=== PATIENT | female | born 1960 | race Caucasian/White ===

== ENCOUNTER 2016-11-16 05:33 | Outpatient (CLI) | payer OTHER ==
[~2016-11-16] VITALS: Ht 170.2 cm; Wt 120.2 kg
[~2016-11-16 05:33] MED LIST: ACET500C11 PO; ALPR1TAB7 PO; CLOB15CR3 TP; DICY20TA33 PO; FLUO20CA25 PO; LORA10TA76 PO; MELA1TAB11 PO; PROP20TA5 PO; TRAM50TA2 PO
[2016-11-16] MEDS ORDERED: ALPR1TAB7 PO ×2 (15:10)
[2016-11-16] MEDS ORDERED: ACET-93 PO (15:10)
[2016-11-16] MEDS ORDERED: FLUO20TA28 PO (15:10)
[2016-11-16] MEDS ORDERED: TRAM50TA2 PO (15:10)
[2016-11-16] MEDS ORDERED: LACT1CAP74 PO (15:10)
[2016-11-16] MEDS ORDERED: CIPR-225 PO (15:10)
[2016-11-16] MEDS ORDERED: DICY20TA10 PO (15:10)
== END 2016-11-16 15:11 ==
LOC: PREOP 05:33
PROVIDERS: ATTEND Surgery
DX: Z01.818 Encounter for other preprocedural examination; Z86.010 Personal history of colon polyps

== ENCOUNTER 2016-11-21 08:45 | Day surgery (SDC) | payer OTHER ==
[~2016-11-21] VITALS: Ht 170.2 cm; Wt 120.2 kg
[~2016-11-21 08:45] MED LIST changes: +ACET-93 PO; +CIPR-225 PO; +DICY20TA10 PO; +FLUO20TA28 PO; +LACT1CAP74 PO
--- OUTSIDE RECORDS SUMMARY | 2016-11-21 08:49 | XMS REPORT ---
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 Problem Esophageal reflux 530.81 Active Problem Personal history of tobacco use, presenting hazards to health V15.82 Active Problem Anxiety state, unspecified 300.00 Active Problem Other seborrheic keratosis 702.19 Active Problem Plantar fascial fibromatosis 728.71 Active Problem Cellulitis and abscess of unspecified site 682.9 Active Problem Pain in soft tissues of limb 729.5 Active Problem Overweight 278.02 Active Problem Tension headache 307.81 Active Problem Chest pain, unspecified 786.50 Active Problem Abdominal pain, right lower quadrant 789.03 Active Problem Symptomatic menopausal or female climacteric states 627.2 Active Problem Palpitations 785.1 Active Problem Other dyspnea and respiratory abnormalities 786.09 Active Problem Family history of diabetes mellitus V18.0 Active Problem Unspecified otalgia 388.70 Active Problem Unspecified alopecia 704.00 Active Problem Other psoriasis 696.1 Active Medications Medication Code System Code Instructions Start Date End Date Status Dosage Alprazolam [facility] [address]-80 1 MG April 28, 2014 0.5 Tablet by Oral route 2 times per day 1/2 tab daily prn and 1mg at bedtime for sleep every nite Results No Known Results Summary Purpose eClinicalWorks Submission
--- OUTSIDE RECORDS SUMMARY | 2016-11-21 08:49 | XMS REPORT ---
Author Author JEZ TOMLINSON Organization [employer] Address Unknown Phone Unavailable Care Team Providers Care Franchise Business Consultant Name Role Phone JEZ TOMLINSON CP Unavailable [...] Instructions Start Date End Date Status Dosage Fluoxetine HCl [facility]NOTE 2] [address]-47 20 MG TAKE 3 CAPSULES BY MOUTH DAILY Results No Known Results Summary Purpose eClinicalWorks Submission
--- OUTSIDE RECORDS SUMMARY | 2016-11-21 08:49 | XMS REPORT ---
Author Author JEZ TOMLINSON Organization [employer] Address Unknown Phone Unavailable Care Team Providers Care Linux Consultant Name Role Phone JEZ TOMLINSON CP Unavailable Allergies No Known Allergies Problems Problem Type Condition Code Onset Dates Condition Status Assessment Anxiety disorder, unspecified F41.9 Active Problem Anxiety state, unspecified 300.00 Active Problem Esophageal reflux 530.81 Active Problem Cellulitis and abscess of unspecified site 682.9 Active Problem Abdominal pain, right lower quadrant 789.03 Active Problem Plantar fascial fibromatosis 728.71 Active Problem Symptomatic menopausal or female climacteric states 627.2 Active Problem Overweight 278.02 Active Problem Personal history of tobacco use, presenting hazards to health V15.82 Active Problem Pain in soft tissues of limb 729.5 Active Problem Hypertension I10 Active Problem Dysthymia F34.1 Active Problem Family history of diabetes mellitus V18.0 Active Problem Chest pain, unspecified 786.50 Active Problem Anxiety disorder, unspecified F41.9 Active Problem Tension headache 307.81 Active Problem Other seborrheic keratosis 702.19 Active Problem 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 Problem Knee pain M25.569 Active Problem Eustachian tube dysfunction H69.80 Active Problem Other dyspnea and respiratory abnormalities 786.09 Active Problem Unspecified otalgia 388.70 Active Problem Unspecified alopecia 704.00 Active Problem Palpitations 785.1 Active Problem Special screening examination, human papillomavirus [HPV] V73.81 Active Problem Screening for malignant neoplasm of the cervix V76.2 Active Problem Other psoriasis 696.1 Active Problem Unspecified breast screening V76.10 Active Medications Medication Code System Code Instructions Start Date End Date Status Dosage Alprazolam [facility] [address]-21 1 MG Orally Twice a day, and 1 tablet at bedtime April 28, 2014 0.5 Tablet as needed Results No Known Results Summary Purpose eClinicalWorks Submission
--- OUTSIDE RECORDS SUMMARY | 2016-11-21 08:49 | XMS REPORT ---
Author Author JEZ TOMLINSON Organization [employer] Address Unknown Phone Unavailable Care Team Providers Care Bus Washer Name Role Phone JEZ TOMLINSON CP Unavailable [...] Start Date End Date Status Dosage Alprazolam [facility] [address]-35 1 MG Orally Twice a day, and 1 tablet at bedtime April 28, 2014 0.5 Tablet as needed Results No Known Results Summary Purpose eClinicalWorks Submission
--- OUTSIDE RECORDS SUMMARY | 2016-11-21 08:49 | XMS REPORT ---
Author Author JEZ TOMLINSON Organization [employer] Address Unknown Phone Unavailable Care Team Providers Care Director Of [employer] Name Role Phone JEZ TOMLINSON CP Unavailable [...] Active Problem Other psoriasis 696.1 Active Medications No Known Medications Results No Known Results Summary Purpose eClinicalWorks Submission
--- OUTSIDE RECORDS SUMMARY | 2016-11-21 08:49 | XMS REPORT ---
Author Author JEZ TOMLINSON Organization e[employer]Works Address Unknown Phone Unavailable Care Team Providers Care Forestry Professor Name Role Phone JEZ TOMLINSON CP Unavailable Allergies No Known Allergies Problems Problem Type Condition ICD-9 Code Onset Dates Condition Status Problem Unspecified [...] Start Date End Date Status Dosage Alprazolam [facility] [address]-15 1 MG April 28, 2014 0.5 Tablet by Oral route 2 times per day 1/2 tab daily prn and 1mg at bedtime for sleep every nite Results No Known Results Summary Purpose eClinicalWorks Submission
--- OUTSIDE RECORDS SUMMARY | 2016-11-21 08:49 | XMS REPORT ---
Author Author TOÑA MARINA Organization [facility] Address [address] [place] [address] Care Team Providers Care Integration Consultant Name Role Phone CATHY DINGE Unavailable PROBLEMS Type Condition ICD9-CM Code [id number] Code Onset Dates Condition Status SNOMED Code Problem Pharyngitis, unspecified etiology J02.9 Active 416178618 Problem Anxiety disorder, unspecified F41.9 Active 520141201 Problem Eustachian tube dysfunction H69.80 Active 82816306 Problem Knee pain M25.569 Active 57499511 Problem Hypertension I10 Active 05424329 Problem Dysthymia F34.1 Active 27443235 ALLERGIES Substance Reaction Event Type Date Status N.K.D.A. Unknown Non Drug Allergy Mar, Unknown SOCIAL HISTORY No smoking Hx information available PLAN OF CARE Activity Details Follow Up 2 - 3 Days, prn Reason: VITAL SIGNS Height 67 in 2016-03-30 Weight 263.8 lbs 2016-03-30 Temperature 98.2 degrees Fahrenheit 2016-03-30 Heart Rate 84 bpm 2016-03-30 Respiratory Rate 20 2016-03-30 BMI 41.31 kg/m2 2016-03-30 Blood pressure systolic 125 mmHg 2016-03-30 Blood pressure diastolic 81 mmHg 2016-03-30 MEDICATIONS Medication Instructions Dosage Frequency Start Date End Date Duration Status Probiotic Active tramadol 50 mg by oral route 3 times a day 1 tablet as needed 8h May, 28 days Active ProAir HFA 108 (90 Base) MCG/ACT Inhalation every 4 hrs 2 puffs as needed 4h Sep, Active Fiber Active Azithromycin 250 MG Orally Once a day 2 tablets on the first day, then 1 tablet daily for 4 days 24h Mar, Mar, 5 day(s) Active Alprazolam 1 MG Orally Twice a day, and 1 tablet at bedtime 0.5 Tablet as needed Apr, 28 days Active Fluoxetine HCl 20 MG TAKE 3 CAPSULES BY MOUTH ONCE DAILY 30 Active Flonase Allergy Relief 50 MCG/ACT Nasally 2 times a day 1 spray in each nostril 12h 25 Mar, 2015 Active Propranolol HCl 20 MG 1 tablet Twice a day Orally 90 Active Bentyl 20 mg Orally 4 times a day before meals and bedtime 1 tablet Sep, Active RESULTS No Results PROCEDURES Procedure Date Ordered Related Diagnosis Body Site Office Visit, Est Pt., Level 3 Mar 30, 2016 IMMUNIZATIONS No Known Immunizations
--- OUTSIDE RECORDS SUMMARY | 2016-11-21 08:50 | XMS REPORT ---
Author Author JEZ TOMLINSON [facility] Address [address] [place] [address] Care Team Providers Care Track Subway Repair Supervisor Name Role Phone JEZ TOMLINSON Unavailable PROBLEMS Type Condition ICD9-CM Code OKZ74-PH Code Onset Dates Condition Status SNOMED Code Problem Pharyngitis, unspecified etiology J02.9 Active 089706915 Problem Anxiety disorder, unspecified F41.9 Active 518211272 Problem Eustachian tube dysfunction H69.80 Active 33436550 Problem Knee pain M25.569 Active 85040133 Problem Hypertension I10 Active 30286495 Problem Dysthymia F34.1 Active 34849521 ALLERGIES No Information SOCIAL HISTORY Never Assessed PLAN OF CARE VITAL SIGNS MEDICATIONS Medication Instructions Dosage Frequency Start Date End Date Duration Status Alprazolam 1 MG Orally Twice a day, and 1 tablet at bedtime 0.5 Tablet as needed Apr, 28 days Active RESULTS No Results PROCEDURES No Known procedures IMMUNIZATIONS No Known Immunizations MEDICAL (GENERAL) HISTORY Type Description Date Medical History depression Medical History hx of anxiety Medical History mitral valve prolapse Surgical History tonsillectomy and adenoidectomy Surgical History partial hysterectomy Surgical History jaw surgery 1974 Surgical History colonoscopy 10/26/15 Hospitalization History for surgery
--- OUTSIDE RECORDS SUMMARY | 2016-11-21 08:50 | XMS REPORT ---
Author Author JEZ TOMLINSON Organization eClinicalWorks Address Unknown Phone Unavailable Care Team Providers Care Import Customs Clearing Agent Name Role Phone JEZ TOMLINSON CP Unavailable Allergies No Known Allergies Problems Problem Type Condition Code Onset Dates Condition Status Problem Anxiety state, unspecified 300.00 Active Problem Screening for malignant neoplasm of the cervix V76.2 Active Problem Esophageal reflux 530.81 Active Problem Cellulitis and abscess of unspecified site 682.9 Active Problem Abdominal pain, right lower quadrant 789.03 Active Problem Plantar fascial fibromatosis 728.71 Active Problem Pain in soft tissues of limb 729.5 Active Problem Overweight 278.02 Active Problem Dysthymia F34.1 Active Problem Knee pain M25.569 Active Problem Chest pain, unspecified 786.50 Active Problem Tension headache 307.81 Active Problem Hypertension I10 Active Problem Symptomatic menopausal or female climacteric states 627.2 Active Problem 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 Problem Personal history of tobacco use, presenting hazards to health V15.82 Active Problem Eustachian tube dysfunction H69.80 Active Problem Other seborrheic keratosis 702.19 Active Problem Palpitations 785.1 Active Problem Other dyspnea and respiratory abnormalities 786.09 Active Problem Family history of diabetes mellitus V18.0 Active Problem Unspecified alopecia 704.00 Active Problem Unspecified breast screening V76.10 Active Problem Special screening examination, human papillomavirus [HPV] V73.81 Active Problem Unspecified otalgia 388.70 Active Problem Other psoriasis 696.1 Active Medications No Known Medications Results No Known Results Summary Purpose eClinicalWorks Submission
--- OUTSIDE RECORDS SUMMARY | 2016-11-21 08:50 | XMS REPORT ---
Author Author JEZ TOMLINSON Organization e[employer] Address Unknown Phone Unavailable Care Team Providers Care Reproductive Healthcare Assistant Name Role Phone JEZ TOMLINSON CP Unavailable [...] Problem Unspecified breast screening V76.10 Active Medications No Known Medications Results No Known Results Summary Purpose eClinicalWorks Submission
--- OUTSIDE RECORDS SUMMARY | 2016-11-21 08:50 | XMS REPORT ---
Author Author JEZ TOLMINSON Organization e[employer]Works Address Unknown Phone Unavailable Care Team Providers Care County Treasurer Name Role Phone JEZ TOMLINSON CP Unavailable [...] Date End Date Status Dosage Fluoxetine HCl [facility] [address]-03 20 MG TAKE 3 CAPSULES BY MOUTH DAILY Results No Known Results Summary Purpose eClinicalWorks Submission
--- OUTSIDE RECORDS SUMMARY | 2016-11-21 08:50 | XMS REPORT ---
Author Author JEZ TOMLINSON [facility] eClinicalWorks Address Unknown Phone Unavailable Care Team Providers Care Packing Line Worker Name Role Phone JEZ TOMLINSON CP Unavailable Allergies, Adverse Reactions, Alerts Substance Reaction Event Type N.K.D.A. Info Not Available Non Drug Allergy Problems Problem Type Condition Code Onset Dates Condition Status Assessment Visual changes H53.9 Active Assessment Family history of diabetes mellitus Z83.3 Active Assessment Hypertension I10 Active Assessment Irritable bowel syndrome with diarrhea K58.0 Active Problem Anxiety state, unspecified 300.00 Active [...] Instructions Start Date End Date Status Dosage Bentyl [facility] [address]-07 20 mg Orally 4 times a day before meals and bedtime Sep 30, 2015 1 tablet Fluoxetine HCl [facility] 60051253263 20 MG TAKE 3 CAPSULES BY MOUTH DAILY Fiber NDC 0 not defined ProAir HFA [facility] [address]-70 108 (90 Base) MCG/ACT Inhalation every 4 hrs Oct 03, 2014 2 puffs as needed Flonase Allergy Relief [facility] [address]-41 50 MCG/ACT Nasally 2 times a day Apr 22, 2015 1 spray in each nostril tramadol [facility] 0 50 mg by oral route 3 times a day June 18, 2013 1 tablet as needed Alprazolam [facility] [address]-94 1 MG Orally Twice a day, and 1 tablet at bedtime April 28, 2014 0.5 Tablet as needed Probiotic [facility] [address] not defined Propranolol HCl [facility] [address]-81 20 MG Orally Twice a day Apr 22, 2015 1 tablet Procedures Procedure Coding System Code Date Office Visit, Est Pt., Level 3 CPT-4 50758 Nov 16, 2015 LIPID PANEL CPT-4 57054 Nov 16, 2015 GLYCATED HEMOGLOBIN TEST CPT-4 60287 Nov 16, 2015 VENIPUNCT, ROUTINE* CPT-4 40162 Nov 16, 2015 COMPREHEN METABOLIC PANEL CPT-4 10584 Nov 16, 2015 Vital Signs Date/Time: Nov 16, 2015 Cardiac Monitoring Heart Rate 72 bpm Weight 260.2 lbs Height 67 in BMI 40.75 Index Blood Pressure Diastolic 86 mmHg Blood Pressure Systolic 122 mmHg Results Name Result Date Reference Range Unit Abnormality Flag CMP ----Calcium, Serum 9.1 20151116 8.7-10.2 mg/dL ----Carbon Dioxide, Total 25 20151116 18-29 mmol/L ----ALT (SGPT) 17 20151116 0-32 IU/L ----Creatinine, Serum 0.61 20151116 0.57-1.00 mg/dL ----AST (SGOT) 15 20151116 0-40 IU/L ----eGFR If NonAfricn Am 102 [id number] >59 mL/min/1.73 ----Alkaline Phosphatase, S 83 [id number] 39-117 IU/L ----eGFR If Africn Am 118 [id number] >59 mL/min/1.73 ----Bilirubin, Total 0.9 [id number] 0.0-1.2 mg/dL ----BUN/Creatinine Ratio 15 20151116 9-23 ----A/G Ratio 1.7 20151116 1.1-2.5 ----Sodium, Serum 140 20151116 134-144 mmol/L ----Globulin, Total 2.6 20151116 1.5-4.5 g/dL ----Potassium, Serum 4.2 20151116 3.5-5.2 mmol/L ----Glucose, Serum 91 20151116 65-99 mg/dL ----Chloride, Serum 98 20151116 97-108 mmol/L ----Albumin, Serum 4.4 20151116 3.5-5.5 g/dL ----BUN 9 20151116 6-24 mg/dL ----Protein, Total, Serum 7.0 20151116 6.0-8.5 g/dL No Test Indicated A1C (IN HOUSE) ----A1C IN HOUSE 4.9 20151116 4.3 - 5.6 % ----Previous A1c N/A 20151116 ----Lot [id number] ----Exp date 09/25/201720151116 ROUTINE VENIPUNCTURE LIPID PANEL ----LDL Cholesterol Calc 101 20151116 0-99 mg/dL H ----VLDL Cholesterol Denis 19 20151116 5-40 mg/dL ----HDL Cholesterol 63 20151116 >39 mg/dL ----Triglycerides 94 20151116 0-149 mg/dL ----Cholesterol, Total 183 [id number] 100-199 mg/dL Summary Purpose eClinicalWorks Submission
--- OUTSIDE RECORDS SUMMARY | 2016-11-21 08:50 | XMS REPORT ---
Author Author JEZ TOMLINSON Organization [employer]Works Address Unknown Phone Unavailable Care Team Providers Care Apartment Rental Agent Name Role Phone JEZ TOMLINSON CP [...]
--- OUTSIDE RECORDS SUMMARY | 2016-11-21 08:50 | XMS REPORT ---
Author Author JEZ TOMLINSON Organization e[employer]Works Address Unknown Phone Unavailable Care Team Providers Care Dry Mop Maker Name Role Phone JEZ TOMLINSON CP Unavailable [...]
--- OUTSIDE RECORDS SUMMARY | 2016-11-21 08:50 | XMS REPORT ---
Author Author JEZ TOMLINSON [facility] Address [address] [place] [address] Care Team Providers Care Wash And Greaser Name Role Phone JEZ TOMLINSON Unavailable PROBLEMS Type Condition ICD9-CM Code [id number] Code Onset Dates Condition Status SNOMED Code Problem Anxiety state, unspecified 300.00 Active 276213808 Problem Esophageal reflux 530.81 Active 181671948 Problem Abdominal pain, right lower quadrant 789.03 Active 944940800 Problem Plantar fascial fibromatosis 728.71 Active 71084093 Problem Symptomatic menopausal or female climacteric states 627.2 Active 81715828 Problem Overweight 278.02 Active 280582010 Problem Tension headache 307.81 Active 162953197 Problem Pain in soft tissues of limb 729.5 Active 52313849 Problem 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 15905842 Problem Personal history of tobacco use, presenting hazards to health V15.82 Active 6107752098769 Problem Anxiety disorder, unspecified F41.9 Active 494700597 Problem Hypertension I10 Active 92159412 Problem Unspecified alopecia 704.00 Active 83018724 Problem Family history of diabetes mellitus V18.0 Active 259582469 Problem Chest pain, unspecified 786.50 Active 31179499 Problem Eustachian tube dysfunction H69.80 Active 10178559 Problem Other seborrheic keratosis 702.19 Active 247003520 Problem Dysthymia F34.1 Active 12118751 Problem Knee pain M25.569 Active 54541052 Problem Unspecified otalgia 388.70 Active 70265087 Problem Other psoriasis 696.1 Active 8516890 Problem Palpitations 785.1 Active 78506403 Problem Other dyspnea and respiratory abnormalities 786.09 Active 746395839 Problem Screening for malignant neoplasm of the cervix V76.2 Active 884686774 Problem Cellulitis and abscess of unspecified site 682.9 Active 531617427 Problem Unspecified breast screening V76.10 Active 164550256 Problem Special screening examination, human papillomavirus [HPV] V73.81 Active 192733723 ALLERGIES Unknown Allergies SOCIAL HISTORY No smoking Hx information available PLAN OF CARE VITAL SIGNS MEDICATIONS Medication Instructions Dosage Frequency Start Date End Date Duration Status Alprazolam 1 MG Orally Twice a day, and 1 tablet at bedtime 0.5 Tablet as needed Apr, Active RESULTS No Results PROCEDURES No Known procedures IMMUNIZATIONS No Known Immunizations
--- OUTSIDE RECORDS SUMMARY | 2016-11-21 08:50 | XMS REPORT ---
Author Author JEZ TOMLINSON Organization eClinicalWorks Address Unknown Phone Unavailable Care Team Providers Care Roadway Designer Name Role Phone JEZ TOMLINSON CP Unavailable [...] Start Date End Date Status Dosage Alprazolam [facility] [address]-20 1 MG Orally Twice a day, and 1 tablet at bedtime April 28, 2014 0.5 Tablet as needed Results No Known Results Summary Purpose eClinicalWorks Submission
--- OUTSIDE RECORDS SUMMARY | 2016-11-21 08:51 | XMS REPORT ---
Author Author JULIO HARRY [facility] eClinicalWorks Address Unknown Phone Unavailable Care Team Providers Care Palliative Senior Np Name Role Phone JULIO HARRY CP Unavailable Allergies, Adverse Reactions, Alerts Substance [...] Active Problem Anxiety state, unspecified 300.00 Active Assessment Allergic rhinitis 477.9 Active Problem Other seborrheic keratosis 702.19 Active [...] V18.0 Active Problem Unspecified otalgia 388.70 Active Assessment Chronic serous otitis media of both ears 381.10 Active Problem Unspecified alopecia 704.00 Active Problem Other psoriasis 696.1 Active Medications Medication Code System Code Instructions Start Date End Date Status Dosage ProAir HFA [facility] [address]-95 108 (90 Base) MCG/ACT Inhalation every 4 hrs Oct 03, 2014 2 puffs as needed Prozac [facility] 92146851084 20 MG 3 capsule by Oral route 1 time per day propranolol NDC 0 20 mg Dec 18, 2013 1 tablet by Oral route 2 times per day tramadol NDC 0 50 mg June 18, 2013 take 1 tablet by Oral route every 8 hours as needed PRN pain Alprazolam [facility] [address]-10 1 MG April 28, 2014 0.5 Tablet by Oral route 2 times per day 1/2 tab daily prn and 1mg at bedtime for sleep every nite Procedures Procedure Coding System Code Date Office Visit, Est Pt., Level 3 CPT-4 80408 Nov 10, 2014 Vital Signs Date/Time: Nov 10, 2014 Temperature 98.4 F Weight 258 lbs Height 67 in BMI 40.40 Index Blood Pressure Diastolic 82 mmHg Blood Pressure Systolic 120 mmHg Cardiac Monitoring Heart Rate 86 bpm Results No Known Results Summary Purpose eClinicalWorks Submission
--- OUTSIDE RECORDS SUMMARY | 2016-11-21 08:51 | XMS REPORT ---
Author Author JEZ TOMLINSON Organization eClinicalWorks Address Unknown Phone Unavailable Care Team Providers Care Poultryman Name Role Phone JEZ TOMLINSON CP Unavailable [...] Date End Date Status Dosage Alprazolam [facility] [address]-11 1 MG April 28, 2014 0.5 Tablet by Oral route 2 times per day 1/2 tab daily prn and 1mg at bedtime for sleep every nite Results No Known Results Summary Purpose eClinicalWorks Submission
--- OUTSIDE RECORDS SUMMARY | 2016-11-21 08:51 | XMS REPORT ---
Author Author JEZ TOMLINSON Organization [employer] Address Unknown Phone Unavailable Care Team Providers Care Rattle Leak And Squeak Repairer Name Role Phone JEZ TOMLINSON CP Unavailable [...] Start Date End Date Status Dosage Alprazolam [facility] [address]-37 1 MG April 28, 2014 0.5 Tablet by Oral route 2 times per day 1/2 tab daily prn and 1mg at bedtime for sleep every nite Results No Known Results Summary Purpose eClinicalWorks Submission
--- OUTSIDE RECORDS SUMMARY | 2016-11-21 08:51 | XMS REPORT ---
Author Author JEZ TOMLINSON [facility] eClinicalWorks Address Unknown Phone Unavailable Care Team Providers Care High School Mathematics Teacher Name Role Phone JEZ TOMLINSON CP Unavailable Allergies No Known Allergies Problems Problem Type Condition Code Onset Dates Condition Status Assessment Knee pain M25.569 Active Problem Anxiety state, unspecified 300.00 Active [...] Date End Date Status Dosage Alprazolam [facility] [address]-58 1 MG Orally Twice a day, and 1 tablet at bedtime April 28, 2014 0.5 Tablet as needed Fluoxetine HCl [facility] 17725313241 20 MG TAKE 3 CAPSULES BY MOUTH DAILY ProAir HFA [facility] [address]-02 108 (90 Base) MCG/ACT Inhalation every 4 hrs Oct 03, 2014 2 puffs as needed tramadol [place] 0 50 mg by oral route 3 times a day June 18, 2013 1 tablet as needed Flonase Allergy Relief [facility] [address]-21 50 MCG/ACT Nasally 2 times a day Apr 22, 2015 1 spray in each nostril Propranolol HCl [facility] [address]-02 20 MG Orally Twice a day Apr 22, 2015 1 tablet Results No Known Results Summary Purpose eClinicalWorks Submission
--- OUTSIDE RECORDS SUMMARY | 2016-11-21 08:51 | XMS REPORT ---
Author Author JEZ TOMLINSON [facility] Address [address] [place] [address] Care Team Providers Care Cloth Opener Hand Name Role Phone JEZ TOMLINSON Unavailable PROBLEMS Type Condition ICD9-CM Code CPS16-RX Code Onset Dates Condition Status SNOMED Code Problem Pharyngitis, unspecified etiology J02.9 Active 656642084 Problem Anxiety disorder, unspecified F41.9 Active 075555570 Problem Eustachian tube dysfunction H69.80 Active 49726166 Problem Knee pain M25.569 Active 61198196 Problem Hypertension I10 Active 51582723 Problem Dysthymia F34.1 Active 16533798 ALLERGIES Unknown Allergies SOCIAL HISTORY No smoking [...]
--- OUTSIDE RECORDS SUMMARY | 2016-11-21 08:52 | XMS REPORT | Continuity of Care Document ---
Author Author [facility] Organization [facility] Address Unknown Phone Unavailable Allergies Active Description Code Type Severity Reaction Onset Reported/Identified Relationship to Patient Clinical Status Yes No Known Drug Allergies [id number] Drug Allergy Unknown N/ A 12/25/2013 Medications Problems Date Dx Coded Attending Type Code Diagnosis Diagnosed By 11/22/2007 JEZ TOMLINSON APRN 401.1 HYPERTENSION, BENIGN ESSENTIAL 11/22/2007 JEZ TOMLINSON APRN S V58.69 MEDICATION HIGH RISK 11/22/2007 401.1 HYPERTENSION, BENIGN ESSENTIAL 11/22/2007 V58.69 MEDICATION HIGH RISK 11/22/2007 UMER TOMLINSON APRNA S 401.1 HYPERTENSION, BENIGN ESSENTIAL 11/22/2007 UMER TOMLINSON APRNA S V58.69 MEDICATION HIGH RISK 11/22/2007 401.1 HYPERTENSION, BENIGN ESSENTIAL 11/22/2007 V58.69 MEDICATION HIGH RISK 11/22/2007 401.1 HYPERTENSION, BENIGN ESSENTIAL 11/22/2007 V58.69 MEDICATION HIGH RISK 11/22/2007 MONTALVO DO LEIGH ANN K 401.1 HYPERTENSION, BENIGN ESSENTIAL 11/22/2007 MONTALVO DO LEIGH ANN K V58.69 MEDICATION HIGH RISK 11/22/2007 MONTALVO DO LEIGH ANN K 401.1 HYPERTENSION, BENIGN ESSENTIAL 11/22/2007 MONTALVO DO LEIGH ANN K V58.69 MEDICATION HIGH RISK 11/22/2007 UMER TOMLINSON APRNA S 401.1 HYPERTENSION, BENIGN ESSENTIAL 11/22/2007 UMER TOMLINSON APRNA S V58.69 MEDICATION HIGH RISK 11/22/2007 YANNA GALLARDO MD 401.1 HYPERTENSION, BENIGN ESSENTIAL 11/22/2007 YANNA GALLARDO MD V58.69 MEDICATION HIGH RISK 11/22/2007 MONTALVO DO LEIGH ANN K 401.1 HYPERTENSION, BENIGN ESSENTIAL 11/22/2007 MONTALVO DO LEIGH ANN K V58.69 MEDICATION HIGH RISK 11/22/2007 UMER TOMLINSON APRNA S 401.1 HYPERTENSION, BENIGN ESSENTIAL 11/22/2007 BUSHRASOMMER DIAZLiz JEZ S V58.69 MEDICATION HIGH RISK 05/20/2008 BUSHRASOMMER DIAZCASI HillNDA S 528.9 DISEASES OF THE ORAL SOFT TISSUES ( EXCEPT GINGIVA, TONGUE) 05/20/2008 BUSHRA CASI ORTIZNDA S 625.6 FEMALE STRESS INCONTINENCE 05/20/2008 BUSHRA CASI ORTIZNDA S 787.91 diarrhea 05/20/2008 BUSHRASOMMER DIAZLiz JEZ S V72.3 GYNECOLOGICAL EXAMINATION 05/20/2008 528.9 DISEASES OF THE ORAL SOFT TISSUES (EXCEPT GINGIVA, TONGUE) 05/20/2008 625.6 FEMALE STRESS INCONTINENCE 05/20/2008 787.91 diarrhea 05/20/2008 V72.3 GYNECOLOGICAL EXAMINATION 05/20/2008 BUSHRA CASI ORTIZNDA S 528.9 DISEASES OF THE ORAL SOFT TISSUES ( EXCEPT GINGIVA, TONGUE) 05/20/2008 UMER TOMLINSON APRNA S 625.6 FEMALE STRESS INCONTINENCE 05/20/2008 BUSHRA INTERNAL RECRUITERCASI HillNDA S 787.91 diarrhea 05/20/2008 BUSHRASOMMER DIAZLiz JEZ S V72.3 GYNECOLOGICAL EXAMINATION 05/20/2008 528.9 DISEASES OF THE ORAL SOFT TISSUES (EXCEPT GINGIVA, TONGUE) 05/20/2008 625.6 FEMALE STRESS INCONTINENCE 05/20/2008 787.91 diarrhea 05/20/2008 V72.3 GYNECOLOGICAL EXAMINATION 05/20/2008 528.9 DISEASES OF THE ORAL SOFT TISSUES (EXCEPT GINGIVA, TONGUE) 05/20/2008 625.6 FEMALE STRESS INCONTINENCE 05/20/2008 787.91 DIARRHEA 05/20/2008 V72.3 GYNECOLOGICAL EXAMINATION 05/20/2008 MONTALVO DO, LEIGH ANN K 528.9 DISEASES OF THE ORAL SOFT TISSUES (EXCEPT GINGIVA, TONGUE) 05/20/2008 MONTALVO DO, LEIGH ANN K 625.6 FEMALE STRESS INCONTINENCE 05/20/2008 MONTALVO DO, LEIGH ANN K 787.91 DIARRHEA 05/20/2008 MONTALVO DO, LEIGH ANN K V72.3 GYNECOLOGICAL EXAMINATION 05/20/2008 MONTALVO DO, LEIGH ANN K 528.9 DISEASES OF THE ORAL SOFT TISSUES (EXCEPT GINGIVA, TONGUE) 05/20/2008 MONTALVO DO, LEIGH ANN K 625.6 FEMALE STRESS INCONTINENCE 05/20/2008 MONTALVO DO, LEIGH ANN K 787.91 DIARRHEA 05/20/2008 MONTALVO DO, LEIGH ANN K V72.3 GYNECOLOGICAL EXAMINATION 05/20/2008 CASI TOMLINSON APRNNDA S 528.9 DISEASES OF THE ORAL SOFT TISSUES ( EXCEPT GINGIVA, TONGUE) 05/20/2008 BUSHRA ORTIZ JEZ S 625.6 FEMALE STRESS INCONTINENCE 05/20/2008 BUSHRA ORTIZ JEZ S 787.91 DIARRHEA 05/20/2008 BUSHRA ORTIZ JEZ S V72.3 GYNECOLOGICAL EXAMINATION 05/20/2008 SAMI WOLFE, ALI 528.9 DISEASES OF THE ORAL SOFT TISSUES (EXCEPT GINGIVA, TONGUE) 05/20/2008 YANNA GALLARDO MD 625.6 FEMALE STRESS INCONTINENCE 05/20/2008 SAMI WOLFE ALI 787.91 DIARRHEA 05/20/2008 SAMI WOLFE ALI V72.3 GYNECOLOGICAL EXAMINATION 05/20/2008 MONTALVO DO, LEIGH ANN K 528.9 DISEASES OF THE ORAL SOFT TISSUES (EXCEPT GINGIVA, TONGUE) 05/20/2008 MONTALVO DO LEIGH ANN K 625.6 FEMALE STRESS INCONTINENCE 05/20/2008 MONTALVO DO, LEIGH ANN K 787.91 DIARRHEA 05/20/2008 MONTALVO DO, LEIGH ANN K V72.3 GYNECOLOGICAL EXAMINATION 05/20/2008 CASI TOMLINSON APRNNDA S 528.9 DISEASES OF THE ORAL SOFT TISSUES ( EXCEPT GINGIVA, TONGUE) 05/20/2008 CASI TOMLINSON APRNNDA S 625.6 FEMALE STRESS INCONTINENCE 05/20/2008 CASI TOMLINSON APRNNDA S 787.91 DIARRHEA 05/20/2008 BUSHRA ORTIZ JEZ S V72.3 GYNECOLOGICAL EXAMINATION 06/10/2008 CASI TOMLINSON APRNNDA S 388.30 TINNITUS UNSPECIFIED 06/10/2008 388.30 TINNITUS UNSPECIFIED 06/10/2008 BUSHRA ORTIZ JEZ S 388.30 TINNITUS UNSPECIFIED 06/10/2008 388.30 TINNITUS UNSPECIFIED 06/10/2008 388.30 TINNITUS UNSPECIFIED 06/10/2008 MONTALVO DO LEIGH ANN K 388.30 TINNITUS UNSPECIFIED 06/10/2008 MONTALVO DO LEIGH ANN K 388.30 TINNITUS UNSPECIFIED 06/10/2008 CASI TOMLINSON APRNNDA S 388.30 TINNITUS UNSPECIFIED 06/10/2008 SAMI WOLFE, YANNA 388.30 TINNITUS UNSPECIFIED 06/10/2008 MONTALVO DO, LEIGH ANN K 388.30 TINNITUS UNSPECIFIED 06/10/2008 CASI TOMLINSON APRNNDA S 388.30 TINNITUS UNSPECIFIED 02/08/2009 CASI TOMLINSON APRNNDA S 706.2 SEBACEOUS CYST 02/08/2009 CASI TOMLNISON APRNNDA S 729.5 PAIN IN LIMB 02/08/2009 706.2 SEBACEOUS CYST 02/08/2009 729.5 PAIN IN LIMB 02/08/2009 CASI TOMLINSON APRNNDA S 706.2 SEBACEOUS CYST 02/08/2009 CASI TOMLINSON APRNNDA S 729.5 PAIN IN LIMB 02/08/2009 706.2 SEBACEOUS CYST 02/08/2009 729.5 PAIN IN LIMB 02/08/2009 706.2 SEBACEOUS CYST 02/08/2009 729.5 PAIN IN LIMB 02/08/2009 MONTALVO DO, LEIGH ANN K 706.2 SEBACEOUS CYST 02/08/2009 MONTALVO DO, LEIGH ANN K 729.5 PAIN IN LIMB 02/08/2009 MONTALVO DO, LEIGH ANN K 706.2 SEBACEOUS CYST 02/08/2009 MONTALVO DO, LEIGH ANN K 729.5 PAIN IN LIMB 02/08/2009 CASI TOMLINSON APRNNDA S 706.2 SEBACEOUS CYST 02/08/2009 CASI TOMLINSON APRNNDA S 729.5 PAIN IN LIMB 02/08/2009 YANNA GALLARDO MD 706.2 SEBACEOUS CYST 02/08/2009 YANNA GALLARDO MD 729.5 PAIN IN LIMB 02/08/2009 MONTALVO DO, LEIGH ANN K 706.2 SEBACEOUS CYST 02/08/2009 MONTALVO DO, LEIGH ANN K 729.5 PAIN IN LIMB 02/08/2009 CASI TOMLINSON APRNNDA S 706.2 SEBACEOUS CYST 02/08/2009 CASI TOMLINSON APRNNDA S 729.5 PAIN IN LIMB 09/08/2009 CASI TOMLINSON APRNNDA S 333.94 RESTLESS LEGS SYNDROME (RLS) 09/08/2009 333.94 RESTLESS LEGS SYNDROME (RLS) 09/08/2009 JEZ TOMLINSON APRN S 333.94 RESTLESS LEGS SYNDROME (RLS) 09/08/2009 333.94 RESTLESS LEGS SYNDROME (RLS) 09/08/2009 333.94 RESTLESS LEGS SYNDROME (RLS) 09/08/2009 LEIGH ANN MONTALVO DO K 333.94 RESTLESS LEGS SYNDROME (RLS) 09/08/2009 LEIGH ANN MONTALVO DO K 333.94 RESTLESS LEGS SYNDROME (RLS) 09/08/2009 JEZ TOMLINSON APRN S 333.94 RESTLESS LEGS SYNDROME (RLS) 09/08/2009 YANNA GALLARDO MD 333.94 RESTLESS LEGS SYNDROME (RLS) 09/08/2009 LEIGH ANN MONTALVO DO K 333.94 RESTLESS LEGS SYNDROME (RLS) 09/08/2009 JEZ TOMLINSON APRN S 333.94 RESTLESS LEGS SYNDROME (RLS) 10/30/2009 JEZ TOMLINSON APRN S 681.10 CELLULITIS AND ABSCESS OF TOE, UNSPECIFIED 10/30/2009 681.10 CELLULITIS AND ABSCESS OF TOE, UNSPECIFIED 10/30/2009 JEZ TOMLINSON APRN S 681.10 CELLULITIS AND ABSCESS OF TOE, UNSPECIFIED 10/30/2009 681.10 CELLULITIS AND ABSCESS OF TOE, UNSPECIFIED 10/30/2009 681.10 CELLULITIS AND ABSCESS OF TOE, UNSPECIFIED 10/30/2009 LEIGH ANN MONTALVO DO 681.10 CELLULITIS AND ABSCESS OF TOE, UNSPECIFIED 10/30/2009 LEIGH ANN MONTALVO DO K 681.10 CELLULITIS AND ABSCESS OF TOE, UNSPECIFIED 10/30/2009 JEZ TOMLINSON APRN S 681.10 CELLULITIS AND ABSCESS OF TOE, UNSPECIFIED 10/30/2009 YANNA GALLARDO MD 681.10 CELLULITIS AND ABSCESS OF TOE, UNSPECIFIED 10/30/2009 LEIGH ANN MONTALVO DO K 681.10 CELLULITIS AND ABSCESS OF TOE, UNSPECIFIED 10/30/2009 JEZ TOMLINSON APRN S 681.10 CELLULITIS AND ABSCESS OF TOE, UNSPECIFIED 07/05/2010 JEZ TOMLINSON APRN 461.9 SINUSITIS ACUTE 07/05/2010 JEZ TOMLINSON APRN 525.9 UNSPECIFIED DISORDER OF THE TEETH AND SUPPORTING STRUCTURES 07/05/2010 JEZ TOMLINSON APRN 787.02 NAUSEA ALONE 07/05/2010 461.9 SINUSITIS ACUTE 07/05/2010 525.9 UNSPECIFIED DISORDER OF THE TEETH AND SUPPORTING STRUCTURES 07/05/2010 787.02 NAUSEA ALONE 07/05/2010 JEZ TOMLINSON APRN S 461.9 SINUSITIS ACUTE 07/05/2010 JEZ TOMLINSON APRN S 525.9 UNSPECIFIED DISORDER OF THE TEETH AND SUPPORTING STRUCTURES 07/05/2010 JEZ TOMLINSON APRN S 787.02 NAUSEA ALONE 07/05/2010 461.9 SINUSITIS ACUTE 07/05/2010 525.9 UNSPECIFIED DISORDER OF THE TEETH AND SUPPORTING STRUCTURES 07/05/2010 787.02 NAUSEA ALONE 07/05/2010 461.9 SINUSITIS ACUTE 07/05/2010 525.9 UNSPECIFIED DISORDER OF THE TEETH AND SUPPORTING STRUCTURES 07/05/2010 787.02 NAUSEA ALONE 07/05/2010 FLORECITA MONTALVO DOA K 461.9 SINUSITIS ACUTE 07/05/2010 LEIGH ANN MONTALVO DO K 525.9 UNSPECIFIED DISORDER OF THE TEETH AND SUPPORTING STRUCTURES 07/05/2010 FLORECITA MONTALVO DOA K 787.02 NAUSEA ALONE 07/05/2010 FLORECITA MONTALVO DOA K 461.9 SINUSITIS ACUTE 07/05/2010 FLORECITA MONTALVO DOA K 525.9 UNSPECIFIED DISORDER OF THE TEETH AND SUPPORTING STRUCTURES 07/05/2010 FLORECITA MONTALVO DOA K 787.02 NAUSEA ALONE 07/05/2010 JEZ TOMLINSON APRN S 461.9 SINUSITIS ACUTE 07/05/2010 JEZ TOMLINSON APRN S 525.9 UNSPECIFIED DISORDER OF THE TEETH AND SUPPORTING STRUCTURES 07/05/2010 JEZ TOMLINSON APRN S 787.02 NAUSEA ALONE 07/05/2010 YANNA GALLARDO MD 461.9 SINUSITIS ACUTE 07/05/2010 YANNA GALLARDO MD 525.9 UNSPECIFIED DISORDER OF THE TEETH AND SUPPORTING STRUCTURES 07/05/2010 YANNA GALLARDO MD 787.02 NAUSEA ALONE 07/05/2010 KATIA JIMÉNEZ LEIGH ANN K 461.9 SINUSITIS ACUTE 07/05/2010 KATIA JIMÉNEZ LEIGH ANN K 525.9 UNSPECIFIED DISORDER OF THE TEETH AND SUPPORTING STRUCTURES 07/05/2010 FLORECITA MONTALVO DOA K 787.02 NAUSEA ALONE 07/05/2010 JEZ TOMLINSON APRN S 461.9 SINUSITIS ACUTE 07/05/2010 JEZ TOMLINSON APRN S 525.9 UNSPECIFIED DISORDER OF THE TEETH AND SUPPORTING STRUCTURES 07/05/2010 UMER TOMLINSON APRNA S 787.02 NAUSEA ALONE 08/09/2010 UMER TOMLINSON APRNA S 305.1 current smoker 08/09/2010 JEZ TOMLINSON APRN S 382.00 OTITIS MEDIA ACUTE SUPPURATIVE RIGHT EAR 08/09/2010 305.1 current smoker 08/09/2010 382.00 OTITIS MEDIA ACUTE SUPPURATIVE RIGHT EAR 08/09/2010 UMER TOMLINSON APRNA S 305.1 current smoker 08/09/2010 UMER TOMLINSON APRNA S 382.00 OTITIS MEDIA ACUTE SUPPURATIVE RIGHT EAR 08/09/2010 305.1 current smoker 08/09/2010 382.00 OTITIS MEDIA ACUTE SUPPURATIVE RIGHT EAR 08/09/2010 305.1 current smoker 08/09/2010 382.00 OTITIS MEDIA ACUTE SUPPURATIVE RIGHT EAR 08/09/2010 KATIA JIMÉNEZ LEIGH ANN K 305.1 current smoker 08/09/2010 MONTALVO DO, LEIGH ANN K 382.00 OTITIS MEDIA ACUTE SUPPURATIVE RIGHT EAR 08/09/2010 KATIA JIMÉNEZ LEIGH ANN K 305.1 current smoker 08/09/2010 KATIA JIMÉNEZ LEIGH ANN K 382.00 OTITIS MEDIA ACUTE SUPPURATIVE RIGHT EAR 08/09/2010 UMER TOMLINSON APRNA S 305.1 current smoker 08/09/2010 JEZ TOMLINSON APRN S 382.00 OTITIS MEDIA ACUTE SUPPURATIVE RIGHT EAR 08/09/2010 YANNA GALLARDO MD 305.1 current smoker 08/09/2010 YANNA GALLARDO MD 382.00 OTITIS MEDIA ACUTE SUPPURATIVE RIGHT EAR 08/09/2010 MONTALVO DO LEIGH ANN K 305.1 current smoker 08/09/2010 KATIA JIMÉNEZ LEIGH ANN K 382.00 OTITIS MEDIA ACUTE SUPPURATIVE RIGHT EAR 08/09/2010 UMER TOMLINSON APRNA S 305.1 current smoker 08/09/2010 UMER TOMLINSON APRNA S 382.00 OTITIS MEDIA ACUTE SUPPURATIVE RIGHT EAR 03/28/2011 JEZ TOMLINSON APRN S 300.00 anxiety 03/28/2011 UMER TOMLINSON APRNA S 530.81 ESOPHAGEAL REFLUX 03/28/2011 300.00 anxiety 03/28/2011 530.81 ESOPHAGEAL REFLUX 03/28/2011 CASI TOMLINSON APRNNDA S 300.00 anxiety 03/28/2011 CASI TOMLINSON APRNNDA S 530.81 ESOPHAGEAL REFLUX 03/28/2011 300.00 anxiety 03/28/2011 530.81 ESOPHAGEAL REFLUX 03/28/2011 300.00 anxiety 03/28/2011 530.81 ESOPHAGEAL REFLUX 03/28/2011 MONTALVO DO, LEIGH ANN K 300.00 anxiety 03/28/2011 MONTALVO DO, LEIGH ANN K 530.81 ESOPHAGEAL REFLUX 03/28/2011 MONTALVO DO, LEIGH ANN K 300.00 anxiety 03/28/2011 MONTALVO DO, LEIGH ANN K 530.81 ESOPHAGEAL REFLUX 03/28/2011 CASI TOMLINSON APRNNDA S 300.00 anxiety 03/28/2011 CASI TOMLINSON APRNNDA S 530.81 ESOPHAGEAL REFLUX 03/28/2011 YANNA GALLARDO MD 300.00 anxiety 03/28/2011 YANNA GALLARDO MD 530.81 ESOPHAGEAL REFLUX 03/28/2011 MONTALVO DO, LEIGH ANN K 300.00 anxiety 03/28/2011 MONTALVO DO, LEIGH ANN K 530.81 ESOPHAGEAL REFLUX 03/28/2011 CASI TOMLINSON APRNNDA S 300.00 anxiety 03/28/2011 UMER TOMLINSON APRNA S 530.81 ESOPHAGEAL REFLUX 11/02/2011 UMER TOMLINSON APRNA S 702.19 OTHER SEBORRHEIC KERATOSIS 11/02/2011 702.19 OTHER SEBORRHEIC KERATOSIS 11/02/2011 JEZ TOMLINSON APRN S 702.19 OTHER SEBORRHEIC KERATOSIS 11/02/2011 702.19 OTHER SEBORRHEIC KERATOSIS 11/02/2011 702.19 OTHER SEBORRHEIC KERATOSIS 11/02/2011 MONTALVO DO, LEIGH ANN K 702.19 OTHER SEBORRHEIC KERATOSIS 11/02/2011 MONTALVO DO, LEIGH ANN K 702.19 OTHER SEBORRHEIC KERATOSIS 11/02/2011 UMER TOMLINSON APRNA S 702.19 OTHER SEBORRHEIC KERATOSIS 11/02/2011 YANNA GALLARDO MD 702.19 OTHER SEBORRHEIC KERATOSIS 11/02/2011 KATIA JIMÉNEZ LEIGH ANN K 702.19 OTHER SEBORRHEIC KERATOSIS 11/02/2011 BUSHRA INTERNAL RECRUITER, JEZ S 702.19 OTHER SEBORRHEIC KERATOSIS 04/09/2012 BUSHRA INTERNAL RECRUITER, JEZ S 682.9 CELLULITIS AND ABSCESS OF UNSPECIFIED SITES 04/09/2012 BUSHRA INTERNAL RECRUITER, JEZ S 728.71 PLANTAR FASCIAL FIBROMATOSIS 04/09/2012 682.9 CELLULITIS AND ABSCESS OF UNSPECIFIED SITES 04/09/2012 728.71 PLANTAR FASCIAL FIBROMATOSIS 04/09/2012 682.9 CELLULITIS AND ABSCESS OF UNSPECIFIED SITES 04/09/2012 728.71 PLANTAR FASCIAL FIBROMATOSIS 04/09/2012 KATIA JIMÉNEZ LEIGH ANN K 682.9 CELLULITIS AND ABSCESS OF UNSPECIFIED SITES 04/09/2012 KATIA JIMÉNEZ LEIGH ANN K 728.71 PLANTAR FASCIAL FIBROMATOSIS 04/09/2012 FLORECITA MONTALVO DOA K 682.9 CELLULITIS AND ABSCESS OF UNSPECIFIED SITES 04/09/2012 FLORECITA MONTALVO DOA K 728.71 PLANTAR FASCIAL FIBROMATOSIS 04/09/2012 BUSHRA INTERNAL RECRUITER, JEZ S 682.9 CELLULITIS AND ABSCESS OF UNSPECIFIED SITES 04/09/2012 BUSHRA INTERNAL RECRUITER, JEZ S 728.71 PLANTAR FASCIAL FIBROMATOSIS 04/09/2012 YANNA GALLARDO MD 682.9 CELLULITIS AND ABSCESS OF UNSPECIFIED SITES 04/09/2012 YANNA GALLARDO MD 728.71 PLANTAR FASCIAL FIBROMATOSIS 04/09/2012 FLORECITA MONTALVO DOA K 682.9 CELLULITIS AND ABSCESS OF UNSPECIFIED SITES 04/09/2012 KATIA JIMÉNEZ LEIGH ANN K 728.71 PLANTAR FASCIAL FIBROMATOSIS 04/09/2012 BUSHRA INTERNAL RECRUITER, JEZ S 682.9 CELLULITIS AND ABSCESS OF UNSPECIFIED SITES 04/09/2012 BUSHRA INTERNAL RECRUITER, JEZ S 728.71 PLANTAR FASCIAL FIBROMATOSIS 04/10/2013 LEIGH ANN MONTALVO DO K 388.70 OTALGIA 04/10/2013 FLORECITA MONTALVO DOA K 696.1 PSORIASIS 04/10/2013 LEIGH ANN MONTALVO DO K V73.81 HPV SCREENING 04/10/2013 MONTALVO DO, LEIGH ANN K V76.10 BREAST CANCER SCREENING 04/10/2013 MONTALVO DO, LEIGH ANN K V76.2 CERVICAL CANCER SCREENING (PAP SMEAR) 04/10/2013 MONTALVO DO, LEIGH ANN K 388.70 OTALGIA 04/10/2013 MONTALVO DO, LEIGH ANN K 696.1 PSORIASIS 04/10/2013 MONTALVO DO, LEIGH ANN K V73.81 HPV SCREENING 04/10/2013 MONTALVO DO, LEIGH ANN K V76.10 BREAST CANCER SCREENING 04/10/2013 MONTALVO DO, LEIGH ANN K V76.2 CERVICAL CANCER SCREENING (PAP SMEAR) 04/10/2013 BUSHRA INTERNAL RECRUITER, JEZ S 388.70 OTALGIA 04/10/2013 BUSHRA INTERNAL RECRUITER, JEZ S 696.1 PSORIASIS 04/10/2013 BUSHRA INTERNAL RECRUITER, JEZ S V73.81 HPV SCREENING 04/10/2013 BUSHRA INTERNAL RECRUITER, JEZ S V76.10 BREAST CANCER SCREENING 04/10/2013 BUSHRA ORTIZ JEZ S V76.2 CERVICAL CANCER SCREENING (PAP SMEAR) 04/10/2013 SAMI WOLFE, ALI 388.70 OTALGIA 04/10/2013 SAMI WOLFE, YANNA 696.1 PSORIASIS 04/10/2013 SAMI WOLFE, YANNA V73.81 HPV SCREENING 04/10/2013 SAMI WOLFE, YANNA V76.10 BREAST CANCER SCREENING 04/10/2013 SAMI WOLFE, ALI V76.2 CERVICAL CANCER SCREENING (PAP SMEAR) 04/10/2013 MONTALVO DO, LEIGH ANN K 388.70 OTALGIA 04/10/2013 MONTALVO DO, LEIGH ANN K 696.1 PSORIASIS 04/10/2013 MONTALVO DO, LEIGH ANN K V73.81 HPV SCREENING 04/10/2013 MONTALVO DO, LEIGH ANN K V76.10 BREAST CANCER SCREENING 04/10/2013 MONTALVO DO, LEIGH ANN K V76.2 CERVICAL CANCER SCREENING (PAP SMEAR) 04/10/2013 BUSHRA INTERNAL RECRUITER, JEZ S 388.70 OTALGIA 04/10/2013 BUSHRA INTERNAL RECRUITER, JEZ S 696.1 PSORIASIS 04/10/2013 BUSHRA INTERNAL RECRUITER, JEZ S V73.81 HPV SCREENING 04/10/2013 BUSHRA INTERNAL RECRUITER, JEZ S V76.10 BREAST CANCER SCREENING 04/10/2013 BUSHRACASI NOVOA APRNNDA S V76.2 CERVICAL CANCER SCREENING (PAP SMEAR) 10/22/2013 KATIA JIMÉNEZ LEIGH ANN K 307.81 TENSION HEADACHE 10/22/2013 KATIA JIMÉNEZ LEIGH ANN K 704.00 ALOPECIA UNSPECIFIED 10/22/2013 KATIA JIMÉNEZ LEIGH ANN K 786.50 CHEST PAIN 10/22/2013 KATIA JIMÉNEZ LEIGH ANN K V18.0 FAMILY HISTORY OF DIABETES MELLITUS 10/22/2013 CASI TOMLINSON APRNNDA S 307.81 TENSION HEADACHE 10/22/2013 CASI TOMLINSON APRNNDA S 704.00 ALOPECIA UNSPECIFIED 10/22/2013 CASI TOMLINSON APRNNDA S 786.50 CHEST PAIN 10/22/2013 CASI TOMLINSON APRNNDA S V18.0 FAMILY HISTORY OF DIABETES MELLITUS 10/22/2013 YANNA GALLARDO MD 307.81 TENSION HEADACHE 10/22/2013 SAMI WOLFE, YANNA 704.00 ALOPECIA UNSPECIFIED 10/22/2013 SAMI WOLFE, YANNA 786.50 CHEST PAIN 10/22/2013 SAMI WOLFE, ALI V18.0 FAMILY HISTORY OF DIABETES MELLITUS 10/22/2013 KATIA FLORECITA JIMÉNEZA K 307.81 TENSION HEADACHE 10/22/2013 KATIA JIMÉNEZ LEIGH ANN K 704.00 ALOPECIA UNSPECIFIED 10/22/2013 KATIA JIMÉNEZ LEIGH ANN K 786.50 CHEST PAIN 10/22/2013 KATIA JIMÉNEZ LEIGH ANN K V18.0 FAMILY HISTORY OF DIABETES MELLITUS 10/22/2013 CASI TOMLINSON APRNNDA S 307.81 TENSION HEADACHE 10/22/2013 CASI TOMLINSON APRNNDA S 704.00 ALOPECIA UNSPECIFIED 10/22/2013 CASI TOMLINSON APRNNDA S 786.50 CHEST PAIN 10/22/2013 CASI TOMLINSON APRNNDA S V18.0 FAMILY HISTORY OF DIABETES MELLITUS 11/05/2013 CASI TOMLINSON APRNNDA S 278.02 OVERWEIGHT 11/05/2013 CASI TOMLINSON APRNNDA S 307.42 INSOMNIA, PSYCHOPHYSIOLOGICAL 11/05/2013 CASI TOMLINSON APRNNDA S 729.5 PAIN- LEG 11/05/2013 CASI TOMLINSON APRNNDA S V15.82 NICOTINE ABUSE 11/05/2013 SAMI WOLFE, ALI 278.02 OVERWEIGHT 11/05/2013 YANNA GALLARDO MD 307.42 INSOMNIA, PSYCHOPHYSIOLOGICAL 11/05/2013 YANNA GALLARDO MD 729.5 PAIN- LEG 11/05/2013 YANNA GALLARDO MD V15.82 NICOTINE ABUSE 11/05/2013 KATIA JIMÉNEZ LEIGH ANN K 278.02 OVERWEIGHT 11/05/2013 KATIA JIMÉNEZ LEIGH ANN K 307.42 INSOMNIA, PSYCHOPHYSIOLOGICAL 11/05/2013 KATIA JIMÉNEZ LEIGH ANN K 729.5 PAIN- LEG 11/05/2013 MONTALVO LEIGH ANN K V15.82 NICOTINE ABUSE 11/05/2013 BUSHRA ORTIZ JEZ S 278.02 OVERWEIGHT 11/05/2013 CASI TOMLINSON APRNNDA S 307.42 INSOMNIA, PSYCHOPHYSIOLOGICAL 11/05/2013 CASI TOMLINSON APRNNDA S 729.5 PAIN- LEG 11/05/2013 BUSHRA ORTIZ JEZ S V15.82 NICOTINE ABUSE 12/10/2013 YANNA GALLARDO MD 785.1 PALPITATIONS 12/10/2013 YANNA GALLARDO MD 786.09 DYSPNEA 12/10/2013 KATIA JIMÉNEZFLORECITAA K 785.1 PALPITATIONS 12/10/2013 KATIA JIMÉNEZ LEIGH ANN K 786.09 DYSPNEA 12/10/2013 BUSHRA INTERNAL RECRUITER, JEZ S 785.1 PALPITATIONS 12/10/2013 CASI TOMLINSON APRNNDA S 786.09 DYSPNEA 01/13/2014 SAMI WOLFE FACC, YANNA FACP CCDS Ot 278.00 OBESITY, NOS 01/13/2014 SAMI WOLFE FACC, YANNA FACP CCDS Ot 305.1 TOBACCO USE DISORDER 01/13/2014 SAMI WOLFE FACC, YANNA FACP CCDS Ot 785.1 PALPITATIONS 01/13/2014 SAMI WOLFE FACC, YANNA FACP CCDS Ot 786.09 RESPIRATORY ABNORM NEC 01/13/2014 SAMI WOLFE FACC, YANNA FACP CCDS Ot 786.59 CHEST PAIN NEC 01/13/2014 SAMI WOLFE FACC, ALI FACP CCDS Ot 794.30 ABN CARDIOVASC STUDY NOS 01/13/2014 SAMI WOLFE FACC, YANNA FACP CCDS Ot V17.3 FAM HX-ISCHEM HEART DIS 01/13/2014 SAMI WOLFE FACC, YANNA FACP CCDS Ot V58.69 OT MED,LT,CURRENT USE 01/13/2014 SAMI WOLFE FACC, ALI FACP CCDS Ot V85.41 BODY MASS INDEX 40.0-44.9, ADULT 02/23/2014 JEZ TOMLINSON APRN S 627.2 HOT FLASHES 02/23/2014 JEZ TOMLINSON APRN S 789.03 ABDOMINAL PAIN RIGHT LOWER QUADRANT 03/10/2014 JEZ TOMLINSON CERTIFIED FLIGHT INSTRUCTOR Ot 789.03 03/10/2014 JEZ TOMLINSON CERTIFIED FLIGHT INSTRUCTOR Ot 789.03 10/20/2015 GERMAINE MOTA Ot V76.12 OTH SCREEN MAMMO-MALIGN NEOPLASM OF KRISTIN 10/20/2015 SAMI ORTIZC, ALI FACP CCDS Ot 785.1 PALPITATIONS 10/20/2015 SAMI ORTIZC, ALI FACP CCDS Ot 786.09 RESPIRATORY ABNORM NEC 10/20/2015 SAMI WOLFE FACC, ALI FACP CCDS Ot 785.1 PALPITATIONS 10/20/2015 SAMI WOLFE FACC, ALI FACP CCDS Ot 786.09 RESPIRATORY ABNORM NEC 10/20/2015 JEZ TOMLINSON CERTIFIED FLIGHT INSTRUCTOR Ot 789.03 ABDOMINAL PAIN, RIGHT LOWER QUADRANT 10/20/2015 JEZ TOMLINSON CERTIFIED FLIGHT INSTRUCTOR Ot 789.03 ABDOMINAL PAIN, RIGHT LOWER QUADRANT 10/20/2015 JEZ TOMLINSON CERTIFIED FLIGHT INSTRUCTOR Ot R10.31 RIGHT LOWER QUADRANT PAIN 10/22/2015 ALMEIDAYENNY GRISSOM DO D Ot R19.7 DIARRHEA, UNSPECIFIED 10/22/2015 ALMEIDA DOCASITT D Ot Z01.818 ENCOUNTER FOR OTHER PREPROCEDURAL EXAMIN 10/25/2015 ALMEIDA CASI JIMÉNEZTT D Ot R19.7 DIARRHEA, UNSPECIFIED 10/25/2015 ALMEIDA ACSI JIMÉNEZTT D Ot Z01.818 ENCOUNTER FOR OTHER PREPROCEDURAL EXAMIN 10/26/2015 GERMAINE MOTA Ot V76.12 OTH SCREEN MAMMO-MALIGN NEOPLASM OF KRISTIN 10/26/2015 SAMI WOLFE FACC, ALI FACP CCDS Ot 785.1 PALPITATIONS 10/26/2015 SAMI WOLFE FACC, ALI FACP CCDS Ot 786.09 RESPIRATORY ABNORM NEC 10/26/2015 SAMI WOLFE FACC, ALI FACP CCDS Ot 785.1 PALPITATIONS 10/26/2015 [facility] CCDS Ot 786.09 RESPIRATORY ABNORM NEC 10/26/2015 JEZ TOMLINSON CERTIFIED FLIGHT INSTRUCTOR Ot 789.03 ABDOMINAL PAIN, RIGHT LOWER QUADRANT 10/26/2015 JEZ TOMLINSON CERTIFIED FLIGHT INSTRUCTOR Ot 789.03 ABDOMINAL PAIN, RIGHT LOWER QUADRANT 10/26/2015 JEZ TOMLINSON CERTIFIED FLIGHT INSTRUCTOR Ot R10.31 RIGHT LOWER QUADRANT PAIN 10/26/2015 GERMAINE MOTA Ot V76.12 OT SCREEN MAMMO-MALIGN NEOPLASM OF KRISTIN 10/26/2015 SAMI WOLFE [facility] CCDS Ot 785.1 PALPITATIONS 10/26/2015 SAMI WOLFE [facility], ALI FACP CCDS Ot 786.09 RESPIRATORY ABNORM NEC 10/26/2015 SAMI WOLFE [facility], ALI FACP CCDS Ot 785.1 PALPITATIONS 10/26/2015 SAMI WOLFE [facility], ALI FACP CCDS Ot 786.09 RESPIRATORY ABNORM NEC 10/26/2015 JEZ TOMLINSON CERTIFIED FLIGHT INSTRUCTOR Ot 789.03 ABDOMINAL PAIN, RIGHT LOWER QUADRANT 10/26/2015 JEZ TOMLINSON CERTIFIED FLIGHT INSTRUCTOR Ot 789.03 ABDOMINAL PAIN, RIGHT LOWER QUADRANT 10/26/2015 JEZ TOMLINSON CERTIFIED FLIGHT INSTRUCTOR Ot R10.31 RIGHT LOWER QUADRANT PAIN 10/26/2015 JEZ TOMLINSON CERTIFIED FLIGHT INSTRUCTOR Ot 789.03 ABDOMINAL PAIN, RIGHT LOWER QUADRANT 10/26/2015 YENNY ALMEIDA DO Ot D12.5 BENIGN NEOPLASM OF SIGMOID COLON 10/26/2015 YENNY ALMEIDA DO Ot K52.9 NONINFECTIVE GASTROENTERITIS AND COLITIS 10/26/2015 YENNY ALMEIDA DO Ot K62.1 RECTAL POLYP 10/26/2015 YENNY ALMEIDA DO Ot K63.5 POLYP OF COLON 10/27/2015 JEZ TOMLINSON Ot 789.03 ABDOMINAL PAIN, RIGHT LOWER QUADRANT 10/28/2015 YENNY ALMEIDA DO Ot R19.7 DIARRHEA, UNSPECIFIED 10/28/2015 YENNY ALMEIDA DO Ot Z01.818 ENCOUNTER FOR OTHER PREPROCEDURAL EXAMIN 10/29/2015 YENNY ALMEIDA DO Ot R19.7 DIARRHEA, UNSPECIFIED 10/29/2015 YENNY ALMEIDA DO Ot Z01.818 ENCOUNTER FOR OTHER PREPROCEDURAL EXAMIN 11/08/2015 ELLE JIMÉNEZYENNY Ot D12.5 BENIGN NEOPLASM OF SIGMOID COLON 11/08/2015 ALMEIDA YENNY Ot K52.9 NONINFECTIVE GASTROENTERITIS AND COLITIS 11/08/2015 ALMEIDA YENNY D Ot K62.1 RECTAL POLYP 11/08/2015 BEAVERTON YENNY Ot K63.5 POLYP OF COLON 02/25/2016 GERMAINE MOTA Ot V76.12 OTH SCREEN MAMMO-MALIGN NEOPLASM OF KRISTIN 02/25/2016 SAMI WOLFE FACC, YANNA FACP CCDS Ot 785.1 PALPITATIONS 02/25/2016 SAMI WOLFE FACC, ALI FACP CCDS Ot 786.09 RESPIRATORY ABNORM NEC 02/25/2016 SAMI WOLFE FACC, ALI FACP CCDS Ot 785.1 PALPITATIONS 02/25/2016 SAMI WOLFE FACC, ALI FACP CCDS Ot 786.09 RESPIRATORY ABNORM NEC 02/25/2016 JEZ TOMLINSON CERTIFIED FLIGHT INSTRUCTOR Ot 789.03 ABDOMINAL PAIN, RIGHT LOWER QUADRANT 02/25/2016 JEZ TOMLINSON CERTIFIED FLIGHT INSTRUCTOR Ot 789.03 ABDOMINAL PAIN, RIGHT LOWER QUADRANT 02/25/2016 JEZ TOMLINSON CERTIFIED FLIGHT INSTRUCTOR Ot R10.31 RIGHT LOWER QUADRANT PAIN 02/25/2016 BUSHRAUMER NOVOAA CERTIFIED FLIGHT INSTRUCTOR Ot R10.31 RIGHT LOWER QUADRANT PAIN 02/25/2016 BUSHRAUMER NOVOAA CERTIFIED FLIGHT INSTRUCTOR Ot 789.03 ABDOMINAL PAIN, RIGHT LOWER QUADRANT 11/02/2016 GERMAINE MOTA Ot V76.12 OTH SCREEN MAMMO-MALIGN NEOPLASM OF KRISTIN 11/02/2016 SAMI WOLFE FACC, YANNA FACP CCDS Ot 785.1 PALPITATIONS 11/02/2016 SAMI WOLFE FACC, ALI FACP CCDS Ot 786.09 RESPIRATORY ABNORM NEC 11/02/2016 SAMI WOLFE FACC, ALI FACP CCDS Ot 785.1 PALPITATIONS 11/02/2016 SAMI WOLFE FACC, ALI FACP CCDS Ot 786.09 RESPIRATORY ABNORM NEC 11/02/2016 UMER TOMLINSONA CERTIFIED FLIGHT INSTRUCTOR Ot 789.03 ABDOMINAL PAIN, RIGHT LOWER QUADRANT 11/02/2016 JEZ TOMLINSON CERTIFIED FLIGHT INSTRUCTOR Ot 789.03 ABDOMINAL PAIN, RIGHT LOWER QUADRANT 11/02/2016 JEZ TOMLINSON Ot R10.31 RIGHT LOWER QUADRANT PAIN Procedures Code Description Performed By [place]formed On Q0091 PAP SMEAR OBTAIN SMEAR 04/10/2013 63997 NUCLEAR STRESS TESTING 04/10/2013 57239 ECHO 2D 2013 51196 HEMOCCULT 2013 45400 PAP SMEAR 2013 73359 MAMMOGRAM, SCREENING 04/25/2013 16992 EKG, TRACING (IN-HOUSE) 10/22/2013 70330 UA LONG DIP 10/22 94661 A1C (IN-HOUSE) 91428 ROUTINE VENIPUNCTURE 10/24/2013 95424 CBC 10/24/2013 8096765 GFR CALC (RESULT ONLY) 10/24/2013 24864 CMP 10/24/2013 20501 LIPID PANEL 10/24 37755 MAGNESIUM 2013 31792 TSH 10/24/2013 31381 INSULIN LEVEL CARDIOLOG YANNA GALLARDO 11/05/2013 23891 ROUTINE VENIPUNCTURE 02/23/[address] ABDOMEN AND PELVIS W/CONTRAST 02/24/2014 84937 FSH 02/24/2014 10260 US PELVIC COMPL (REFLEX CPT- 60948) 03/02/2014 Results Encounters ACCT No. Visit Date/Time Discharge Status Pt. Type Provider Facility Loc./Unit Complaint [id number] 11/16/2016 08:30:00 2016 23:59:59 CLS Preadmit YENNY ALMEIDA DO [facility] PREOP COLONOSCOPY [id number] 10/26/2015 09:46:00 2015 15:00:00 DIS Outpatient YENNY ALMEIDA DO [facility] SDC SCREENING [id number] 10/22/2015 05:39:00 2015 10:46:00 DIS Outpatient YENNY ALMEIDA DO [facility] PREOP SCREENING [id number] 10/11/2015 08:34:00 2015 23:59:59 CLS Outpatient JEZ TOMLINSON [facility] RAD RLQ ABD PAIN [id number] 03/09/2014 13:21:00 01/12/ 2015 23:59:59 CLS Outpatient JEZ TOMLINSON [facility] RAD ABD PAIN, RLQ [id number] 03/02/2014 11:11:00 2014 23:59:59 CLS Outpatient JEZ TOMLINSON [facility] RAD RLQ PAIN [id number] 01/13/2014 08:16:00 2013 17:11:00 DIS Outpatient YANNA GALLARDO MD, FACC, FACP CCDS [facility] CATH ABN STRESS TEST [id number] 12/25/2013 07:42:00 2013 23:59:59 CLS Outpatient YANNA GALLARDO MD, FACC, FACP CCDS [facility] CARD ANGINA,SOB,FATIGUE [id number] 12/18/2013 10:44:00 2013 23:59:59 CLS Outpatient YANNA GALLARDO MD, FACC, FACP CCDS [facility] CARD ANGINA,SOB,FATIGUE [id number] 04/21/2013 10:08:00 2013 23:59:59 CLS Outpatient GERMAINE MOTA [facility] RAD SCREENING [id number] 11/21/2016 11:00:00 PEN Preadmit YENNY ALMIEDA DO [facility] ENDO HISTORY POLYPS [id number] 02/23/2014 16:18:00 02/23/2014 23: 59:59 CLS Outpatient JEZ TOMLINSON APRN [id number] 12/10/2013 08:55:00 12/10/2013 23: 59:59 CLS Outpatient YANNA GALLARDO MD [id number] 11/05/2013 10:15:00 11/05/2013 23: 59:59 CLS Outpatient JEZ TOMLINSON APRN [id number] 10/24/2013 08:54:00 10/24/2013 23: 59:59 CLS Outpatient LEIGH ANN MONTALVO DO [id number] 04/10/2013 13:00:00 04/10/2013 23: 59:59 CLS Outpatient LEIGH ANN MONTALVO DO [id number] 04/10/2013 13:00:00 04/10/2013 23: 59:59 CLS Outpatient LEIGH ANN MONTALVO DO [id number] 05/22/2012 12:48:00 05/22/2012 23: 59:59 CLS Outpatient [id number] 04/09/2012 10:09:00 04/09/2012 23: 59:59 CLS Outpatient JEZ TOMLINSON APRN [id number] 11/02/2011 13:33:00 11/02/2011 23: 59:59 CLS Outpatient [id number] 11/02/2011 13:33:00 11/02/2011 23: 59:59 CLS Outpatient JEZ TOMLINSON APRN [id number] 09/24/2012 15:19:00 Document Registration
[2016-11-21] MEDS ORDERED: LACTATED RINGERS 1,000 ML IV STA (09:05)
[2016-11-21 09:17] VITALS: BP 122/77
--- NOTE | 2016-11-21 10:30 | Progress Note-Pre Operative ---
Pre-Operative Progress Note H&P Reviewed The H&P was reviewed, patient examined and no changes noted. Date Seen by Provider: Nov 21, 2016 Time Seen by Provider: 10: Date H&P Reviewed: Nov 21, 2016 Time H&P Reviewed: : Pre-Operative Diagnosis: tubular adenoma history polyps YENNY ALMEIDA DO Nov 21, 2016 10:30 am
[2016-11-21] MEDS ORDERED: PROPOFOL INJECTION 50 ML IV ONE (11:02)
[2016-11-21] MEDS ORDERED: MIDAZOLAM 2 MG/2 ML (VERSED) VIAL ONE (11:02)
--- NOTE | 2016-11-21 11:56 | Discharge Inst-Simple/Standard ---
Discharge Inst-Standard Patient Instructions/Follow Up Plan of Care/Instructions/FU: 2 weeks edmond Activity as Tolerated: Yes Discharge Diet: Regular Diet YENNY ALMEIDA DO Nov 21, 2016 11:56 am
[2016-11-21 12:00] VITALS: BP 124/76
--- NOTE | 2016-11-21 12:00 | Progress Note-Post Operative ---
Post-Operative Progess Note Surgeon (s)/Director Of Enterprise Strategy (s) Surgeon YENNY ALMEIDA DO Director Of Enterprise Strategy: na Pre-Operative Diagnosis tubular adenoma history polyps Post-Operative Diagnosis rectal polyp x 2 Procedure & Operative Findings Date of Procedure 11/21/16 Procedure Performed/Findings colonoscopy c hot bx polypectomy x 2 Anesthesia Type per legal executive assistant Estimated Blood Loss Estimated blood loss (mL): none Specimens/Packing Specimens Removed rectal polyps YENNY ALMEIDA DO Nov 21, 2016 12:00 pm
[2016-11-21 12:30] VITALS: BP 133/84
[2016-11-21 12:32] VITALS: BP 133/84
--- NOTE | 2016-11-22 05:17 | OPERATIVE REPORT ---
DATE OF SERVICE: 11/21/2016 PREOPERATIVE DIAGNOSIS: Tubular adenoma polyps, history of polyps. POSTOPERATIVE DIAGNOSIS: Rectal polyps times two. PROCEDURE: Colonoscopy with hot biopsy polypectomy times two. SURGEON: Yenny Grossman DO ANESTHESIA: Per TEXTILE TECHNOLOGIST. ESTIMATED BLOOD LOSS: None. COMPLICATIONS: None. INDICATIONS: The patient is a 56-year-old female with history of polyps. She understands the risks and benefits of procedure and wished to proceed with procedure. Consent was signed and on the chart. DESCRIPTION OF PROCEDURE: The patient was taken to the endoscopy suite, placed in left lateral recumbent position. Timeout was performed. Digital rectal exam was performed. There were no palpable polyps, masses or ulcerations. Scope was inserted in the rectum and advanced all the way to the cecum with minimal difficulty. Prep was adequate with irrigation and suction. The scope was then slowly retracted back. There were no polyps, masses or ulcerations visualized within the cecum, ascending, transverse, descending colon and sigmoid colon. Once in the rectum, there were two small polyps for which hot biopsy polypectomy was performed. Scope was also retroflexed within the rectum, noting no other pathology. Scope was returned to its normal position, slowly withdrawn until completely removed. The patient tolerated procedure well without any complications. She was taken to the recovery room in stable condition. RECOMMENDATIONS: The patient will follow up in my office in approximately two to three weeks. She would be recommended to repeat colonoscopy in 5 years unless she has any changes prior to that and should be reevaluated at that time. Job ID: [id number] DocumentID: [id number] Dictated Date: 11/21/2016 13:43:54 Mixed Signal Design Engineer Date: 11/22/2016 05:17:26 Dictated By: YENNY GROSSMAN DO
== END 2016-11-21 12:33 | disposition home or self-care (01) ==
LOC: ENDO 08:45
PROVIDERS: ATTEND Surgery
DX: Z09 Encounter for follow-up examination after completed treatment for conditions other than malignant neoplasm (principal); K62.1 Rectal polyp; Z86.010 Personal history of colon polyps; I10 Essential (primary) hypertension; F17.210 Nicotine dependence, cigarettes, uncomplicated; E66.01 Morbid (severe) obesity due to excess calories; Z68.41 Body mass index [BMI] 40.0-44.9, adult; Z79.899 Other long term (current) drug therapy
CPT/HCPCS: 88305

== ENCOUNTER → 2017-02-06 | Outpatient (CLI) | payer SELFPAY ==
--- NOTE | 2017-02-07 10:23 | Diagnostic Imaging Report ---
EXAMINATION: Bilateral screening mammogram 2D views with tomosynthesis. The current study was also evaluated with a Computer Aided Detection (CAD) system. INDICATION: Screening. PERSONAL HISTORY: No current complaints stated on the questionnaire. COMPARISON: 04/21/2013. FINDINGS: The breasts are composed of scattered fibroglandular densities. Occasional benign-appearing calcifications are noted. Allowing for technique and positional differences, no suspicious change is seen. IMPRESSION: No significant change. ACR BI-RADS Category 2: Benign findings. Result letter will be mailed to the patient. Note: At least 10% of breast cancer is not imaged by mammography. Dictated by: Dictated on workstation # [id number]
== END ==
LOC: RAD 12:54
PROVIDERS: ATTEND Nurse Practitioner Community Health
DX: Z12.31 Encounter for screening mammogram for malignant neoplasm of breast (principal)
CPT/HCPCS: 77067

== ENCOUNTER → 2017-11-20 | Outpatient (CLI) | payer OTHER ==
[~2017-11-20] VITALS: Ht 170.2 cm; Wt 124.7 kg
[~2017-11-20] MED LIST changes: +CATHETER FLUSH 10 ML SYR IV PRN; +REGADENOSON 0.4 MG/5 ML SYR (LEXISCAN) IV ONE
[2017-11-20 13:17] VITALS: BP 146/75
--- NOTE | 2017-11-21 09:24 | STRESS TEST ---
DATE OF SERVICE: 11/20/2017 RESTING AND POST REGADENOSON TECHNETIUM-99M TETROFOSMIN SPECT CT IMAGING ORDERING PHYSICIAN: Shreya Elizondo APRN. PRIMARY PHYSICIAN: Dr. Morgan. OTHER PHYSICIAN: Felecia Russell APRN. CLINICAL DIAGNOSIS: Shortness of breath. Baseline images were carried out after injection of 10.53 mCi of technetium-99m Tetrofosmin. This was followed by 0.4 mg of Regadenoson and 29.6 mCi of technetium-99m Tetrofosmin for stress imaging. The electrocardiogram showed sinus rhythm with sinus arrhythmia at baseline. The electrocardiogram did not change significantly with the Regadenoson infusion. Review of images at rest and following her stress does not indicate any distinct perfusion defect consistent with significant myocardial ischemia or infarction. Some degree of breast attenuation is seen in image acquisition both at rest and following Regadenoson infusion. Gated images show normal global left ventricular systolic function and normal regional wall motion. Left ventricular ejection fraction is calculated to be 82%. Left ventricular end diastolic volume is 51 mL. TID is absent (1.1). CONCLUSIONS: 1. No evidence of any significant myocardial ischemia or infarction on this study. 2. Normal regional wall motion. 3. Normal global left ventricular systolic function with a calculated ejection fraction of 82%. Job ID: [id number] DocumentID: [id number] Dictated Date: 11/21/2017 08:55:26 Psychology Department Chair Date: 11/21/2017 09:23:44 Dictated By: YANNA AGLLARDO MD, MA, FACP, FACC,
== END ==
LOC: CARD 10:49
PROVIDERS: ATTEND Nurse Practitioner Family
DX: I10 Essential (primary) hypertension (principal); R06.09 Other forms of dyspnea; I73.9 Peripheral vascular disease, unspecified; I34.0 Nonrheumatic mitral (valve) insufficiency; R29.818 Other symptoms and signs involving the nervous system; I25.119 Atherosclerotic heart disease of native coronary artery with unspecified angina pectoris; Z72.0 Tobacco use
CPT/HCPCS: 78452; 93017

== ENCOUNTER → 2017-12-04 | Outpatient (CLI) | payer OTHER ==
[~2017-12-04] MED LIST changes: -CATHETER FLUSH 10 ML SYR IV PRN; -REGADENOSON 0.4 MG/5 ML SYR (LEXISCAN) IV ONE
== END ==
LOC: CARD 13:27
PROVIDERS: ATTEND Nurse Practitioner Family
DX: R06.09 Other forms of dyspnea (principal); I10 Essential (primary) hypertension; I34.0 Nonrheumatic mitral (valve) insufficiency; Z72.0 Tobacco use; I25.119 Atherosclerotic heart disease of native coronary artery with unspecified angina pectoris
CPT/HCPCS: 93306; 93922

== ENCOUNTER → 2017-12-12 | Outpatient (CLI) | payer OTHER ==
[~2017-12-12] MED LIST changes: +RT-ALBUTEROL SULF 2.5 MG/3 ML PRE-MIX VIAL INH ONE
--- NOTE | 2017-12-12 12:49 | Diagnostic Imaging Report ---
PROCEDURE: CT chest without contrast. TECHNIQUE: Multiple contiguous axial images were obtained through the chest without the use of intravenous contrast. INDICATION: Shortness of breath. There are no prior studies available for comparison. FINDINGS: The heart size is within normal limits. There are no coronary artery calcifications identified. The aorta is not abnormally dilated. There is no obvious mediastinal or hilar adenopathy. There is a 0.8 cm calcified nodule in the left lobe of the thyroid. This is most likely a benign process but ultrasound would be recommended to better characterize this density. The lungs are generally clear. There is no evidence for failure, pneumonia or for pleural effusion. The sections through the upper abdomen show that the spleen is mildly enlarged. The spleen is not visualized in its entirety but measures approximately 11.3 x 8.7 x 15.6 cm in maximum longitudinal transverse and AP dimensions. The liver is also prominent. The bone windows show no sign of a fracture or of a destructive lesion. There is no obvious breast mass. IMPRESSION: 1. There is no evidence for an acute cardiopulmonary abnormality. There is no parenchymal lung mass identified either. 2. Ultrasound would be recommended for further evaluation of the calcified nodule in the left lobe of the thyroid. 3. There is mild splenomegaly. This is of uncertain etiology. Dictated by: Dictated on workstation # [id number]
== END ==
LOC: RAD 11:47
PROVIDERS: ATTEND Nurse Practitioner Family
DX: R06.02 Shortness of breath (principal); R16.1 Splenomegaly, not elsewhere classified; Z72.0 Tobacco use
CPT/HCPCS: 71250; 94060; 94640; 94726; 94729

== ENCOUNTER 2017-12-26 13:44 | Outpatient (CLI) | payer OTHER ==
[~2017-12-26 13:44] MED LIST changes: -RT-ALBUTEROL SULF 2.5 MG/3 ML PRE-MIX VIAL INH ONE
== END 2017-12-26 13:52 | disposition home or self-care (01) ==
LOC: SLEEP 13:44
PROVIDERS: ATTEND Nurse Practitioner Family
DX: G47.33 Obstructive sleep apnea (adult) (pediatric) (principal); G47.50 Parasomnia, unspecified; G47.00 Insomnia, unspecified; G47.10 Hypersomnia, unspecified

== ENCOUNTER → 2018-02-07 | Outpatient (CLI) | payer OTHER ==
--- NOTE | 2018-02-07 16:18 | Diagnostic Imaging Report ---
INDICATION: Thyroid nodule. TECHNIQUE: Thyroid sonography was performed in the routine fashion. COMPARISON: There is no prior ultrasound for comparison. Correlation is made to a chest CT of 12/12/2017. FINDINGS: The right thyroid lobe measures 4.5 x 1.5 x 1.6 cm. The right thyroid lobe contains a small hypoechoic nodule measuring 4 x 6 x 3 mm. The thyroid isthmus measures 5 mm. The thyroid isthmus shows a small nodule measuring 4 mm. The left thyroid lobe measures 5.1 x 1.9 x 2.3 cm. The left thyroid lobe shows multiple nodules. There is a nodule in the inferior portion of the left thyroid lobe measuring 1.9 x 1.5 x 1.0 cm. There is a nodule posteriorly measuring about 8 x 5 x 8 mm. There is a partially calcified nodule in the left thyroid lobe in the midportion of the gland measuring 1.2 x 1.2 x 1.0 cm. IMPRESSION: Multiple left-sided thyroid nodules as described above. The dominant nodule could be biopsied under ultrasound guidance as clinically warranted. There are minimal nodules in the right thyroid lobe and thyroid isthmus. Dictated by: Dictated on workstation # [id number]
== END ==
LOC: RAD 13:06
PROVIDERS: ATTEND Nurse Practitioner Community Health
DX: E04.2 Nontoxic multinodular goiter (principal)
CPT/HCPCS: 76536

== ENCOUNTER → 2018-04-25 | Outpatient (CLI) | payer OTHER ==
[~2018-04-25] MED LIST changes: +GABA-490 PO; +OXYB5TAB9 PO
[2018-04-25 13:48] LABS: FREE T4 (FREE THYROXINE) 1.04 NG/DL (0.70-1.48)
== END ==
LOC: LAB 12:59
PROVIDERS: ATTEND Surgery
DX: E04.1 Nontoxic single thyroid nodule (principal)
CPT/HCPCS: 36415; 84439; 84443

== ENCOUNTER 2018-04-30 10:15 | Outpatient (CLI) | payer OTHER ==
[~2018-04-30] VITALS: Ht 170.2 cm; Wt 124.7 kg
[~2018-04-30 10:15] MED LIST changes: -GABA-490 PO; -OXYB5TAB9 PO
[2018-04-30] MEDS ORDERED: OXYB5TAB9 PO (10:34)
[2018-04-30] MEDS ORDERED: GABA-490 PO (10:34)
[2018-05-01] MEDS ORDERED: MELA10TA2 PO (11:43)
[2018-05-01] MEDS ORDERED: ACHD5005 PO (14:53)
[2018-05-01] MEDS ORDERED: LEVO112T55 PO (14:54)
== END 2018-04-30 10:48 | disposition home or self-care (01) ==
LOC: PREOP 10:15
PROVIDERS: ATTEND Surgery
DX: Z01.818 Encounter for other preprocedural examination (principal)

== ENCOUNTER 2018-05-01 10:40 | Inpatient (IN) | payer OTHER ==
[~2018-05-01] VITALS: Ht 170.2 cm; Wt 123.6 kg
[~2018-05-01 10:40] MED LIST changes: +GABA-490 PO; +OXYB5TAB9 PO
--- OUTSIDE RECORDS SUMMARY | 2018-05-01 10:58 | XMS REPORT ---
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 Active 8518380106818 Problem Mitral valve insufficiency, unspecified etiology I34.0 Active 82404460 Problem Thyroid nodule E04.1 Active 770299133 Problem Violation of controlled substance agreement Z91.14 Aug, Active 824558056 Problem Overactive bladder N32.81 Active 002759042 Problem Obstructive sleep apnea G47.33 Active 15602382 Problem Essential hypertension I10 Active 14912259 Problem Primary insomnia F51.01 Active 5708731 Problem Sleep apnea in adult G47.30 Active 98080583 Problem Hypertension I10 Active 83821510 Problem Knee pain M25.569 Active 30783777 Problem Eustachian tube dysfunction H69.80 Active 43429560 Problem Dysthymia F34.1 Active 50519125 Problem Dysuria R30.0 Active 74845181 Problem Psoriasis L40.9 Active 5374730 Problem Anxiety disorder, unspecified F41.9 Active 743600183 Problem Acute right-sided low back pain with right-sided sciatica M54.41 Active 393918444 Problem Pharyngitis, unspecified etiology J02.9 Active 578716075 Problem Other chronic pain G89.29 Active 20481668 ALLERGIES No Known Allergies ENCOUNTERS Encounter Location Date Diagnosis [facility] [address] [facility] [id number], [place] [address] Feb, [facility] [address] [facility] [id number], [place] [address] Jan, Primary insomnia F51.01 ; Sleep apnea in adult G47.30 ; Thyroid nodule E04.1 ; Dysfunction of right eustachian tube H69.81 ; Overactive bladder N32.81 and BMI 40.0-44.9, adult Z68.41 [place] [address] [place] [address] 56259- 8236 Jan, Shortness of breath R06.02 ; Hypertension I10 ; Other hyperlipidemia E78.49 ; Obstructive sleep apnea G47.33 and BMI 40.0-44.9, adult Z68.41 [place] [id number] [place] [address] 73795- 4883 Jan, Thyroid nodule E04.1 [place] [address] [place] [id number] [place] [address] 23364- 7688 Jan, [place] [id number] [place] [address] 92253- 2302 Jan, [place] [id number] [place] [address] 30334- 4509 14 Dec, 2017 Left hip pain M25.552 ; Left lower quadrant pain R10.32 ; Psoriasis L40.9 ; Encounter for screening mammogram for breast cancer Z12.31 and BMI 40.0-44.9, adult Z68.41 [place] [id number] [place] [address] 29396- 9299 12 Oct, 2017 Dyspnea on exertion R06.09 ; Essential hypertension I10 ; Bilateral claudication of lower limb I73.9 ; Mitral valve insufficiency, unspecified etiology I34.0 ; Suspected sleep apnea R29.818 ; Tobacco use Z72.0 and Coronary artery disease involving levelock coronary artery of levelock heart with angina pectoris I25.[address] [place] [address] [id number] [id number] Aug, Shortness of breath R06.02 and Anxiety disorder, unspecified F41.9 [place] [id number] [place] [address] 09576- 6095 Aug, Anxiety disorder, unspecified F41.9 [place] [id number] [place] [id number] [place] [address] 29416- 4453 Jul, Anxiety disorder, unspecified F41.9 ; Shortness of breath R06.02 ; Therapeutic drug monitoring Z51.81 ; Family history of diabetes mellitus Z83.3 ; BMI 40.0-44.9, adult Z68.41 and Tobacco abuse Z72.0 [place] [address] [place] [id number] [place] [address] 60363- 3065 June, Anxiety disorder, unspecified F41.9 and Pain in right knee M25.561 [place] [address] [place] [id number] [place] [address] 80722- 7743 June, Pain in right knee M25.561 ; Pain in left knee M25.562 ; Other chronic pain G89.29 ; Anxiety disorder, unspecified F41.9 ; Acute right- sided low back pain with right-sided sciatica M54.41 and BMI 40.0-44.9, adult Z68.41 [place] [address] [place] [id number] [place] [address] 15387- 5268 May, Anxiety disorder, unspecified F41.9 [place] [address] [place] [id number] [place] [address] 16629- 9539 Apr, Anxiety disorder, unspecified F41.9 [place] [address] [place] [id number] [place] [address] 85186- 0008 Apr, Anxiety disorder, unspecified F41.9 [place] [address] [place] [id number] [place] [address] 29007- 2624 Mar, Anxiety disorder, unspecified F41.9 [place] [address] [place] [id number] [place] [address] 72231- 4852 Mar, [place] [address] [place] [id number] [place] [address] 89199- 0761 Feb, Anxiety disorder, unspecified F41.9 [place] [address], [place] [address] 5782 Jan, Anxiety disorder, unspecified F41.9 [place] [address] [place] [id number] [place] [address] 58207- 4953 Dec, Anxiety disorder, unspecified F41.9 ; Hypertension I10 ; Encounter for screening mammogram for breast cancer Z12.31 ; Psoriasis L40.9 and BMI 40.0-44.9, adult Z68.41 [place] [address] [place] [address] 05455- 1173 Dec, Anxiety disorder, unspecified F41.9 [place] [address] [place] [id number] [place] [address] 57469- 1700 Nov, [place] [address] [place] [id number] [place] [address] 59842- 5840 Nov, Anxiety disorder, unspecified F41.9 [place] [address] [place] [id number] [place] [address] 95985- 1139 Nov, [address] [id number] [id number] Oct, Dysuria R30.0 [place] [address], [place] [address]- 9786 Oct, Anxiety disorder, unspecified F41.9 [place] [address] [place] [address] 57885- 9720 Sep, Anxiety disorder, unspecified F41.9 [place] [address] [place] [address] 36104- 5843 Aug, Anxiety disorder, unspecified F41.9 [place] [address] [place] [address] 34815- 7204 Aug, [place] [address] [place] [address] 64826- 4932 Jul, Anxiety disorder, unspecified F41.9 [place] [address], [place] [address]- 0119 June, Anxiety disorder, unspecified F41.9 [facility] [address] [place] [id number] [place] [address] 62034- 3725 June, Anxiety disorder, unspecified F41.9 [facility] [address] [address]802 May, Anxiety disorder, unspecified F41.9 [facility] [address] [place] [id number] [place] [address] 70919- 5539 Apr, [place] [address] [place] [id number] [place] [address] 716368- 3092 Apr, Anxiety disorder, unspecified F41.9 [place] [address] [place] [id number] [place] [address] 73392- 8074 Mar, Well woman exam Z01.419 ; Cervical cancer screening Z12.4 and Breast cancer screening Z12.39 [place] [address] [place] [address] 01331- 7631 Mar, Anxiety disorder, unspecified F41.9 [place] [address] [place] [id number] [place] [address] 95285- 2111 Mar, Eustachian tube dysfunction H69.80 and Pharyngitis, unspecified etiology J02.9 [place] [address] [place] [address] 82166- 4733 Feb, Anxiety disorder, unspecified F41.9 [place] [address], [place] [address]- 9968 Jan, Anxiety disorder, unspecified F41.9 [place] [address] [place] [address] 586526- 1872 Dec, Anxiety disorder, unspecified F41.9 [place] [address], [place] [address]- 5212 Oct, Anxiety disorder, unspecified F41.9 [facility] [address] [place] [id number] [place] [address] 43507- 9071 Oct, Irritable bowel syndrome with diarrhea K58.0 ; Hypertension I10 ; Family history of diabetes mellitus Z83.3 and Visual changes H53.9 [facility] [address] [place] [id number] [place] [address] 67221- 7065 Sep, Anxiety disorder, unspecified F41.9 [facility] [address] [place] [id number] [place] [address] 30087- 2781 Sep, RLQ abdominal pain R10.31 [facility] [address] 78651- 3653 Sep, RLQ abdominal pain R10.31 and 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 [facility] [address] [place] [id number] [place] [address] 36166- 5503 Aug, Anxiety disorder, unspecified F41.9 [facility] [address] [place] [id number] [place] [address] 68839- 4010 Aug, [facility] [address] [place] [id number] [place] [address] 06378- 0279 Aug, [facility] [address] [place] [id number] [place] [address] 09038- 2634 Aug, Knee pain M25.569 [facility] [address] [place] [id number] [place] [address] 96435- 5610 Jul, [facility] [address] [place] [id number] [place] [address] 21695- 2523 June, Anxiety disorder, unspecified F41.9 [facility] [address] [place] [id number] [place] [address] 33617- 8207 May, [facility] [address] [place] [id number] [place] [address] 89284- 5328 May, [facility] [address] [place] [id number] [place] [address] 38657- 6798 Apr, [facility] [address] [place] [id number] [place] [address] 80072- 7183 Apr, [facility] [address] [place] [id number] [place] [address] 43184- 4765 Mar, Hypertension I10 ; Dysthymia F34.1 ; Knee pain M25.569 and Eustachian tube dysfunction H69.80 [facility] [address] [place] [id number] [place] [address] 27898- 1022 Mar, [facility] [address] [place] [id number] [place] [address] 06828- 6420 Feb, [facility] [address] [place] [id number] [place] [address] 85877- 6399 Jan, [facility] [address] [place] [id number] [place] [address] 39518- 1221 Jan, [facility] [address] [place] [id number] [place] [address] 64062- 1302 Dec, [facility] [address] [place] [id number] [place] [address] 22946- 5383 Dec, [facility] [address] [place] [id number] [place] [address] 20882- 1635 Nov, [facility] [address] [facility] [id number] [id number] Oct, Dental examination V72.2 [facility] [address] [id number] [id number] Oct, Allergic rhinitis 477.9 and Chronic serous otitis media of both ears 381.10 [facility] [address] [place] [id number] [place] [address] 58492- 5026 Sep, [facility] [address] [id number][place] [id number] Sep, Sinusitis 473.9 and Bronchitis 490 [facility] [address] [place] [id number] [place] [address]- 2286 Aug, [facility] [address] [id number] [place] [address]- 5679 Jul, [facility] [place] [facility] [address] [id number] [place] [address]- 2546 Jul, [facility] [place] [facility] [address] [id number] [place] [address]- 4266 May, [facility] [place] [facility] [address] [id number] [place] [address]- 2303 May, [facility] [place] [facility] [address] [id number] [place] [address]- 6732 Apr, [facility] [place] [facility] [address] [id number] [place] [address]- 5016 Apr, [facility] [place] [facility] [address] [id number] [place] [address]- 6086 Feb, [facility] [address] [id number] [place] [address]- 6372 Feb, [facility] [place] [facility] [address] [id number] [place] [address]- 3823 Feb, [facility] [address] [id number] [place] [address]- 4148 Feb, [facility] [place] [facility] [address] [id number] [place] [address]- 4075 Feb, [facility] [place] [facility] [address] [id number] [place] [address]- 5284 Feb, [facility] [place] [facility] [address] [id number] [place] [address]- 9996 Feb, [facility] [place] [facility] [address] [id number] [place] [address]- 2546 Feb, [facility] [place] [facility] [address] [id number] [place] [address]- 7012 Feb, [facility] [place] [facility] [address] [id number] [place] 5327 Feb, [facility] [place] [facility] [address] [id number] [place] [address]- 5970 Jan, [facility] [place] [facility] [address] [id number] [place] 5850 Jan, [facility] [place] [facility] [address] [id number] [place] [address]- 5764 Jan, [facility] [place] [facility] [address] [id number] [place] 6236 Jan, [facility] [place] [facility] [address] [id number] [place] [address]- 3004 Jan, [facility] [place] [facility] [address] [id number] [place] [address]- 5861 Dec, [facility] [place] [facility] [address] [id number] [place] [address]- 9797 Dec, [facility] [place] [facility] [address] [id number] [place] [address]- 1081 Nov, [facility] [place] [facility] [address] [id number] [place] [address]- 6718 Nov, [facility] [place] [facility] [address] [id number] [place] [address]- 7283 Nov, [facility] [place] [facility] [address] [id number] [place] [address]- 8282 Nov, [facility] [place] [facility] [address] [id number] [place] [address]- 2675 Oct, [facility] [place] [facility] [address] [id number] [place] [address]- 4195 Oct, [facility] [place] [facility] [address] [id number] [place] 6384 Oct, [facility] [place] [facility] [address] [id number] [place] [address]- 4856 Oct, [facility] [place] [facility] [address] [id number] [place] [address]- 1177 Oct, [facility] [place] [facility] [address] [id number] [place] [address]- 2944 Oct, [facility] [place] [facility] [address] [id number] [place] [address]- 4254 Sep, [facility] [place] [facility] [address] [id number] [place] [address]- 9027 Sep, [facility] [place] [facility] [address] [id number] [place] [address]- 7529 Sep, [facility] [place] [facility] [address] [id number] [place] [address]- 7007 Sep, [facility] [place] [facility] [address] [id number] [place] [address]- 1613 Sep, [facility] [place] [facility] [address] [id number] [place] [address]- 9824 Sep, [facility] [place] [facility] [address] [id number] [place] [address]- 5226 Aug, [facility] [place] [facility] [address] [id number] [place] [address]- 1634 Aug, [facility] [place] [facility] [address] [id number] [place] [address]- 6803 June, [facility] [place] [facility] [address] [id number] [place] [address]- 6582 June, [facility] [place] [facility] [address] [id number] [place] [address]- 8533 May, [facility] [place] [facility] [address] [id number] [place] [address]- 0330 May, [facility] [place] [facility] [address] [id number] [place] [address]- 8604 Apr, [facility] [place] [facility] [address] [id number] [place] [address]- 0795 Apr, [facility] [place] [facility] [address] [id number] [place] [address]- 3022 Mar, [facility] [place] [facility] [address] [id number] [place] [address]- 7786 Mar, [facility] [place] [facility] [address] [id number] [place] [address]- 3786 Mar, [facility] [place] [facility] [address] [id number] [place] [address]- 5537 Mar, [facility] [place] [facility] [address] [id number] [place] [address]- 1983 Mar, [facility] [place] [facility] [address] [facility] [id number] [place] [address]- 0542 Mar, [facility] [place] [facility] [address] [id number] [place] [address]- 9125 Mar, [facility] [place] [facility] [address] [id number] [place] [address]- 3303 Mar, [facility] [place] [facility] [address] [facility] [id number] [place] [address]- 1138 Nov, [facility] [place] [facility] [address] [id number] [place] [address]- 8088 Nov, [facility] [place] [facility] [address] [id number], [place] [address]- 9681 Sep, [facility] [place] [facility] [address] [id number] [place] [address]- 2540 Aug, [facility] [place] [facility] [address] [id number] [place] [address]- 2543 Apr, [facility] [place] [facility] [address] [id number] [place] [address]- 8869 Mar, [facility] [place] [facility] [address] [id number] [place] [address]- 1304 Mar, [facility] [address] [id number] [place] [address]- 9831 Feb, [facility] [place] [facility] [address] [id number] [place] [address]- 8286 Jan, [facility] [place] [facility] [address] [id number] [place] [address]- 5816 Jan, [facility] [place] [facility] [address] [id number] [place] [address]- 3579 Dec, [facility] [place] [facility] [address] [id number] [place] [address]- 5825 Dec, [facility] [place] [facility] [address] [id number] [place] [address]- 1546 Nov, [facility] [place] [facility] [address] [id number] [place] [address]- 1066 Oct, [facility] [place] [facility] [address] [id number] [place] [address]- 4136 Oct, [facility] [place] [facility] [address] [id number] [place] [address]- 1933 Sep, [facility] [place] [facility] [address] [facility] [id number] [place] [address]- 3264 Aug, [facility] [place] [facility] [address] [id number] [place] [address]- 5251 Jul, [facility] [place] [facility] [address] [id number] [place] [address]- 2546 May, [facility] [place] [facility] [address] [id number] [place] [address]- 6236 Mar, [facility] [place] [facility] [address] [id number] [place] [address]- 6156 Mar, [facility] [place] [facility] [address] [id number] [place] [address]- 7896 Mar, [facility] [place] [facility] [address] [id number] [place] [address]- 3195 Mar, [facility] [place] [facility] [address] [id number] [place] [address]- 7404 Feb, [facility] [place] [facility] [address] [id number] [place] [address]- 6000 Feb, [facility] [place] [facility] [address] [id number] [place] [address]- 6555 Feb, [facility] [place] [facility] [address] [id number] [place] [address]- 7281 06 Jan, 2011 [facility] [place] [facility] [address] [id number] [place] [address]- 1000 10 Dec, 2010 [facility] [place] [facility] [address] [id number] [place] [address]- 8895 14 Jul, 2010 [facility] [place] [facility] [address] [id number] [place] [address]- 2719 10 Jun, 2010 [facility] [place] [facility] [address] [id number] [place] [address]- 8705 29 Jan, 2010 [facility] [place] [facility] [address] [id number], [place] [address]- 5292 16 Dec, 2009 [facility] [place] [facility] [address] [id number] [place] [address]- 1766 18 Nov, 2009 [facility] [place] [facility] [address] [id number], [place] [address]- 0678 14 Aug, 2009 [facility] [place] [facility] [address] [id number] [place] [address]- 3978 14 Jan, 2009 [facility] [place] [facility] [address] [id number] [place] [address]- 0189 14 Jan, 2009 [facility] [place] [facility] [address] [id number], [place] [address] 10 Jan, 2009 [facility] [place] [facility] [address] [id number], [place] [address] 07 Jan, 2009 [facility] [address] [facility] [id number], [place] [address] Dec, [facility] [address] [facility] [id number], [place] [address] 10 Dec, 2008 [facility] [address] [facility] [id number], [place] [address] May, IMMUNIZATIONS No Known Immunizations SOCIAL HISTORY Never Assessed REASON FOR VISIT shortness of breath f/u, Pt also c/o cough, sore throat, runny nose. Pt states she would also like something for overactive bladder MARIA DE JESUS Alva PLAN OF CARE Activity Details Follow Up 4 Weeks Reason:insomnia VITAL SIGNS Height 67 in 2018-02-06 Weight 269.5 lbs 2018-02-06 Temperature 98.8 degrees Fahrenheit 2018-02-06 Heart Rate 74 bpm 2018-02-06 Respiratory Rate 18 2018-02-06 Oximetry on room air:97 % 2018-02-06 BMI 42.21 kg/m2 2018-02-06 Blood pressure systolic 134 mmHg 2018-02-06 Blood pressure diastolic 82 mmHg 2018-02-06 MEDICATIONS Medication Instructions Dosage Frequency Start Date End Date Duration Status Propranolol HCl 20 MG 1 tablet Twice a day Orally 90 Active Ambien 5 MG Orally Once a day 1 tablet at bedtime 24h Jan, 28 days Active Betamethasone Dipropionate 0.05 % Externally twice weekly 1 application to affected area Dec, Active Fluoxetine HCl 20 MG TAKE 3 CAPSULES BY MOUTH ONCE DAILY 30 Active Oxybutynin Chloride 5 MG Orally Once a day at hs 1 tablet Jan, 30 day(s) Active PredniSONE 20 MG Orally Once a day 1 tablet 24h Jan, 5 days Active RESULTS No Results PROCEDURES No Known procedures INSTRUCTIONS MEDICATIONS ADMINISTERED No Known Medications MEDICAL (GENERAL) HISTORY Type Description Date Medical History depression Medical History hx of anxiety Medical History mitral valve prolapse Surgical History tonsillectomy and adenoidectomy Surgical History partial hysterectomy Surgical History jaw surgery 1974 Surgical History colonoscopy 10/26/15 Surgical History colonoscopy 11/2016 Hospitalization History for surgery
--- OUTSIDE RECORDS SUMMARY | 2018-05-01 10:59 | XMS REPORT ---
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 Active 9469209594129 Problem Essential hypertension I10 Active 48772284 Problem Other chronic pain G89.29 Active 75755287 Problem Mitral valve insufficiency, unspecified etiology I34.0 Active 72197488 Problem Bilateral claudication of lower limb I73.9 Active 14755480 Problem Violation of controlled substance agreement Z91.14 Aug, Active 369061453 Problem Dysthymia F34.1 Active 10746225 Problem Hypertension I10 Active 37244516 Problem Knee pain M25.569 Active 56451214 Problem Anxiety disorder, unspecified F41.9 Active 844883980 Problem Eustachian tube dysfunction H69.80 Active 70176689 Problem Pharyngitis, unspecified etiology J02.9 Active 846108397 ALLERGIES No Information ENCOUNTERS Encounter Location Date Diagnosis [facility] [address] [address] Jan, [facility] [id number] [place] [address] 49583- 1101 Jan, [facility] [address] [address] 3[address] Jan, Thyroid nodule E04.1 [facility] [id number] [address] 04 Jan, 2018 [place] [id number] [place] [address] 90994- 7900 Jan, [place] [id number] [place] [address] 63285- 9740 14 Dec, 2017 Left hip pain M25.552 ; Left lower quadrant pain R10.32 ; Psoriasis L40.9 ; Encounter for screening mammogram for breast cancer Z12.31 and BMI 40.0-44.9, adult Z68.41 [place] [id number] [place] [address] 00426- 5432 12 Oct, 2017 Dyspnea on exertion R06.09 ; Essential hypertension I10 ; Bilateral claudication of lower limb I73.9 ; Mitral valve insufficiency, unspecified etiology I34.0 ; Suspected sleep apnea R29.818 ; Tobacco use Z72.0 and Coronary artery disease involving grayling coronary artery of grayling heart with angina pectoris I25.[address] [id number] [id number] Aug, Shortness of breath R06.02 and Anxiety disorder, unspecified F41.9 [id number] [place] [address] 00227- 3578 Aug, Anxiety disorder, unspecified F41.9 [place] [id number] [place] [address] 69660- 7651 Jul, Anxiety disorder, unspecified F41.9 ; Shortness of breath R06.02 ; Therapeutic drug monitoring Z51.81 ; Family history of diabetes mellitus Z83.3 ; BMI 40.0-44.9, adult Z68.41 and Tobacco abuse Z72.0 [address] [place] [address] 79803- 9697 June, Anxiety disorder, unspecified F41.9 and Pain in right knee M25.561 [place] [id number] [place] [address] 76667- 8107 June, Pain in right knee M25.561 ; Pain in left knee M25.562 ; Other chronic pain G89.29 ; Anxiety disorder, unspecified F41.9 ; Acute right- sided low back pain with right-sided sciatica M54.41 and BMI 40.0-44.9, adult Z68.41 [place] [address] 28087- 1699 May, Anxiety disorder, unspecified F41.9 [place] [address] 48505- 7057 Apr, Anxiety disorder, unspecified F41.9 [place] [address] 52483- 5980 Apr, Anxiety disorder, unspecified F41.9 [place] [address] 47172- 3473 Mar, Anxiety disorder, unspecified F41.9 [place] [address] 29610- 3502 Mar, [place] [address] 33613- 2324 Feb, Anxiety disorder, unspecified F41.9 [place] [id number] [place] [address] 45298- 8333 Jan, Anxiety disorder, unspecified F41.9 [place] [address] [id number] [place] [address] 84282- 6564 Dec, Anxiety disorder, unspecified F41.9 ; Hypertension I10 ; Encounter for screening mammogram for breast cancer Z12.31 ; Psoriasis L40.9 and BMI 40.0-44.9, adult Z68.41 [place] [address] 30967- 9972 14 Dec, 2016 Anxiety disorder, unspecified F41.9 [place] [address] 85845- 9170 Nov, [facility] [address], [place] [address] 7056 Nov, Anxiety disorder, unspecified F41.9 [facility] [address], [place] [address] 0167 Nov, [place] [address] [facility] [id number] [id number] Oct, Dysuria R30.0 [facility] [address], [place] [address] 4132 Oct, Anxiety disorder, unspecified F41.9 [facility] [address] [place] [address] 41029- 8870 Sep, Anxiety disorder, unspecified F41.9 [facility] [id number] [place] [address] 29895- 0276 Aug, Anxiety disorder, unspecified F41.9 [facility] [address], [place] [address] 2110 Aug, [facility] [id number] [place] [address] 06770- 5241 Jul, Anxiety disorder, unspecified F41.9 [facility] [address] [place] [address] 36520- 2496 June, Anxiety disorder, unspecified F41.9 [facility] [id number] [place] [address] 09664- 0787 June, Anxiety disorder, unspecified F41.9 [facility] [address] [address] 6795 May, Anxiety disorder, unspecified F41.9 [facility] [address] 4551 Apr, [facility] [address], [place] [address]- 3747 Apr, Anxiety disorder, unspecified F41.9 [place] [id number] [place] [address] 53586- 1364 Mar, 2017 Well woman exam Z01.419 ; Cervical cancer screening Z12.4 and Breast cancer screening Z12.39 [place] [id number] [place] [address] 82075- 3393 Mar, Anxiety disorder, unspecified F41.9 [place] [address] [id number] [place] [address] 50300- 1133 Mar, Eustachian tube dysfunction H69.80 and Pharyngitis, unspecified etiology J02.9 [place] [id number] [place] [address] 31073- 8276 Feb, Anxiety disorder, unspecified F41.9 [place] [address] [id number] [place] [address] 50008- 0386 Jan, Anxiety disorder, unspecified F41.9 [place] [id number] [place] [address] 81162- 9568 Dec, Anxiety disorder, unspecified F41.9 [place] [address] [id number] [place] [address] 83997- 8187 Oct, Anxiety disorder, unspecified F41.9 [place] [address] [id number] [place] [address] 18538- 0984 Oct, Irritable bowel syndrome with diarrhea K58.0 ; Hypertension I10 ; Family history of diabetes mellitus Z83.3 and Visual changes H53.9 [place] [address] [id number] [place] [address] 39331- 5677 Sep, Anxiety disorder, unspecified F41.9 [place] [address] [id number] [place] [address] 56566- 5124 Sep, RLQ abdominal pain R10.31 [place] [address] [address] [id number] [place] [address] 45470- 2793 Sep, RLQ abdominal pain R10.31 and 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 [facility] [id number] [place] [address] 53704- 4060 Aug, Anxiety disorder, unspecified F41.9 [facility] [id number] [place] [address] 16174- 9166 Aug, [facility] [id number] [place] [address] 41512- 3076 Aug, [facility] [id number] [place] [address] 99544- 2332 Aug, Knee pain M25.569 [facility] [id number] [place] [address] 38456- 8252 Jul, [facility] [id number] [place] [address] 67624- 1018 June, Anxiety disorder, unspecified F41.9 [facility] [id number] [place] [address] 53363- 6306 May, [facility] [id number] [place] [address] 49163- 7942 May, [facility] [id number] [place] [address] 92033- 8818 Apr, [facility] [id number] [place] [address] 15627- 1015 Apr, [facility] [id number] [place] [address] 65446- 1269 Mar, Hypertension I10 ; Dysthymia F34.1 ; Knee pain M25.569 and Eustachian tube dysfunction H69.80 [facility] [id number] [place] [address] 49235- 0684 Mar, [facility] [id number] [place] [address] 07776- 8915 Feb, [facility] [address] [address]- 1349 Jan, [facility] [id number] [place] [address] 54783- 9022 Jan, [facility] [address], [place] [address]- 2962 Dec, [facility] [id number] [place] [address] 54638- 0421 Dec, [facility] [address], [place] [address]- 0060 Nov, [facility] [id number] [place] [id number] Oct, Dental examination V72.2 [facility] [address] [id number] [id number] Oct, Allergic rhinitis 477.9 and Chronic serous otitis media of both ears 381.10 [facility] [address], [place] [address]- 6074 Sep, [facility] [address] [id number] [id number] Sep, Sinusitis 473.9 and Bronchitis 490 [facility] [address], [place] [address]- 5883 Aug, [facility] [address], [place] [address]- 5034 Jul, [facility] [address], [place] [address]- 6080 Jul, [facility] [id number] [place] [address] 14904- 1167 May, [facility] [address] 9166 May, [facility] [address] [address]- 3670 Apr, [facility] [place] [facility] [address] [id number] [place] [address]- 8839 Apr, [facility] [place] [facility] [address] [id number] [place] [address]- 6926 Feb, [facility] [place] [facility] [address] [id number] [place] [address]- 9926 Feb, [facility] [place] [facility] [address] [id number] [place] [address]- 2572 Feb, [facility] [place] [facility] [address] [id number] [place] [address]- 9106 Feb, [facility] [place] [facility] [address] [id number] [place] [address]- 8986 Feb, [facility] [place] [facility] [address] [id number] [place] [address]- 3284 Feb, [facility] [place] [facility] [address] [id number] [place] [address]- 6895 Feb, [facility] [place] [facility] [address] [id number] [place] [address]- 5676 Feb, [facility] [place] [facility] [address] [id number] [place] [address]- 2805 Feb, [facility] [place] [facility] [address] [id number] [place] [address]- 6516 Feb, [facility] [place] [facility] [address] [id number] [place] [address]- 3793 Jan, [facility] [place] [facility] [address] [id number] [place] [address]- 5938 Jan, [facility] [place] [facility] [address] [id number] [place] [address]- 5986 Jan, [facility] [place] [facility] [address] [id number] [place] [address]- 2546 Jan, [facility] [place] [facility] [address] [id number] [place] [address]- 3122 Jan, [facility] [place] [facility] [address] [id number] [place] [address]- 4875 Dec, [facility] [place] [facility] [address] [id number] [place] [address]- 4273 Dec, [facility] [place] [facility] [address] [id number] [place] [address]- 9614 Nov, [facility] [place] [facility] [address] [id number] [place] [address]- 6240 Nov, [facility] [place] [facility] [address] [id number] [place] [address]- 3006 Nov, [facility] [place] [facility] [address] [id number] [place] [address]- 1142 Nov, [facility] [place] [facility] [address] [id number] [place] [address]- 4485 Oct, [facility] [place] [facility] [address] [id number] [place] [address]- 1098 Oct, [facility] [place] [facility] [address] [id number] [place] [address]- 7622 Oct, [facility] [place] [facility] [address] [id number] [place] [address]- 8481 Oct, [facility] [place] [facility] [address] [id number] [place] [address]- 8237 Oct, [facility] [place] [facility] [address] [id number] [place] [address]- 4946 Oct, [facility] [place] [facility] [address] [id number] [place] [address]- 6549 Sep, [facility] [place] [facility] [address] [id number] [place] [address]- 8471 Sep, [facility] [place] [facility] [address] [id number] [place] [address]- 1171 Sep, [facility] [place] [facility] [address] [id number] [place] [address]- 9528 Sep, [facility] [place] [facility] [address] [id number] [place] [address]- 9761 Sep, [facility] [place] [facility] [address] [id number] [place] [address]- 4137 Sep, [facility] [place] [facility] [address] [id number] [place] [address]- 3643 Aug, [facility] [place] [facility] [address] [id number] [place] [address]- 1344 Aug, [facility] [place] [facility] [address] [id number] [place] [address]- 3092 June, [facility] [place] [facility] [address] [id number] [place] [address]- 3096 June, [facility] [place] [facility] [address] [id number] [place] [address]- 2590 May, [facility] [place] [facility] [address] [id number] [place] [address]- 7031 May, [facility] [place] [facility] [address] [id number] [place] [address]- 7086 Apr, [facility] [place] [facility] [address] [id number] [place] [address]- 6663 Apr, [facility] [place] [facility] [address] [id number] [place] [address]- 7989 Mar, [facility] [place] [facility] [address] [id number] [place] [address]- 3187 Mar, [facility] [place] [facility] [address] [id number] [place] [address]- 9968 Mar, [facility] [place] [facility] [address] [id number] [place] [address]- 4661 Mar, [facility] [place] [facility] [address] [id number] [place] [address]- 6575 Mar, [facility] [address] [id number] [place] [address]- 2589 Mar, [facility] [place] [facility] [address] [id number] [place] [address]- 7936 Mar, [facility] [place] [facility] [address] [id number] [place] [address]- 0516 Mar, [facility] [place] [facility] [address] [id number] [place] [address]- 9494 Nov, [facility] [place] [facility] [address] [id number] [place] [address]- 0358 Nov, [facility] [place] [facility] [address] [id number] [place] [address]- 8567 Sep, [facility] [place] [facility] [address] [facility] [id number] [place] [address]- 9831 Aug, [facility] [place] [facility] [address] [id number] [place] [address]- 5898 Apr, [facility] [place] [facility] [address] [id number] [place] [address]- 7232 Mar, [facility] [place] [facility] [address] [facility] [id number] [place] [address]- 4256 Mar, [facility] [place] [facility] [address] [facility] [id number] [place] [address]- 6622 Feb, [facility] [place] [facility] [address] [facility] [id number] [place] [address]- 1507 Jan, [facility] [place] [facility] [address] [id number] [place] 0868 Jan, [facility] [place] [facility] [address] [facility] [id number] [place] [address]- 7613 Dec, [facility] [place] [facility] [address] [facility] [id number] [place] [address]- 5067 Dec, [facility] [place] [facility] [address] [id number] [place] [address]- 2684 08 Nov, 2011 [facility] [place] [facility] [address] [id number] [place] [address]- 2542 Oct, [facility] [place] [facility] [address] [id number] [place] [address]- 1066 Oct, [facility] [place] [facility] [address] [id number] [place] [address]- 8918 Sep, [facility] [place] [facility] [address] [id number] [place] [address]- 8573 Aug, [facility] [place] [facility] [address] [id number] [place] [address]- 0514 Jul, [facility] [place] [facility] [address] [id number] [place] [address]- 7153 May, [facility] [place] [facility] [address] [id number] [place] [address]- 0367 Mar, [facility] [place] [facility] [address] [id number] [place] [address]- 7222 Mar, [facility] [place] [facility] [address] [facility] [id number] [place] [address]- 6537 Mar, [facility] [place] [facility] [address] [id number] [place] [address]- 7940 Mar, [facility] [place] [facility] [address] [id number] [place] [address]- 1630 Feb, [facility] [place] [facility] [address] [id number] [place] [address]- 6647 Feb, [facility] [place] [facility] [address] [id number] [place] [address]- 7984 Feb, [facility] [place] [facility] [address] [id number] [place] [address]- 2727 Jan, [facility] [place] [facility] [address] [id number], [place] [address]- 2251 10 Dec, 2010 [facility] [address] [facility] [id number][place] 9278 14 Jul, 2010 [facility] [address] [facility] [id number], [place] [address]- 6761 10 Jun, 2010 [facility] [address] [place] [address]- 4142 29 Jan, 2010 [facility] [address] [facility] [id number], [place] [address]- 7144 16 Dec, 2009 [facility] [address] [facility] [id number], [place] [address]- 2806 18 Nov, 2009 [facility] [address] [address]- 3130 14 Aug, 2009 [facility] [address], [place] [address]- 8200 14 Jan, 2009 [facility] [address] [address]- 2220 14 Jan, 2009 [facility] [address] [place] [address]- 7958 Jan, [facility] [address] [place] [address]- 7964 Jan, [facility] [id number] [address] 25 Dec, 2008 [facility] [id number], [place] [address] 10 Dec, 2008 [facility] [id number] [address] 15 May, 2008 IMMUNIZATIONS No Known Immunizations SOCIAL HISTORY Never Assessed REASON FOR VISIT Lab results PLAN OF CARE VITAL SIGNS MEDICATIONS Unknown Medications RESULTS No Results PROCEDURES No Known procedures [...]
--- OUTSIDE RECORDS SUMMARY | 2018-05-01 10:59 | XMS REPORT ---
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 Active 1296790181038 Problem Essential hypertension I10 Active 42069080 Problem Other chronic pain G89.29 Active 27622664 Problem Mitral valve insufficiency, unspecified etiology I34.0 Active 45904354 Problem Bilateral claudication of lower limb I73.9 Active 23876020 Problem Violation of controlled substance agreement Z91.14 Aug, Active 169711493 Problem Dysthymia F34.1 Active 28787882 Problem Hypertension I10 Active 17256798 Problem Knee pain M25.569 Active 97439388 Problem Anxiety disorder, unspecified F41.9 Active 651809584 Problem Eustachian tube dysfunction H69.80 Active 56801575 Problem Pharyngitis, unspecified etiology J02.9 Active 404113977 ALLERGIES No Information ENCOUNTERS Encounter Location Date Diagnosis [facility] [address], [place] [address] Jan, [facility] [id number] [place] [address] 53892- 1826 Jan, [facility] [address], [place] [address] Jan, Thyroid nodule E04.1 [facility] [id number], [place] [address]596 04 Jan, 2018 [place] [id number] [place] [address] 17760- 2721 Jan, [place] [address] [place] [address] 26788- 6259 14 Dec, 2017 Left hip pain M25.552 ; Left lower quadrant pain R10.32 ; Psoriasis L40.9 ; Encounter for screening mammogram for breast cancer Z12.31 and BMI 40.0-44.9, adult Z68.41 [place] [id number] [place] [address] 51797- 4624 12 Oct, 2017 Dyspnea on exertion R06.09 ; Essential hypertension I10 ; Bilateral claudication of lower limb I73.9 ; Mitral valve insufficiency, unspecified etiology I34.0 ; Suspected sleep apnea R29.818 ; Tobacco use Z72.0 and Coronary artery disease involving [place] coronary artery of [place] heart with angina pectoris I25.[address] [id number] [id number] Aug, Shortness of breath R06.02 and Anxiety disorder, unspecified F41.9 [address] [place] [address] 59219- 3831 Aug, Anxiety disorder, unspecified F41.9 [place] [id number] [place] [address] 72074- 1479 Jul, Anxiety disorder, unspecified F41.9 ; Shortness of breath R06.02 ; Therapeutic drug monitoring Z51.81 ; Family history of diabetes mellitus Z83.3 ; BMI 40.0-44.9, adult Z68.41 and Tobacco abuse Z72.0 [address] [place] [address] 67812- 0009 June, Anxiety disorder, unspecified F41.9 and Pain in right knee M25.561 [place] [id number] [place] [address] 00062- 2612 June, Pain in right knee M25.561 ; Pain in left knee M25.562 ; Other chronic pain G89.29 ; Anxiety disorder, unspecified F41.9 ; Acute right- sided low back pain with right-sided sciatica M54.41 and BMI 40.0-44.9, adult Z68.41 [place] [address] [address]25- 5256 May, Anxiety disorder, unspecified F41.9 [place] [address] 71824- 8149 Apr, Anxiety disorder, unspecified F41.9 [place] [address] 94672- 9912 Apr, Anxiety disorder, unspecified F41.9 [place] [address] 46679- 5661 Mar, Anxiety disorder, unspecified F41.9 [place] [address] 98988- 8947 Mar, [place] [address] 69269- 7635 Feb, Anxiety disorder, unspecified F41.9 [place] [id number] [place] [address] 10094- 6178 Jan, Anxiety disorder, unspecified F41.9 [place] [id number] [place] [address] 25007- 9909 Dec, Anxiety disorder, unspecified F41.9 ; Hypertension I10 ; Encounter for screening mammogram for breast cancer Z12.31 ; Psoriasis L40.9 and BMI 40.0-44.9, adult Z68.41 [place] [address] 94454- 8907 14 Dec, 2016 Anxiety disorder, unspecified F41.9 [place] [address] 11682- 4291 Nov, [facility] [address], [place] [address] 9285 Nov, Anxiety disorder, unspecified F41.9 [facility] [address], [place] [address] 1481 Nov, [place] [address] [facility] [id number] [id number] Oct, Dysuria R30.0 [facility] [address], [place] [address] 3070 Oct, Anxiety disorder, unspecified F41.9 [facility] [id number] [place] [address] 89485- 2551 Sep, Anxiety disorder, unspecified F41.9 [facility] [address] [place] [address] 53261- 3026 Aug, Anxiety disorder, unspecified F41.9 [facility] [address], [place] [address] 4200 Aug, [facility] [address] [place] [address] 37388- 3488 Jul, Anxiety disorder, unspecified F41.9 [facility] [address] [place] [address] 80238- 7825 June, Anxiety disorder, unspecified F41.9 [facility] [address] [place] [address] 76887- 1394 June, Anxiety disorder, unspecified F41.9 [facility] [address], [place] [address] 3254 May, Anxiety disorder, unspecified F41.9 [facility] [address] 2[address] Apr, [facility] [address], [place] [address]- 6688 Apr, Anxiety disorder, unspecified F41.9 [place] [address] [place] [address] 92924- 5788 Mar, 2017 Well woman exam Z01.419 ; Cervical cancer screening Z12.4 and Breast cancer screening Z12.39 [place] [id number] [place] [address] 23228- 4774 Mar, Anxiety disorder, unspecified F41.9 [place] [id number] [place] [address] 50066- 7611 Mar, Eustachian tube dysfunction H69.80 and Pharyngitis, unspecified etiology J02.9 [place] [id number] [place] [address] 52291- 6235 Feb, Anxiety disorder, unspecified F41.9 [place] [id number] [place] [address] 89319- 7978 Jan, Anxiety disorder, unspecified F41.9 [place] [id number] [place] [address] 92418- 6678 Dec, Anxiety disorder, unspecified F41.9 [place] [id number] [place] [address] 56445- 7738 Oct, Anxiety disorder, unspecified F41.9 [place] [id number] [place] [address] 11354- 4437 Oct, Irritable bowel syndrome with diarrhea K58.0 ; Hypertension I10 ; Family history of diabetes mellitus Z83.3 and Visual changes H53.9 [place] [id number] [place] [address] 52112- 3788 Sep, Anxiety disorder, unspecified F41.9 [place] [id number] [place] [address] 70099- 4660 Sep, RLQ abdominal pain R10.31 [place] [id number] [place] [address] 59021- 4801 Sep, RLQ abdominal pain R10.31 and 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 [facility] [id number] [place] [address] 55517- 7150 Aug, Anxiety disorder, unspecified F41.9 [facility] [id number] [place] [address] 20106- 2766 Aug, [facility] [id number] [place] [address] 10361- 3794 Aug, [facility] [id number] [place] [address] 69259- 2042 Aug, Knee pain M25.569 [facility] [id number] [place] [address] 70503- 1986 Jul, [facility] [id number] [place] [address] 72710- 3326 June, Anxiety disorder, unspecified F41.9 [facility] [id number] [place] [address] 74222- 8476 May, [facility] [id number] [place] [address] 12825- 8133 May, [facility] [id number] [place] [address] 92688- 1134 Apr, [facility] [id number] [place] [address] 41415- 5691 Apr, [facility] [id number] [place] [address] 56716- 6928 Mar, Hypertension I10 ; Dysthymia F34.1 ; Knee pain M25.569 and Eustachian tube dysfunction H69.80 [facility] [id number] [place] [address] 52445- 9500 Mar, [facility] [id number] [place] [address] 22452- 2854 Feb, [facility] [address], [place] [address]- 5213 Jan, [facility] [id number] [place] [address] 44340- 0387 Jan, [facility] [address], [place] [address]- 1223 Dec, [facility] [id number] [place] [address] 31255- 7915 Dec, [facility] [address], [place] [address]- 2703 Nov, [facility] [id number] [place] [id number] Oct, Dental examination V72.2 [facility] [address] [id number] [id number] Oct, Allergic rhinitis 477.9 and Chronic serous otitis media of both ears 381.10 [facility] [address], [place] [address]- 4802 Sep, [facility] [address] [id number] [id number] Sep, Sinusitis 473.9 and Bronchitis 490 [facility] [address], [place] [address]- 7477 Aug, [facility] [address], [place] [address]- 9321 Jul, [facility] [address], [place] [address]- 5293 Jul, [facility] [id number] [place] [address] 49605- 5721 May, [facility] [address] 9545 May, [facility] [address], [place] [address]- 3247 Apr, [facility] [place] [facility] [address] [id number] [place] [address]- 1536 Apr, [facility] [place] [facility] [address] [id number] [place] [address]- 7548 Feb, [facility] [place] [facility] [address] [id number] [place] [address]- 6346 Feb, [facility] [place] [facility] [address] [id number] [place] [address]- 8964 Feb, [facility] [place] [facility] [address] [id number] [place] [address]- 3733 Feb, [facility] [place] [facility] [address] [id number] [place] [address]- 7506 Feb, [facility] [place] [facility] [address] [id number] [place] [address]- 0206 Feb, [facility] [place] [facility] [address] [id number] [place] [address]- 6644 Feb, [facility] [place] [facility] [address] [id number] [place] [address]- 0299 Feb, [facility] [place] [facility] [address] [id number] [place] [address]- 8812 Feb, [facility] [place] [facility] [address] [id number] [place] [address]- 0816 Feb, [facility] [place] [facility] [address] [id number] [place] [address]- 0531 Jan, [facility] [place] [facility] [address] [id number] [place] [address]- 1107 Jan, [facility] [place] [facility] [address] [id number] [place] [address]- 4556 Jan, [facility] [place] [facility] [address] [id number] [place] [address]- 2546 Jan, [facility] [place] [facility] [address] [id number] [place] [address]- 2069 Jan, [facility] [place] [facility] [address] [id number] [place] [address]- 2819 Dec, [facility] [place] [facility] [address] [id number] [place] [address]- 0574 Dec, [facility] [place] [facility] [address] [id number] [place] [address]- 8231 Nov, [facility] [place] [facility] [address] [id number] [place] [address]- 6017 Nov, [facility] [place] [facility] [address] [id number] [place] [address]- 4560 Nov, [facility] [place] [facility] [address] [id number] [place] [address]- 1489 Nov, [facility] [place] [facility] [address] [id number] [place] [address]- 4659 Oct, [facility] [place] [facility] [address] [id number] [place] [address]- 5769 Oct, [facility] [place] [facility] [address] [id number] [place] [address]- 2232 Oct, [facility] [place] [facility] [address] [id number] [place] [address]- 0757 Oct, [facility] [place] [facility] [address] [id number] [place] [address]- 1032 Oct, [facility] [place] [facility] [address] [id number] [place] [address]- 7895 Oct, [facility] [place] [facility] [address] [id number] [place] [address]- 6167 Sep, [facility] [place] [facility] [address] [id number] [place] [address]- 5822 Sep, [facility] [place] [facility] [address] [id number] [place] [address]- 5106 Sep, [facility] [place] [facility] [address] [id number] [place] [address]- 3719 Sep, [facility] [place] [facility] [address] [id number] [place] [address]- 5739 Sep, [facility] [place] [facility] [address] [id number] [place] [address]- 0086 Sep, [facility] [place] [facility] [address] [id number] [place] [address]- 8451 Aug, [facility] [place] [facility] [address] [id number] [place] [address]- 0048 Aug, [facility] [place] [facility] [address] [id number] [place] [address]- 6958 June, [facility] [place] [facility] [address] [id number] [place] [address]- 9599 June, [facility] [place] [facility] [address] [id number] [place] [address]- 2703 May, [facility] [place] [facility] [address] [id number] [place] [address]- 8489 May, [facility] [place] [facility] [address] [id number] [place] [address]- 3602 Apr, [facility] [place] [facility] [address] [id number] [place] [address]- 9606 Apr, [facility] [place] [facility] [address] [id number] [place] [address]- 1506 Mar, [facility] [place] [facility] [address] [id number] [place] [address]- 6006 Mar, [facility] [place] [facility] [address] [id number] [place] [address]- 0946 Mar, [facility] [place] [facility] [address] [id number] [place] [address]- 0001 Mar, [facility] [place] [facility] [address] [id number] [place] [address]- 6265 Mar, [facility] [address] [id number] [place] [address]- 4666 Mar, [facility] [place] [facility] [address] [id number] [place] [address]- 7276 Mar, [facility] [place] [facility] [address] [id number] [place] [address]- 8816 Mar, [facility] [place] [facility] [address] [id number] [place] [address]- 3627 Nov, [facility] [place] [facility] [address] [id number] [place] [address]- 5334 Nov, [facility] [place] [facility] [address] [id number] [place] [address]- 3649 Sep, [facility] [place] [facility] [address] [facility] [id number] [place] [address]- 1322 Aug, [facility] [place] [facility] [address] [id number] [place] [address]- 9454 Apr, [facility] [place] [facility] [address] [id number] [place] [address]- 8206 Mar, [facility] [place] [facility] [address] [facility] [id number] [place] [address]- 6322 Mar, [facility] [place] [facility] [address] [facility] [id number] [place] [address]- 1370 Feb, [facility] [place] [facility] [address] [facility] [id number] [place] [address]- 7659 Jan, [facility] [place] [facility] [address] [id number] [place] 7906 Jan, [facility] [place] [facility] [address] [facility] [id number] [place] [address]- 7186 Dec, [facility] [place] [facility] [address] [facility] [id number] [place] [address]- 0324 Dec, [facility] [place] [facility] [address] [id number] [place] [address]- 8788 08 Nov, 2011 [facility] [place] [facility] [address] [id number] [place] [address]- 1005 Oct, [facility] [place] [facility] [address] [id number] [place] [address]- 9046 Oct, [facility] [place] [facility] [address] [id number] [place] [address]- 4024 Sep, [facility] [place] [facility] [address] [id number] [place] [address]- 7659 Aug, [facility] [place] [facility] [address] [id number] [place] [address]- 0665 Jul, [facility] [place] [facility] [address] [id number] [place] [address]- 7274 May, [facility] [place] [facility] [address] [id number] [place] [address]- 0539 Mar, [facility] [place] [facility] [address] [id number] [place] [address]- 1117 Mar, [facility] [place] [facility] [address] [facility] [id number] [place] [address]- 4459 Mar, [facility] [place] [facility] [address] [id number] [place] [address]- 4130 Mar, [facility] [place] [facility] [address] [id number] [place] [address]- 9556 Feb, [facility] [place] [facility] [address] [id number] [place] [address]- 6523 Feb, [facility] [place] [facility] [address] [id number] [place] [address]- 8270 Feb, [facility] [place] [facility] [address] [id number] [place] [address]- 1865 Jan, [facility] [place] [facility] [address] [id number], [place] [address]- 4765 10 Dec, 2010 [facility] [address] [facility] [id number]- 7010 14 Jul, 2010 [facility] [address] [facility] [id number], [place] [address]- 4943 10 Jun, 2010 [facility] [address] 3705 29 Jan, 2010 [facility] [address] [facility] [id number], [place] [address]- 6221 16 Dec, 2009 [facility] [address] [facility] [id number], [place] [address]- 5719 18 Nov, 2009 [facility] [id number] [place] [address] 43664- 6672 14 Aug, 2009 [facility] [address], [place] [address]- 4635 14 Jan, 2009 [facility] [address], [place] [address]- 5663 14 Jan, 2009 [facility] [address], [place] [address]- 1191 Jan, [facility] [address], [place] [address]- 2398 Jan, [facility] [id number], [place] [address]- 5253 25 Dec, 2008 [facility] [address], [place] [address]- 9464 10 Dec, 2008 [facility] [id number], [place] [address]- 5662 15 May, 2008 IMMUNIZATIONS No Known Immunizations SOCIAL HISTORY Never Assessed REASON FOR VISIT CT Chest Results PLAN OF CARE Activity Details Pending Test Ultrasound : Thyroid VITAL SIGNS MEDICATIONS Unknown Medications RESULTS No [...]
--- OUTSIDE RECORDS SUMMARY | 2018-05-01 10:59 | XMS REPORT ---
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 Active [id number] Problem Mitral valve insufficiency, unspecified etiology I34.0 Active 22386390 Problem Thyroid nodule E04.1 Active 172952567 Problem Violation of controlled substance agreement Z91.14 Aug, Active 769237712 Problem Overactive bladder N32.81 Active 597495882 Problem Obstructive sleep apnea G47.33 Active 12539958 Problem Essential hypertension I10 Active 65617445 Problem Primary insomnia F51.01 Active 9838141 Problem Sleep apnea in adult G47.30 Active 21000779 Problem Hypertension I10 Active 40167694 Problem Knee pain M25.569 Active 94289402 Problem Eustachian tube dysfunction H69.80 Active 51558421 Problem Dysthymia F34.1 Active 34956710 Problem Dysuria R30.0 Active 44842914 Problem Psoriasis L40.9 Active 9590764 Problem Anxiety disorder, unspecified F41.9 Active 111244648 Problem Acute right-sided low back pain with right-sided sciatica M54.41 Active 795142293 Problem Pharyngitis, unspecified etiology J02.9 Active 214534785 Problem Other chronic pain G89.29 Active 92004231 ALLERGIES No Known Allergies ENCOUNTERS Encounter Location Date Diagnosis [facility] [address] [facility] [id number] [address] Feb, [facility] [address] [facility] [id number], [place] [address] Jan, Primary insomnia F51.01 ; Sleep apnea in adult G47.30 ; Thyroid nodule E04.1 ; Dysfunction of right eustachian tube H69.81 ; Overactive bladder N32.81 and BMI 40.0-44.9, adult Z68.41 [place] [address] [id number] [place] [address] 24832- 2883 Jan, Shortness of breath R06.02 ; Hypertension I10 ; Other hyperlipidemia E78.49 ; Obstructive sleep apnea G47.33 and BMI 40.0-44.9, adult Z68.41 [place] [address] [address]- [address]309 Jan, Thyroid nodule E04.1 [place] [place] [id number] [place] [address] 56412- 8038 Jan, [address] [address]- 1406 Jan, [address] [address]- 6094 14 Dec, 2017 Left hip pain M25.552 ; Left lower quadrant pain R10.32 ; Psoriasis L40.9 ; Encounter for screening mammogram for breast cancer Z12.31 and BMI 40.0-44.9, adult Z68.41 [place] [id number] [place] [address] 87408- 3358 12 Oct, 2017 Dyspnea on exertion R06.09 ; Essential hypertension I10 ; Bilateral claudication of lower limb I73.9 ; Mitral valve insufficiency, unspecified etiology I34.0 ; Suspected sleep apnea R29.818 ; Tobacco use Z72.0 and Coronary artery disease involving gambell coronary artery of gambell heart with angina pectoris I25.[address] [id number] [id number] Aug, Shortness of breath R06.02 and Anxiety disorder, unspecified F41.9 [place] [id number] [place] [address] 74451- 8462 Aug, Anxiety disorder, unspecified F41.9 [place] [id number] [place] [address] 84751- 7669 Jul, Anxiety disorder, unspecified F41.9 ; Shortness of breath R06.02 ; Therapeutic drug monitoring Z51.81 ; Family history of diabetes mellitus Z83.3 ; BMI 40.0-44.9, adult Z68.41 and Tobacco abuse Z72.0 [place] [id number] [place] [address] 98209- 8175 June, Anxiety disorder, unspecified F41.9 and Pain in right knee M25.561 [place] [id number] [place] [address] 52440- 7254 June, Pain in right knee M25.561 ; Pain in left knee M25.562 ; Other chronic pain G89.29 ; Anxiety disorder, unspecified F41.9 ; Acute right- sided low back pain with right-sided sciatica M54.41 and BMI 40.0-44.9, adult Z68.41 [place] [id number] [place] [address] 74627- 8621 May, Anxiety disorder, unspecified F41.9 [place] [id number] [place] [address] 46882- 5509 Apr, Anxiety disorder, unspecified F41.9 [place] [id number] [place] [address] 17643- 2458 Apr, Anxiety disorder, unspecified F41.9 [place] [id number] [place] [address] 52883- 3337 Mar, Anxiety disorder, unspecified F41.9 [place] [id number] [place] [address] 85631- 8714 Mar, [place] [id number] [place] [address] 26271- 8533 Feb, Anxiety disorder, unspecified F41.9 [place] [id number] [address] 9982 Jan, Anxiety disorder, unspecified F41.9 [place] [id number] [place] [address] 56624- 3143 Dec, Anxiety disorder, unspecified F41.9 ; Hypertension I10 ; Encounter for screening mammogram for breast cancer Z12.31 ; Psoriasis L40.9 and BMI 40.0-44.9, adult Z68.41 [place] [id number] [place] [address] 84472- 5718 14 Dec, 2016 Anxiety disorder, unspecified F41.9 [place] [id number] [place] [address] 81206- 6502 Nov, [place] [id number] [place] [address] 37745- 5632 Nov, Anxiety disorder, unspecified F41.9 [place] [id number] [place] [address] 17166- 1457 Nov, [id number] [id number] Oct, Dysuria R30.0 [place] [id number] [place] [address] 19843- 7570 Oct, Anxiety disorder, unspecified F41.9 [place] [id number] [place] [address] 04686- 6666 Sep, Anxiety disorder, unspecified F41.9 [place] [address] [place] [address] 71412- 9907 Aug, Anxiety disorder, unspecified F41.9 [place] [id number] [place] [address] 14733- 5243 Aug, [facility] [id number] [place] [address] 15414- 8757 Jul, Anxiety disorder, unspecified F41.9 [place] [id number] [address]- 7995 June, Anxiety disorder, unspecified F41.9 [facility] [id number] [place] [address] 825007- 6722 June, Anxiety disorder, unspecified F41.9 [facility] [id number] [place] [address] 277926- 9612 May, Anxiety disorder, unspecified F41.9 [place] [id number] [place] [address] 867071- 3417 Apr, [place] [id number] [place] [address] 185194- 6417 Apr, Anxiety disorder, unspecified F41.9 [place] [address] [place] [address] 89896- 2365 Mar, Well woman exam Z01.419 ; Cervical cancer screening Z12.4 and Breast cancer screening Z12.39 [place] [address] [place] [address] 58353- 3580 Mar, Anxiety disorder, unspecified F41.9 [place] [id number] [place] [address] 71640- 5569 Mar, Eustachian tube dysfunction H69.80 and Pharyngitis, unspecified etiology J02.9 [place] [id number] [place] [address] 98209- 9533 Feb, Anxiety disorder, unspecified F41.9 [place] [id number] [place] [address] 40666- 7724 Jan, Anxiety disorder, unspecified F41.9 [place] [id number] [place] [address] 72936- 6557 Dec, Anxiety disorder, unspecified F41.9 [place] [address] [address] 1527 Oct, Anxiety disorder, unspecified F41.9 [facility] [address] [address] 0910 Oct, Irritable bowel syndrome with diarrhea K58.0 ; Hypertension I10 ; Family history of diabetes mellitus Z83.3 and Visual changes H53.9 [facility] [address] [place] [address] 02337- 6101 Sep, Anxiety disorder, unspecified F41.9 [facility] [id number] [place] [address] 92676- 4471 Sep, RLQ abdominal pain R10.31 [facility] [id number] [place] [address] 04891- 5363 Sep, RLQ abdominal pain R10.31 and 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 [facility] [id number] [place] [address] 37876- 0683 Aug, Anxiety disorder, unspecified F41.9 [facility] [id number] [place] [address] 78926- 3649 Aug, [facility] [id number] [place] [address] 90367- 6358 Aug, [facility] [id number] [place] [address] 61702- 7001 Aug, Knee pain M25.569 [facility] [id number] [place] [address] 29550- 5138 Jul, [facility] [id number] [place] [address] 83741- 9549 June, Anxiety disorder, unspecified F41.9 [facility] [id number] [place] [address] 21678- 4676 May, [facility] [id number] [place] [address] 49152- 5731 May, [facility] [id number] [place] [address] 09424- 6155 Apr, [facility] [address] [address]- 4085 Apr, [facility] [id number] [place] [address] 214684- 1433 Mar, Hypertension I10 ; Dysthymia F34.1 ; Knee pain M25.569 and Eustachian tube dysfunction H69.80 [facility] [id number] [place] [address] 32536- 5813 Mar, [facility] [id number] [place] [address] 150961- 5322 Feb, [facility] [id number] [place] [address] 626222- 7674 Jan, [facility] [id number] [place] [address] 662878- 0714 Jan, [facility] [id number] [place] [address] 99810- 3365 Dec, [facility] [id number] [place] [address] 17323- 7766 Dec, [facility] [address] [address]- 7853 Nov, [facility] [address] [facility] [id number] [id number] Oct, Dental examination V72.2 [facility] [address] [facility] [address] [id number] [id number] Oct, Allergic rhinitis 477.9 and Chronic serous otitis media of both ears 381.10 [facility] [address] [address] 2546 Sep, [facility] [address] [place] [address] AVE [id number] [id number] Sep, Sinusitis 473.9 and Bronchitis 490 [facility] [id number] [place] [address]- 0718 Aug, [facility] [place] [facility] [address] [id number] [place] [address]- 0704 Jul, [facility] [place] [facility] [address] [id number] [place] [address]- 8474 Jul, [facility] [place] [facility] [address] [id number] [place] [address]- 4242 May, [facility] [place] [facility] [address] [id number] [place] [address]- 0684 May, [facility] [place] [facility] [address] [id number] [place] [address]- 1612 Apr, [facility] [place] [facility] [address] [id number] [place] [address]- 1210 Apr, [facility] [place] [facility] [address] [id number] [place] [address]- 7690 Feb, [facility] [place] [facility] [address] [id number] [place] [address]- 2295 Feb, [facility] [place] [facility] [address] [id number] [place] [address]- 9357 Feb, [facility] [place] [facility] [address] [id number] [place] [address]- 7007 Feb, [facility] [place] [facility] [address] [id number] [place] [address]- 6909 Feb, [facility] [place] [facility] [address] [id number] [place] [address]- 4963 Feb, [facility] [place] [facility] [address] [id number] [place] [address]- 3938 Feb, [facility] [place] [facility] [address] [id number] [place] [address]- 8013 Feb, [facility] [place] [facility] [address] [id number] [place] [address]- 5995 Feb, [facility] [place] [facility] [address] [id number] [place] [address]- 6096 Feb, [facility] [place] [facility] [address] [id number] [place] 6553 Jan, [facility] [place] [facility] [address] [id number] [place] 2359 Jan, [facility] [place] [facility] [address] [id number] [place] [address]- 8666 Jan, [facility] [place] [facility] [address] [id number] [place] 0272 Jan, [facility] [place] [facility] [address] [id number] [place] [address]- 0149 Jan, [facility] [place] [facility] [address] [id number] [place] [address]- 7051 Dec, [facility] [place] [facility] [address] [id number] [place] [address]- 4305 Dec, [facility] [place] [facility] [address] [id number] [place] [address]- 0308 Nov, [facility] [place] [facility] [address] [id number] [place] [address]- 4627 Nov, [facility] [place] [facility] [address] [id number] [place] [address]- 4232 Nov, [facility] [place] [facility] [address] [id number] [place] [address]- 5053 Nov, [facility] [place] [facility] [address] [id number] [place] [address]- 2465 Oct, [facility] [place] [facility] [address] [id number] [place] [address]- 2198 22 Oct, 2013 [facility] [place] [facility] [address] [id number] [place] 1458 Oct, [facility] [place] [facility] [address] [id number] [place] [address]- 5292 Oct, [facility] [place] [facility] [address] [id number] [place] [address]- 4012 Oct, [facility] [place] [facility] [address] [id number] [place] [address]- 4382 Oct, [facility] [place] [facility] [address] [id number] [place] [address]- 5588 Sep, [facility] [place] [facility] [address] [id number] [place] [address]- 6466 Sep, [facility] [place] [facility] [address] [id number] [place] [address]- 4337 Sep, [facility] [place] [facility] [address] [id number] [place] [address]- 7039 Sep, [facility] [place] [facility] [address] [id number] [place] [address]- 7695 Sep, [facility] [place] [facility] [address] [id number] [place] [address]- 4677 Sep, [facility] [place] [facility] [address] [id number] [place] [address]- 7726 Aug, [facility] [place] [facility] [address] [id number] [place] [address]- 1500 Aug, [facility] [place] [facility] [address] [id number] [place] [address]- 6860 June, [facility] [place] [facility] [address] [id number] [place] [address]- 2233 June, [facility] [place] [facility] [address] [id number] [place] [address]- 3985 May, [facility] [place] [facility] [address] [id number] [place] [address]- 5212 May, [facility] [place] [facility] [address] [id number] [place] [address]- 6772 Apr, [facility] [place] [facility] [address] [id number] [place] [address]- 5790 Apr, [facility] [place] [facility] [address] [id number] [place] [address]- 6080 Mar, [facility] [place] [facility] [address] [id number] [place] 5836 Mar, [facility] [place] [facility] [address] [id number] [place] [address]- 9753 Mar, [facility] [place] [facility] [address] [id number] [place] [address]- 6833 Mar, [facility] [place] [facility] [address] [id number] [place] [address]- 2225 Mar, [facility] [place] [facility] [address] [facility] [id number] [place] [address]- 5209 Mar, [facility] [place] [facility] [address] [facility] [id number] [place] [address]- 5683 Mar, [facility] [place] [facility] [address] [facility] [id number] [place] [address]- 2934 Mar, [facility] [place] [facility] [address] [facility] [id number] [place] [address]- 4174 Nov, [facility] [place] [facility] [address] [facility] [id number] [place] [address]- 9293 Nov, [facility] [place] [facility] [address] [id number], [place] [address]- 4691 Sep, [facility] [place] [facility] [address] [id number] [place] [address]- 2704 Aug, [facility] [place] [facility] [address] [id number] [place] [address]- 2449 Apr, [facility] [place] [facility] [address] [facility] [id number] [place] 0154 Mar, [facility] [place] [facility] [address] [facility] [id number], [place] [address]- 2976 Mar, [facility] [address] [id number] [place] [address]- 4815 Feb, [facility] [place] [facility] [address] [id number], [place] [address]- 3297 Jan, [facility] [place] [facility] [address] [facility] [id number] [place] [address]- 8056 Jan, [facility] [place] [facility] [address] [id number] [place] [address]- 7068 Dec, [facility] [place] [facility] [address] [id number] [place] [address]- 7093 Dec, [facility] [place] [facility] [address] [facility] [id number] [place] [address]- 4051 Nov, [facility] [address], [place] [address]- 1805 Oct, [facility] [place] [facility] [address] [facility] [id number] [place] [address]- 1314 Oct, [facility] [id number] [address]- 0549 Sep, [facility] [place] [facility] [address] [facility] [id number], [place] [address]- 0042 Aug, [facility] [place] [facility] [address] [facility] [id number], [place] [address]- 5447 Jul, [facility] [place] [facility] [address] [facility] [id number], [place] [address]- 6022 May, [facility] [place] [facility] [address] [facility] [id number], [place] [address]- 3050 Mar, [facility] [place] [facility] [address] [facility] [id number], [place] [address]- 6192 Mar, [facility] [place] [facility] [id number] [address]- 7606 Mar, [facility] [place] [facility] [address] [id number] [place] [address]- 3610 Mar, [facility] [place] [facility] [address] [id number] [place] [address]- 2211 Feb, [facility] [place] [facility] [address] [id number] [place] [address]- 8571 Feb, [facility] [place] [facility] [address] [id number] [place] [address]- 7750 Feb, [facility] [place] [facility] [address] [id number] [place] [address]- 2034 Jan, [facility] [place] [facility] [address] [id number] [place] [address]- 3823 Dec, [facility] [address] [id number] [place] [address]- 0100 14 Jul, 2010 [facility] [place] [facility] [address] [id number] [place] [address]- 9692 June, [facility] [address] [id number] [place] [address]- 6250 29 Jan, 2010 [facility] [place] [facility] [address] [id number] [place] [address] 16 Dec, 2009 [facility] [place] [facility] [address] [id number] [place] [address] 18 Nov, 2009 [facility] [place] [facility] [address] [id number] [place] [address] 14 Aug, 2009 [facility] [place] [facility] [address] [id number] [place] [address] 14 Jan, 2009 [facility] [place] [facility] [address] [id number] [place] [address] 14 Jan, 2009 [facility] [place] [facility] [address] [id number] [place] [address] 10 Jan, 2009 [facility] [place] [facility] [address] [id number] [address] Jan, [facility] [address] [facility] [id number] [place] [address] Dec, [facility] [address] [facility] [id number], [place] [address] Dec, [facility] [address] [facility] [id number] [place] [address] May, IMMUNIZATIONS No Known Immunizations SOCIAL HISTORY Never Assessed REASON FOR VISIT shortness of breath with exertion PLAN OF CARE Activity Details Follow Up 3 Months Reason: VITAL SIGNS Height 67 in 2017-11-07 Weight 276 lbs 2017-11-07 Heart Rate 68 bpm 2017-11-07 Respiratory Rate 20 2017-11-07 Oximetry 98 % 2017-11-07 BMI 43.22 kg/m2 2017-11-07 Blood pressure systolic 122 mmHg 2017-11-07 Blood pressure diastolic 84 mmHg 2017-11-07 MEDICATIONS Medication Instructions Dosage Frequency Start Date End Date Duration Status Propranolol HCl 20 MG 1 tablet Twice a day Orally 90 Active Betamethasone Dipropionate 0.05 % Externally twice weekly 1 application to affected area Dec, Active Fluoxetine HCl 20 MG TAKE 3 CAPSULES BY MOUTH ONCE DAILY 30 Active RESULTS Name Result Date Reference Range Lexiscan Stress Nuclear Test 2017-11-20 Carotid Ultrasound 2017-11-30 Echo 2D 2017-12-04 ARTURO w/ Segmentals 2017-12-04 PROCEDURES No Known procedures INSTRUCTIONS MEDICATIONS ADMINISTERED No Known Medications MEDICAL (GENERAL) HISTORY Type Description Date Medical History depression Medical History hx of anxiety Medical History mitral valve prolapse Surgical History tonsillectomy and adenoidectomy Surgical History partial hysterectomy Surgical History jaw surgery 1974 Surgical History colonoscopy 10/26/15 Surgical History colonoscopy 11/2016 Hospitalization History for surgery
[2018-05-01] MEDS ORDERED: ceFAZolin 2 GM IV Premixed 50 ML IV ONE (11:00)
--- OUTSIDE RECORDS SUMMARY | 2018-05-01 11:00 | XMS REPORT ---
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 Active 2249762937761 Problem Acute right-sided low back pain with right-sided sciatica M54.41 Active 361089310 Problem Other chronic pain G89.29 Active 13245331 Problem Mitral valve insufficiency, unspecified etiology I34.0 Active 62880490 Problem Bilateral claudication of lower limb I73.9 Active 69684553 Problem Eustachian tube dysfunction H69.80 Active 27398147 Problem Dysthymia F34.1 Active 55669075 Problem Violation of controlled substance agreement Z91.14 Aug, Active 202017334 Problem Hypertension I10 Active 67262967 Problem Knee pain M25.569 Active 60646435 Problem Anxiety disorder, unspecified F41.9 Active [id number] ALLERGIES No Information ENCOUNTERS Encounter Location Date Diagnosis [facility] [address] [facility] [id number] [address] Jan, [facility] [id number] [address] Jan, [facility] [id number] [address] Jan, [facility] [id number] [address] Dec, Left hip pain M25.552 ; Left lower quadrant pain R10.32 ; Psoriasis L40.9 ; Encounter for screening mammogram for breast cancer Z12.31 and BMI 40.0-44.9, adult Z68.41 [place] [address] [address] 12 Oct, 2017 Dyspnea on exertion R06.09 ; Essential hypertension I10 ; Bilateral claudication of lower limb I73.9 ; Mitral valve insufficiency, unspecified etiology I34.0 ; Suspected sleep apnea R29.818 ; Tobacco use Z72.0 and Coronary artery disease involving cabazon coronary artery of cabazon heart with angina pectoris I25.[address] [id number] [id number] Aug, Shortness of breath R06.02 and Anxiety disorder, unspecified F41.[address] [place] [address] 17264- 2928 Aug, Anxiety disorder, unspecified F41.9 [address] [place] [address] 21815- 8161 Jul, Anxiety disorder, unspecified F41.9 ; Shortness of breath R06.02 ; Therapeutic drug monitoring Z51.81 ; Family history of diabetes mellitus Z83.3 ; BMI 40.0-44.9, adult Z68.41 and Tobacco abuse Z72.0 [place] [address] [address] June, Anxiety disorder, unspecified F41.9 and Pain in right knee M25.561 [address] [place] [address] 56921- 4904 June, Pain in right knee M25.561 ; Pain in left knee M25.562 ; Other chronic pain G89.29 ; Anxiety disorder, unspecified F41.9 ; Acute right- sided low back pain with right-sided sciatica M54.41 and BMI 40.0-44.9, adult Z68.41 [place] [id number] [address] May, Anxiety disorder, unspecified F41.9 [facility] [id number] [place] [address] 774816- 0976 Apr, Anxiety disorder, unspecified F41.9 [facility] [id number] [place] [address] 54676- 9344 Apr, Anxiety disorder, unspecified F41.9 [facility] [id number] [place] [address] 68405- 3833 Mar, Anxiety disorder, unspecified F41.9 [place] [id number] [place] [address] 10836- 4555 Mar, [place] [id number] [place] [address] 89955- 9224 Feb, Anxiety disorder, unspecified F41.9 [place] [id number] [place] [address] 88171- 2350 Jan, Anxiety disorder, unspecified F41.9 [place] [id number] [place] [address] 33787- 7206 Dec, Anxiety disorder, unspecified F41.9 ; Hypertension I10 ; Encounter for screening mammogram for breast cancer Z12.31 ; Psoriasis L40.9 and BMI 40.0-44.9, adult Z68.41 [place] [address] [place] [address] 88804- 2500 Dec, Anxiety disorder, unspecified F41.9 [place] [address] [place] [address] 29014- 0139 Nov, [place] [id number] [place] [address] 50855- 4544 Nov, Anxiety disorder, unspecified F41.9 [facility] [address] [place] [address] 53957- 7999 Nov, [place] [id number] [id number] Oct, Dysuria R30.0 [facility] [address] [address] 1027 Oct, Anxiety disorder, unspecified F41.9 [facility] [address], [place] [address] 0414 Sep, Anxiety disorder, unspecified F41.9 [facility] [address], [place] [address] 2892 Aug, Anxiety disorder, unspecified F41.9 [facility] [address] [place] [address] 46615- 2491 Aug, [facility] [address] [place] [address] 76997- 7073 Jul, Anxiety disorder, unspecified F41.9 [facility] [address] [place] [address] 23240- 3106 June, Anxiety disorder, unspecified F41.9 [facility] [address] [place] [address] 44224- 3480 June, Anxiety disorder, unspecified F41.9 [facility] [address], [place] [address] 28[address] May, Anxiety disorder, unspecified F41.9 [facility] [address], [place] [address]- 2785 Apr, [facility] [address], [place] [address]- 2805 Apr, Anxiety disorder, unspecified F41.9 [facility] [address] [place] [address] 19301- 6032 Mar, Well woman exam Z01.419 ; Cervical cancer screening Z12.4 and Breast cancer screening Z12.39 [facility] [address] [place] [address] 61602- 5596 Mar, Anxiety disorder, unspecified F41.9 [place] [id number] [place] [address] 15208- 2172 Mar, Eustachian tube dysfunction H69.80 and Pharyngitis, unspecified etiology J02.9 [place] [id number] [place] [address] 20345- 6364 Feb, Anxiety disorder, unspecified F41.9 [place] [id number] [place] [address] 96635- 1564 Jan, Anxiety disorder, unspecified F41.9 [place] [id number] [place] [address] 91860- 1533 Dec, Anxiety disorder, unspecified F41.9 [place] [id number] [place] [address] 99517- 7199 Oct, Anxiety disorder, unspecified F41.9 [place] [id number] [place] [address] 15922- 3692 Oct, Irritable bowel syndrome with diarrhea K58.0 ; Hypertension I10 ; Family history of diabetes mellitus Z83.3 and Visual changes H53.9 [place] [id number] [place] [address] 43496- 0984 Sep, Anxiety disorder, unspecified F41.9 [place] [id number] [place] [address] 42735- 5834 Sep, RLQ abdominal pain R10.31 [place] [id number] [place] [address] 28469- 9129 Sep, RLQ abdominal pain R10.31 and 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 [place] [id number] [place] [address] 61581- 4679 Aug, Anxiety disorder, unspecified F41.9 [place] [id number] [place] [address] 33604- 1306 Aug, [facility] [id number] [place] [address] 53553- 4683 Aug, [facility] [id number] [place] [address] 17761- 6416 Aug, Knee pain M25.569 [facility] [id number] [place] [address] 32165- 8606 Jul, [facility] [id number] [place] [address] 11277- 4345 June, Anxiety disorder, unspecified F41.9 [facility] [id number] [place] [address] 81032- 9169 May, [facility] [id number] [place] [address] 943416- 5636 May, [facility] [id number] [place] [address] 79633- 2645 Apr, [facility] [id number] [place] [address] 729915- 3196 Apr, [facility] [id number] [place] [address] 501197- 9139 Mar, Hypertension I10 ; Dysthymia F34.1 ; Knee pain M25.569 and Eustachian tube dysfunction H69.80 [facility] [id number] [place] [address] 70790- 9366 Mar, [facility] [id number] [place] [address] 87324- 7074 Feb, [facility] [id number] [place] [address] 08768- 5986 Jan, [facility] [id number] [place] [address] 06271- 9146 Jan, [facility] [id number] [place] [address] 40680- 0370 Dec, [facility] [address], [place] [address]- 8106 Dec, [facility] [address], [place] [address]- 5256 Nov, [facility] [address] [id number] [id number] Oct, Dental examination V72.2 [facility] [address] [id number] [id number] 15 Oct, 2014 Allergic rhinitis 477.9 and Chronic serous otitis media of both ears 381.10 [facility] [id number] [place] [address] 78793- 3519 Sep, [facility] [address] [id number] [id number] Sep, Sinusitis 473.9 and Bronchitis 490 [facility] [address] [place] [address] 23789- 1676 Aug, [facility] [address] [place] [address] 10070- 9109 Jul, [facility] [address] [place] [address] [id number]- 6767 Jul, [facility] [address], [place] [address]- 9148 May, [facility] [place] [facility] [address], [place] [address]- 1612 May, [facility] [place] [facility] [address] 4737 Apr, [facility] [id number] [place] [address] 053621- 0643 Apr, [facility] [place] [facility] [address], [place] [address]- 4065 Feb, [facility] [place] [facility] [id number] [place] [address] 19774- 2541 Feb, [facility] [place] [facility] [address] [id number] [place] [address]- 6430 Feb, [facility] [place] [facility] [address] [id number] [place] [address]- 8556 Feb, [facility] [place] [facility] [address] [facility] [id number] [place] [address]- 9835 Feb, [facility] [place] [facility] [address] [id number] [place] [address]- 0550 Feb, [facility] [place] [facility] [address] [id number] [place] [address]- 5236 Feb, [facility] [place] [facility] [address] [id number] [place] [address]- 6765 Feb, [facility] [place] [facility] [address] [facility] [id number] [place] [address]- 1288 Feb, [facility] [place] [facility] [address] [id number] [place] [address]- 7203 Feb, [facility] [place] [facility] [address] [id number] [place] [address]- 6320 Jan, [facility] [place] [facility] [address] [facility] [id number] [place] [address]- 6554 Jan, [facility] [place] [facility] [address] [id number] [place] [address]- 2368 Jan, [facility] [place] [facility] [address] [id number] [place] [address]- 1231 Jan, [facility] [place] [facility] [address] [id number] [place] [address]- 2086 Jan, [facility] [place] [facility] [address] [id number] [place] [address]- 3788 Dec, [facility] [place] [facility] [address] [facility] [id number] [place] [address]- 8975 Dec, [facility] [place] [facility] [address] [id number] [place] [address]- 6520 Nov, [facility] [place] [facility] [address] [id number] [place] [address]- 7774 23 Nov, 2013 [facility] [place] [facility] [address] [id number] [place] [address]- 1056 15 Nov, 2013 [facility] [place] [facility] [address] [id number] [place] [address]- 8306 15 Nov, 2013 [facility] [place] [facility] [address] [id number] [place] [address]- 1853 Oct, [facility] [place] [facility] [address] [id number] [place] [address]- 6114 Oct, [facility] [place] [facility] [address] [id number] [place] [address]- 2713 Oct, [facility] [place] [facility] [address] [id number] [place] [address]- 6101 Oct, [facility] [place] [facility] [address] [id number] [place] [address]- 0718 Oct, [facility] [place] [facility] [address] [id number] [place] [address]- 7209 Oct, [facility] [place] [facility] [address] [id number] [place] [address]- 5881 Sep, [facility] [place] [facility] [address] [id number] [place] [address]- 7288 Sep, [facility] [place] [facility] [address] [id number] [place] [address]- 2548 Sep, [facility] [place] [facility] [address] [id number] [place] [address]- 8024 Sep, [facility] [place] [facility] [address] [id number] [place] [address]- 3723 Sep, [facility] [place] [facility] [address] [id number] [place] [address]- 4432 Sep, [facility] [place] [facility] [address] [id number] [place] [address]- 3513 Aug, [facility] [place] [facility] [address] [id number] [place] [address]- 3343 Aug, [facility] [place] [facility] [address] [id number] [place] [address]- 4066 June, [facility] [place] [facility] [address] [id number] [place] [address]- 5354 June, [facility] [place] [facility] [address] [id number] [place] [address]- 0410 May, [facility] [place] [facility] [address] [id number] [place] [address]- 0814 May, [facility] [place] [facility] [address] [id number] [place] [address]- 5013 Apr, [facility] [place] [facility] [address] [id number] [place] [address]- 2370 Apr, [facility] [place] [facility] [address] [id number] [place] [address]- 9299 Mar, [facility] [place] [facility] [address] [id number] [place] [address]- 6996 Mar, [facility] [place] [facility] [address] [id number] [place] [address]- 1015 Mar, [facility] [place] [facility] [address] [id number] [place] [address]- 7654 Mar, [facility] [place] [facility] [address] [id number] [place] [address]- 7194 Mar, [facility] [place] [facility] [address] [id number] [place] [address]- 2276 Mar, [facility] [place] [facility] [address] [id number] [place] [address]- 8037 Mar, [facility] [place] [facility] [address] [id number] [place] [address]- 3690 13 Mar, 2013 [facility] [place] [facility] [address] [id number] [place] [address]- 8738 Nov, [facility] [place] [facility] [address] [id number] [place] [address]- 9284 Nov, [facility] [place] [facility] [address] [id number] [place] [address]- 1893 Sep, [facility] [place] [facility] [address] [id number] [place] [address]- 4539 Aug, [facility] [place] [facility] [address] [id number] [place] [address]- 4695 Apr, [facility] [place] [facility] [address] [id number] [place] [address]- 8560 Mar, [facility] [place] [facility] [address] [id number] [place] [address]- 2622 Mar, [facility] [place] [facility] [address] [id number] [place] [address]- 8768 Feb, [facility] [place] [facility] [address] [id number] [place] [address]- 2136 Jan, [facility] [place] [facility] [address] [id number] [place] [address]- 9553 Jan, [facility] [place] [facility] [address] [id number] [place] [address]- 5949 Dec, [facility] [place] [facility] [address] [id number] [place] [address]- 3351 Dec, [facility] [place] [facility] [address] [id number] [place] [address]- 9473 Nov, [facility] [place] [facility] [address] [id number] [place] [address]- 9046 Oct, [facility] [place] [facility] [address] [id number] [place] [address]- 7922 Oct, [facility] [address] [id number] [place] [address]- 6346 Sep, [facility] [place] [facility] [address] [id number] [place] [address]- 4926 Aug, [facility] [place] [facility] [address] [id number] [place] [address]- 9505 Jul, [facility] [place] [facility] [address] [id number] [place] [address]- 4366 May, [facility] [place] [facility] [address] [id number] [place] [address]- 6698 Mar, [facility] [place] [facility] [address] [id number] [place] [address]- 8097 Mar, [facility] [place] [facility] [address] [id number] [place] [address]- 9694 Mar, [facility] [place] [facility] [address] [id number] [place] [address]- 0980 Mar, [facility] [place] [facility] [address] [id number] [place] [address]- 1743 Feb, [facility] [place] [facility] [address] [id number] [place] [address]- 7996 Feb, [facility] [place] [facility] [address] [id number], [place] [address]- 7999 Feb, [facility] [place] [facility] [address] [id number], [place] [address]- 4544 Jan, [facility] [place] [facility] [address] [id number] [place] [address]- 5250 Dec, [facility] [place] [facility] [address] [id number] [place] [address]- 6542 Jul, [facility] [place] [facility] [address] [id number] [place] [address]- 5162 June, [facility] [place] [facility] [address], [place] [address]- 1080 29 Jan, 2010 [facility] [address], [place] [address]- 0017 16 Dec, 2009 [facility] [address]- 5458 18 Nov, 2009 [facility] [address], [place] [address]- 0309 14 Aug, 2009 [facility] [address], [place] [address]- 7048 14 Jan, 2009 [facility] [address] 7607 14 Jan, 2009 [facility] [address], [place] [address]- 6834 Jan, [facility] [address], [place] [address]- 7513 Jan, [facility] [address], [place] [address]- 7925 Dec, [facility] [address], [place] [address]- 6931 Dec, [facility] [id number] [address]- 7542 15 May, 2008 IMMUNIZATIONS No Known Immunizations SOCIAL HISTORY Never Assessed REASON FOR VISIT PLAN OF CARE VITAL SIGNS MEDICATIONS Unknown [...]
--- OUTSIDE RECORDS SUMMARY | 2018-05-01 11:00 | XMS REPORT ---
Author Author JEZ TOMLINSON Organization [facility] Address [address] [place] [address] Care Team Providers Care Factory Expert Name Role Phone JEZ TOMLINSON Unavailable PROBLEMS Type Condition ICD9-CM Code NEQ36-QV Code Onset Dates Condition Status SNOMED Code Problem Hypertension I10 Active 02295154 Problem Eustachian tube dysfunction H69.80 Active 98711788 Problem Knee pain M25.569 Active 49199885 Problem Violation of controlled substance agreement Z91.14 Aug, Active 444144722 Problem Dysthymia F34.1 Active 17300743 Problem Other chronic pain G89.29 Active 05701064 Problem Acute right-sided low back pain with right-sided sciatica M54.41 Active 454504127 Problem Pharyngitis, unspecified etiology J02.9 Active 446556017 Problem Anxiety disorder, unspecified F41.9 Active 640145219 Problem Psoriasis L40.9 Active 3813223 Problem Dysuria R30.0 Active 53337242 ALLERGIES No Information ENCOUNTERS Encounter Location Date Diagnosis [place] [address] [facility] [id number] [address] Oct, [facility] [id number] [id number] Aug, Shortness of breath R06.02 and Anxiety disorder, unspecified F41.9 [facility] [address] [facility] [id number] [address] Aug, Anxiety disorder, unspecified F41.9 [place] [address] [facility] [id number] [address] Jul, Anxiety disorder, unspecified F41.9 ; Shortness of breath R06.02 ; Therapeutic drug monitoring Z51.81 ; Family history of diabetes mellitus Z83.3 ; BMI 40.0-44.9, adult Z68.41 and Tobacco abuse Z72.0 [place] [address] [place] [id number] [place] [address] 78863- [address]114 June, Anxiety disorder, unspecified F41.9 and Pain in right knee M25.561 [place] [address] [place] [id number] [place] [address] 30434- 6747 June, Pain in right knee M25.561 ; Pain in left knee M25.562 ; Other chronic pain G89.29 ; Anxiety disorder, unspecified F41.9 ; Acute right- sided low back pain with right-sided sciatica M54.41 and BMI 40.0-44.9, adult Z68.41 [place] [address] [place] [id number] [place] [address] 08584- 6499 May, Anxiety disorder, unspecified F41.9 [place] [address] [place] [id number] [place] [address] 29485- 6173 Apr, Anxiety disorder, unspecified F41.9 [place] [address] [place] [id number] [place] [address] 63047- 0009 Apr, Anxiety disorder, unspecified F41.9 [place] [address] [place] [id number] [place] [address] 17986- 7503 Mar, Anxiety disorder, unspecified F41.9 [place] [address] [place] [id number] [place] [address] 67255- 9094 Mar, [place] [address] [place] [id number] [place] [address] 17337- 3387 Feb, Anxiety disorder, unspecified F41.9 [place] [address] [place] [id number] [place] [address] 56606- 2807 Jan, Anxiety disorder, unspecified F41.9 [place] [address] [place] [id number] [place] [address] 14961- 3126 Dec, Anxiety disorder, unspecified F41.9 ; Hypertension I10 ; Encounter for screening mammogram for breast cancer Z12.31 ; Psoriasis L40.9 and BMI 40.0-44.9, adult Z68.41 [facility] [address] [place] [address] 21843- 0183 Dec, Anxiety disorder, unspecified F41.9 [facility] [address] [id number] [address] Nov, [facility] [address] [place] [id number] [place] [address] 13694- 6613 Nov, Anxiety disorder, unspecified F41.9 [facility] [address] [place] [id number] [place] [address] 64492- 3360 Nov, [id number] [id number] Oct, Dysuria R30.0 [facility] [address] [place] [id number] [place] [address] 20724- 1569 Oct, Anxiety disorder, unspecified F41.9 [facility] [id number] [place] [address] 17370- 4771 Sep, Anxiety disorder, unspecified F41.9 [facility] [address] [place] [address] 73941- 7304 Aug, Anxiety disorder, unspecified F41.9 [facility] [id number] [place] [address] 28512- 6687 Aug, [facility] [id number] [place] [address] 75074- 5025 Jul, Anxiety disorder, unspecified F41.9 [facility] [address] [place] [id number] [place] [address] 72376- 0190 June, Anxiety disorder, unspecified F41.9 [facility] [address] [place] [address] 40072- 7989 June, Anxiety disorder, unspecified F41.9 [place] [address] [address] May, Anxiety disorder, unspecified F41.9 [place] [address] [place] [id number] [place] [address] 48969- 4035 Apr, [place] [address] [place] [id number] [place] [address] 58880- 9257 Apr, Anxiety disorder, unspecified F41.9 [place] [address] [place] [id number] [place] [address] 31855- 4153 Mar, Well woman exam Z01.419 ; Cervical cancer screening Z12.4 and Breast cancer screening Z12.39 [place] [address] [place] [id number] [place] [address] 67493- 4067 Mar, Anxiety disorder, unspecified F41.9 [place] [address] [place] [id number] [place] [address] 52461- 0689 Mar, Eustachian tube dysfunction H69.80 and Pharyngitis, unspecified etiology J02.9 [place] [address] [place] [id number] [place] [address] 61451- 6960 Feb, Anxiety disorder, unspecified F41.9 [place] [address] [place] [id number] [place] [address] 31827- 2916 Jan, Anxiety disorder, unspecified F41.9 [place] [address] [place] [id number] [place] [address] 76839- 3037 Dec, Anxiety disorder, unspecified F41.9 [place] [address] [place] [id number] [place] [address] 09420- 9388 Oct, Anxiety disorder, unspecified F41.9 [place] [address] [place] [id number] [place] [address] 12489- 4602 Oct, Irritable bowel syndrome with diarrhea K58.0 ; Hypertension I10 ; Family history of diabetes mellitus Z83.3 and Visual changes H53.9 [place] [address] [place] [address] Sep, Anxiety disorder, unspecified F41.9 [facility] [address] [place] [id number] [place] [address] 14180- 5856 Sep, RLQ abdominal pain R10.31 [facility] [address] [place] [id number] [place] [address] 54104- 1344 Sep, RLQ abdominal pain R10.31 and 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 [facility] [address] [place] [id number] [place] [address] 78430- 3605 Aug, Anxiety disorder, unspecified F41.9 [facility] [address] [place] [id number] [place] [address] 64109- 0402 Aug, [facility] [address] [place] [id number] [place] [address] 28404- 7417 Aug, [facility] [address] [place] [id number] [place] [address] 33684- 2515 Aug, Knee pain M25.569 [facility] [address] [place] [id number] [place] [address] 26380- 9705 Jul, [facility] [address] [place] [id number] [place] [address] 72537- 6663 June, Anxiety disorder, unspecified F41.9 [facility] [address] [place] [id number] [place] [address] 05488- 7026 May, [facility] [address] [place] [id number] [place] [address] 79755- 2547 May, [facility] [address] [place] [id number] [place] [address] 23195- 2714 Apr, [facility] [address] [place] [id number] [place] [address] 66562- 2546 Apr, [facility] [address] [place] [id number] [place] [address] 80768- 7343 Mar, Hypertension I10 ; Dysthymia F34.1 ; Knee pain M25.569 and Eustachian tube dysfunction H69.80 [facility] [address] [place] [id number] [place] [address] 37101- 6526 Mar, [facility] [address] [place] [id number] [place] [address] 206781- 2353 Feb, [facility] [address] 541770- 0038 Jan, [facility] [address] [place] [id number] [place] [address] 655726- 7009 Jan, [facility] [address] [place] [id number] [place] [address] 55655- 1039 Dec, [facility] [address] [place] [id number] [place] [address] 93942- 5317 Dec, [facility] [address] [place] [id number] [place] [address] 25345- 4783 Nov, [address] [id number] [id number] Oct, Dental examination V72.[address] [id number] [id number] Oct, Allergic rhinitis 477.9 and Chronic serous otitis media of both ears 381.10 [facility] [address] [place] [id number] [place] [address] 23678- 0746 Sep, [id number] [place] [address] [id number] Sep, Sinusitis 473.9 and Bronchitis 490 [facility] [address] [place] [id number] [place] [address] 23388- 4756 Aug, [facility] [address] [place] [id number] [place] [address] 12132- 6506 Jul, [facility] [address] [place] [id number] [place] [address] 91811- 6496 Jul, [facility] [place] [facility] [address] [id number] [place] [address]- 3853 May, [facility] [place] [facility] [address] [id number] [place] [address]- 0652 May, [facility] [place] [facility] [address] [id number] [place] [address]- 1962 Apr, [facility] [place] [facility] [address] [id number] [place] [address]- 4153 Apr, [facility] [place] [facility] [address] [id number] [place] [address]- 4586 Feb, [facility] [place] [facility] [address] [id number] [place] [address]- 3118 Feb, [facility] [place] [facility] [address] [id number] [place] [address]- 2017 Feb, [facility] [place] [facility] [address] [id number] [address]- 0536 Feb, [facility] [place] [facility] [address] [id number] [place] [address]- 3160 Feb, [facility] [place] [facility] [address] [id number] [place] [address]- 0007 Feb, [facility] [place] [facility] [address] [id number], [place] [address]- 4522 Feb, [facility] [place] [facility] [address] [id number], [place] [address]- 2075 Feb, [facility] [place] [facility] [address] [id number], [place] [address]- 9088 Feb, [facility] [place] [facility] [address] [id number], [place] [address]- 1896 Feb, [facility] [place] [facility] [address] [id number] [place] [address]- 7058 Jan, [facility] [place] [facility] [address] [id number] [place] [address]- 4911 Jan, [facility] [place] [facility] [address] [id number] [place] [address]- 5973 Jan, [facility] [place] [facility] [address] [id number] [place] [address]- 5688 Jan, [facility] [place] [facility] [address] [id number] [place] [address]- 9825 Jan, [facility] [place] [facility] [address] [id number] [place] [address]- 7044 Dec, [facility] [place] [facility] [address] [id number] [place] [address]- 7634 Dec, [facility] [place] [facility] [address] [id number] [place] [address]- 5447 Nov, [facility] [place] [facility] [address] [id number] [place] [address]- 0373 Nov, [facility] [place] [facility] [address] [id number] [place] [address]- 0227 Nov, [facility] [place] [facility] [address] [id number] [place] [address]- 7046 Nov, [facility] [place] [facility] [address] [id number] [place] [address]- 1931 Oct, [facility] [place] [facility] [address] [id number] [place] [address]- 4838 22 Oct, 2013 [facility] [place] [facility] [address] [id number] [place] [address]- 2547 10 Oct, 2013 [facility] [place] [facility] [address] [id number] [place] [address] 2543 10 Oct, 2013 [facility] [place] [facility] [address] [id number] [place] [address]- 2546 Oct, [facility] [place] [facility] [address] [id number] [place] [address] 2540 Oct, [facility] [place] [facility] [address] [id number] [place] [address]- 2217 Sep, [facility] [place] [facility] [address] [id number] [place] [address]- 6194 Sep, [facility] [place] [facility] [address] [id number] [place] [address]- 0173 Sep, [facility] [place] [facility] [address] [id number] [place] [address]- 8543 Sep, [facility] [place] [facility] [address] [id number] [place] [address]- 0054 Sep, [facility] [place] [facility] [address] [id number] [place] [address]- 9041 Sep, [facility] [place] [facility] [address] [id number] [place] [address]- 8712 Aug, [facility] [place] [facility] [address] [id number] [place] [address]- 4822 Aug, [facility] [place] [facility] [address] [id number] [place] [address]- 1661 June, [facility] [place] [facility] [address] [id number] [place] [address]- 9669 June, [facility] [place] [facility] [address] [id number] [place] [address]- 8940 May, [facility] [place] [facility] [address] [id number] [place] [address]- 1399 May, [facility] [place] [facility] [address] [id number] [place] [address]- 3303 Apr, [facility] [place] [facility] [address] [id number] [place] [address]- 4752 Apr, [facility] [place] [facility] [address] [id number] [place] [address]- 4263 Mar, [facility] [place] [facility] [address] [id number] [place] [address]- 6520 Mar, [facility] [place] [facility] [address] [id number] [place] [address]- 1006 Mar, [facility] [place] [facility] [address] [id number] [place] [address]- 6816 Mar, [facility] [place] [facility] [address] [id number] [place] [address]- 3746 Mar, [facility] [place] [facility] [address] [id number] [place] [address]- 6830 Mar, [facility] [place] [facility] [address] [id number] [place] [address]- 9034 Mar, [facility] [place] [facility] [address] [id number] [place] [address]- 4155 Mar, [facility] [place] [facility] [address] [facility] [id number] [place] [address]- 1933 Nov, [facility] [place] [facility] [address] [id number] [place] [address]- 0926 Nov, [facility] [place] [facility] [address] [id number] [place] [address]- 4777 Sep, [facility] [place] [facility] [address] [facility] [id number] [place] [address]- 0636 Aug, [facility] [place] [facility] [address] [id number] [place] [address]- 5705 Apr, [facility] [place] [facility] [address] [id number] [place] [address]- 9500 Mar, [facility] [place] [facility] [address] [id number] [place] [address]- 4826 Mar, [facility] [place] [facility] [address] [id number] [place] [address]- 2216 Feb, [facility] [place] [facility] [address] [id number] [place] [address]- 5046 Jan, [facility] [place] [facility] [address] [id number] [place] [address]- 6276 Jan, [facility] [place] [facility] [address] [id number] [place] [address]- 1831 Dec, [facility] [place] [facility] [address] [id number] [place] [address]- 0579 Dec, [facility] [place] [facility] [address] [id number] [place] [address]- 7072 Nov, [facility] [place] [facility] [address] [id number] [place] [address]- 6423 Oct, [facility] [place] [facility] [address] [id number] [place] [address]- 9602 Oct, [facility] [place] [facility] [address] [id number] [place] [address]- 7037 Sep, [facility] [place] [facility] [address] [id number] [place] [address]- 1611 Aug, [facility] [place] [facility] [address] [id number] [place] [address]- 6791 Jul, [facility] [place] [facility] [address] [id number] [place] [address]- 5981 May, [facility] [place] [facility] [address] [id number] [place] [address]- 1816 Mar, [facility] [place] [facility] [address] [id number], [place] [address]- 8568 Mar, [facility] [place] [facility] [address] [id number] [place] [address] 254 Mar, [facility] [place] [facility] [address] [id number], [place] [address]- 5926 Mar, [facility] [place] [facility] [address] [id number] [place] [address]- 0873 Feb, [facility] [place] [facility] [address] [id number] [place] [address]- 8520 31 Feb, 2011 [facility] [address] [id number] [place] [address]- 0933 06 Feb, 2011 [facility] [place] [facility] [address] [id number] [place] [address]- 4859 06 Jan, 2011 [facility] [place] [facility] [address] [id number] [place] [address]- 5854 10 Dec, 2010 [facility] [place] [facility] [address] [id number] [place] [address]- 0563 14 Jul, 2010 [facility] [place] [facility] [address] [id number] [place] [address]- 4975 10 Jun, 2010 [facility] [place] [facility] [address] [id number] [place] [address]- 4640 29 Jan, 2010 [facility] [place] [facility] [address] [id number] [place] [address]- 3364 16 Dec, 2009 [facility] [place] [facility] [address] [id number] [place] [address]- 7918 18 Nov, 2009 [facility] [place] [facility] [address] [id number] [place] [address]- 0536 14 Aug, 2009 [facility] [place] [facility] [address] [facility] [id number] [place] [address]- 3003 14 Jan, 2009 [facility] [place] [facility] [address] [id number] [place] [address]- 9330 14 Jan, 2009 [facility] [place] [facility] [address] [id number] [place] [address]- 1760 10 Jan, 2009 [facility] [place] [facility] [address] [id number] [place] [address]- 2349 07 Jan, 2009 [facility] [place] [facility] [address] [id number] [place] [address]- 7411 25 Dec, 2008 [facility] [place] [facility] [address] [id number] [place] [address]- 6334 10 Dec, 2008 [facility] [place] [facility] [address] [facility] [id number] [place] [address]- 7312 May, IMMUNIZATIONS No Known Immunizations SOCIAL HISTORY Never Assessed REASON FOR VISIT Lab (walk-in) [facility] PLAN OF CARE VITAL SIGNS MEDICATIONS Unknown Medications RESULTS No Results PROCEDURES Procedure Date Ordered Result Body Site ROUTINE VENIPUNCTURE 2017-09-24 N/A EKG, TRACING (IN-HOUSE) 2017-09-24 NSR COMPREHEN METABOLIC PANEL September 24, 2017 LIPID PANEL September 24, 2017 ELECTROCARDIOGRAM, TRACING September 24, 2017 ASSAY THYROID STIM HORMONE September 24, 2017 INSTRUCTIONS MEDICATIONS ADMINISTERED No Known Medications MEDICAL (GENERAL) HISTORY Type Description Date Medical History depression Medical History hx of anxiety Medical History mitral valve prolapse Surgical History tonsillectomy and adenoidectomy Surgical History partial hysterectomy Surgical History jaw surgery 1974 Surgical History colonoscopy 10/26/15 Surgical History colonoscopy 11/2016 Hospitalization History for surgery
--- OUTSIDE RECORDS SUMMARY | 2018-05-01 11:01 | XMS REPORT ---
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 Name Role Phone JEZ TOMLINSON Unavailable PROBLEMS Type Condition ICD9-CM Code XUT74-SM Code Onset Dates Condition Status SNOMED Code Problem Hypertension I10 Active 14548243 Problem Eustachian tube dysfunction H69.80 Active 38242752 Problem Knee pain M25.569 Active 27882332 Problem Violation of controlled substance agreement Z91.14 Aug, Active 197355083 Problem Dysthymia F34.1 Active 58893357 Problem Other chronic pain G89.29 Active 20339742 Problem Acute right-sided low back pain with right-sided sciatica M54.41 Active 897949410 Problem Pharyngitis, unspecified etiology J02.9 Active 544429593 Problem Anxiety disorder, unspecified F41.9 Active 724022132 Problem Psoriasis L40.9 Active 1131402 Problem Dysuria R30.0 Active 31699695 ALLERGIES No Known Allergies ENCOUNTERS Encounter Location Date Diagnosis [place] [address] [facility] [id number], [place] [address] Oct, [facility] [address] [id number] [id number] Aug, Shortness of breath R06.02 and Anxiety disorder, unspecified F41.9 [facility] [address] [facility] [id number], [place] [address] Aug, Anxiety disorder, unspecified F41.9 [place] [address] [facility] [id number], [place] [address] Jul, Anxiety disorder, unspecified F41.9 ; Shortness of breath R06.02 ; Therapeutic drug monitoring Z51.81 ; Family history of diabetes mellitus Z83.3 ; BMI 40.0-44.9, adult Z68.41 and Tobacco abuse Z72.0 [place] [address] [place] [id number] [place] [address] 75602- [address]289 June, Anxiety disorder, unspecified F41.9 and Pain in right knee M25.561 [place] [address] [place] [id number] [place] [address] 31548- 6027 June, Pain in right knee M25.561 ; Pain in left knee M25.562 ; Other chronic pain G89.29 ; Anxiety disorder, unspecified F41.9 ; Acute right- sided low back pain with right-sided sciatica M54.41 and BMI 40.0-44.9, adult Z68.41 [place] [address] [place] [id number] [place] [address] 44397- 5715 May, Anxiety disorder, unspecified F41.9 [place] [address] [place] [id number] [place] [address] 22723- 8864 Apr, Anxiety disorder, unspecified F41.9 [place] [address] [place] [id number] [place] [address] 85508- 0646 Apr, Anxiety disorder, unspecified F41.9 [place] [address] [place] [id number] [place] [address] 52911- 0243 Mar, Anxiety disorder, unspecified F41.9 [place] [address] [place] [id number] [place] [address] 17664- 5838 Mar, [place] [address] [place] [id number] [place] [address] 95493- 4916 Feb, Anxiety disorder, unspecified F41.9 [place] [address] [place] [id number] [place] [address] 39272- 2809 Jan, Anxiety disorder, unspecified F41.9 [place] [address] [place] [id number] [place] [address] 07513- 0907 Dec, Anxiety disorder, unspecified F41.9 ; Hypertension I10 ; Encounter for screening mammogram for breast cancer Z12.31 ; Psoriasis L40.9 and BMI 40.0-44.9, adult Z68.41 [facility] [address] [place] [id number] [place] [address] 44161- 8738 Dec, Anxiety disorder, unspecified F41.9 [facility] [address] [place] [id number] [place] [address] 14792- 9644 Nov, [facility] [address] [place] [id number] [place] [address] 39366- 4219 Nov, Anxiety disorder, unspecified F41.9 [facility] [address] [place] [id number] [place] [address] 53511- 0891 Nov, [id number] [id number] Oct, Dysuria R30.0 [facility] [address] [place] [id number] [place] [address] 56981- 3471 Oct, Anxiety disorder, unspecified F41.9 [facility] [address] [place] [address] 19774- 0540 Sep, Anxiety disorder, unspecified F41.9 [facility] [address] [place] [address] 31760- 7070 Aug, Anxiety disorder, unspecified F41.9 [place] [address] [place] [address] 58138- 1612 Aug, [facility] [address] [place] [id number] [place] [address] 17554- 4242 Jul, Anxiety disorder, unspecified F41.9 [facility] [address] [place] [id number] [place] [address] 75928- 5697 June, Anxiety disorder, unspecified F41.9 [facility] [address] [place] [address] 25462- 6760 June, Anxiety disorder, unspecified F41.9 [place] [address], [place] [address] May, Anxiety disorder, unspecified F41.9 [place] [address] [place] [id number] [place] [address] 21332- 8103 Apr, [place] [address] [place] [id number] [place] [address] 67197- 0625 Apr, Anxiety disorder, unspecified F41.9 [place] [address] [place] [id number] [place] [address] 91735- 8997 Mar, Well woman exam Z01.419 ; Cervical cancer screening Z12.4 and Breast cancer screening Z12.39 [place] [address] [place] [id number] [place] [address] 06611- 9567 Mar, Anxiety disorder, unspecified F41.9 [place] [address] [place] [id number] [place] [address] 44640- 3498 Mar, Eustachian tube dysfunction H69.80 and Pharyngitis, unspecified etiology J02.9 [place] [address] [place] [id number] [place] [address] 85960- 9486 Feb, Anxiety disorder, unspecified F41.9 [place] [address] [place] [address] 72512- 8313 Jan, Anxiety disorder, unspecified F41.9 [place] [address] [place] [id number] [place] [address] 22343- 3047 Dec, Anxiety disorder, unspecified F41.9 [place] [address] [place] [id number] [place] [address] 18539- 7807 Oct, Anxiety disorder, unspecified F41.9 [place] [address] [place] [address] 61930- 3176 Oct, Irritable bowel syndrome with diarrhea K58.0 ; Hypertension I10 ; Family history of diabetes mellitus Z83.3 and Visual changes H53.9 [place] [address] [id number], [place] [address] Sep, Anxiety disorder, unspecified F41.9 [facility] [address] [place] [id number] [place] [address] 94746- 0496 Sep, RLQ abdominal pain R10.31 [facility] [address] [place] [id number] [place] [address] 99390- 1336 Sep, RLQ abdominal pain R10.31 and 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 [facility] [address] [place] [id number] [place] [address] 36329- 5666 Aug, Anxiety disorder, unspecified F41.9 [facility] [address] [place] [id number] [place] [address] 79792- 2316 Aug, [facility] [address] [place] [address] [id number] [place] [address] 23205- 5373 Aug, [facility] [address] [place] [address] [id number] [place] [address] 06870- 6232 Aug, Knee pain M25.569 [facility] [address] [place] [id number] [place] [address] 58578- 5181 Jul, [facility] [address] [place] [id number] [place] [address] 07343- 4779 June, Anxiety disorder, unspecified F41.9 [facility] [address] [place] [id number] [place] [address] 26193- 3726 May, [facility] [address] [id number] [place] [address] 47501- 2540 May, [facility] [address] [place] [id number] [place] [address] 92487- 8166 Apr, [facility] [address] [place] [id number] [place] [address] 13391 2546 Apr, [facility] [address] [id number] [place] [address] 73445- 3822 Mar, Hypertension I10 ; Dysthymia F34.1 ; Knee pain M25.569 and Eustachian tube dysfunction H69.80 [facility] [address] [place] [id number] [place] [address] 74902- 0517 Mar, [facility] [address] [place] [id number] [place] [address] 034385- 6417 Feb, [facility] [address] 262291- 3498 Jan, [facility] [address] [place] [id number] [place] [address] 28250- 5401 Jan, [facility] [address] [place] [id number] [place] [address] 434021- 9478 Dec, [facility] [address] [place] [id number] [place] [address] 40871- 2142 Dec, [facility] [address] [place] [id number] [place] [address] 60301- 0686 Nov, [address] [id number] [id number] Oct, Dental examination V72.[id number] [place] [address] [id number] Oct, Allergic rhinitis 477.9 and Chronic serous otitis media of both ears 381.10 [facility] [address] [place] [id number] [place] [address] 37038- 6206 Sep, [id number] [place] [address] [id number] Sep, Sinusitis 473.9 and Bronchitis 490 [facility] [address] [place] [id number] [place] [address] 30425- 0086 Aug, [facility] [address] [id number] [place] [address] 01112- 2426 Jul, [facility] [address] [place] [id number] [place] [address] 48165- 7035 Jul, [facility] [place] [facility] [address] [id number] [place] [address]- 9330 May, [facility] [place] [facility] [address] [id number] [place] [address]- 9266 May, [facility] [place] [facility] [address] [id number] [place] [address]- 2546 Apr, [facility] [place] [facility] [address] [id number] [place] [address]- 2546 Apr, [facility] [place] [facility] [address] [id number] [place] [address]- 5852 Feb, [facility] [place] [facility] [address] [id number] [place] [address]- 0096 Feb, [facility] [place] [facility] [address] [id number] [place] [address]- 7882 Feb, [facility] [place] [facility] [address] [id number], [place] [address]- 8637 Feb, [facility] [place] [facility] [address] [id number], [place] [address]- 8876 Feb, [facility] [place] [facility] [address] [id number], [place] [address]- 9757 Feb, [facility] [place] [facility] [address] [id number], [place] [address]- 6266 Feb, [facility] [place] [facility] [address] [id number], [place] [address]- 6688 Feb, [facility] [place] [facility] [address] [id number], [place] [address]- 7021 Feb, [facility] [place] [facility] [address] [id number], [place] [address]- 2926 Feb, [facility] [place] [facility] [address] [id number] [place] [address]- 4566 Jan, [facility] [place] [facility] [address] [id number] [place] [address]- 0037 Jan, [facility] [place] [facility] [address] [id number] [place] [address]- 5882 Jan, [facility] [place] [facility] [address] [id number] [place] [address]- 4578 Jan, [facility] [place] [facility] [address] [id number] [place] [address]- 3221 Jan, [facility] [place] [facility] [address] [id number] [place] [address]- 7243 Dec, [facility] [place] [facility] [address] [id number] [place] [address]- 9758 Dec, [facility] [place] [facility] [address] [id number] [place] [address]- 6892 Nov, [facility] [place] [facility] [address] [id number] [place] [address]- 4024 Nov, [facility] [place] [facility] [address] [id number] [place] [address]- 8031 Nov, [facility] [place] [facility] [address] [id number] [place] [address]- 1944 Nov, [facility] [place] [facility] [address] [id number] [place] [address]- 3102 Oct, [facility] [place] [facility] [address] [id number] [place] [address]- 2542 22 Oct, 2013 [facility] [place] [facility] [address] [id number] [place] [address]- 2547 10 Oct, 2013 [facility] [place] [facility] [address] [id number] [place] [address] 2549 10 Oct, 2013 [facility] [place] [facility] [address] [id number] [place] [address]- 2547 Oct, [facility] [place] [facility] [address] [id number] [place] [address] 2540 Oct, [facility] [place] [facility] [address] [id number] [place] [address]- 9761 Sep, [facility] [place] [facility] [address] [id number] [place] [address]- 8569 Sep, [facility] [place] [facility] [address] [id number] [place] [address]- 6779 Sep, [facility] [place] [facility] [address] [id number] [place] [address]- 2227 Sep, [facility] [place] [facility] [address] [id number] [place] [address]- 5745 Sep, [facility] [place] [facility] [address] [id number] [place] [address]- 0090 Sep, [facility] [place] [facility] [address] [id number] [place] [address]- 9905 Aug, [facility] [place] [facility] [address] [id number] [place] [address]- 0406 Aug, [facility] [place] [facility] [address] [id number] [place] [address]- 5845 June, [facility] [place] [facility] [address] [id number] [place] [address]- 3540 June, [facility] [place] [facility] [address] [id number] [place] [address]- 0489 May, [facility] [place] [facility] [address] [id number] [place] [address]- 7673 May, [facility] [place] [facility] [address] [id number] [place] [address]- 9350 Apr, [facility] [place] [facility] [address] [id number] [place] [address]- 1977 Apr, [facility] [place] [facility] [address] [id number] [place] 0805 Mar, [facility] [place] [facility] [address] [id number] [place] [address]- 2067 Mar, [facility] [place] [facility] [address] [id number] [place] [address]- 9406 Mar, [facility] [place] [facility] [address] [id number] [place] [address]- 2106 Mar, [facility] [place] [facility] [address] [id number] [place] [address]- 4346 Mar, [facility] [place] [facility] [address] [id number] [place] [address]- 3456 Mar, [facility] [place] [facility] [address] [id number] [place] [address]- 7956 Mar, [facility] [place] [facility] [address] [id number] [place] [address]- 2175 Mar, [facility] [place] [facility] [address] [facility] [id number] [place] [address]- 0224 Nov, [facility] [place] [facility] [address] [id number] [place] [address]- 3821 Nov, [facility] [place] [facility] [address] [id number] [place] [address]- 6476 Sep, [facility] [place] [facility] [address] [facility] [id number] [place] [address]- 3520 Aug, [facility] [place] [facility] [address] [id number] [place] [address] 2546 Apr, [facility] [place] [facility] [address] [id number] [place] [address] 2547 Mar, [facility] [place] [facility] [address] [id number] [place] [address]- 7294 Mar, [facility] [place] [facility] [address] [id number] [place] [address] 2546 Feb, [facility] [place] [facility] [address] [id number] [place] [address]- 8106 Jan, [facility] [place] [facility] [address] [id number] [place] [address]- 1086 Jan, [facility] [place] [facility] [address] [id number] [place] [address]- 3946 Dec, [facility] [place] [facility] [address] [id number] [place] [address]- 7646 Dec, [facility] [place] [facility] [address] [id number] [place] [address]- 7316 Nov, [facility] [place] [facility] [address] [id number] [place] [address]- 4526 Oct, [facility] [place] [facility] [address] [id number] [place] [address]- 3646 Oct, [facility] [place] [facility] [address] [id number] [place] [address]- 3376 Sep, [facility] [place] [facility] [address] [id number], [place] [address]- 7716 Aug, [facility] [place] [facility] [address] [id number] [place] [address]- 5466 Jul, [facility] [place] [facility] [address] [id number], [place] [address]- 7566 May, [facility] [place] [facility] [address] [id number] [place] [address]- 7516 Mar, [facility] [place] [facility] [address] [id number], [place] [address]- 3946 Mar, [facility] [place] [facility] [address] [id number] [place] [address]- 8766 Mar, [facility] [place] [facility] [address] [id number], [place] [address]- 1206 Mar, [facility] [place] [facility] [address] [id number] [place] [address]- 0216 Feb, [facility] [place] [facility] [address] [id number] [place] [address]- 2344 31 Feb, 2011 [facility] [address] [id number] [place] [address]- 3217 06 Feb, 2011 [facility] [place] [facility] [address] [id number] [place] [address]- 8620 06 Jan, 2011 [facility] [place] [facility] [address] [id number] [place] [address]- 5314 10 Dec, 2010 [facility] [place] [facility] [address] [id number] [place] [address]- 1935 14 Jul, 2010 [facility] [place] [facility] [address] [id number] [place] [address]- 6332 10 Jun, 2010 [facility] [place] [facility] [address] [id number] [place] [address]- 9571 29 Jan, 2010 [facility] [place] [facility] [address] [id number] [place] [address]- 1435 16 Dec, 2009 [facility] [place] [facility] [address] [id number] [place] [address]- 9857 18 Nov, 2009 [facility] [place] [facility] [address] [id number] [place] [address]- 0945 14 Aug, 2009 [facility] [place] [facility] [address] [id number] [place] [address]- 6920 14 Jan, 2009 [facility] [place] [facility] [address] [id number] [place] [address]- 1342 14 Jan, 2009 [facility] [place] [facility] [address] [id number] [place] [address]- 0715 10 Jan, 2009 [facility] [place] [facility] [address] [id number] [place] [address]- 8533 07 Jan, 2009 [facility] [place] [facility] [address] [id number] [place] [address]- 9951 25 Dec, 2008 [facility] [place] [facility] [address] [id number] [place] [address]- 0524 10 Dec, 2008 [facility] [place] [facility] [address] [facility] [id number] [place] [address]- 2712 May, IMMUNIZATIONS No Known Immunizations SOCIAL HISTORY Never Assessed REASON FOR VISIT Anxiety WB-MA, Hip pain f/u, PT says she has shortness of breath and chest pain PLAN OF CARE Activity Details Follow Up 3 Months Reason:shortness of breath Future/Pending Procedure EKG, TRACING (IN-HOUSE) VITAL SIGNS Height 67 in 2017-08-20 Weight 276 lbs 2017-08-20 Temperature 97.4 degrees Fahrenheit 2017-08-20 Heart Rate 72 bpm 2017-08-20 Respiratory Rate 20 2017-08-20 Oximetry ambulating w/o oxygen:96 % 2017-08-20 BMI 43.22 kg/m2 2017-08-20 Blood pressure systolic 118 mmHg 2017-08-20 Blood pressure diastolic 78 mmHg 2017-08-20 MEDICATIONS Medication Instructions Dosage Frequency Start Date End Date Duration Status Fluoxetine HCl 20 MG TAKE 3 CAPSULES BY MOUTH ONCE DAILY 30 Active Alprazolam 1 MG Orally Twice a day, and 1 tablet at bedtime 0.5 Tablet as needed Apr, 28 days Active Propranolol HCl 20 MG 1 tablet Twice a day Orally 90 Active Betamethasone Dipropionate 0.05 % Externally twice weekly 1 application to affected area Dec, Active RESULTS No Results PROCEDURES Procedure Date Ordered Result Body Site 09 PANEL (PROFILE 1) August 20, 2017 GLYCATED HEMOGLOBIN TEST August 20, 2017 ELECTROCARDIOGRAM, TRACING August 20, 2017 X-RAY EXAM CHEST 2 VIEWS August 20, 2017 INSTRUCTIONS MEDICATIONS ADMINISTERED No Known Medications MEDICAL (GENERAL) HISTORY Type Description Date Medical History depression Medical History hx of anxiety Medical History mitral valve prolapse Surgical History tonsillectomy and adenoidectomy Surgical History partial hysterectomy Surgical History jaw surgery 1974 Surgical History colonoscopy 10/26/15 Surgical History colonoscopy 11/2016 Hospitalization History for surgery
--- OUTSIDE RECORDS SUMMARY | 2018-05-01 11:01 | XMS REPORT ---
Author Author JEZ TOMLINSON Organization [facility] Address [address] [place] [address] Care Team Providers Care Critical Care Nurse Specialist Name Role Phone JEZ TOMLINSON Unavailable PROBLEMS Type Condition ICD9-CM Code NVL99-DE Code Onset Dates Condition Status SNOMED Code Problem Hypertension I10 Active 69572342 Problem Eustachian tube dysfunction H69.80 Active 35119700 Problem Knee pain M25.569 Active 28987929 Problem Violation of controlled substance agreement Z91.14 Aug, Active 243421612 Problem Dysthymia F34.1 Active 55448430 Problem Other chronic pain G89.29 Active 64566864 Problem Acute right-sided low back pain with right-sided sciatica M54.41 Active 014162385 Problem Pharyngitis, unspecified etiology J02.9 Active 415842951 Problem Anxiety disorder, unspecified F41.9 Active 370452804 Problem Psoriasis L40.9 Active 5779071 Problem Dysuria R30.0 Active 14797047 ALLERGIES No Information ENCOUNTERS Encounter Location Date Diagnosis [place] [address] [facility] [id number], [place] [address] Oct, [facility] [id number] [id number] [id number] Aug, Shortness of breath R06.02 and Anxiety disorder, unspecified F41.9 [facility] [address] [facility] [place] [id number], [place] [address] Aug, Anxiety disorder, unspecified F41.9 [place] [address] [facility] [place] [id number], [place] [address] Jul, Anxiety disorder, unspecified F41.9 ; Shortness of breath R06.02 ; Therapeutic drug monitoring Z51.81 ; Family history of diabetes mellitus Z83.3 ; BMI 40.0-44.9, adult Z68.41 and Tobacco abuse Z72.0 [place] [address] [place] [id number] [place] [address] 60878- [address]38 June, Anxiety disorder, unspecified F41.9 and Pain in right knee M25.561 [place] [address] [place] [id number] [place] [address] 08443- 5180 June, Pain in right knee M25.561 ; Pain in left knee M25.562 ; Other chronic pain G89.29 ; Anxiety disorder, unspecified F41.9 ; Acute right- sided low back pain with right-sided sciatica M54.41 and BMI 40.0-44.9, adult Z68.41 [place] [address] [place] [id number] [place] [address] 19932- 1733 May, Anxiety disorder, unspecified F41.9 [place] [address] [place] [id number] [place] [address] 99146- 6650 Apr, Anxiety disorder, unspecified F41.9 [place] [address] [place] [id number] [place] [address] 47591- 7793 Apr, Anxiety disorder, unspecified F41.9 [place] [address] [place] [id number] [place] [address] 59466- 1832 Mar, Anxiety disorder, unspecified F41.9 [place] [address] [place] [id number] [place] [address] 02290- 5030 Mar, [place] [address] [place] [id number] [place] [address] 88312- 8789 Feb, Anxiety disorder, unspecified F41.9 [place] [address] [place] [address] [id number] [place] [address] 54205- 9686 Jan, Anxiety disorder, unspecified F41.9 [place] [address] [place] [id number] [place] [address] 21369- 5866 Dec, Anxiety disorder, unspecified F41.9 ; Hypertension I10 ; Encounter for screening mammogram for breast cancer Z12.31 ; Psoriasis L40.9 and BMI 40.0-44.9, adult Z68.41 [facility] [address] [place] [address] 68455- 8296 Dec, Anxiety disorder, unspecified F41.9 [facility] [address] [id number] [address] Nov, [facility] [address] [place] [id number] [place] [address] 61968- 9801 Nov, Anxiety disorder, unspecified F41.9 [facility] [address] [place] [id number] [place] [address] 92057- 0553 Nov, [place] [id number] [id number] Oct, Dysuria R30.0 [facility] [address] [place] [id number] [place] [address] 61826- 4997 Oct, Anxiety disorder, unspecified F41.9 [facility] [address] [place] [address] 05818- 3338 Sep, Anxiety disorder, unspecified F41.9 [facility] [address] [place] [address] 32747- 9706 Aug, Anxiety disorder, unspecified F41.9 [facility] [address] [place] [address] 30359- 7783 Aug, [facility] [address] [place] [address] 25401- 4048 Jul, Anxiety disorder, unspecified F41.9 [facility] [address] [place] [id number] [place] [address] 51309- 2621 June, Anxiety disorder, unspecified F41.9 [facility] [address] [place] [address] 56009- 4846 June, Anxiety disorder, unspecified F41.9 [place] [address] [address] May, Anxiety disorder, unspecified F41.9 [place] [address] [place] [id number] [place] [address] 55578- 1009 Apr, [place] [address] [place] [id number] [place] [address] 06535- 9437 Apr, Anxiety disorder, unspecified F41.9 [place] [address] [place] [id number] [place] [address] 87014- 6651 Mar, Well woman exam Z01.419 ; Cervical cancer screening Z12.4 and Breast cancer screening Z12.39 [place] [address] [place] [id number] [place] [address] 57795- 2369 Mar, Anxiety disorder, unspecified F41.9 [place] [address] [place] [id number] [place] [address] 10176- 0310 Mar, Eustachian tube dysfunction H69.80 and Pharyngitis, unspecified etiology J02.9 [place] [address] [place] [id number] [place] [address] 81757- 3761 Feb, Anxiety disorder, unspecified F41.9 [place] [address] [place] [id number] [place] [address] 07888- 0773 Jan, Anxiety disorder, unspecified F41.9 [place] [address] [place] [id number] [place] [address] 28796- 0290 Dec, Anxiety disorder, unspecified F41.9 [place] [address] [place] [id number] [place] [address] 30936- 7981 Oct, Anxiety disorder, unspecified F41.9 [place] [address] [place] [id number] [place] [address] 21658- 2082 Oct, Irritable bowel syndrome with diarrhea K58.0 ; Hypertension I10 ; Family history of diabetes mellitus Z83.3 and Visual changes H53.9 [place] [address] [id number] [address] 9744 Sep, Anxiety disorder, unspecified F41.9 [facility] [address] [place] [id number] [place] [address] 30762- 0527 Sep, RLQ abdominal pain R10.31 [facility] [address] [place] [id number] [place] [address] 26347- 6403 Sep, RLQ abdominal pain R10.31 and 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 [facility] [address] [place] [id number] [place] [address] 88511- 2902 Aug, Anxiety disorder, unspecified F41.9 [facility] [address] [place] [id number] [place] [address] 68950- 7128 Aug, [facility] [address] [place] [id number] [place] [address] 65833- 7566 Aug, [facility] [address] [place] [id number] [place] [address] 48561- 1012 Aug, Knee pain M25.569 [facility] [address] [place] [id number] [place] [address] 01101- 8923 Jul, [facility] [address] [place] [id number] [place] [address] 69241- 7082 June, Anxiety disorder, unspecified F41.9 [facility] [address] [place] [id number] [place] [address] 51276- 0286 May, [facility] [address] [place] [id number] [place] [address] 19207- 2544 May, [facility] [address] [place] [id number] [place] [address] 88189- 0608 Apr, [facility] [address] [place] [id number] [place] [address] 41496- 2546 Apr, [facility] [address] [place] [id number] [place] [address] 48214- 7818 Mar, Hypertension I10 ; Dysthymia F34.1 ; Knee pain M25.569 and Eustachian tube dysfunction H69.80 [facility] [address] [place] [id number] [place] [address] 99436- 9592 Mar, [facility] [address] [place] [id number] [place] [address] 027548- 0944 Feb, [facility] [address] 771176- 5659 Jan, [facility] [address] [place] [id number] [place] [address] 697945- 6839 Jan, [facility] [address] [place] [id number] [place] [address] 98059- 1056 Dec, [facility] [address] [place] [id number] [place] [address] 44946- 6741 Dec, [facility] [address] [place] [id number] [place] [address] 52069- 8419 Nov, [address] [id number] [id number] Oct, Dental examination V72.[address] [id number][place] [id number] Oct, Allergic rhinitis 477.9 and Chronic serous otitis media of both ears 381.10 [facility] [address] [place] [id number] [place] [address] 79311- 7036 Sep, [id number] [place] [address] [id number] Sep, Sinusitis 473.9 and Bronchitis 490 [facility] [address] [place] [id number] [place] [address] 85447- 1576 Aug, [facility] [address] [place] [id number] [place] [address] 08754- 4886 Jul, [facility] [address] [place] [id number] [place] [address] 02311- 8742 Jul, [facility] [place] [facility] [address] [id number] [place] [address]- 2194 May, [facility] [place] [facility] [address] [id number] [place] [address]- 7534 May, [facility] [place] [facility] [address] [id number] [place] [address]- 4225 Apr, [facility] [place] [facility] [address] [id number] [place] [address]- 4000 Apr, [facility] [place] [facility] [address] [id number] [place] [address]- 8796 Feb, [facility] [place] [facility] [address] [id number] [place] [address]- 2171 Feb, [facility] [place] [facility] [address] [id number] [place] [address]- 3479 Feb, [facility] [place] [facility] [address] [id number], [place] [address]- 5924 Feb, [facility] [place] [facility] [address] [id number] [place] [address]- 9107 Feb, [facility] [place] [facility] [address] [id number] [place] [address]- 0017 Feb, [facility] [place] [facility] [address] [id number], [place] [address]- 4477 Feb, [facility] [place] [facility] [address] [id number], [place] [address]- 8988 Feb, [facility] [place] [facility] [address] [id number], [place] [address]- 6755 Feb, [facility] [place] [facility] [address] [id number], [place] [address]- 9531 Feb, [facility] [place] [facility] [address] [id number] [place] [address]- 4784 Jan, [facility] [place] [facility] [address] [id number] [place] [address]- 2870 Jan, [facility] [place] [facility] [address] [id number] [place] [address]- 6730 Jan, [facility] [place] [facility] [address] [id number] [place] [address]- 2072 Jan, [facility] [place] [facility] [address] [id number] [place] [address]- 6220 Jan, [facility] [place] [facility] [address] [id number] [place] [address]- 2398 Dec, [facility] [place] [facility] [address] [id number] [place] [address]- 3980 Dec, [facility] [place] [facility] [address] [id number] [place] [address]- 7516 Nov, [facility] [place] [facility] [address] [id number] [place] [address]- 8248 Nov, [facility] [place] [facility] [address] [id number] [place] [address]- 1911 Nov, [facility] [place] [facility] [address] [id number] [place] [address]- 0342 Nov, [facility] [place] [facility] [address] [id number] [place] [address]- 3128 Oct, [facility] [place] [facility] [address] [id number] [place] [address]- 4057 22 Oct, 2013 [facility] [place] [facility] [address] [id number] [place] [address]- 254 10 Oct, 2013 [facility] [place] [facility] [address] [id number] [place] [address] 2549 10 Oct, 2013 [facility] [place] [facility] [address] [id number] [place] [address]- 2546 Oct, [facility] [place] [facility] [address] [id number] [place] [address] 2548 Oct, [facility] [place] [facility] [address] [id number] [place] [address]- 4711 Sep, [facility] [place] [facility] [address] [id number] [place] [address]- 2666 Sep, [facility] [place] [facility] [address] [id number] [place] [address]- 9016 Sep, [facility] [place] [facility] [address] [id number] [place] [address]- 5291 Sep, [facility] [place] [facility] [address] [id number] [place] [address]- 7881 Sep, [facility] [place] [facility] [address] [id number] [place] [address]- 8264 Sep, [facility] [place] [facility] [address] [id number] [place] [address]- 0720 Aug, [facility] [place] [facility] [address] [id number] [place] [address]- 1435 Aug, [facility] [place] [facility] [address] [id number] [place] [address]- 2364 June, [facility] [place] [facility] [address] [id number] [place] [address]- 9448 June, [facility] [place] [facility] [address] [id number] [place] [address]- 1657 May, [facility] [place] [facility] [address] [id number] [place] [address]- 6768 May, [facility] [place] [facility] [address] [id number] [place] [address]- 9864 Apr, [facility] [place] [facility] [address] [id number] [place] [address]- 1549 Apr, [facility] [place] [facility] [address] [id number] [place] [address]- 1441 Mar, [facility] [place] [facility] [address] [id number] [place] [address]- 1521 Mar, [facility] [place] [facility] [address] [id number] [place] [address]- 4256 Mar, [facility] [place] [facility] [address] [id number] [place] [address]- 4966 Mar, [facility] [place] [facility] [address] [id number] [place] [address]- 3136 Mar, [facility] [place] [facility] [address] [id number] [place] [address]- 6352 Mar, [facility] [place] [facility] [address] [id number] [place] [address]- 0779 Mar, [facility] [place] [facility] [address] [id number] [place] [address]- 5650 Mar, [facility] [place] [facility] [address] [facility] [place] [id number] [place] [address]- 4889 Nov, [facility] [place] [facility] [address] [id number] [place] [address]- 9834 Nov, [facility] [place] [facility] [address] [id number] [place] [address]- 5856 Sep, [facility] [place] [facility] [address] [facility] [place] [id number] [place] [address]- 2991 Aug, [facility] [place] [facility] [address] [id number] [place] [address]- 7456 Apr, [facility] [place] [facility] [address] [id number] [place] [address]- 4955 Mar, [facility] [place] [facility] [address] [id number] [place] [address]- 9657 Mar, [facility] [place] [facility] [address] [id number] [place] [address]- 9786 Feb, [facility] [place] [facility] [address] [id number] [place] [address]- 8648 Jan, [facility] [place] [facility] [address] [id number] [place] [address]- 4803 Jan, [facility] [place] [facility] [address] [id number] [place] [address]- 8829 Dec, [facility] [place] [facility] [address] [id number] [place] [address]- 1926 Dec, [facility] [place] [facility] [address] [id number] [place] [address]- 4571 Nov, [facility] [place] [facility] [address] [id number] [place] [address]- 8730 Oct, [facility] [place] [facility] [address] [id number] [place] [address]- 6426 Oct, [facility] [place] [facility] [address] [id number] [place] [address]- 6487 Sep, [facility] [place] [facility] [address] [id number] [place] [address]- 3136 Aug, [facility] [place] [facility] [address] [id number] [place] [address]- 9553 Jul, [facility] [place] [facility] [address] [id number] [place] [address]- 9907 May, [facility] [place] [facility] [address] [id number] [place] [address]- 1076 Mar, [facility] [place] [facility] [address] [id number], [place] [address]- 4698 Mar, [facility] [place] [facility] [address] [id number] [place] [address] 254 Mar, [facility] [place] [facility] [address] [id number], [place] [address]- 3756 Mar, [facility] [place] [facility] [address] [id number] [place] [address]- 6492 Feb, [facility] [place] [facility] [address] [id number] [place] [address]- 1948 31 Feb, 2011 [facility] [address] [id number] [place] [address]- 8460 06 Feb, 2011 [facility] [place] [facility] [address] [id number] [place] [address]- 5143 06 Jan, 2011 [facility] [place] [facility] [address] [id number] [place] [address]- 0380 10 Dec, 2010 [facility] [place] [facility] [address] [id number] [place] [address]- 0041 14 Jul, 2010 [facility] [place] [facility] [address] [id number] [place] [address]- 2567 10 Jun, 2010 [facility] [place] [facility] [address] [id number] [place] [address]- 9059 29 Jan, 2010 [facility] [place] [facility] [address] [id number] [place] [address]- 8929 16 Dec, 2009 [facility] [place] [facility] [address] [id number] [place] [address]- 3942 18 Nov, 2009 [facility] [place] [facility] [address] [id number] [place] [address]- 2884 14 Aug, 2009 [facility] [place] [facility] [address] [facility] [id number] [place] [address]- 9451 14 Jan, 2009 [facility] [place] [facility] [address] [id number] [place] [address]- 5558 14 Jan, 2009 [facility] [place] [facility] [address] [id number] [place] [address]- 7996 10 Jan, 2009 [facility] [place] [facility] [address] [id number] [place] [address]- 7248 07 Jan, 2009 [facility] [place] [facility] [address] [id number] [place] [address]- 2631 25 Dec, 2008 [facility] [place] [facility] [address] [id number] [place] [address]- 2680 10 Dec, 2008 [facility] [place] [facility] [address] [facility] [id number] [place] [address]- 2459 May, IMMUNIZATIONS No Known Immunizations SOCIAL HISTORY Never Assessed REASON FOR VISIT Controlled refill request PLAN OF CARE VITAL SIGNS MEDICATIONS Unknown [...]
--- OUTSIDE RECORDS SUMMARY | 2018-05-01 11:02 | XMS REPORT ---
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 Name Role Phone JEZ TOMLINSON Unavailable PROBLEMS Type Condition ICD9-CM Code RQN52-HT Code Onset Dates Condition Status SNOMED Code Problem Hypertension I10 Active 95194641 Problem Eustachian tube dysfunction H69.80 Active 69465464 Problem Knee pain M25.569 Active 42376731 Problem Violation of controlled substance agreement Z91.14 Aug, Active 934998400 Problem Dysthymia F34.1 Active 14433773 Problem Other chronic pain G89.29 Active 83530049 Problem Acute right-sided low back pain with right-sided sciatica M54.41 Active 530033817 Problem Pharyngitis, unspecified etiology J02.9 Active 751238787 Problem Anxiety disorder, unspecified F41.9 Active 989188140 Problem Psoriasis L40.9 Active 4270839 Problem Dysuria R30.0 Active 85637553 ALLERGIES No Information ENCOUNTERS Encounter Location Date Diagnosis [place] [address] [facility] [id number], [place] [address] Oct, [facility] [id number] [id number] [id number] Aug, Shortness of breath R06.02 and Anxiety disorder, unspecified F41.9 [facility] [address] [facility] [id number], [place] [address] Aug, Anxiety disorder, unspecified F41.9 [place] [address] [facility] [id number], [place] [address] Jul, Anxiety disorder, unspecified F41.9 ; Shortness of breath R06.02 ; Therapeutic drug monitoring Z51.81 ; Family history of diabetes mellitus Z83.3 ; BMI 40.0-44.9, adult Z68.41 and Tobacco abuse Z72.0 [place] [address] [place] [id number] [place] [address] 59610- 5087 June, Anxiety disorder, unspecified F41.9 and Pain in right knee M25.561 [place] [address] [place] [id number] [place] [address] 23671- 0912 June, Pain in right knee M25.561 ; Pain in left knee M25.562 ; Other chronic pain G89.29 ; Anxiety disorder, unspecified F41.9 ; Acute right- sided low back pain with right-sided sciatica M54.41 and BMI 40.0-44.9, adult Z68.41 [place] [address] [place] [id number] [place] [address] 94689- 9039 May, Anxiety disorder, unspecified F41.9 [place] [address] [place] [id number] [place] [address] 24656- 8437 Apr, Anxiety disorder, unspecified F41.9 [place] [address] [place] [id number] [place] [address] 74386- 1262 Apr, Anxiety disorder, unspecified F41.9 [place] [address] [place] [id number] [place] [address] 91860- 7656 Mar, Anxiety disorder, unspecified F41.9 [place] [address] [place] [id number] [place] [address] 11615- 2651 Mar, [place] [address] [place] [id number] [place] [address] 39756- 5075 Feb, Anxiety disorder, unspecified F41.9 [place] [address] [place] [id number] [place] [address] 39244- 5558 Jan, Anxiety disorder, unspecified F41.9 [place] [address] [place] [id number] [place] [address] 22420- 5829 Dec, Anxiety disorder, unspecified F41.9 ; Hypertension I10 ; Encounter for screening mammogram for breast cancer Z12.31 ; Psoriasis L40.9 and BMI 40.0-44.9, adult Z68.41 [facility] [address] [place] [address] 02412- 4812 Dec, Anxiety disorder, unspecified F41.9 [facility] [address] [id number] [address] Nov, [facility] [address] [place] [id number] [place] [address] 52733- 6595 Nov, Anxiety disorder, unspecified F41.9 [facility] [address] [place] [id number] [place] [address] 90647- 6180 Nov, [id number] [id number] Oct, Dysuria R30.0 [facility] [address] [place] [id number] [place] [address] 28416- 3230 Oct, Anxiety disorder, unspecified F41.9 [facility] [address] [place] [address] 69531- 3470 Sep, Anxiety disorder, unspecified F41.9 [facility] [address] [place] [address] 23505- 9692 Aug, Anxiety disorder, unspecified F41.9 [facility] [address] [place] [address] 39247- 5873 Aug, [facility] [address] [place] [address] 72800- 1715 Jul, Anxiety disorder, unspecified F41.9 [facility] [address] [place] [id number] [place] [address] 03273- 6063 June, Anxiety disorder, unspecified F41.9 [facility] [address] [place] [address] 37355- 1515 June, Anxiety disorder, unspecified F41.9 [place] [address] [address] May, Anxiety disorder, unspecified F41.9 [place] [address] [place] [id number] [place] [address] 67073- 5458 Apr, [place] [address] [place] [id number] [place] [address] 47112- 7667 Apr, Anxiety disorder, unspecified F41.9 [place] [address] [place] [id number] [place] [address] 57688- 9585 Mar, Well woman exam Z01.419 ; Cervical cancer screening Z12.4 and Breast cancer screening Z12.39 [place] [address] [place] [id number] [place] [address] 61888- 0729 Mar, Anxiety disorder, unspecified F41.9 [place] [address] [place] [id number] [place] [address] 12892- 1209 Mar, Eustachian tube dysfunction H69.80 and Pharyngitis, unspecified etiology J02.9 [place] [address] [place] [id number] [place] [address] 04962- 1220 Feb, Anxiety disorder, unspecified F41.9 [place] [address] [place] [id number] [place] [address] 73040- 9683 Jan, Anxiety disorder, unspecified F41.9 [place] [address] [place] [id number] [place] [address] 16407- 2975 Dec, Anxiety disorder, unspecified F41.9 [place] [address] [place] [id number] [place] [address] 09392- 4220 Oct, Anxiety disorder, unspecified F41.9 [place] [address] [place] [id number] [place] [address] 70598- 4755 Oct, Irritable bowel syndrome with diarrhea K58.0 ; Hypertension I10 ; Family history of diabetes mellitus Z83.3 and Visual changes H53.9 [place] [address] [id number] [address]236 Sep, Anxiety disorder, unspecified F41.9 [facility] [address] [place] [id number] [place] [address] 18513- 9549 Sep, RLQ abdominal pain R10.31 [facility] [address] [place] [id number] [place] [address] 94615- 2134 Sep, RLQ abdominal pain R10.31 and 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 [facility] [address] [place] [id number] [place] [address] 17426- 2378 Aug, Anxiety disorder, unspecified F41.9 [facility] [address] [place] [id number] [place] [address] 25573- 7605 Aug, [facility] [address] [place] [id number] [place] [address] 36683- 2459 Aug, [facility] [address] [place] [id number] [place] [address] 35757- 6110 Aug, Knee pain M25.569 [facility] [address] [place] [id number] [place] [address] 67481- 5074 Jul, [facility] [address] [place] [id number] [place] [address] 12606- 9891 June, Anxiety disorder, unspecified F41.9 [facility] [address] [place] [id number] [place] [address] 52461- 1006 May, [facility] [address] [place] [id number] [place] [address] 70120- 2540 May, [facility] [address] [place] [id number] [place] [address] 56309- 3582 Apr, [facility] [address] [place] [id number] [place] [address] 59543- 2546 Apr, [facility] [address] [place] [id number] [place] [address] 86414- 6091 Mar, Hypertension I10 ; Dysthymia F34.1 ; Knee pain M25.569 and Eustachian tube dysfunction H69.80 [facility] [address] [place] [id number] [place] [address] 57473- 5106 Mar, [facility] [address] [place] [id number] [place] [address] 851268- 7013 Feb, [facility] [address] 645379- 7784 Jan, [facility] [address] [place] [id number] [place] [address] 151314- 8896 Jan, [facility] [address] [place] [id number] [place] [address] 94229- 4512 Dec, [facility] [address] [place] [id number] [place] [address] 77038- 7678 Dec, [facility] [address] [place] [id number] [place] [address] 81199- 2471 Nov, [address] [id number] [id number] Oct, Dental examination V72.[address] [id number] [id number] Oct, Allergic rhinitis 477.9 and Chronic serous otitis media of both ears 381.10 [facility] [address] [place] [id number] [place] [address] 35383- 2756 Sep, [id number] [place] [address] [id number] Sep, Sinusitis 473.9 and Bronchitis 490 [facility] [address] [place] [id number] [place] [address] 18641- 7506 Aug, [facility] [address] [place] [id number] [place] [address] 28628- 5306 Jul, [facility] [address] [place] [id number] [place] [address] 42446- 2460 Jul, [facility] [place] [facility] [address] [id number] [place] [address]- 3654 May, [facility] [place] [facility] [address] [id number] [place] [address]- 0316 May, [facility] [place] [facility] [address] [id number] [place] [address]- 7925 Apr, [facility] [place] [facility] [address] [id number] [place] [address]- 7972 Apr, [facility] [place] [facility] [address] [id number] [place] [address]- 1567 Feb, [facility] [place] [facility] [address] [id number] [place] [address]- 9730 Feb, [facility] [place] [facility] [address] [id number] [place] [address]- 2977 Feb, [facility] [place] [facility] [address] [id number], [place] [address]- 4641 Feb, [facility] [place] [facility] [address] [id number] [place] [address]- 1824 Feb, [facility] [place] [facility] [address] [id number] [place] [address]- 7908 Feb, [facility] [place] [facility] [address] [id number], [place] [address]- 4416 Feb, [facility] [place] [facility] [address] [id number], [place] [address]- 6587 Feb, [facility] [place] [facility] [address] [id number], [place] [address]- 2186 Feb, [facility] [place] [facility] [address] [id number], [place] [address]- 2162 Feb, [facility] [place] [facility] [address] [id number] [place] [address]- 4432 Jan, [facility] [place] [facility] [address] [id number] [place] [address]- 2562 Jan, [facility] [place] [facility] [address] [id number] [place] [address]- 7893 Jan, [facility] [place] [facility] [address] [id number] [place] [address]- 9901 Jan, [facility] [place] [facility] [address] [id number] [place] [address]- 2899 Jan, [facility] [place] [facility] [address] [id number] [place] [address]- 7976 Dec, [facility] [place] [facility] [address] [id number] [place] [address]- 3199 Dec, [facility] [place] [facility] [address] [id number] [place] [address]- 1646 Nov, [facility] [place] [facility] [address] [id number] [place] [address]- 8274 Nov, [facility] [place] [facility] [address] [id number] [place] [address]- 8856 Nov, [facility] [place] [facility] [address] [id number] [place] [address]- 0319 Nov, [facility] [place] [facility] [address] [id number] [place] [address]- 9666 Oct, [facility] [place] [facility] [address] [id number] [place] [address]- 7951 22 Oct, 2013 [facility] [place] [facility] [address] [id number] [place] [address]- 2549 10 Oct, 2013 [facility] [place] [facility] [address] [id number] [place] [address] 2544 10 Oct, 2013 [facility] [place] [facility] [address] [id number] [place] [address]- 2546 Oct, [facility] [place] [facility] [address] [id number] [place] [address] 2540 Oct, [facility] [place] [facility] [address] [id number] [place] [address]- 4476 Sep, [facility] [place] [facility] [address] [id number] [place] [address]- 1613 Sep, [facility] [place] [facility] [address] [id number] [place] [address]- 7892 Sep, [facility] [place] [facility] [address] [id number] [place] [address]- 1533 Sep, [facility] [place] [facility] [address] [id number] [place] [address]- 4917 Sep, [facility] [place] [facility] [address] [id number] [place] [address]- 5866 Sep, [facility] [place] [facility] [address] [id number] [place] [address]- 9236 Aug, [facility] [place] [facility] [address] [id number] [place] [address]- 3694 Aug, [facility] [place] [facility] [address] [id number] [place] [address]- 7258 June, [facility] [place] [facility] [address] [id number] [place] [address]- 3855 June, [facility] [place] [facility] [address] [id number] [place] [address]- 0577 May, [facility] [place] [facility] [address] [id number] [place] [address]- 2386 May, [facility] [place] [facility] [address] [id number] [place] [address]- 8385 Apr, [facility] [place] [facility] [address] [id number] [place] [address]- 9461 Apr, [facility] [place] [facility] [address] [id number] [place] [address]- 2007 Mar, [facility] [place] [facility] [address] [id number] [place] [address]- 4374 Mar, [facility] [place] [facility] [address] [id number] [place] [address]- 5906 Mar, [facility] [place] [facility] [address] [id number] [place] [address]- 9586 Mar, [facility] [place] [facility] [address] [id number] [place] [address]- 6936 Mar, [facility] [place] [facility] [address] [id number] [place] [address]- 2871 Mar, [facility] [place] [facility] [address] [id number] [place] [address]- 6912 Mar, [facility] [place] [facility] [address] [id number] [place] [address]- 3362 Mar, [facility] [place] [facility] [address] [facility] [id number] [place] [address]- 2296 Nov, [facility] [place] [facility] [address] [id number] [place] [address]- 6401 Nov, [facility] [place] [facility] [address] [id number] [place] [address]- 5973 Sep, [facility] [place] [facility] [address] [facility] [id number] [place] [address]- 5106 Aug, [facility] [place] [facility] [address] [id number] [place] [address]- 4041 Apr, [facility] [place] [facility] [address] [id number] [place] [address]- 0528 Mar, [facility] [place] [facility] [address] [id number] [place] [address]- 1290 Mar, [facility] [place] [facility] [address] [id number] [place] [address]- 2576 Feb, [facility] [place] [facility] [address] [id number] [place] [address]- 1591 Jan, [facility] [place] [facility] [address] [id number] [place] [address]- 2438 Jan, [facility] [place] [facility] [address] [id number] [place] [address]- 6672 Dec, [facility] [place] [facility] [address] [id number] [place] [address]- 7036 Dec, [facility] [place] [facility] [address] [id number] [place] [address]- 1055 Nov, [facility] [place] [facility] [address] [id number] [place] [address]- 5076 Oct, [facility] [place] [facility] [address] [id number] [place] [address]- 3337 Oct, [facility] [place] [facility] [address] [id number] [place] [address]- 5530 Sep, [facility] [place] [facility] [address] [id number] [place] [address]- 7658 Aug, [facility] [place] [facility] [address] [id number] [place] [address]- 7575 Jul, [facility] [place] [facility] [address] [id number] [place] [address]- 8372 May, [facility] [place] [facility] [address] [id number] [place] [address]- 7346 Mar, [facility] [place] [facility] [address] [id number], [place] [address]- 9266 Mar, [facility] [place] [facility] [address] [id number] [place] [address] 2542 Mar, [facility] [place] [facility] [address] [id number], [place] [address]- 6266 Mar, [facility] [place] [facility] [address] [id number] [place] [address]- 7491 Feb, [facility] [place] [facility] [address] [id number] [place] [address]- 1979 31 Feb, 2011 [facility] [address] [id number] [place] [address]- 5587 06 Feb, 2011 [facility] [place] [facility] [address] [id number] [place] [address]- 8404 06 Jan, 2011 [facility] [place] [facility] [address] [id number] [place] [address]- 5419 10 Dec, 2010 [facility] [place] [facility] [address] [id number] [place] [address]- 6584 14 Jul, 2010 [facility] [place] [facility] [address] [id number] [place] [address]- 3835 10 Jun, 2010 [facility] [place] [facility] [address] [id number] [place] [address]- 2267 29 Jan, 2010 [facility] [place] [facility] [address] [id number] [place] [address]- 5363 16 Dec, 2009 [facility] [place] [facility] [address] [id number] [place] [address]- 5348 18 Nov, 2009 [facility] [place] [facility] [address] [id number] [place] [address]- 1397 14 Aug, 2009 [facility] [place] [facility] [address] [facility] [id number] [place] [address]- 7670 14 Jan, 2009 [facility] [place] [facility] [address] [id number] [place] [address]- 4038 14 Jan, 2009 [facility] [place] [facility] [address] [id number] [place] [address]- 9540 10 Jan, 2009 [facility] [place] [facility] [address] [id number] [place] [address]- 4982 07 Jan, 2009 [facility] [place] [facility] [address] [id number] [place] [address]- 8350 25 Dec, 2008 [facility] [place] [facility] [address] [id number] [place] [address]- 8747 10 Dec, 2008 [facility] [place] [facility] [address] [facility] [id number] [place] [address]- 2486 May, IMMUNIZATIONS No Known Immunizations SOCIAL HISTORY Never Assessed REASON FOR VISIT Controlled Med Refill 07/25/17 PLAN OF CARE VITAL SIGNS MEDICATIONS Medication [...]
--- OUTSIDE RECORDS SUMMARY | 2018-05-01 11:02 | XMS REPORT ---
Author Author JEZ TOMLINSON Organization [facility] Address [address] [place] [address] Care Team Providers Care Supervisor Plastics Name Role Phone JEZ TOMLINSON Unavailable PROBLEMS Type Condition ICD9-CM Code THP32-PF Code Onset Dates Condition Status SNOMED Code Problem Hypertension I10 Active 87497020 Problem Eustachian tube dysfunction H69.80 Active 00466529 Problem Knee pain M25.569 Active 65817656 Problem Violation of controlled substance agreement Z91.14 Aug, Active 393034919 Problem Dysthymia F34.1 Active 28589137 Problem Other chronic pain G89.29 Active 30769118 Problem Acute right-sided low back pain with right-sided sciatica M54.41 Active 761396773 Problem Pharyngitis, unspecified etiology J02.9 Active 717082700 Problem Anxiety disorder, unspecified F41.9 Active 923198616 Problem Psoriasis L40.9 Active 5297630 Problem Dysuria R30.0 Active 83276629 ALLERGIES No Known Allergies ENCOUNTERS Encounter Location Date Diagnosis [place] [address] [facility] [id number], [place] [address] Oct, [facility] [id number] [id number] [id number] Aug, Shortness of breath R06.02 and Anxiety disorder, unspecified F41.9 [facility] [address] [facility] [id number], [place] [address] Aug, Anxiety disorder, unspecified F41.9 [place] [address] [facility] [id number], [place] [address] Jul, Anxiety disorder, unspecified F41.9 ; Shortness of breath R06.02 ; Therapeutic drug monitoring Z51.81 ; Family history of diabetes mellitus Z83.3 ; BMI 40.0-44.9, adult Z68.41 and Tobacco abuse Z72.0 [place] [address] [place] [id number] [place] [address] 57153- 3571 June, Anxiety disorder, unspecified F41.9 and Pain in right knee M25.561 [place] [address] [place] [id number] [place] [address] 96688- 2882 June, Pain in right knee M25.561 ; Pain in left knee M25.562 ; Other chronic pain G89.29 ; Anxiety disorder, unspecified F41.9 ; Acute right- sided low back pain with right-sided sciatica M54.41 and BMI 40.0-44.9, adult Z68.41 [place] [address] [place] [id number] [place] [address] 54904- 2788 May, Anxiety disorder, unspecified F41.9 [place] [address] [place] [id number] [place] [address] 65991- 8532 Apr, Anxiety disorder, unspecified F41.9 [place] [address] [place] [id number] [place] [address] 03873- 9734 Apr, Anxiety disorder, unspecified F41.9 [place] [address] [place] [id number] [place] [address] 29489- 1994 Mar, Anxiety disorder, unspecified F41.9 [place] [address] [place] [id number] [place] [address] 01560- 5212 Mar, [place] [address] [place] [id number] [place] [address] 62939- 4382 Feb, Anxiety disorder, unspecified F41.9 [place] [address] [place] [id number] [place] [address] 37877- 3977 Jan, Anxiety disorder, unspecified F41.9 [place] [address] [place] [id number] [place] [address] 31686- 5465 Dec, Anxiety disorder, unspecified F41.9 ; Hypertension I10 ; Encounter for screening mammogram for breast cancer Z12.31 ; Psoriasis L40.9 and BMI 40.0-44.9, adult Z68.41 [facility] [address] [place] [id number] [place] [address] 37582- 4573 Dec, Anxiety disorder, unspecified F41.9 [facility] [address] [place] [id number] [place] [address] 52926- 8358 Nov, [facility] [address] [place] [id number] [place] [address] 69601- 0175 Nov, Anxiety disorder, unspecified F41.9 [facility] [address] [place] [id number] [place] [address] 33479- 8287 Nov, [id number] [id number] Oct, Dysuria R30.0 [facility] [address] [place] [id number] [place] [address] 42179- 1747 Oct, Anxiety disorder, unspecified F41.9 [facility] [address] [place] [address] 73362- 8002 Sep, Anxiety disorder, unspecified F41.9 [facility] [address] [place] [address] 64526- 0561 Aug, Anxiety disorder, unspecified F41.9 [place] [address] [place] [address] 89494- 8902 Aug, [facility] [address] [place] [id number] [place] [address] 89902- 6717 Jul, Anxiety disorder, unspecified F41.9 [facility] [address] [place] [id number] [place] [address] 32071- 4741 June, Anxiety disorder, unspecified F41.9 [facility] [address] [place] [address] 20237- 9352 June, Anxiety disorder, unspecified F41.9 [place] [address], [place] [address] May, Anxiety disorder, unspecified F41.9 [place] [address] [place] [id number] [place] [address] 13128- 0203 Apr, [place] [address] [place] [id number] [place] [address] 42583- 9159 Apr, Anxiety disorder, unspecified F41.9 [place] [address] [place] [id number] [place] [address] 62644- 6239 Mar, Well woman exam Z01.419 ; Cervical cancer screening Z12.4 and Breast cancer screening Z12.39 [place] [address] [place] [id number] [place] [address] 10605- 7963 Mar, Anxiety disorder, unspecified F41.9 [place] [address] [place] [id number] [place] [address] 65248- 1146 Mar, Eustachian tube dysfunction H69.80 and Pharyngitis, unspecified etiology J02.9 [place] [address] [place] [id number] [place] [address] 14053- 9685 Feb, Anxiety disorder, unspecified F41.9 [place] [address] [place] [address] 35173- 3979 Jan, Anxiety disorder, unspecified F41.9 [place] [address] [place] [id number] [place] [address] 20168- 6945 Dec, Anxiety disorder, unspecified F41.9 [place] [address] [place] [id number] [place] [address] 69411- 7135 Oct, Anxiety disorder, unspecified F41.9 [place] [address] [place] [address] 32545- 1229 Oct, Irritable bowel syndrome with diarrhea K58.0 ; Hypertension I10 ; Family history of diabetes mellitus Z83.3 and Visual changes H53.9 [place] [address] [id number], [place] [address]87 Sep, Anxiety disorder, unspecified F41.9 [facility] [address] [place] [id number] [place] [address] 33874- 3456 Sep, RLQ abdominal pain R10.31 [facility] [address] [place] [id number] [place] [address] 99042- 2206 Sep, RLQ abdominal pain R10.31 and 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 [facility] [address] [place] [id number] [place] [address] 72548- 5010 Aug, Anxiety disorder, unspecified F41.9 [facility] [address] [place] [id number] [place] [address] 92760- 3526 Aug, [facility] [address] [place] [id number] [place] [address] 20335- 1239 Aug, [facility] [address] [place] [id number] [place] [address] 89809- 5009 Aug, Knee pain M25.569 [facility] [address] [place] [id number] [place] [address] 62197- 7909 Jul, [facility] [address] [place] [id number] [place] [address] 89287- 2043 June, Anxiety disorder, unspecified F41.9 [facility] [address] [place] [id number] [place] [address] 87295- 4356 May, [facility] [address] [place] [id number] [place] [address] 52425- 2543 May, [facility] [address] [place] [id number] [place] [address] 73513- 2386 Apr, [facility] [address] [place] [id number] [place] [address] 70439 2546 Apr, [facility] [address] [place] [id number] [place] [address] 37355- 9824 Mar, Hypertension I10 ; Dysthymia F34.1 ; Knee pain M25.569 and Eustachian tube dysfunction H69.80 [facility] [address] [place] [id number] [place] [address] 94161- 5466 Mar, [facility] [address] [place] [id number] [place] [address] 050134- 1898 Feb, [facility] [address] 394609- 6499 Jan, [facility] [address] [place] [id number] [place] [address] 26584- 0956 Jan, [facility] [address] [place] [id number] [place] [address] 756311- 7795 Dec, [facility] [address] [place] [id number] [place] [address] 27639- 5770 Dec, [facility] [address] [place] [id number] [place] [address] 99251- 5725 Nov, [address] [id number] [id number] Oct, Dental examination V72.[id number] [place] [id number] Oct, Allergic rhinitis 477.9 and Chronic serous otitis media of both ears 381.10 [facility] [address] [place] [id number] [place] [address] 91379- 2796 Sep, [id number] [place] [address] [id number] Sep, Sinusitis 473.9 and Bronchitis 490 [facility] [address] [place] [id number] [place] [address] 05696- 2986 Aug, [facility] [address] [place] [id number] [place] [address] 19711- 3116 Jul, [facility] [address] [place] [id number] [place] [address] 18725- 7228 Jul, [facility] [place] [facility] [address] [id number] [place] [address]- 3184 May, [facility] [place] [facility] [address] [id number] [place] [address]- 5966 May, [facility] [place] [facility] [address] [id number] [place] [address]- 2546 Apr, [facility] [place] [facility] [address] [id number] [place] [address]- 2546 Apr, [facility] [place] [facility] [address] [id number] [place] [address]- 6148 Feb, [facility] [place] [facility] [address] [id number] [place] [address]- 6966 Feb, [facility] [place] [facility] [address] [id number] [place] [address]- 8448 Feb, [facility] [place] [facility] [address] [id number], [place] [address]- 1635 Feb, [facility] [place] [facility] [address] [id number], [place] [address]- 1704 Feb, [facility] [place] [facility] [address] [id number], [place] [address]- 7877 Feb, [facility] [place] [facility] [address] [id number], [place] [address]- 6894 Feb, [facility] [place] [facility] [address] [id number], [place] [address]- 7419 Feb, [facility] [place] [facility] [address] [id number], [place] [address]- 2085 Feb, [facility] [place] [facility] [address] [id number], [place] [address]- 0626 Feb, [facility] [place] [facility] [address] [id number] [place] [address]- 7866 Jan, [facility] [place] [facility] [address] [id number] [place] [address]- 8228 Jan, [facility] [place] [facility] [address] [id number] [place] [address]- 2317 Jan, [facility] [place] [facility] [address] [id number] [place] [address]- 4669 Jan, [facility] [place] [facility] [address] [id number] [place] [address]- 8469 Jan, [facility] [place] [facility] [address] [id number] [place] [address]- 0454 Dec, [facility] [place] [facility] [address] [id number] [place] [address]- 1852 Dec, [facility] [place] [facility] [address] [id number] [place] [address]- 2411 Nov, [facility] [place] [facility] [address] [id number] [place] [address]- 8861 Nov, [facility] [place] [facility] [address] [id number] [place] [address]- 7417 Nov, [facility] [place] [facility] [address] [id number] [place] [address]- 9529 Nov, [facility] [place] [facility] [address] [id number] [place] [address]- 2215 Oct, [facility] [place] [facility] [address] [id number] [place] [address]- 254 22 Oct, 2013 [facility] [place] [facility] [address] [id number] [place] [address]- 2541 10 Oct, 2013 [facility] [place] [facility] [address] [id number] [place] [address] 254 10 Oct, 2013 [facility] [place] [facility] [address] [id number] [place] [address]- 2548 Oct, [facility] [place] [facility] [address] [id number] [place] [address] 254 Oct, [facility] [place] [facility] [address] [id number] [place] [address]- 0300 Sep, [facility] [place] [facility] [address] [id number] [place] [address]- 3680 Sep, [facility] [place] [facility] [address] [id number] [place] [address]- 6451 Sep, [facility] [place] [facility] [address] [id number] [place] [address]- 4971 Sep, [facility] [place] [facility] [address] [id number] [place] [address]- 8844 Sep, [facility] [place] [facility] [address] [id number] [place] [address]- 5012 Sep, [facility] [place] [facility] [address] [id number] [place] [address]- 2247 Aug, [facility] [place] [facility] [address] [id number] [place] [address]- 1174 Aug, [facility] [place] [facility] [address] [id number] [place] [address]- 8841 June, [facility] [place] [facility] [address] [id number] [place] [address]- 0476 June, [facility] [place] [facility] [address] [id number] [place] [address]- 9439 May, [facility] [place] [facility] [address] [id number] [place] [address]- 9442 May, [facility] [place] [facility] [address] [id number] [place] [address]- 1584 Apr, [facility] [place] [facility] [address] [id number] [place] [address]- 4303 Apr, [facility] [place] [facility] [address] [id number] [place] 4941 Mar, [facility] [place] [facility] [address] [id number] [place] [address]- 6475 Mar, [facility] [place] [facility] [address] [id number] [place] [address]- 6506 Mar, [facility] [place] [facility] [address] [id number] [place] [address]- 2706 Mar, [facility] [place] [facility] [address] [id number] [place] [address]- 7196 Mar, [facility] [place] [facility] [address] [id number] [place] [address]- 9956 Mar, [facility] [place] [facility] [address] [id number] [place] [address]- 4826 Mar, [facility] [place] [facility] [address] [id number] [place] [address]- 5466 Mar, [facility] [place] [facility] [address] [facility] [id number] [place] [address]- 0892 Nov, [facility] [place] [facility] [address] [id number] [place] [address]- 8645 Nov, [facility] [place] [facility] [address] [id number] [place] [address]- 4763 Sep, [facility] [place] [facility] [address] [facility] [id number] [place] [address]- 5516 Aug, [facility] [place] [facility] [address] [id number] [place] [address] 2546 Apr, [facility] [place] [facility] [address] [id number] [place] [address] 2548 Mar, [facility] [place] [facility] [address] [id number] [place] [address]- 7943 Mar, [facility] [place] [facility] [address] [id number] [place] [address] 2546 Feb, [facility] [place] [facility] [address] [id number] [place] [address]- 1826 Jan, [facility] [place] [facility] [address] [id number] [place] [address]- 1526 Jan, [facility] [place] [facility] [address] [id number] [place] [address]- 0986 Dec, [facility] [place] [facility] [address] [id number] [place] [address]- 9476 Dec, [facility] [place] [facility] [address] [id number] [place] [address]- 7886 Nov, [facility] [place] [facility] [address] [id number] [place] [address]- 3836 Oct, [facility] [place] [facility] [address] [id number] [place] [address]- 9876 Oct, [facility] [place] [facility] [address] [id number] [place] [address]- 6866 Sep, [facility] [place] [facility] [address] [id number], [place] [address]- 6966 Aug, [facility] [place] [facility] [address] [id number] [place] [address]- 5866 Jul, [facility] [place] [facility] [address] [id number], [place] [address]- 2506 May, [facility] [place] [facility] [address] [id number] [place] [address]- 8606 Mar, [facility] [place] [facility] [address] [id number], [place] [address]- 1066 Mar, [facility] [place] [facility] [address] [id number] [place] [address]- 8826 Mar, [facility] [place] [facility] [address] [id number], [place] [address]- 8506 Mar, [facility] [place] [facility] [address] [id number] [place] [address]- 2646 Feb, [facility] [place] [facility] [address] [id number] [place] [address]- 6488 31 Feb, 2011 [facility] [address] [id number] [place] [address]- 0171 06 Feb, 2011 [facility] [place] [facility] [address] [id number] [place] [address]- 7003 06 Jan, 2011 [facility] [place] [facility] [address] [id number] [place] [address]- 5202 10 Dec, 2010 [facility] [place] [facility] [address] [id number] [place] [address]- 0735 14 Jul, 2010 [facility] [place] [facility] [address] [id number] [place] [address]- 6499 10 Jun, 2010 [facility] [place] [facility] [address] [id number] [place] [address]- 6043 29 Jan, 2010 [facility] [place] [facility] [address] [id number] [place] [address]- 6526 16 Dec, 2009 [facility] [place] [facility] [address] [id number] [place] [address]- 3476 18 Nov, 2009 [facility] [place] [facility] [address] [id number] [place] [address]- 7498 14 Aug, 2009 [facility] [place] [facility] [address] [id number] [place] [address]- 8955 14 Jan, 2009 [facility] [place] [facility] [address] [id number] [place] [address]- 1850 14 Jan, 2009 [facility] [place] [facility] [address] [id number] [place] [address]- 5618 10 Jan, 2009 [facility] [place] [facility] [address] [id number] [place] [address]- 8327 07 Jan, 2009 [facility] [place] [facility] [address] [id number] [place] [address]- 4735 25 Dec, 2008 [facility] [place] [facility] [address] [id number] [place] [address]- 5080 10 Dec, 2008 [facility] [place] [facility] [address] [facility] [id number] [place] [address]- 4498 May, IMMUNIZATIONS No Known Immunizations SOCIAL HISTORY Never Assessed REASON FOR VISIT upper back pain along with right hip pain-Yovani PRETTY PLAN OF CARE Activity Details Follow Up 2 Months Reason:back pain VITAL SIGNS Height 67 in 2017-06-27 Weight 272.8 lbs 2017-06-27 Temperature 98.4 degrees Fahrenheit 2017-06-27 Heart Rate 66 bpm 2017-06-27 Respiratory Rate 20 2017-06-27 BMI 42.72 kg/m2 2017-06-27 Blood pressure systolic 130 mmHg 2017-06-27 Blood pressure diastolic 82 mmHg 2017-06-27 MEDICATIONS Medication Instructions Dosage Frequency Start Date End Date Duration Status Tramadol HCl 50 mg Orally 2 times a day 1 tablet as needed 12h June, June, 28 days Active Alprazolam 1 MG Orally Twice a day, and 1 tablet at bedtime 0.5 Tablet as needed Apr, 28 days Active Betamethasone Dipropionate 0.05 % Externally twice weekly 1 application to affected area Dec, Active Propranolol HCl 20 MG 1 tablet Twice a day Orally 90 Active Cyclobenzaprine HCl 10 mg Orally at bed time 1 tablet June, June, 10 days Active Fluoxetine HCl 20 MG TAKE 3 CAPSULES BY MOUTH ONCE DAILY 30 Active RESULTS Name Result Date Reference Range Xray : Spine, Lumbar 2-3 views (IN HOUSE) 2017-06-27 Xray : Knee, Left 3 views (IN HOUSE) 2017-06-27 Xray : Knee, Right 3 views (IN HOUSE) 2017-06-27 PROCEDURES Procedure Date Ordered Result Body Site 09 PANEL (PROFILE 1) June 27, 2017 X-RAY EXAM OF KNEE, 3 June 27, 2017 X-RAY EXAM OF LOWER SPINE June 27, 2017 INSTRUCTIONS MEDICATIONS ADMINISTERED No Known Medications MEDICAL (GENERAL) HISTORY Type Description Date Medical History depression Medical History hx of anxiety Medical History mitral valve prolapse Surgical History tonsillectomy and adenoidectomy Surgical History partial hysterectomy Surgical History jaw surgery 1974 Surgical History colonoscopy 10/26/15 Surgical History colonoscopy 11/2016 Hospitalization History for surgery
--- OUTSIDE RECORDS SUMMARY | 2018-05-01 11:03 | XMS REPORT ---
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 Name Role Phone JEZ TOMLINSON Unavailable PROBLEMS Type Condition ICD9-CM Code [id number] Code Onset Dates Condition Status SNOMED Code Problem Hypertension I10 Active 91002915 Problem Eustachian tube dysfunction H69.80 Active 56418607 Problem Knee pain M25.569 Active 97285142 Problem Violation of controlled substance agreement Z91.14 Aug, Active 554887399 Problem Dysthymia F34.1 Active 77849026 Problem Other chronic pain G89.29 Active 12208854 Problem Acute right-sided low back pain with right-sided sciatica M54.41 Active 579691727 Problem Pharyngitis, unspecified etiology J02.9 Active 805349457 Problem Anxiety disorder, unspecified F41.9 Active 732310431 Problem Psoriasis L40.9 Active 6738700 Problem Dysuria R30.0 Active 14013170 ALLERGIES No Information ENCOUNTERS Encounter Location Date Diagnosis [place] [id number] [place] [address] 45318- 3029 Oct, [place] [address] [place] [id number] [place] [address] 28839- 8047 Aug, Anxiety disorder, unspecified F41.9 [place] [id number] [place] [address] 08711- 6219 Jul, Anxiety disorder, unspecified F41.9 ; Shortness of breath R06.02 ; Therapeutic drug monitoring Z51.81 ; Family history of diabetes mellitus Z83.3 ; BMI 40.0-44.9, adult Z68.41 and Tobacco abuse Z72.0 [place] [address] [place] [id number] [place] [address] 45709- 3272 June, Anxiety disorder, unspecified F41.9 and Pain in right knee M25.561 [place] [address] 46559- 1831 June, Pain in right knee M25.561 ; Pain in left knee M25.562 ; Other chronic pain G89.29 ; Anxiety disorder, unspecified F41.9 ; Acute right- sided low back pain with right-sided sciatica M54.41 and BMI 40.0-44.9, adult Z68.41 [place] [address] [place] [id number] [place] [address] 08591- 2019 May, Anxiety disorder, unspecified F41.9 [place] [address] 05072- 6938 Apr, Anxiety disorder, unspecified F41.9 [place] [address] 99343- 3924 Apr, Anxiety disorder, unspecified F41.9 [place] [address] [place] [id number] [place] [address] 89073- 0577 Mar, Anxiety disorder, unspecified F41.9 [place] [address] [place] [id number] [place] [address] 27463- 6509 Mar, [place] [address] [place] [id number] [place] [address] 97423- 3838 Feb, Anxiety disorder, unspecified F41.9 [place] [address] [place] [id number] [place] [address] 73153- 9896 Jan, Anxiety disorder, unspecified F41.9 [place] [address] 97580- 8635 Dec, Anxiety disorder, unspecified F41.9 ; Hypertension I10 ; Encounter for screening mammogram for breast cancer Z12.31 ; Psoriasis L40.9 and BMI 40.0-44.9, adult Z68.41 [place] [address] [place] [address]- 6388 Dec, Anxiety disorder, unspecified F41.9 [facility] [address] [place] [address] 32895- 8630 Nov, [facility] [address] [place] [id number] [place] [address] 41685- 4929 Nov, Anxiety disorder, unspecified F41.9 [facility] [address] [place] [id number] [place] [address] 84225- 9365 Nov, [facility] [place] [address] [facility] [id number] [id number] Oct, Dysuria R30.0 [facility] [address] [place] [id number] [place] [address] 40703- 3765 Oct, Anxiety disorder, unspecified F41.9 [facility] [address] [place] [id number] [place] [address] 82377- 7624 Sep, Anxiety disorder, unspecified F41.9 [facility] [address] [place] [address] 79926- 3671 Aug, Anxiety disorder, unspecified F41.9 [facility] [address] [place] [address] 13546- 8843 Aug, [facility] [id number] [place] [address] 56960- 1758 Jul, Anxiety disorder, unspecified F41.9 [facility] [address] [place] [id number] [place] [address] 63015- 4990 June, Anxiety disorder, unspecified F41.9 [facility] [address] [place] [id number] [place] [address] 76988- 5247 June, Anxiety disorder, unspecified F41.9 [facility] [id number] [place] [address] 45055- 0976 May, Anxiety disorder, unspecified F41.9 [facility] [address] [place] [id number] [place] [address] 84566- 9598 07 Apr, 2016 [place] [address] [place] [id number] [place] [address] 91576- 6590 Apr, Anxiety disorder, unspecified F41.9 [place] [address] [place] [id number] [place] [address] 12418- 6185 Mar, Well woman exam Z01.419 ; Cervical cancer screening Z12.4 and Breast cancer screening Z12.39 [place] [address] [place] [id number] [place] [address] 77637- 9455 Mar, Anxiety disorder, unspecified F41.9 [place] [address] 12535- 0187 Mar, Eustachian tube dysfunction H69.80 and Pharyngitis, unspecified etiology J02.9 [place] [address] 31570- 7050 Feb, Anxiety disorder, unspecified F41.9 [place] [address] [place] [id number] [place] [address] 45559- 1746 Jan, Anxiety disorder, unspecified F41.9 [place] [address] [place] [id number] [place] [address] 61754- 7685 Dec, Anxiety disorder, unspecified F41.9 [place] [address] [place] [id number] [place] [address] 05160- 4051 Oct, Anxiety disorder, unspecified F41.9 [place] [address] [place] [id number] [place] [address] 03160- 8625 Oct, Irritable bowel syndrome with diarrhea K58.0 ; Hypertension I10 ; Family history of diabetes mellitus Z83.3 and Visual changes H53.9 [place] [address] [place] [id number] [place] [address] 46412- 1789 Sep, Anxiety disorder, unspecified F41.9 [place] [address] [place] [id number] [place] [address] 20500- 5522 Sep, RLQ abdominal pain R10.31 [facility] [address] [place] [id number] [place] [address] 42636- 4749 Sep, RLQ abdominal pain R10.31 and 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 [facility] [address] [place] [id number] [place] [address] 80492- 8922 Aug, Anxiety disorder, unspecified F41.9 [facility] [address] [place] [id number] [place] [address] 01807- 3894 Aug, [facility] [address] [place] [id number] [place] [address] 50132- 7345 Aug, [facility] [address] [place] [id number] [place] [address] 32716- 3898 Aug, Knee pain M25.569 [facility] [address] [place] [id number] [place] [address] 22316- 2337 Jul, [facility] [address] [place] [id number] [place] [address] 87625- 1271 June, Anxiety disorder, unspecified F41.9 [facility] [address] [place] [id number] [place] [address] 89274- 9423 May, [facility] [address] [place] [id number] [place] [address] 49045- 0370 May, [facility] [address] [place] [id number] [place] [address] 63631- 6143 Apr, [facility] [address] [place] [id number] [place] [address] 85392- 2432 Apr, [facility] [address] [place] [id number] [place] [address] 90173- 6002 Mar, Hypertension I10 ; Dysthymia F34.1 ; Knee pain M25.569 and Eustachian tube dysfunction H69.80 [facility] [address] [place] [id number] [place] [address] 43710- 9263 Mar, [facility] [address] [id number] [address]- 5298 Feb, [facility] [address] [address]- 4688 Jan, [facility] [address], [place] [address]- 8274 Jan, [facility] [address] [address]- 7788 Dec, [facility] [address], [place] [address]- 4554 Dec, [facility] [address] [address]- 7395 Nov, [facility] [address] [id number] [id number] Oct, Dental examination V72.2 [facility] [address] [id number] [id number] Oct, Allergic rhinitis 477.9 and Chronic serous otitis media of both ears 381.10 [facility] [address], [place] [address]- 6889 Sep, [facility] [address] [place] [address] AVE [id number] [address] Sep, Sinusitis 473.9 and Bronchitis 490 [facility] [address] [id number] [address]- 3481 Aug, [facility] [address] [id number] 4001 Jul, [facility] [address], [place] [address]- 1868 Jul, [facility] [address] [id number] 2226 May, [facility] [address] [place] [address]- 6586 13 May, 2014 [facility] [address] [id number] [place] [address]- 8756 Apr, [facility] [address] [id number] [place] [address]- 2546 Apr, [facility] [address] [id number] [place] [address]- 2766 Feb, [facility] [address] [id number] [place] [address]- 4335 Feb, [facility] [address] [id number] [place] [address]- 2115 Feb, [facility] [address] [id number] [place] [address]- 3546 Feb, [facility] [address] [id number] [place] [address]- 2528 Feb, [facility] [address] [id number] [place] [address]- 4347 Feb, [facility] [address] [id number] [place] [address]- 5579 Feb, [facility] [address] [id number] [place] [address]- 9107 Feb, [facility] [address] [id number] [place] [address]- 2473 Feb, [facility] [address] [id number] [place] [address]- 2546 Feb, [facility] [place] [facility] [address] [id number] [place] [address]- 8906 Jan, [facility] [place] [facility] [address] [id number] [place] [address]- 2546 Jan, [facility] [place] [facility] [address] [id number] [place] [address]- 6167 Jan, [facility] [place] [facility] [address] [id number] [place] [address]- 8807 Jan, [facility] [place] [facility] [address] [id number] [place] [address]- 3022 Jan, [facility] [place] [facility] [address] [id number] [place] [address]- 6617 Dec, [facility] [place] [facility] [address] [id number] [place] [address]- 2523 Dec, [facility] [place] [facility] [address] [id number] [place] [address]- 7381 Nov, [facility] [place] [facility] [address] [id number] [place] [address]- 5287 Nov, [facility] [place] [facility] [address] [id number] [place] [address]- 0536 Nov, [facility] [place] [facility] [address] [id number] [place] [address]- 7669 Nov, [facility] [place] [facility] [address] [id number] [place] [address]- 8419 Oct, [facility] [place] [facility] [address] [id number] [place] [address]- 9717 Oct, [facility] [place] [facility] [address] [id number] [place] [address]- 3374 Oct, [facility] [place] [facility] [address] [id number], [place] [address]- 9873 Oct, [facility] [place] [facility] [address] [id number] [place] [address]- 0739 Oct, [facility] [place] [facility] [address] [id number] [place] [address]- 4566 Oct, [facility] [place] [facility] [address] [id number], [place] [address]- 7844 Sep, [facility] [place] [facility] [address] [id number], [place] [address]- 9413 Sep, [facility] [place] [facility] [address] [id number] [place] [address]- 6036 Sep, [facility] [place] [facility] [address] [id number] [place] [address]- 8052 Sep, [facility] [place] [facility] [address] [id number] [place] [address]- 4008 Sep, [facility] [place] [facility] [address] [id number] [place] [address]- 7954 Sep, [facility] [place] [facility] [address] [id number] [place] [address]- 8863 Aug, [facility] [place] [facility] [address] [id number] [place] [address]- 5814 Aug, [facility] [place] [facility] [address] [id number] [place] [address]- 2121 June, [facility] [place] [facility] [address] [id number] [place] [address]- 2616 June, [facility] [place] [facility] [address] [id number] [place] [address]- 5884 May, [facility] [place] [facility] [address] [id number] [place] [address]- 9605 May, [facility] [place] [facility] [address] [id number] [place] [address]- 4042 Apr, [facility] [place] [facility] [address] [id number] [place] [address]- 3394 Apr, [facility] [place] [facility] [address] [id number] [place] [address]- 0502 Mar, [facility] [place] [facility] [address] [id number] [place] [address]- 5943 Mar, [facility] [place] [facility] [address] [id number] [place] [address]- 2731 Mar, [facility] [place] [facility] [address] [id number] [place] [address]- 5998 Mar, [facility] [place] [facility] [address] [id number] [place] [address]- 7706 Mar, [facility] [place] [facility] [address] [id number] [place] 0876 Mar, [facility] [place] [facility] [address] [id number] [place] [address]- 1866 Mar, [facility] [place] [facility] [address] [id number] [place] [address]- 4918 Mar, [facility] [place] [facility] [address] [id number] [place] [address]- 1929 Nov, [facility] [place] [facility] [address] [id number] [place] [address]- 1434 Nov, [facility] [place] [facility] [address] [id number] [place] [address]- 6532 Sep, [facility] [place] [facility] [address] [id number] [place] [address]- 0297 Aug, [facility] [place] [facility] [address] [id number] [place] [address]- 5036 Apr, [facility] [place] [facility] [address] [id number] [place] [address]- 1868 Mar, [facility] [place] [facility] [address] [id number] [place] [address]- 5602 Mar, [facility] [place] [facility] [address] [id number] [place] [address]- 6696 Feb, [facility] [place] [facility] [address] [id number] [place] [address] 2546 Jan, [facility] [place] [facility] [address] [id number] [place] [address] 2546 Jan, [facility] [place] [facility] [address] [id number] [place] [address]- 8757 Dec, [facility] [address] [id number] [place] [address]- 2053 Dec, [facility] [place] [facility] [address] [id number] [place] [address]- 4933 Nov, [facility] [place] [facility] [address] [id number] [place] [address] 2546 Oct, [facility] [place] [facility] [address] [id number] [place] [address] 2546 Oct, [facility] [place] [facility] [address] [id number] [place] [address]- 2570 Sep, [facility] [place] [facility] [address] [id number] [place] [address]- 6716 Aug, [facility] [address] [id number] [place] [address]- 5716 Jul, [facility] [place] [facility] [address] [id number], [place] [address]- 8386 May, [facility] [place] [facility] [address] [id number] [place] [address]- 4855 Mar, [facility] [place] [facility] [address] [id number] [place] [address]- 8686 Mar, [facility] [place] [facility] [address] [place] [address] [id number] [place] [address]- 7816 Mar, [facility] [place] [facility] [address] [id number], [place] [address]- 2546 Mar, [facility] [place] [facility] [address] [id number] [place] [address]- 6377 Feb, [facility] [place] [facility] [address] [id number] [place] [address]- 2546 Feb, [facility] [place] [facility] [address] [id number], [place] [address]- 1705 Feb, [facility] [address] [id number], [place] [address]- 9081 06 Jan, 2011 [facility] [address] [facility] [id number] [place] [address]- 6231 10 Dec, 2010 [facility] [address] [facility] [id number] [place] [address]- 8760 14 Jul, 2010 [facility] [address] [facility] [id number] [place] [address]- 7197 June, [facility] [address] [id number] [place] 8184 29 Jan, 2010 [facility] [address] [facility] [id number] [place] [address]- 6013 16 Dec, 2009 [facility] [address] [facility] [id number] [place] [address]- 0650 18 Nov, 2009 [facility] [address] [facility] [id number], [place] [address]- 5467 14 Aug, 2009 [facility] [address] [facility] [id number], [place] [address]- 7043 14 Jan, 2009 [facility] [address] [facility] [id number], [place] [address]- 8967 14 Jan, 2009 [facility] [address] [facility] [id number], [place] [address]- 5921 Jan, [facility] [address] [facility] [id number], [place] [address]- 7062 07 Jan, 2009 [facility] [address] [facility] [id number][place] 5009 Dec, [facility] [address] [facility] [id number], [place] [address]- 5945 10 Dec, 2008 [facility] [address] [facility] [id number][place] 4465 15 May, 2008 IMMUNIZATIONS No Known Immunizations SOCIAL HISTORY Never Assessed REASON FOR VISIT Controlled Med Refill 05/30/17 PLAN OF CARE VITAL SIGNS MEDICATIONS Medication [...]
--- OUTSIDE RECORDS SUMMARY | 2018-05-01 11:03 | XMS REPORT ---
Author Author JEZ TOMLINSON Organization [facility] Address [address] [place] [address] Care Team Providers Care President [employer] Name Role Phone JEZ TOMLINSON Unavailable PROBLEMS Type Condition ICD9-CM Code NOZ85-MF Code Onset Dates Condition Status SNOMED Code Problem Hypertension I10 Active 21946850 Problem Eustachian tube dysfunction H69.80 Active 88521562 Problem Knee pain M25.569 Active 81146710 Problem Dysthymia F34.1 Active 67553963 Problem Other chronic pain G89.29 Active 67864804 Problem Acute right-sided low back pain with right-sided sciatica M54.41 Active 949852375 Problem Pharyngitis, unspecified etiology J02.9 Active 482419348 Problem Anxiety disorder, unspecified F41.9 Active 027849093 Problem Psoriasis L40.9 Active 7356040 Problem Dysuria R30.0 Active 63447736 ALLERGIES No Information ENCOUNTERS Encounter Location Date Diagnosis [place] [id number] [place] [address] 09077- 1841 Jul, [place] [address] [place] [id number] [place] [address] 06223- 6493 June, Pain in right knee M25.561 ; Pain in left knee M25.562 ; Other chronic pain G89.29 ; Anxiety disorder, unspecified F41.9 ; Acute right- sided low back pain with right-sided sciatica M54.41 and BMI 40.0-44.9, adult Z68.41 [place] [address] [id number] [place] [address] 77601- 8934 May, Anxiety disorder, unspecified F41.9 [place] [address] [id number] [place] [address] 17450- 0261 Apr, Anxiety disorder, unspecified F41.9 [facility] [address] [address] 3006 Apr, Anxiety disorder, unspecified F41.9 [facility] [id number] [place] [address] 69708- 6977 Mar, Anxiety disorder, unspecified F41.9 [facility] [id number] [place] [address] 54733- 3359 Mar, [facility] [id number] [place] [address] 74299- 7056 Feb, Anxiety disorder, unspecified F41.9 [place] [id number] [place] [address] 62546- 3456 Jan, Anxiety disorder, unspecified F41.9 [place] [address] [id number] [place] [address] 14843- 6698 Dec, Anxiety disorder, unspecified F41.9 ; Hypertension I10 ; Encounter for screening mammogram for breast cancer Z12.31 ; Psoriasis L40.9 and BMI 40.0-44.9, adult Z68.41 [place] [address] [place] [address] 75762- 0957 Dec, Anxiety disorder, unspecified F41.9 [place] [address] [address]- 3787 Nov, [facility] [id number] [place] [address] 98178- 0082 Nov, Anxiety disorder, unspecified F41.9 [facility] [id number] [place] [address] 74899- 7229 Nov, [address] [id number] [id number] Oct, Dysuria R30.0 [facility] [address] [address]- 2621 Oct, Anxiety disorder, unspecified F41.9 [facility] [address] [address]- 4069 Sep, Anxiety disorder, unspecified F41.9 [facility] [address] [address]- 4866 Aug, Anxiety disorder, unspecified F41.9 [facility] [address] [id number] [place] [address] 667349- 2814 Aug, [facility] [id number] [place] [address] 810676- 0352 Jul, Anxiety disorder, unspecified F41.9 [facility] [id number] [place] [address] 43772- 8946 June, Anxiety disorder, unspecified F41.9 [facility] [id number] [place] [address] 52058- 0621 June, Anxiety disorder, unspecified F41.9 [facility] [address] [address]- 9399 May, Anxiety disorder, unspecified F41.9 [facility] [id number] 1686 Apr, [facility] [address] [address]- 2848 Apr, Anxiety disorder, unspecified F41.9 [facility] [address] 3209 Mar, Well woman exam Z01.419 ; Cervical cancer screening Z12.4 and Breast cancer screening Z12.39 [facility] [address] 1646 Mar, Anxiety disorder, unspecified F41.9 [facility] [address] [address]- 9676 Mar, Eustachian tube dysfunction H69.80 and Pharyngitis, unspecified etiology J02.9 [place] [address] [id number] [place] [address] 25656- 8425 Feb, Anxiety disorder, unspecified F41.9 [place] [address] [id number] [place] [address] 01644- 0185 Jan, Anxiety disorder, unspecified F41.9 [place] [address] 35612- 8017 Dec, Anxiety disorder, unspecified F41.9 [place] [address] [place] [id number] [place] [address] 32071- 7834 Oct, Anxiety disorder, unspecified F41.9 [place] [address] [id number] [place] [address] 99329- 6630 Oct, Irritable bowel syndrome with diarrhea K58.0 ; Hypertension I10 ; Family history of diabetes mellitus Z83.3 and Visual changes H53.9 [place] [address] [id number] [place] [address] 15727- 9195 Sep, Anxiety disorder, unspecified F41.9 [place] [address] [id number] [place] [address] 69150- 7681 Sep, RLQ abdominal pain R10.31 [place] [address] [address] [id number] [place] [address] 89779- 8659 Sep, RLQ abdominal pain R10.31 and 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 [place] [address] [id number] [place] [address] 06168- 4597 Aug, Anxiety disorder, unspecified F41.9 [place] [address] [id number] [place] [address] 06440- 2416 Aug, [place] [address] [place] [id number] [place] [address] 71514- 4912 Aug, [place] [address] [id number] [place] [address] 67271- 3824 Aug, Knee pain M25.569 [facility] [id number] [place] [address] 53635- 2193 Jul, [facility] [id number] [place] [address] 235475- 3133 June, Anxiety disorder, unspecified F41.9 [facility] [id number] [place] [address] 986442- 5187 May, [facility] [id number] [place] [address] 762434- 8363 May, [facility] [id number] [place] [address] 074141- 8476 Apr, [facility] [id number] [place] [address] 26461- 4901 Apr, [facility] [id number] [place] [address] 86304- 1867 Mar, Hypertension I10 ; Dysthymia F34.1 ; Knee pain M25.569 and Eustachian tube dysfunction H69.80 [facility] [address] [place] [place] [id number] [place] [address] 58712- 5745 Mar, [facility] [address] [id number] [place] [address] 81891- 6697 Feb, [facility] [address] [id number] [place] [address] 10482- 5285 Jan, [facility] [id number] [place] [address] 85071- 5290 Jan, [facility] [id number] [place] [address] 54545- 3394 Dec, [facility] [address] [id number] [place] [address] 63156- 4636 Dec, [facility] [address] [id number] [place] [address] 936268- 2360 Nov, [facility] [address] [facility] [address] [id number] [id number] Oct, Dental examination V72.2 [facility] Santos [address] [facility] [id number] [id number] Oct, Allergic rhinitis 477.9 and Chronic serous otitis media of both ears 381.10 [facility] [id number] [place] [address] 52477- 8756 Sep, [facility] [place]ON[place] [id number] [facility] [address] [id number] [id number] Sep, Sinusitis 473.9 and Bronchitis 490 [facility] [id number] [place] [address] 11677- 5532 Aug, [facility] [id number] [place] [address] 95434- 0375 Jul, [facility] [id number] [place] [address] 51724- 9090 Jul, [facility] [id number] [place] [address] 68710- 5084 May, [facility] [id number] [place] [address] 44899- 6070 May, [facility] [address] [address]- 0927 Apr, [facility] [id number] [place] [address] 49615- 6547 Apr, [facility] [id number] [place] [address] 95731- 1047 Feb, [facility] [id number] [place] [address] 94631- 0806 Feb, [facility] [address] [address]- 9416 Feb, [facility] [id number] [place] [address] 56192- 5740 Feb, [facility] [place] [facility] [address] [id number] [place] [address]- 5693 Feb, [facility] [place] [facility] [address] [facility] [id number] [place] [address]- 7350 Feb, [facility] [place] [facility] [address] [facility] [id number] [place] [address]- 7095 Feb, [facility] [place] [facility] [address] [facility] [id number] [place] [address]- 6191 Feb, [facility] [place] [facility] [address] [facility] [id number] [place] [address]- 2251 Feb, [facility] [place] [facility] [address] [facility] [id number] [place] [address]- 9913 Feb, [facility] [place] [facility] [id number] [address]- 3053 Jan, [facility] [place] [facility] [address] [facility] [id number] [place] [address]- 8394 Jan, [facility] [place] [facility] [address] [facility] [id number] [place] [address]- 9974 Jan, [facility] [place] [facility] [address] [facility] [id number] [place] [address]- 1919 Jan, [facility] [place] [facility] [address] [facility] [id number] [place] [address]- 0337 Jan, [facility] [place] [facility] [address] [facility] [id number] [address]- 4780 Dec, [facility] [place] [facility] [address] [id number] [place] [address]- 9632 Dec, [facility] [place] [facility] [address] [facility] [id number] [place] [address]- 6043 Nov, [facility] [place] [facility] [address] [facility] [id number] [place] [address]- 0726 Nov, [facility] [place] [facility] [address] [id number] [place] [address]- 5692 15 Nov, 2013 [facility] [place] [facility] [address] [id number] [place] [address]- 1010 15 Nov, 2013 [facility] [place] [facility] [address] [id number] [place] [address]- 7009 Oct, [facility] [place] [facility] [address] [id number] [place] [address]- 2226 Oct, [facility] [place] [facility] [address] [id number] [place] [address] 2540 Oct, [facility] [place] [facility] [address] [id number] [place] [address]- 3756 Oct, [facility] [place] [facility] [address] [id number] [place] [address]- 4326 Oct, [facility] [place] [facility] [address] [id number] [place] [address]- 5982 Oct, [facility] [place] [facility] [address] [id number] [place] [address]- 3025 Sep, [facility] [place] [facility] [address] [id number] [place] [address]- 5197 Sep, [facility] [place] [facility] [address] [id number] [place] [address]- 0442 Sep, [facility] [place] [facility] [address] [id number] [place] [address]- 1062 Sep, [facility] [place] [facility] [address] [id number] [place] [address]- 0902 Sep, [facility] [place] [facility] [address] [id number] [place] [address]- 6564 Sep, [facility] [place] [facility] [address] [id number] [place] [address]- 7021 Aug, [facility] [place] [facility] [address] [id number] [place] [address]- 0929 Aug, [facility] [place] [facility] [address] [id number] [place] [address]- 5328 June, [facility] [place] [facility] [address] [facility] [id number] [place] [address]- 5781 June, [facility] [place] [facility] [address] [facility] [id number] [place] [address]- 7221 May, [facility] [place] [facility] [address] [facility] [id number] [place] [address]- 2829 May, [facility] [place] [facility] [address] [facility] [id number] [place] [address]- 2853 Apr, [facility] [place] [facility] [address] [facility] [id number] [place] [address]- 5480 Apr, [facility] [place] [facility] [address] [facility] [id number] [place] [address]- 2461 Mar, [facility] [place] [facility] [address] [facility] [id number] [place] [address]- 8866 Mar, [facility] [place] [facility] [address] [facility] [id number] [place] [address]- 6095 Mar, [facility] [place] [facility] [address] [facility] [id number] [place] [address]- 3525 Mar, [facility] [place] [facility] [address] [facility] [id number] [place] [address]- 4112 Mar, [facility] [place] [facility] [address] [facility] [id number] [address]- 0928 Mar, [facility] [place] [facility] [address] [facility] [id number] [place] [address]- 0845 Mar, [facility] [place] [facility] [address] [facility] [id number] [place] [address]- 6316 Mar, [facility] [place] [facility] [id number] [address]- 0185 Nov, [facility] [place] [facility] [address] [id number] [place] [address]- 5177 Nov, [facility] [place] [facility] [address] [id number] [place] [address]- 4338 Sep, [facility] [place] [facility] [address] [id number] [place] [address]- 7499 Aug, [facility] [place] [facility] [address] [id number] [place] [address]- 4427 Apr, [facility] [place] [facility] [address] [id number] [place] [address]- 6891 Mar, [facility] [place] [facility] [address] [id number] [place] [address]- 2118 Mar, [facility] [place] [facility] [address] [id number] [place] [address]- 9237 Feb, [facility] [place] [facility] [address] [id number] [place] [address]- 0249 Jan, [facility] [place] [facility] [address] [id number] [place] [address]- 4144 Jan, [facility] [place] [facility] [address] [id number] [place] [address]- 0225 Dec, [facility] [place] [facility] [address] [id number] [place] [address]- 1985 Dec, [facility] [place] [facility] [address] [id number] [place] [address]- 9533 Nov, [facility] [place] [facility] [address] [id number] [place] 1245 Oct, [facility] [place] [facility] [address] [id number] [place] [address]- 7141 Oct, [facility] [place] [facility] [address] [id number] [place] [address]- 2285 Sep, [facility] [place] [facility] [address] [id number] [place] [address]- 3839 Aug, [facility] [address] [id number] [place] [address]- 8316 Jul, [facility] [place] [facility] [address] [id number] [place] [address]- 1286 May, [facility] [place] [facility] [address] [id number] [place] [address]- 1106 Mar, [facility] [place] [facility] [address] [id number] [place] [address]- 0653 Mar, [facility] [place] [facility] [address] [id number] [place] [address]- 8736 Mar, [facility] [place] [facility] [address] [id number] [place] [address]- 0873 Mar, [facility] [address] [id number] [place] [address]- 4692 Feb, [facility] [place] [facility] [address] [id number] [place] [address]- 3660 Feb, [facility] [address] [id number] [place] [address]- 5069 Feb, [facility] [place] [facility] [address] [facility] [id number] [place] [address]- 2028 Jan, [facility] [place] [facility] [address] [id number] [address]- 9156 Dec, [facility] [place] [facility] [address] [id number] [place] [address]- 9973 14 Jul, 2010 [facility] [place] [facility] [address] [id number] [place] [address]- 1162 June, [facility] [place] [facility] [address] [id number] [place] [address]- 1612 29 Jan, 2010 [facility] [place] [facility] [address] [id number] [place] [address]- 2339 16 Dec, 2009 [facility] [place] [facility] [address] [id number] [address]- 6386 18 Nov, 2009 [facility] [address] [address]- 6485 14 Aug, 2009 [facility] [address] [address]- 8687 Jan, [facility] [address] [id number] [address]- 1823 14 Jan, 2009 [facility] [address] [address]- 5259 Jan, [facility] [address] [address]- 2784 Jan, [facility] [address] [address]- 1604 Dec, [facility] [address] [address]- 2833 Dec, [facility] [address] [id number] [address]- 6429 May, IMMUNIZATIONS No Known Immunizations SOCIAL HISTORY Never Assessed REASON FOR VISIT Controlled Med Refill 12/13/2016 PLAN OF CARE VITAL SIGNS MEDICATIONS Medication [...]
--- OUTSIDE RECORDS SUMMARY | 2018-05-01 11:03 | XMS REPORT ---
Author Author JEZ TOMLINSON Organization [facility] Address [address] [place] [address] Care Team Providers Care Legal Specialist Name Role Phone JEZ TOMLINSON Unavailable PROBLEMS Type Condition ICD9-CM Code [id number] Code Onset Dates Condition Status SNOMED Code Problem Hypertension I10 Active 63547794 Problem Eustachian tube dysfunction H69.80 Active 09816950 Problem Knee pain M25.569 Active 74432997 Problem Violation of controlled substance agreement Z91.14 Aug, Active 987514097 Problem Dysthymia F34.1 Active 01378553 Problem Other chronic pain G89.29 Active 67833128 Problem Acute right-sided low back pain with right-sided sciatica M54.41 Active 660092616 Problem Pharyngitis, unspecified etiology J02.9 Active 506445449 Problem Anxiety disorder, unspecified F41.9 Active 149489033 Problem Psoriasis L40.9 Active 6316210 Problem Dysuria R30.0 Active 18718361 ALLERGIES No Information ENCOUNTERS Encounter Location Date Diagnosis [place] [address] [facility] [id number] [address] Oct, [facility] [address] [id number] [id number] Aug, Shortness of breath R06.02 and Anxiety disorder, unspecified F41.9 [facility] [address] [facility] [id number], [place] [address] Aug, Anxiety disorder, unspecified F41.9 [place] [address] [facility] [id number], [place] [address] Jul, Anxiety disorder, unspecified F41.9 ; Shortness of breath R06.02 ; Therapeutic drug monitoring Z51.81 ; Family history of diabetes mellitus Z83.3 ; BMI 40.0-44.9, adult Z68.41 and Tobacco abuse Z72.0 [place] [address] [place] [id number] [place] [address]3825- 8771 June, Anxiety disorder, unspecified F41.9 and Pain in right knee M25.561 [place] [address] [place] [id number] [place] [address] 45318- 6003 June, Pain in right knee M25.561 ; Pain in left knee M25.562 ; Other chronic pain G89.29 ; Anxiety disorder, unspecified F41.9 ; Acute right- sided low back pain with right-sided sciatica M54.41 and BMI 40.0-44.9, adult Z68.41 [place] [address] [place] [id number] [place] [address] 40697- 3087 May, Anxiety disorder, unspecified F41.9 [place] [address] [place] [id number] [place] [address] 58513- 2628 Apr, Anxiety disorder, unspecified F41.9 [place] [address] [place] [id number] [place] [address] 26633- 9855 Apr, Anxiety disorder, unspecified F41.9 [place] [address] [place] [id number] [place] [address] 39568- 2622 Mar, Anxiety disorder, unspecified F41.9 [place] [address] [place] [id number] [place] [address] 58924- 0811 Mar, [place] [address] [place] [id number] [place] [address] 96452- 9906 Feb, Anxiety disorder, unspecified F41.9 [place] [address] [place] [id number] [place] [address] 67589- 1301 Jan, Anxiety disorder, unspecified F41.9 [place] [address] [place] [id number] [place] [address] 07036- 4833 Dec, Anxiety disorder, unspecified F41.9 ; Hypertension I10 ; Encounter for screening mammogram for breast cancer Z12.31 ; Psoriasis L40.9 and BMI 40.0-44.9, adult Z68.41 [facility] [id number] [place] [address] 44312- 1744 Dec, Anxiety disorder, unspecified F41.9 [facility] [address] [id number], [place] [address] 69[address] Nov, [facility] [address] [place] [id number] [place] [address] 32276- 3558 Nov, Anxiety disorder, unspecified F41.9 [facility] [address] [place] [id number] [place] [address] 66248- 0397 Nov, [id number] [id number] Oct, Dysuria R30.0 [facility] [address] [place] [id number] [place] [address] 35550- 0172 Oct, Anxiety disorder, unspecified F41.9 [facility] [id number] [place] [address] 97531- 6422 Sep, Anxiety disorder, unspecified F41.9 [facility] [id number] [place] [address] 57040- 6621 Aug, Anxiety disorder, unspecified F41.9 [facility] [id number] [place] [address] 68316- 1948 Aug, [facility] [id number] [place] [address] 03562- 5121 Jul, Anxiety disorder, unspecified F41.9 [facility] [address] [place] [id number] [place] [address] 64227- 5324 June, Anxiety disorder, unspecified F41.9 [facility] [id number] [place] [address] 74380- 3205 June, Anxiety disorder, unspecified F41.9 [place] [address], [place] [address] 4198 May, Anxiety disorder, unspecified F41.9 [place] [address] [place] [id number] [place] [address] 62049- 1286 Apr, [place] [address] [place] [id number] [place] [address] 05358- 3356 Apr, Anxiety disorder, unspecified F41.9 [place] [address] [place] [id number] [place] [address] 47974- 1147 Mar, Well woman exam Z01.419 ; Cervical cancer screening Z12.4 and Breast cancer screening Z12.39 [place] [address] [place] [id number] [place] [address] 38289- 6518 Mar, Anxiety disorder, unspecified F41.9 [place] [address] [place] [id number] [place] [address] 34986- 8490 Mar, Eustachian tube dysfunction H69.80 and Pharyngitis, unspecified etiology J02.9 [place] [address] [place] [id number] [place] [address] 94915- 5249 Feb, Anxiety disorder, unspecified F41.9 [place] [address] [place] [id number] [place] [address] 89253- 0763 Jan, Anxiety disorder, unspecified F41.9 [place] [address] [place] [id number] [place] [address] 26189- 6752 Dec, Anxiety disorder, unspecified F41.9 [place] [address] [place] [id number] [place] [address] 73539- 7639 Oct, Anxiety disorder, unspecified F41.9 [place] [address] [place] [id number] [place] [address] 25170- 0755 Oct, Irritable bowel syndrome with diarrhea K58.0 ; Hypertension I10 ; Family history of diabetes mellitus Z83.3 and Visual changes H53.9 [place] [address] [id number], [place] [address] 5357 Sep, Anxiety disorder, unspecified F41.9 [facility] [address] [place] [id number] [place] [address] 91714- 1136 Sep, RLQ abdominal pain R10.31 [facility] [address] [place] [id number] [place] [address] 86420- 8462 Sep, RLQ abdominal pain R10.31 and 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 [facility] [address] [place] [id number] [place] [address] 33527- 2476 Aug, Anxiety disorder, unspecified F41.9 [facility] [address] [place] [id number] [place] [address] 06767- 8278 Aug, [facility] [address] [place] [id number] [place] [address] 35543- 7199 Aug, [facility] [address] [place] [id number] [place] [address] 78739- 9131 Aug, Knee pain M25.569 [facility] [address] [place] [id number] [place] [address] 10575- 0549 Jul, [facility] [address] [place] [id number] [place] [address] 57722- 7995 June, Anxiety disorder, unspecified F41.9 [facility] [address] [place] [id number] [place] [address] 39936- 2896 May, [facility] [address] [place] [id number] [place] [address] 21214- 2549 May, [facility] [address] [place] [id number] [place] [address] 57517- 7505 Apr, [facility] [address] [place] [id number] [place] [address] 20820- 2546 Apr, [facility] [address] [place] [id number] [place] [address] 68947- 2989 Mar, Hypertension I10 ; Dysthymia F34.1 ; Knee pain M25.569 and Eustachian tube dysfunction H69.80 [facility] [address] [place] [id number] [place] [address] 03114- 4375 Mar, [facility] [address] [place] [id number] [place] [address] 516004- 5783 Feb, [facility] [address] 289501- 7683 Jan, [facility] [address] [place] [id number] [place] [address] 511066- 3334 Jan, [facility] [address] [place] [id number] [place] [address] 62210- 7906 Dec, [facility] [address] [place] [id number] [place] [address] 16483- 2268 Dec, [facility] [address] [place] [id number] [place] [address] 81554- 2941 Nov, [address] [id number] [id number] Oct, Dental examination V72.[address] [id number] [id number] Oct, Allergic rhinitis 477.9 and Chronic serous otitis media of both ears 381.10 [facility] [address] [place] [id number] [place] [address] 60206- 7606 Sep, [id number] [place] [address] [id number] Sep, Sinusitis 473.9 and Bronchitis 490 [facility] [address] [place] [id number] [place] [address] 95316- 7706 Aug, [facility] [address] [place] [id number] [place] [address] 38170- 4316 Jul, [facility] [address] [place] [id number] [place] [address] 85510- 1245 Jul, [facility] [place] [facility] [address] [id number] [place] [address]- 2595 May, [facility] [place] [facility] [address] [id number] [place] [address]- 9154 May, [facility] [place] [facility] [address] [id number] [place] [address]- 6352 Apr, [facility] [place] [facility] [address] [id number] [place] [address]- 5230 Apr, [facility] [place] [facility] [address] [id number] [place] [address]- 8583 Feb, [facility] [place] [facility] [address] [id number] [place] [address]- 5223 Feb, [facility] [place] [facility] [address] [id number] [place] [address]- 1213 Feb, [facility] [place] [facility] [address] [id number], [place] [address]- 0514 Feb, [facility] [place] [facility] [address] [id number] [place] [address]- 9406 Feb, [facility] [place] [facility] [address] [id number] [place] [address]- 4040 Feb, [facility] [place] [facility] [address] [id number], [place] [address]- 2924 Feb, [facility] [place] [facility] [address] [id number], [place] [address]- 2235 Feb, [facility] [place] [facility] [address] [id number], [place] [address]- 9164 Feb, [facility] [place] [facility] [address] [id number], [place] [address]- 9757 Feb, [facility] [place] [facility] [address] [id number] [place] [address]- 9007 Jan, [facility] [place] [facility] [address] [id number] [place] [address]- 3995 Jan, [facility] [place] [facility] [address] [id number] [place] [address]- 8183 Jan, [facility] [place] [facility] [address] [id number] [place] [address]- 8134 Jan, [facility] [place] [facility] [address] [id number] [place] [address]- 0908 Jan, [facility] [place] [facility] [address] [id number] [place] [address]- 3321 Dec, [facility] [place] [facility] [address] [id number] [place] [address]- 4075 Dec, [facility] [place] [facility] [address] [id number] [place] [address]- 6725 Nov, [facility] [place] [facility] [address] [id number] [place] [address]- 6845 Nov, [facility] [place] [facility] [address] [id number] [place] [address]- 6281 Nov, [facility] [place] [facility] [address] [id number] [place] [address]- 5423 Nov, [facility] [place] [facility] [address] [id number] [place] [address]- 8137 Oct, [facility] [place] [facility] [address] [id number] [place] [address]- 7829 22 Oct, 2013 [facility] [place] [facility] [address] [id number] [place] [address]- 2549 10 Oct, 2013 [facility] [place] [facility] [address] [id number] [place] [address] 2545 10 Oct, 2013 [facility] [place] [facility] [address] [id number] [place] [address]- 2546 Oct, [facility] [place] [facility] [address] [id number] [place] [address] 2540 Oct, [facility] [place] [facility] [address] [id number] [place] [address]- 0642 Sep, [facility] [place] [facility] [address] [id number] [place] [address]- 1334 Sep, [facility] [place] [facility] [address] [id number] [place] [address]- 5727 Sep, [facility] [place] [facility] [address] [id number] [place] [address]- 7049 Sep, [facility] [place] [facility] [address] [id number] [place] [address]- 9150 Sep, [facility] [place] [facility] [address] [id number] [place] [address]- 4428 Sep, [facility] [place] [facility] [address] [id number] [place] [address]- 1855 Aug, [facility] [place] [facility] [address] [id number] [place] [address]- 5918 Aug, [facility] [place] [facility] [address] [id number] [place] [address]- 8167 June, [facility] [place] [facility] [address] [id number] [place] [address]- 5928 June, [facility] [place] [facility] [address] [id number] [place] [address]- 7610 May, [facility] [place] [facility] [address] [id number] [place] [address]- 7182 May, [facility] [place] [facility] [address] [id number] [place] [address]- 7197 Apr, [facility] [place] [facility] [address] [id number] [place] [address]- 5024 Apr, [facility] [place] [facility] [address] [id number] [place] [address]- 6561 Mar, [facility] [place] [facility] [address] [id number] [place] [address]- 7577 Mar, [facility] [place] [facility] [address] [id number] [place] [address]- 9546 Mar, [facility] [place] [facility] [address] [id number] [place] [address]- 0916 Mar, [facility] [place] [facility] [address] [id number] [place] [address]- 5066 Mar, [facility] [place] [facility] [address] [id number] [place] [address]- 4733 Mar, [facility] [place] [facility] [address] [id number] [place] [address]- 5857 Mar, [facility] [place] [facility] [address] [id number] [place] [address]- 6456 Mar, [facility] [place] [facility] [address] [facility] [id number] [place] [address]- 3261 Nov, [facility] [place] [facility] [address] [id number] [place] [address]- 1883 Nov, [facility] [place] [facility] [address] [id number] [place] [address]- 9403 Sep, [facility] [place] [facility] [address] [facility] [id number] [place] [address]- 7665 Aug, [facility] [place] [facility] [address] [id number] [place] [address]- 7539 Apr, [facility] [place] [facility] [address] [id number] [place] [address]- 6578 Mar, [facility] [place] [facility] [address] [id number] [place] [address]- 9469 Mar, [facility] [place] [facility] [address] [id number] [place] [address]- 1356 Feb, [facility] [place] [facility] [address] [id number] [place] [address]- 3162 Jan, [facility] [place] [facility] [address] [id number] [place] [address]- 2519 Jan, [facility] [place] [facility] [address] [id number] [place] [address]- 1887 Dec, [facility] [place] [facility] [address] [id number] [place] [address]- 1200 Dec, [facility] [place] [facility] [address] [id number] [place] [address]- 9902 Nov, [facility] [place] [facility] [address] [id number] [place] [address]- 0804 Oct, [facility] [place] [facility] [address] [id number] [place] [address]- 0523 Oct, [facility] [place] [facility] [address] [id number] [place] [address]- 5168 Sep, [facility] [place] [facility] [address] [id number] [place] [address]- 4759 Aug, [facility] [place] [facility] [address] [id number] [place] [address]- 5932 Jul, [facility] [place] [facility] [address] [id number] [place] [address]- 8948 May, [facility] [place] [facility] [address] [id number] [place] [address]- 4616 Mar, [facility] [place] [facility] [address] [id number], [place] [address]- 6017 Mar, [facility] [place] [facility] [address] [id number] [place] [address] 2549 Mar, [facility] [place] [facility] [address] [id number], [place] [address]- 0236 Mar, [facility] [place] [facility] [address] [id number] [place] [address]- 5525 Feb, [facility] [place] [facility] [address] [id number] [place] [address]- 0049 31 Feb, 2011 [facility] [address] [id number] [place] [address]- 3040 06 Feb, 2011 [facility] [place] [facility] [address] [id number] [place] [address]- 0057 06 Jan, 2011 [facility] [place] [facility] [address] [id number] [place] [address]- 2827 10 Dec, 2010 [facility] [place] [facility] [address] [id number] [place] [address]- 4729 14 Jul, 2010 [facility] [place] [facility] [address] [id number] [place] [address]- 0642 10 Jun, 2010 [facility] [place] [facility] [address] [id number] [place] [address]- 6059 29 Jan, 2010 [facility] [place] [facility] [address] [id number] [place] [address]- 1550 16 Dec, 2009 [facility] [place] [facility] [address] [id number] [place] [address]- 0287 18 Nov, 2009 [facility] [place] [facility] [address] [id number] [place] [address]- 8777 14 Aug, 2009 [facility] [place] [facility] [address] [facility] [id number] [place] [address]- 5597 14 Jan, 2009 [facility] [place] [facility] [address] [id number] [place] [address]- 0504 14 Jan, 2009 [facility] [place] [facility] [address] [id number] [place] [address]- 9479 10 Jan, 2009 [facility] [place] [facility] [address] [id number] [place] [address]- 5192 07 Jan, 2009 [facility] [place] [facility] [address] [id number] [place] [address]- 2318 25 Dec, 2008 [facility] [place] [facility] [address] [id number] [place] [address]- 6850 10 Dec, 2008 [facility] [place] [facility] [address] [facility] [id number] [place] [address]- 5085 May, IMMUNIZATIONS No Known Immunizations SOCIAL HISTORY Never Assessed REASON FOR VISIT Controlled Med Refill 06/27/17 PLAN OF CARE VITAL SIGNS MEDICATIONS Medication [...]
--- OUTSIDE RECORDS SUMMARY | 2018-05-01 11:04 | XMS REPORT ---
Author Author JEZ TOMLINSON Organization [facility] Address [address] [place] [address] Care Team Providers Care Scheduling Representative Name Role Phone JEZ TOMLINSON Unavailable PROBLEMS Type Condition ICD9-CM Code [id number] Code Onset Dates Condition Status SNOMED Code Problem Hypertension I10 Active 54139703 Problem Eustachian tube dysfunction H69.80 Active 53886873 Problem Knee pain M25.569 Active 97977740 Problem Dysthymia F34.1 Active 98508198 Problem Other chronic pain G89.29 Active 04952540 Problem Acute right-sided low back pain with right-sided sciatica M54.41 Active 029616463 Problem Pharyngitis, unspecified etiology J02.9 Active 837162683 Problem Anxiety disorder, unspecified F41.9 Active 603343580 Problem Psoriasis L40.9 Active 6562085 Problem Dysuria R30.0 Active 60642525 ALLERGIES No Information ENCOUNTERS Encounter Location Date Diagnosis [place] [id number] [place] [address] 21518- 7706 Jul, [place] [address] [place] [id number] [place] [address] 15769- 3099 June, Pain in right knee M25.561 ; Pain in left knee M25.562 ; Other chronic pain G89.29 ; Anxiety disorder, unspecified F41.9 ; Acute right- sided low back pain with right-sided sciatica M54.41 and BMI 40.0-44.9, adult Z68.41 [place] [address] [address] [id number] [place] [address] 50782- 5740 May, Anxiety disorder, unspecified F41.9 [place] [address] [address] [id number] [place] [address] 85936- 6822 Apr, Anxiety disorder, unspecified F41.9 [facility] [address], [place] [address] 4[address] Apr, Anxiety disorder, unspecified F41.9 [facility] [id number] [place] [address] 60617- 6920 Mar, Anxiety disorder, unspecified F41.9 [facility] [id number] [place] [address] 25569- 7280 Mar, [facility] [id number] [place] [address] 21569- 3251 Feb, Anxiety disorder, unspecified F41.9 [place] [id number] [place] [address] 52445- 1840 Jan, Anxiety disorder, unspecified F41.9 [place] [id number] [place] [address] 53988- 0742 Dec, Anxiety disorder, unspecified F41.9 ; Hypertension I10 ; Encounter for screening mammogram for breast cancer Z12.31 ; Psoriasis L40.9 and BMI 40.0-44.9, adult Z68.41 [place] [address] [place] [address] 81040- 6411 Dec, Anxiety disorder, unspecified F41.9 [place] [address], [place] [address] 7110 Nov, [facility] [id number] [place] [address] 57570- 1037 Nov, Anxiety disorder, unspecified F41.9 [facility] [address] [place] [address] 29844- 0449 Nov, [address] [id number] [id number] Oct, Dysuria R30.0 [facility] [address], [place] [address] 9518 Oct, Anxiety disorder, unspecified F41.9 [facility] [address], [place] [address] 1726 Sep, Anxiety disorder, unspecified F41.9 [facility] [address], [place] [address]- 1546 Aug, Anxiety disorder, unspecified F41.9 [facility] [id number] [place] [address] 843167- 0867 Aug, [facility] [address] [place] [address] 481137- 0614 Jul, Anxiety disorder, unspecified F41.9 [facility] [id number] [place] [address] 95841- 8616 June, Anxiety disorder, unspecified F41.9 [facility] [id number] [place] [address] 17772- 1258 June, Anxiety disorder, unspecified F41.9 [facility] [address], [place] [address] 8195 May, Anxiety disorder, unspecified F41.9 [facility] [id number] [address] Apr, [facility] [address], [place] [address]- 0478 Apr, Anxiety disorder, unspecified F41.9 [facility] [address] 3145 Mar, Well woman exam Z01.419 ; Cervical cancer screening Z12.4 and Breast cancer screening Z12.39 [facility] [address] 9136 Mar, Anxiety disorder, unspecified F41.9 [facility] [address], [place] [address]- 6076 Mar, Eustachian tube dysfunction H69.80 and Pharyngitis, unspecified etiology J02.9 [place] [address] [id number] [place] [address] 67054- 4907 Feb, Anxiety disorder, unspecified F41.9 [place] [id number] [place] [address] 68790- 0050 Jan, Anxiety disorder, unspecified F41.9 [place] [address] 25157- 6349 Dec, Anxiety disorder, unspecified F41.9 [place] [id number] [place] [address] 30668- 5397 Oct, Anxiety disorder, unspecified F41.9 [place] [id number] [place] [address] 57849- 5204 Oct, Irritable bowel syndrome with diarrhea K58.0 ; Hypertension I10 ; Family history of diabetes mellitus Z83.3 and Visual changes H53.9 [place] [address] [address] [id number] [place] [address] 14246- 2698 Sep, Anxiety disorder, unspecified F41.9 [place] [address] [address] [id number] [place] [address] 94010- 1649 Sep, RLQ abdominal pain R10.31 [place] [address] [address] [id number] [place] [address] 94230- 6848 Sep, RLQ abdominal pain R10.31 and 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 [place] [address] [address] [id number] [place] [address] 01236- 8641 Aug, Anxiety disorder, unspecified F41.9 [place] [address] [address] [id number] [place] [address] 26960- 6975 Aug, [place] [id number] [place] [address] 51806- 1128 Aug, [place] [address] [address] [id number] [place] [address] 67539- 4501 Aug, Knee pain M25.569 [facility] [address] [id number] [place] [address] 68551- 3783 Jul, [facility] [id number] [place] [address] 423078- 9181 June, Anxiety disorder, unspecified F41.9 [facility] [id number] [place] [address] 303571- 9308 May, [facility] [id number] [place] [address] 273590- 6496 May, [facility] [id number] [place] [address] 608056- 6330 Apr, [facility] [id number] [place] [address] 98157- 3763 Apr, [facility] [id number] [place] [address] 11553- 5123 Mar, Hypertension I10 ; Dysthymia F34.1 ; Knee pain M25.569 and Eustachian tube dysfunction H69.80 [facility] [address] [id number] [place] [address] 35638- 1724 Mar, [facility] [address] [address] [id number] [place] [address] 37214- 9928 Feb, [facility] [id number] [place] [address] 57051- 7433 Jan, [facility] [id number] [place] [address] 06336- 6489 Jan, [facility] [id number] [place] [address] 17038- 2735 Dec, [facility] [id number] [place] [address] 71582- 9676 Dec, [facility] [id number] [place] [address] 564740- 6370 Nov, [facility] [address] [id number] [id number] Oct, Dental examination V72.2 [facility] [address] [id number] [id number] Oct, Allergic rhinitis 477.9 and Chronic serous otitis media of both ears 381.10 [facility] [address] [place] [address] 78903- 7486 Sep, [facility] [id number] [id number] [id number] Sep, Sinusitis 473.[address] [facility] [id number] [place] [address] 30069- 2016 Aug, [facility] [id number] [place] [address] 47784- 2929 Jul, [facility] [id number] [place] [address] 73174- 0264 Jul, [facility] [id number] [place] [address] 16475- 1793 May, [facility] [id number] [place] [address] 47549- 8608 May, [facility] [address], [place] [address]- 0712 Apr, [facility] [id number] [place] [address] 39933- 7387 Apr, [facility] [id number] [place] [address] 98879- 2219 Feb, [facility] [id number] [place] [address] 49911- 5556 Feb, [facility] [address], [place] [address]- 4166 Feb, [facility] [id number] [place] [address] 47846- 8513 Feb, [facility] [place] [facility] [address] [id number] [place] [address]- 1939 Feb, [facility] [place] [facility] [address] [facility] [id number] [place] [address]- 4966 Feb, [facility] [place] [facility] [address] [facility] [id number] [place] [address]- 6536 Feb, [facility] [place] [facility] [address] [facility] [id number] [place] [address]- 0975 Feb, [facility] [place] [facility] [address] [facility] [id number] [place] [address]- 0518 Feb, [facility] [place] [facility] [address] [facility] [id number] [place] [address]- 9044 Feb, [facility] [place] [facility] [id number] [address]- 1538 Jan, [facility] [place] [facility] [address] [facility] [id number] [place] [address]- 1867 Jan, [facility] [place] [facility] [address] [facility] [id number] [place] [address]- 5132 Jan, [facility] [place] [facility] [address] [facility] [id number] [place] [address]- 0809 Jan, [facility] [place] [facility] [address] [facility] [id number] [place] [address]- 3559 Jan, [facility] [place] [facility] [address] [facility] [id number], [place] [address]- 6745 Dec, [facility] [place] [facility] [address] [id number] [place] [address]- 2178 Dec, [facility] [place] [facility] [address] [facility] [id number] [place] [address]- 3315 Nov, [facility] [place] [facility] [address] [facility] [id number] [place] [address]- 1066 Nov, [facility] [place] [facility] [address] [id number] [place] [address]- 3326 15 Nov, 2013 [facility] [place] [facility] [address] [id number] [place] [address]- 0051 15 Nov, 2013 [facility] [place] [facility] [address] [id number] [place] [address]- 0489 Oct, [facility] [place] [facility] [address] [id number] [place] [address]- 5396 Oct, [facility] [place] [facility] [address] [id number] [place] [address] 2549 Oct, [facility] [place] [facility] [address] [id number] [place] [address]- 4878 Oct, [facility] [place] [facility] [address] [id number] [place] [address]- 7729 Oct, [facility] [place] [facility] [address] [id number] [place] [address]- 8285 Oct, [facility] [place] [facility] [address] [id number] [place] [address]- 2016 Sep, [facility] [place] [facility] [address] [id number] [place] [address]- 5068 Sep, [facility] [place] [facility] [address] [id number] [place] [address]- 6495 Sep, [facility] [place] [facility] [address] [id number] [place] [address]- 7501 Sep, [facility] [place] [facility] [address] [id number] [place] [address]- 0670 Sep, [facility] [place] [facility] [address] [id number] [place] [address]- 7206 Sep, [facility] [place] [facility] [address] [id number] [place] [address]- 4183 Aug, [facility] [place] [facility] [address] [id number] [place] [address]- 3706 Aug, [facility] [place] [facility] [address] [id number] [place] [address]- 1711 June, [facility] [place] [facility] [address] [facility] [id number] [place] [address]- 9016 June, [facility] [place] [facility] [address] [facility] [id number] [place] [address]- 6874 May, [facility] [place] [facility] [address] [facility] [id number] [place] [address]- 7653 May, [facility] [place] [facility] [address] [facility] [id number] [place] [address]- 9138 Apr, [facility] [place] [facility] [address] [facility] [id number] [place] [address]- 0447 Apr, [facility] [place] [facility] [address] [facility] [id number] [place] [address]- 1767 Mar, [facility] [place] [facility] [address] [facility] [id number] [place] [address]- 7507 Mar, [facility] [place] [facility] [address] [facility] [id number] [place] [address]- 6480 Mar, [facility] [place] [facility] [address] [facility] [id number] [place] [address]- 4909 Mar, [facility] [place] [facility] [address] [facility] [id number] [place] [address]- 7508 Mar, [facility] [place] [facility] [address] [facility] [id number], [place] [address]- 6982 Mar, [facility] [place] [facility] [address] [facility] [id number] [place] [address]- 5755 Mar, [facility] [place] [facility] [address] [facility] [id number] [place] [address]- 4844 Mar, [facility] [place] [facility] [id number] [place] [address]- 5144 Nov, [facility] [place] [facility] [address] [id number] [place] [address]- 7218 Nov, [facility] [place] [facility] [address] [id number] [place] [address]- 4580 Sep, [facility] [place] [facility] [address] [id number] [place] [address]- 4743 Aug, [facility] [place] [facility] [address] [id number] [place] [address]- 6006 Apr, [facility] [place] [facility] [address] [id number] [place] [address]- 3689 Mar, [facility] [place] [facility] [address] [id number] [place] [address]- 7839 Mar, [facility] [place] [facility] [address] [id number] [place] [address]- 5241 Feb, [facility] [place] [facility] [address] [id number] [place] [address]- 3094 Jan, [facility] [place] [facility] [address] [id number] [place] [address]- 0243 Jan, [facility] [place] [facility] [address] [id number] [place] [address]- 2171 Dec, [facility] [place] [facility] [address] [id number] [place] [address]- 7605 Dec, [facility] [place] [facility] [address] [id number] [place] [address]- 7786 Nov, [facility] [place] [facility] [address] [id number] [place] 0358 Oct, [facility] [place] [facility] [address] [id number] [place] [address]- 7180 Oct, [facility] [place] [facility] [address] [id number] [place] [address]- 4093 Sep, [facility] [place] [facility] [address] [id number] [place] [address]- 1066 Aug, [facility] [address] [id number] [place] [address]- 1117 Jul, [facility] [place] [facility] [address] [id number] [place] [address]- 5926 May, [facility] [place] [facility] [address] [id number] [place] [address]- 2796 Mar, [facility] [place] [facility] [address] [id number] [place] [address]- 8284 Mar, [facility] [place] [facility] [address] [id number] [place] [address]- 1509 Mar, [facility] [place] [facility] [address] [id number] [place] [address]- 6411 Mar, [facility] [address] [id number] [place] [address]- 8997 Feb, [facility] [place] [facility] [address] [id number] [place] [address]- 5028 Feb, [facility] [address] [id number] [place] [address]- 5129 Feb, [facility] [place] [facility] [address] [facility] [id number] [place] [address]- 6302 Jan, [facility] [place] [facility] [address] [id number], [place] [address]- 7816 Dec, [facility] [place] [facility] [address] [id number] [place] [address]- 3334 14 Jul, 2010 [facility] [place] [facility] [address] [id number] [place] [address]- 4759 June, [facility] [place] [facility] [address] [id number] [place] [address]- 5277 29 Jan, 2010 [facility] [place] [facility] [address] [id number] [place] [address]- 8863 16 Dec, 2009 [facility] [place] [facility] [id number], [place] [address]- 3018 18 Nov, 2009 [facility] [address] [address] [address], [address] [facility] [address], [place] [address]- 5680 [address], [address] [facility] [address], [place] [address]- 5347 [address], [address] [facility] [address], [place] [address]- 7891 Jan, [facility] [address] [place] [address] 17781- 9493 Jan, [facility] [address] [address]- 7771 Dec, [facility] [address], [place] [address]- 5007 Dec, [facility] [id number], [place] [address]- 9796 May, IMMUNIZATIONS No Known Immunizations SOCIAL HISTORY Never Assessed REASON FOR VISIT Refill request PLAN OF CARE VITAL SIGNS MEDICATIONS Medication Instructions Dosage Frequency Start Date End Date Duration Status Propranolol HCl 20 MG 1 tablet Twice a day Orally 90 Active RESULTS No Results PROCEDURES No Known [...]
--- OUTSIDE RECORDS SUMMARY | 2018-05-01 11:04 | XMS REPORT ---
Author Author JEZ TOMLINSON Organization [facility] Address [address] [place] [address] Care Team Providers Care It Intern Name Role Phone JEZ TOMLINSON Unavailable PROBLEMS Type Condition ICD9-CM Code DRJ30-ND Code Onset Dates Condition Status SNOMED Code Problem Hypertension I10 Active 78221930 Problem Eustachian tube dysfunction H69.80 Active 37127434 Problem Knee pain M25.569 Active 50161554 Problem Dysthymia F34.1 Active 34654539 Problem Other chronic pain G89.29 Active 08711623 Problem Acute right-sided low back pain with right-sided sciatica M54.41 Active 698828689 Problem Pharyngitis, unspecified etiology J02.9 Active 814306527 Problem Anxiety disorder, unspecified F41.9 Active 061696986 Problem Psoriasis L40.9 Active 2428757 Problem Dysuria R30.0 Active 04386903 ALLERGIES No Information ENCOUNTERS Encounter Location Date Diagnosis [place] [id number] [place] [address] 24736- 7421 Oct, [place] [address] [place] [id number] [place] [address] 54317- 9331 Aug, Anxiety disorder, unspecified F41.9 [place] [address] [place] [id number] [place] [address] 40634- 3280 Jul, Anxiety disorder, unspecified F41.9 ; Shortness of breath R06.02 ; Therapeutic drug monitoring Z51.81 ; Family history of diabetes mellitus Z83.3 ; BMI 40.0-44.9, adult Z68.41 and Tobacco abuse Z72.0 [place] [address] [place] [id number] [place] [address] 33326- 0960 June, Anxiety disorder, unspecified F41.9 and Pain in right knee M25.561 [place] [address] [place] [id number] [place] [address] 66446- 1345 June, Pain in right knee M25.561 ; Pain in left knee M25.562 ; Other chronic pain G89.29 ; Anxiety disorder, unspecified F41.9 ; Acute right- sided low back pain with right-sided sciatica M54.41 and BMI 40.0-44.9, adult Z68.41 [place] [address] [place] [id number] [place] [address] 52447- 7888 May, Anxiety disorder, unspecified F41.9 [place] [address] [place] [id number] [place] [address] 29812- 4211 Apr, Anxiety disorder, unspecified F41.9 [place] [address] [place] [id number] [place] [address] 99519- 4440 Apr, Anxiety disorder, unspecified F41.9 [place] [address] [place] [address] [id number] [place] [address] 04814- 2157 Mar, Anxiety disorder, unspecified F41.9 [place] [address] [place] [address] [id number] [place] [address] 32345- 4845 Mar, [place] [address] [place] [id number] [place] [address] 93901- 8960 Feb, Anxiety disorder, unspecified F41.9 [place] [address] [place] [id number] [place] [address] 54437- 5541 Jan, Anxiety disorder, unspecified F41.9 [place] [address] [place] [address] [id number] [place] [address] 66466- 5430 Dec, Anxiety disorder, unspecified F41.9 ; Hypertension I10 ; Encounter for screening mammogram for breast cancer Z12.31 ; Psoriasis L40.9 and BMI 40.0-44.9, adult Z68.41 [place] [address] [place] [id number] [place] [address] 80979- 2685 14 Dec, 2016 Anxiety disorder, unspecified F41.9 [facility] [address] [address] 5867 Nov, [facility] [address] [place] [address] 42380- 9136 Nov, Anxiety disorder, unspecified F41.9 [facility] [address] [place] [address] 57209- 5885 Nov, [facility] [id number] [id number] Oct, Dysuria R30.0 [facility] [address] [place] [id number] [place] [address] 51652- 2815 Oct, Anxiety disorder, unspecified F41.9 [facility] [address] [place] [address] 95111- 6178 Sep, Anxiety disorder, unspecified F41.9 [facility] [address] [place] [address] 56966- 9998 Aug, Anxiety disorder, unspecified F41.9 [facility] [address] [place] [address] [id number] [place] [address] 84249- 2066 Aug, [facility] [address] [place] [address] 30987- 7142 Jul, Anxiety disorder, unspecified F41.9 [facility] [address] [place] [address] 60454- 9121 June, Anxiety disorder, unspecified F41.9 [facility] [address] [place] [address] 79278- 2698 June, Anxiety disorder, unspecified F41.9 [facility] [address] [place] [address] 86822141- 1642 May, Anxiety disorder, unspecified F41.9 [facility] [address] [place] [address] 21926- 7601 Apr, [place] [address] [place] [id number] [place] [address] 17928- 0018 Apr, Anxiety disorder, unspecified F41.9 [place] [address] [place] [id number] [place] [address] 36260- 8906 Mar, Well woman exam Z01.419 ; Cervical cancer screening Z12.4 and Breast cancer screening Z12.39 [place] [address] 46268- 3170 Mar, Anxiety disorder, unspecified F41.9 [place] [address] [place] [id number] [place] [address] 60271- 1312 Mar, Eustachian tube dysfunction H69.80 and Pharyngitis, unspecified etiology J02.9 [place] [address] 02249- 3780 Feb, Anxiety disorder, unspecified F41.9 [place] [address] 46998- 0103 Jan, Anxiety disorder, unspecified F41.9 [place] [address] 06011- 1594 Dec, Anxiety disorder, unspecified F41.9 [place] [address] [place] [id number] [place] [address] 87067- 6463 Oct, Anxiety disorder, unspecified F41.9 [place] [address] [place] [id number] [place] [address] 08782- 5352 Oct, Irritable bowel syndrome with diarrhea K58.0 ; Hypertension I10 ; Family history of diabetes mellitus Z83.3 and Visual changes H53.9 [place] [address] [place] [id number] [place] [address] 59064- 6222 Sep, Anxiety disorder, unspecified F41.9 [place] [address] [place] [id number] [place] [address] 04892- 3399 Sep, RLQ abdominal pain R10.31 [facility] [address] [place] [id number] [place] [address] 25189- 0550 Sep, RLQ abdominal pain R10.31 and 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 [facility] [address] [place] [id number] [place] [address] 28424- 2172 Aug, Anxiety disorder, unspecified F41.9 [facility] [address] [place] [id number] [place] [address] 11892- 6663 Aug, [facility] [address] [place] [address] [id number] [place] [address] 51391- 6263 Aug, [facility] [address] [place] [address] [id number] [place] [address] 12016- 6538 Aug, Knee pain M25.569 [facility] [address] [place] [id number] [place] [address] 92160- 5398 Jul, [facility] [address] [place] [address] [id number] [place] [address] 75252- 7438 June, Anxiety disorder, unspecified F41.9 [facility] [address] [place] [address] [id number] [place] [address] 76352- 8585 May, [facility] [address] [place] [address] [id number] [place] [address] 99929- 6314 May, [facility] [address] [place] [address] [id number] [place] [address] 55077- 5842 Apr, [facility] [address] [place] [address] [id number] [place] [address] 37447- 0539 Apr, [facility] [address] [place] [address] [id number] [place] [address] 41572- 3170 Mar, Hypertension I10 ; Dysthymia F34.1 ; Knee pain M25.569 and Eustachian tube dysfunction H69.80 [facility] [address] [place] [id number] [place] [address] 56695- 7843 Mar, [facility] [address] [address]- 6011 Feb, [facility] [address] [address]- 6650 Jan, [facility] [address] [address]- 5387 Jan, [facility] [address] [address]- 8760 Dec, [facility] [address] [address]- 2831 Dec, [facility] [address] [address]- 1381 Nov, [facility] [address] [facility] [address] [address] [id number] [id number] Oct, Dental examination V72.2 [facility] [address] [id number] [id number] Oct, Allergic rhinitis 477.9 and Chronic serous otitis media of both ears 381.10 [facility] [address], [place] [address]- 9468 Sep, [facility] [address] [id number] [id number] Sep, Sinusitis 473.9 and Bronchitis 490 [facility] [address], [place] [address]- 0007 Aug, [facility] [address] [place] [id number] [address]- 8408 Jul, [facility] [address], [place] [address]- 5036 Jul, [facility] [address], [place] [address]- 2249 May, [facility] [address] 7515 May, [facility] [place] [facility] [address] [id number] [place] [address]- 5777 Apr, [facility] [place] [facility] [address] [id number] [place] [address]- 5826 Apr, [facility] [place] [facility] [address] [id number] [place] [address]- 8841 Feb, [facility] [place] [facility] [address] [id number] [place] [address]- 3198 Feb, [facility] [place] [facility] [address] [id number] [place] [address]- 3546 Feb, [facility] [place] [facility] [address] [id number] [place] [address]- 1924 Feb, [facility] [place] [facility] [address] [id number] [place] [address]- 2020 Feb, [facility] [place] [facility] [address] [id number] [place] [address]- 3582 Feb, [facility] [place] [facility] [address] [id number] [place] [address]- 9903 Feb, [facility] [place] [facility] [address] [id number] [place] [address]- 0030 Feb, [facility] [place] [facility] [address] [id number] [place] [address]- 1222 Feb, [facility] [place] [facility] [address] [id number] [place] [address]- 5960 Feb, [facility] [place] [facility] [address] [id number] [place] [address]- 6486 Jan, [facility] [place] [facility] [address] [id number] [place] [address]- 6006 Jan, [facility] [place] [facility] [address] [id number] [place] [address]- 2194 Jan, [facility] [place] [facility] [address] [id number] [place] [address]- 8581 Jan, [facility] [place] [facility] [address] [id number] [place] [address]- 7503 Jan, [facility] [place] [facility] [address] [id number] [place] [address]- 6902 Dec, [facility] [place] [facility] [address] [id number] [place] [address]- 0271 Dec, [facility] [place] [facility] [address] [id number] [place] [address]- 2779 Nov, [facility] [place] [facility] [address] [id number] [place] [address]- 7157 Nov, [facility] [place] [facility] [address] [id number] [place] [address]- 6839 Nov, [facility] [place] [facility] [address] [id number] [place] [address]- 0440 Nov, [facility] [place] [facility] [address] [id number] [place] [address]- 2647 Oct, [facility] [place] [facility] [address] [id number] [place] [address]- 9757 Oct, [facility] [place] [facility] [address] [id number] [place] [address]- 3710 Oct, [facility] [place] [facility] [address] [id number] [place] [address]- 8094 Oct, [facility] [place] [facility] [address] [id number] [place] [address]- 2655 Oct, [facility] [place] [facility] [address] [id number] [place] [address]- 3884 Oct, [facility] [place] [facility] [address] [id number] [place] [address]- 1521 Sep, [facility] [place] [facility] [address] [id number] [place] [address]- 6915 Sep, [facility] [place] [facility] [address] [id number] [place] [address]- 9681 Sep, [facility] [place] [facility] [address] [id number] [place] [address]- 8184 Sep, [facility] [place] [facility] [address] [id number] [place] [address]- 4652 Sep, [facility] [place] [facility] [address] [id number] [place] [address]- 4107 Sep, [facility] [place] [facility] [address] [id number] [place] [address]- 9458 Aug, [facility] [place] [facility] [address] [id number] [place] [address]- 5035 Aug, [facility] [place] [facility] [address] [id number] [place] [address]- 5256 June, [facility] [place] [facility] [address] [id number] [place] [address]- 3746 June, [facility] [place] [facility] [address] [id number] [place] [address]- 0383 May, [facility] [place] [facility] [address] [id number] [place] [address]- 8170 May, [facility] [place] [facility] [address] [id number] [place] [address]- 6764 Apr, [facility] [place] [facility] [address] [id number] [place] [address]- 4379 Apr, [facility] [place] [facility] [address] [id number] [place] [address]- 4716 Mar, [facility] [place] [facility] [address] [id number] [place] [address]- 7197 Mar, [facility] [place] [facility] [address] [id number] [place] [address]- 0785 Mar, [facility] [place] [facility] [address] [id number] [place] [address]- 6264 Mar, [facility] [address] [id number] [place] [address]- 6336 Mar, [facility] [place] [facility] [address] [id number] [place] 4386 Mar, [facility] [place] [facility] [address] [id number] [place] [address]- 7676 Mar, [facility] [place] [facility] [address] [id number] [place] [address]- 8302 Mar, [facility] [address] [id number] [place] [address]- 0090 Nov, [facility] [place] [facility] [address] [id number] [place] [address]- 0308 Nov, [facility] [address] [id number] [place] [address]- 3838 Sep, [facility] [place] [facility] [address] [id number] [place] [address]- 8418 Aug, [facility] [place] [facility] [address] [id number] [place] [address]- 1316 Apr, [facility] [place] [facility] [address] [id number] [place] [address]- 2771 Mar, [facility] [place] [facility] [address] [id number] [place] [address]- 8152 Mar, [facility] [place] [facility] [address] [id number] [place] [address]- 0464 Feb, [facility] [place] [facility] [address] [id number] [place] [address]- 9156 Jan, [facility] [place] [facility] [address] [id number] [place] 6418 Jan, [facility] [place] [facility] [address] [id number], [place] [address]- 4194 Dec, [facility] [place] [facility] [address] [id number] [place] [address]- 8299 Dec, [facility] [place] [facility] [address] [id number] [place] [address]- 8366 Nov, [facility] [place] [facility] [address] [id number] [place] [address]- 2126 Oct, [facility] [place] [facility] [address] [id number] [place] [address]- 6570 Oct, [facility] [place] [facility] [address] [id number] [place] [address]- 4620 Sep, [facility] [place] [facility] [address] [id number] [place] [address]- 3380 Aug, [facility] [place] [facility] [address] [facility] [id number] [place] [address]- 8904 Jul, [facility] [place] [facility] [address] [id number] [place] [address]- 2463 May, [facility] [place] [facility] [address] [facility] [id number] [place] [address]- 8066 Mar, [facility] [place] [facility] [address] [facility] [id number] [place] [address]- 6265 Mar, [facility] [place] [facility] [address] [facility] [id number] [place] [address]- 5070 Mar, [facility] [place] [facility] [address] [id number], [place] [address]- 0663 Mar, [facility] [place] [facility] [address] [id number] [place] [address]- 7587 Feb, [facility] [place] [facility] [address] [id number] [place] [address]- 9155 Feb, [facility] [place] [facility] [address] [facility] [id number], [place] [address]- 0285 Feb, [facility] [place] [facility] [address] [id number], [place] [address]- 6089 06 Jan, 2011 [facility] [address], [place] [address]- 1944 10 Dec, 2010 [facility] [address], [place] [address]- 9644 14 Jul, 2010 [facility] [address], [place] [address]- 4117 10 Jun, 2010 [facility] [address], [place] [address]- 7357 29 Jan, 2010 [facility] [address] [place] [address] 82191- 1423 16 Dec, 2009 [facility] [address] 9445 18 Nov, 2009 [facility] [address] [place] [address] 35155- 4092 14 Aug, 2009 [facility] [address], [place] [address]- 0971 14 Jan, 2009 [facility] [address], [place] [address]- 5238 14 Jan, 2009 [facility] [address], [place] [address]- 1773 Jan, [facility] [address], [place] [address]- 4076 Jan, [facility] [id number], [place] [address]- 4150 Dec, [facility] [address]- 1382 10 Dec, 2008 [facility] [address], [place] [address]- 0578 15 May, 2008 IMMUNIZATIONS No Known Immunizations SOCIAL HISTORY Never Assessed REASON FOR VISIT Controlled Med Refill 05/02/17 PLAN OF CARE VITAL SIGNS MEDICATIONS Medication [...]
--- OUTSIDE RECORDS SUMMARY | 2018-05-01 11:05 | XMS REPORT ---
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 Name Role Phone JEZ TOMLINSON Unavailable PROBLEMS Type Condition ICD9-CM Code MUB51-RM Code Onset Dates Condition Status SNOMED Code Problem Hypertension I10 Active 42466688 Problem Eustachian tube dysfunction H69.80 Active 11687814 Problem Knee pain M25.569 Active 25062884 Problem Dysthymia F34.1 Active 73098413 Problem Other chronic pain G89.29 Active 49183743 Problem Acute right-sided low back pain with right-sided sciatica M54.41 Active 329600643 Problem Pharyngitis, unspecified etiology J02.9 Active 791741763 Problem Anxiety disorder, unspecified F41.9 Active 837961412 Problem Psoriasis L40.9 Active 0756502 Problem Dysuria R30.0 Active 33917725 ALLERGIES No Known Allergies ENCOUNTERS Encounter Location Date Diagnosis [facility] [id number] [place] [address] 67965- 3229 Jul, [facility] [id number] [place] [address] 38170- 7498 June, Anxiety disorder, unspecified F41.9 and Pain in right knee M25.561 [facility] [id number] [place] [address] 31757- 7519 June, Pain in right knee M25.561 ; Pain in left knee M25.562 ; Other chronic pain G89.29 ; Anxiety disorder, unspecified F41.9 ; Acute right- sided low back pain with right-sided sciatica M54.41 and BMI 40.0-44.9, adult Z68.41 [facility] [id number] [place] [address] 61489- 1799 May, Anxiety disorder, unspecified F41.9 [facility] [address], [place] [address] 0[address] Apr, Anxiety disorder, unspecified F41.9 [facility] [address], [place] [address] 5[address] Apr, Anxiety disorder, unspecified F41.9 [facility] [id number] [place] [address] 69931- 6911 Mar, Anxiety disorder, unspecified F41.9 [facility] [id number] [place] [address] 92585- 9468 Mar, [facility] [id number] [place] [address] 64875- 6649 Feb, Anxiety disorder, unspecified F41.9 [facility] [id number] [place] [address] 55619- 8161 Jan, Anxiety disorder, unspecified F41.9 [facility] [address], [place] [address] 7087 Dec, Anxiety disorder, unspecified F41.9 ; Hypertension I10 ; Encounter for screening mammogram for breast cancer Z12.31 ; Psoriasis L40.9 and BMI 40.0-44.9, adult Z68.41 [facility] [address], [place] [address] 0419 Dec, Anxiety disorder, unspecified F41.9 [facility] [address], [place] [address] 9251 Nov, [facility] [id number] [place] [address] 99503- 9527 Nov, Anxiety disorder, unspecified F41.9 [facility] [id number], [place] [address] 0336 Nov, [address] [id number] [id number] Oct, Dysuria R30.0 [facility] [id number] [place] [address] 07162- 5363 Oct, Anxiety disorder, unspecified F41.9 [facility] [id number] [place] [address] 33354- 9452 Sep, Anxiety disorder, unspecified F41.9 [facility] [id number] [place] [address] 76363- 0811 Aug, Anxiety disorder, unspecified F41.9 [facility] [id number] [place] [address] 49560- 0172 Aug, [facility] [id number] [place] [address] 54237- 8872 Jul, Anxiety disorder, unspecified F41.9 [facility] [id number] [place] [address] 93691- 0405 June, Anxiety disorder, unspecified F41.9 [facility] [address], [place] [address]- 1013 June, Anxiety disorder, unspecified F41.9 [facility] [id number] [place] [address] 65352- 3753 May, Anxiety disorder, unspecified F41.9 [facility] [address], [place] [address]- 2883 Apr, [facility] [id number] [place] [address] 59378- 5434 Apr, Anxiety disorder, unspecified F41.9 [facility] [id number] [place] [address] 15078- 5603 Mar, Well woman exam Z01.419 ; Cervical cancer screening Z12.4 and Breast cancer screening Z12.39 [facility] [address], [place] [address]- 7962 Mar, Anxiety disorder, unspecified F41.9 [facility] [id number] [place] [address] 02753- 5046 Mar, Eustachian tube dysfunction H69.80 and Pharyngitis, unspecified etiology J02.9 [facility] [id number] [place] [address] 14228- 4562 Feb, Anxiety disorder, unspecified F41.9 [facility] [address] 25163- 4008 Jan, Anxiety disorder, unspecified F41.9 [facility] [address] 52172- 7932 Dec, Anxiety disorder, unspecified F41.9 [facility] [id number] [place] [address] 99944- 0226 Oct, Anxiety disorder, unspecified F41.9 [facility] [address] 78950- 4683 Oct, Irritable bowel syndrome with diarrhea K58.0 ; Hypertension I10 ; Family history of diabetes mellitus Z83.3 and Visual changes H53.9 [facility] [id number] [place] [address] 41616- 0523 Sep, Anxiety disorder, unspecified F41.9 [facility] [id number] [place] [address] 13830- 5585 Sep, RLQ abdominal pain R10.31 [facility] [id number] [place] [address] 53042- 3190 Sep, RLQ abdominal pain R10.31 and 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 [facility] [id number] [place] [address] 17429- 5160 Aug, Anxiety disorder, unspecified F41.9 [facility] [id number] [place] [address] 40742- 6868 Aug, [facility] [id number] [place] [address] 21337- 1162 Aug, [facility] [id number] [place] [address] 30974- 6288 Aug, Knee pain M25.569 [facility] [id number] [place] [address] 90143- 0728 Jul, [facility] [id number] [place] [address] 06485- 3046 June, Anxiety disorder, unspecified F41.9 [facility] [id number] [place] [address] 64268- 8553 May, [facility] [id number] [place] [address] 86471- 4320 May, [facility] [id number] [place] [address] 95565- 5923 Apr, [facility] [id number] [place] [address] 08465- 7595 Apr, [facility] [id number] [place] [address] 80458- 0925 Mar, Hypertension I10 ; Dysthymia F34.1 ; Knee pain M25.569 and Eustachian tube dysfunction H69.80 [facility] [id number] [place] [address] 99077- 8257 Mar, [facility] [id number] [place] [address] 05268- 3660 Feb, [facility] [id number] [place] [address] 981918- 1821 Jan, [facility] [id number] [place] [address] 805786- 9852 Jan, [facility] [id number] [place] [address] 59191- 5399 Dec, [facility] [address], [place] [address]- 2546 Dec, [facility] [id number] [place] [address] 86592- 6794 Nov, [facility] [address] [id number] [id number] Oct, Dental examination V72.2 [facility] [address] [place] [address] AVE [id number] [id number] 15 Oct, 2014 Allergic rhinitis 477.9 and Chronic serous otitis media of both ears 381.10 [facility] [id number] [place] [address] 31904- 6056 Sep, [facility] [address] [id number] [id number] Sep, Sinusitis 473.9 and Bronchitis 490 [facility] [id number] [place] [address] 82468- 6296 Aug, [facility] [id number] [place] [address] 53424- 4873 Jul, [facility] [id number] [place] [address] 48051- 4616 Jul, [facility] [id number] [place] [address] 75847- 3557 May, [facility] [id number] [place] [address] 81213- 5752 May, [facility] [id number] [place] [address] 49496 2546 Apr, [facility] [id number] [place] [address] 50145- 9076 Apr, [facility] [id number] [place] [address] 38396- 2546 Feb, [facility] [id number] [place] [address] 97143- 1914 Feb, [facility] [place] [facility] [address] [id number] [place] [address]- 6917 Feb, [facility] [place] [facility] [address] [id number] [place] [address]- 9578 Feb, [facility] [place] [facility] [address] [id number] [place] [address]- 6898 Feb, [facility] [place] [facility] [address] [id number] [place] [address]- 8919 Feb, [facility] [place] [facility] [address] [id number] [place] [address]- 2100 Feb, [facility] [place] [facility] [address] [id number] [place] [address]- 6267 Feb, [facility] [place] [facility] [address] [id number] [place] [address]- 8794 Feb, [facility] [place] [facility] [address] [id number] [place] [address]- 9663 Feb, [facility] [place] [facility] [address] [id number] [place] [address]- 2563 Jan, [facility] [place] [facility] [address] [id number] [place] [address]- 6583 Jan, [facility] [place] [facility] [address] [id number] [place] [address]- 8187 Jan, [facility] [place] [facility] [address] [id number], [place] [address]- 9484 Jan, [facility] [place] [facility] [address] [id number] [place] [address]- 7406 Jan, [facility] [place] [facility] [address] [id number] [place] [address]- 9931 Dec, [facility] [place] [facility] [address] [id number], [place] [address]- 4947 Dec, [facility] [place] [facility] [address] [id number], [place] [address]- 3323 Nov, [facility] [place] [facility] [address] [id number] [place] [address]- 7380 Nov, [facility] [place] [facility] [address] [id number] [place] [address]- 5726 Nov, [facility] [place] [facility] [address] [id number] [place] [address]- 3536 Nov, [facility] [place] [facility] [address] [id number] [place] [address]- 8222 Oct, [facility] [place] [facility] [address] [id number] [place] [address]- 3029 Oct, [facility] [place] [facility] [address] [id number] [place] [address]- 3907 Oct, [facility] [place] [facility] [address] [id number] [place] [address]- 1433 Oct, [facility] [place] [facility] [address] [id number] [place] [address]- 0617 Oct, [facility] [place] [facility] [address] [id number] [place] [address]- 7540 Oct, [facility] [place] [facility] [address] [id number] [place] [address]- 0054 Sep, [facility] [place] [facility] [address] [id number] [place] [address]- 7007 Sep, [facility] [place] [facility] [address] [id number] [place] [address]- 7574 Sep, [facility] [place] [facility] [address] [id number] [place] [address]- 0051 Sep, [facility] [place] [facility] [address] [id number] [place] [address]- 6196 Sep, [facility] [place] [facility] [address] [id number] [place] [address]- 3761 Sep, [facility] [place] [facility] [address] [id number] [place] [address]- 6925 Aug, [facility] [place] [facility] [address] [id number] [place] [address]- 2242 Aug, [facility] [place] [facility] [address] [id number] [place] [address]- 2792 June, [facility] [place] [facility] [address] [id number] [place] [address]- 6795 June, [facility] [place] [facility] [address] [id number] [place] [address]- 9643 May, [facility] [place] [facility] [address] [id number] [place] [address]- 1164 May, [facility] [place] [facility] [address] [facility] [id number] [place] [address]- 5846 Apr, [facility] [place] [facility] [address] [id number] [place] [address]- 9962 Apr, [facility] [place] [facility] [address] [id number] [place] [address]- 2315 Mar, [facility] [place] [facility] [address] [id number] [place] [address]- 9434 Mar, [facility] [place] [facility] [address] [facility] [id number] [place] [address]- 0414 Mar, [facility] [place] [facility] [address] [id number] [place] [address]- 4135 Mar, [facility] [place] [facility] [address] [id number] [place] [address]- 4021 Mar, [facility] [place] [facility] [address] [id number] [place] [address]- 3287 Mar, [facility] [place] [facility] [address] [id number] [place] [address]- 9616 Mar, [facility] [place] [facility] [address] [facility] [id number], [place] [address]- 6837 Mar, [facility] [address] [id number] [place] [address]- 4607 Nov, [facility] [place] [facility] [address] [id number] [place] [address]- 2980 Nov, [facility] [place] [facility] [address] [id number] [place] [address]- 3198 Sep, [facility] [place] [facility] [address] [id number] [place] [address]- 0300 Aug, [facility] [place] [facility] [address] [id number] [place] [address]- 1795 Apr, [facility] [place] [facility] [address] [id number] [place] [address]- 3538 Mar, [facility] [address] [facility] [id number] [place] [address]- 3047 Mar, [facility] [place] [facility] [address] [id number] [place] [address]- 9872 Feb, [facility] [place] [facility] [address] [facility] [id number] [place] [address]- 8230 Jan, [facility] [place] [facility] [address] [facility] [id number] [place] [address]- 4567 Jan, [facility] [place] [facility] [address] [id number] [place] [address]- 2741 Dec, [facility] [place] [facility] [address] [id number] [place] [address]- 9288 Dec, [facility] [place] [facility] [address] [id number] [place] [address]- 2755 Nov, [facility] [place] [facility] [address] [id number] [place] [address]- 1202 Oct, [facility] [place] [facility] [address] [facility] [id number] [place] [address]- 7424 Oct, [facility] [place] [facility] [address] [id number] [place] [address]- 0000 Sep, [facility] [place] [facility] [address] [id number] [place] [address]- 8501 Aug, [facility] [place] [facility] [address] [id number] [place] [address]- 2546 Jul, [facility] [place] [facility] [address] [id number] [place] [address]- 9760 May, [facility] [place] [facility] [address] [id number] [place] [address]- 0220 Mar, [facility] [place] [facility] [address] [id number] [place] [address]- 9256 Mar, [facility] [place] [facility] [address] [id number] [place] [address]- 7136 Mar, [facility] [place] [facility] [address] [id number] [place] [address]- 4776 Mar, [facility] [place] [facility] [address] [id number] [place] [address]- 0662 Feb, [facility] [place] [facility] [address] [id number] [place] [address]- 4556 Feb, [facility] [place] [facility] [address] [id number] [place] [address]- 4826 Feb, [facility] [place] [facility] [address] [id number] [place] [address]- 5446 Jan, [facility] [place] [facility] [address] [id number] [place] [address]- 8937 Dec, [facility] [place] [facility] [address] [id number] [place] [address]- 3916 14 Jul, 2010 [facility] [place] [facility] [address] [id number] [place] [address]- 7265 June, [facility] [place] [facility] [address] [id number], [place] [address]- 8133 29 Jan, 2010 [facility] [address], [place] [address]- 1145 16 Dec, 2009 [facility] [address], [place] [address]- 8377 Nov, [facility] [address], [place] [address]- 1914 14 Aug, 2009 [facility] [address], [place] [address]- 8672 14 Jan, 2009 [facility] [address], [place] [address]- 9911 Jan, [facility] [address], [place] [address]- 6934 Jan, [facility] [address], [place] [address]- 5008 Jan, [facility] [address], [place] [address]- 5033 Dec, [facility] [address], [place] [address]- 2193 Dec, [facility] [address], [place] [address]- 7708 May, IMMUNIZATIONS No Known Immunizations SOCIAL HISTORY Never Assessed REASON FOR VISIT Anxiety--Lily Cristobal MA PLAN OF CARE Activity Details Follow Up 6 Months Reason:hypertension VITAL SIGNS Height 67 in 2017-01-15 Weight 275.0 lbs 2017-01-15 Temperature 98.9 degrees Fahrenheit 2017-01-15 Heart Rate 88 bpm 2017-01-15 Respiratory Rate 22 2017-01-15 BMI 43.07 kg/m2 2017-01-15 Blood pressure systolic 130 mmHg 2017-01-15 Blood pressure diastolic 88 mmHg 2017-01-15 MEDICATIONS Medication Instructions Dosage Frequency Start Date End Date Duration Status Betamethasone Dipropionate 0.05 % Externally twice weekly 1 application to affected area Dec, Active Alprazolam 1 MG Orally Twice a day, and 1 tablet at bedtime 0.5 Tablet as needed 03 Mar, 2015 28 days Active Propranolol HCl 20 MG 1 tablet Twice a day Orally 90 Active Fluoxetine HCl 20 MG TAKE 3 CAPSULES BY MOUTH ONCE DAILY 30 Active RESULTS Name Result Date Reference Range Mammogram, Bilateral Screening 2017-02-06 PROCEDURES No Known procedures INSTRUCTIONS MEDICATIONS ADMINISTERED No Known Medications MEDICAL (GENERAL) HISTORY Type Description Date Medical History depression Medical History hx of anxiety Medical History mitral valve prolapse Surgical History tonsillectomy and adenoidectomy Surgical History partial hysterectomy Surgical History jaw surgery 1974 Surgical History colonoscopy 10/26/15 Surgical History colonoscopy 11/2016 Hospitalization History for surgery
--- OUTSIDE RECORDS SUMMARY | 2018-05-01 11:05 | XMS REPORT ---
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
--- OUTSIDE RECORDS SUMMARY | 2018-05-01 11:06 | XMS REPORT ---
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 Name Role Phone JEZ TOMLINSON Unavailable PROBLEMS Type Condition ICD9-CM Code HWN09-GD Code Onset Dates Condition Status SNOMED Code Problem Eustachian tube dysfunction H69.80 Active 13896454 Problem Knee pain M25.569 Active 65724020 Problem Psoriasis L40.9 Active 2915341 Problem Dysuria R30.0 Active 58755538 Problem Hypertension I10 Active 97657142 Problem Dysthymia F34.1 Active 68025479 Problem Pharyngitis, unspecified etiology J02.9 Active 007329204 Problem Anxiety disorder, unspecified F41.9 Active 083754940 ALLERGIES No Information ENCOUNTERS Encounter Location Date Diagnosis [facility] [id number] [place] [address] 63252- 6373 May, Anxiety disorder, unspecified F41.9 [facility] [id number] [place] [address] 00878- 3357 Apr, Anxiety disorder, unspecified F41.9 [facility] [id number] [place] [address] 98911- 6461 Apr, Anxiety disorder, unspecified F41.9 [facility] [id number] [place] [address] 69008- 6585 Mar, Anxiety disorder, unspecified F41.9 [place] [address] 63155- 7657 Mar, [facility] [id number] [place] [address] 55439- 4088 Feb, Anxiety disorder, unspecified F41.9 [place] [id number], [place] [address] Jan, Anxiety disorder, unspecified F41.9 [place] [id number] [place] [address] 71332- 6356 Dec, Anxiety disorder, unspecified F41.9 ; Hypertension I10 ; Encounter for screening mammogram for breast cancer Z12.31 ; Psoriasis L40.9 and BMI 40.0-44.9, adult Z68.41 [facility] [place] [id number] [place] [address] 87932- 5161 Dec, Anxiety disorder, unspecified F41.9 [facility] [place] [id number] [place] [address] 45568- 0271 Nov, [facility] [id number] [place] [address] 33791- 0485 Nov, Anxiety disorder, unspecified F41.9 [facility] [id number] [place] [address] 48875- 5841 Nov, [address] [id number] [id number] Oct, Dysuria R30.0 [facility] [place] [id number] [place] [address] 00356- 5657 Oct, Anxiety disorder, unspecified F41.9 [facility] [place] [id number] [place] [address] 77391- 5101 Sep, Anxiety disorder, unspecified F41.9 [facility] [place] [id number] [place] [address] 19987- 7211 Aug, Anxiety disorder, unspecified F41.9 [facility] [place] [id number] [place] [address] 67372- 4476 Aug, [facility] [id number] [place] [address] 98639- 3741 Jul, Anxiety disorder, unspecified F41.9 [place] [id number], [place] [address] 7614 June, Anxiety disorder, unspecified F41.9 [facility] [id number] [place] [address] 92820- 1666 June, Anxiety disorder, unspecified F41.9 [facility] [id number], [place] [address] 3513 May, Anxiety disorder, unspecified F41.9 [facility] [id number] [place] [address] 64675- 7692 Apr, [place] [id number] [place] [address] 685835- 5615 Apr, Anxiety disorder, unspecified F41.9 [place] [id number] [place] [address] 08862- 9595 Mar, Well woman exam Z01.419 ; Cervical cancer screening Z12.4 and Breast cancer screening Z12.39 [facility] [place] [address], [place] [address] 4930 Mar, Anxiety disorder, unspecified F41.9 [facility] [place] [id number] [place] [address] 36324- 9640 Mar, Eustachian tube dysfunction H69.80 and Pharyngitis, unspecified etiology J02.9 [facility] [place] [address], [place] [address]- 0522 Feb, Anxiety disorder, unspecified F41.9 [facility] [place] [address], [place] [address]- 1707 Jan, Anxiety disorder, unspecified F41.9 [facility] [place] [address], [place] [address]- 4923 Dec, Anxiety disorder, unspecified F41.9 [place] [address], [place] [address]- 5195 Oct, Anxiety disorder, unspecified F41.9 [facility] [id number] [place] [address] 96761- 4795 Oct, Irritable bowel syndrome with diarrhea K58.0 ; Hypertension I10 ; Family history of diabetes mellitus Z83.3 and Visual changes H53.9 [facility] [id number] [place] [address] 44162- 5583 Sep, Anxiety disorder, unspecified F41.9 [facility] [id number] [place] [address] 48690- 7748 Sep, RLQ abdominal pain R10.31 [facility] [address] 12991- 4893 Sep, RLQ abdominal pain R10.31 and 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 [facility] [id number] [place] [address] 26991- 9541 Aug, Anxiety disorder, unspecified F41.9 [facility] [id number] [place] [address] 26686- 0979 Aug, [facility] [id number] [place] [address] 43312- 8376 Aug, [facility] [id number] [place] [address] 22177- 7317 Aug, Knee pain M25.569 [facility] [id number] [place] [address] 26704- 7356 Jul, [facility] [id number] [place] [address] 98019- 2044 June, Anxiety disorder, unspecified F41.9 [facility] [id number] [place] [address] 69723- 1032 May, [facility] [id number] [place] [address] 77331- 3934 May, [facility] [address] [place] [address]- 4736 Apr, [facility] [id number] [place] [address] 95266- 9975 Apr, [facility] [id number] [place] [address] 30192- 3431 Mar, Hypertension I10 ; Dysthymia F34.1 ; Knee pain M25.569 and Eustachian tube dysfunction H69.80 [facility] [id number] [place] [address] 12263- 6176 Mar, [facility] [id number] [place] [address] 09163- 9437 Feb, [facility] [id number] [place] [address] 98921- 4659 Jan, [facility] [id number] [place] [address] 39605- 6296 Jan, [facility] [id number] [place] [address] 84680- 2775 Dec, [facility] [id number] [place] [address] 74870- 2473 Dec, [facility] [id number] [place] [address] 04301- 7968 Nov, [facility] [address] [id number] [id number] Oct, Dental examination V72.2 [facility] [address] [id number] [id number] Oct, Allergic rhinitis 477.9 and Chronic serous otitis media of both ears 381.10 [facility] [id number] [place] [address] 16849- 1636 Sep, [facility] [address] [id number] [id number] Sep, Sinusitis 473.9 and Bronchitis 490 [facility] [place] [facility] [address] [id number] [place] [address]- 9836 Aug, [facility] [place] [facility] [address] [id number] [place] [address]- 3939 Jul, [facility] [place] [facility] [address] [id number] [place] [address]- 2546 Jul, [facility] [place] [facility] [address] [id number] [place] [address]- 7506 May, [facility] [place] [facility] [address] [id number] [place] [address]- 2619 May, [facility] [place] [facility] [address] [id number] [place] [address]- 1236 Apr, [facility] [place] [facility] [address] [id number] [place] [address]- 3196 Apr, [facility] [place] [facility] [address] [id number] [place] [address]- 5545 Feb, [facility] [place] [facility] [address] [id number] [place] [address]- 6620 Feb, [facility] [place] [facility] [address] [id number] [place] [address]- 6445 Feb, [facility] [place] [facility] [address] [id number] [place] [address]- 0418 Feb, [facility] [place] [facility] [address] [id number] [place] [address]- 0660 Feb, [facility] [place] [facility] [address] [id number] [place] [address]- 6629 Feb, [facility] [place] [facility] [address] [id number] [place] [address]- 6636 Feb, [facility] [place] [facility] [address] [id number] [place] [address]- 2546 Feb, [facility] [place] [facility] [address] [id number] [place] [address]- 1186 Feb, [facility] [place] [facility] [address] [id number] [place] [address]- 5975 Feb, [facility] [place] [facility] [address] [id number] [place] [address]- 3607 Jan, [facility] [place] [facility] [address] [id number] [place] [address]- 7908 Jan, [facility] [place] [facility] [address] [id number] [place] [address]- 2046 Jan, [facility] [place] [facility] [address] [id number] [place] [address]- 5607 Jan, [facility] [place] [facility] [address] [id number] [place] [address]- 2243 Jan, [facility] [place] [facility] [address] [id number] [place] [address]- 6932 Dec, [facility] [place] [facility] [address] [id number] [place] [address]- 9767 Dec, [facility] [place] [facility] [address] [id number] [place] [address]- 1590 Nov, [facility] [place] [facility] [address] [id number] [place] [address]- 4737 Nov, [facility] [place] [facility] [address] [id number], [place] [address]- 9706 Nov, [facility] [place] [facility] [address] [id number], [place] [address]- 1768 Nov, [facility] [place] [facility] [address] [id number] [place] [address]- 5535 Oct, [facility] [place] [facility] [address] [id number] [place] [address]- 8373 Oct, [facility] [place] [facility] [address] [id number] [place] [address]- 5191 Oct, [facility] [place] [facility] [address] [id number] [place] [address]- 6200 Oct, [facility] [place] [facility] [address] [id number] [place] [address]- 4042 Oct, [facility] [place] [facility] [address] [id number] [place] [address]- 4343 Oct, [facility] [place] [facility] [address] [id number] [place] [address]- 3947 Sep, [facility] [place] [facility] [address] [id number] [place] [address]- 8294 Sep, [facility] [place] [facility] [address] [id number] [place] [address]- 3976 Sep, [facility] [place] [facility] [address] [id number] [place] [address]- 2350 Sep, [facility] [place] [facility] [address] [id number] [place] [address]- 5336 Sep, [facility] [place] [facility] [address] [id number] [place] [address]- 3570 Sep, [facility] [place] [facility] [address] [id number] [place] [address]- 2532 Aug, [facility] [place] [facility] [address] [id number] [place] [address]- 0353 Aug, [facility] [place] [facility] [address] [id number] [place] [address]- 7280 June, [facility] [place] [facility] [address] [id number] [place] [address]- 4384 June, [facility] [place] [facility] [address] [id number] [place] [address]- 5823 May, [facility] [place] [facility] [address] [id number] [place] [address]- 8268 May, [facility] [place] [facility] [address] [id number] [place] [address]- 5549 Apr, [facility] [place] [facility] [address] [id number] [place] [address]- 4220 Apr, [facility] [place] [facility] [address] [id number] [place] [address]- 0036 Mar, [facility] [place] [facility] [address] [id number] [place] [address]- 3593 Mar, [facility] [place] [facility] [address] [id number] [place] [address]- 7733 Mar, [facility] [place] [facility] [address] [id number] [place] [address]- 9700 Mar, [facility] [place] [facility] [address] [id number] [place] [address]- 4596 Mar, [facility] [place] [facility] [address] [id number] [place] [address]- 7299 Mar, [facility] [place] [facility] [address] [id number] [place] [address]- 3263 Mar, [facility] [place] [facility] [address] [id number] [place] [address]- 4205 Mar, [facility] [place] [facility] [address] [id number] [place] [address]- 1421 Nov, [facility] [place] [facility] [address] [id number] [place] [address]- 0410 Nov, [facility] [place] [facility] [address] [id number] [place] [address]- 2544 Sep, [facility] [place] [facility] [address] [id number] [place] [address]- 8273 Aug, [facility] [place] [facility] [address] [id number] [place] [address]- 2545 Apr, [facility] [place] [facility] [address] [id number] [place] [address]- 6486 Mar, [facility] [place] [facility] [address] [id number] [place] [address]- 3755 Mar, [facility] [address] [id number] [place] [address]- 2185 Feb, [facility] [place] [facility] [address] [id number] [place] [address]- 5116 Jan, [facility] [address] [id number] [place] [address]- 5126 Jan, [facility] [place] [facility] [address] [id number] [place] [address]- 5723 Dec, [facility] [address] [id number] [place] [address]- 5895 Dec, [facility] [place] [facility] [address] [id number] [place] [address]- 5836 Nov, [facility] [id number] [place] [address]- 4778 Oct, [facility] [address] [id number] [place] [address]- 9580 Oct, [facility] [place] [facility] [address] [id number] [place] [address]- 5119 Sep, [facility] [address] [id number] [place] [address]- 6966 Aug, [facility] [place] [facility] [address] [id number] [place] [address]- 3342 Jul, [facility] [place] [facility] [address] [id number], [place] [address]- 2546 May, [facility] [place] [facility] [address] [id number] [place] [address]- 7516 Mar, [facility] [place] [facility] [address] [id number] [place] [address]- 2546 Mar, [facility] [place] [facility] [address] [id number], [place] [address]- 3796 Mar, [facility] [place] [facility] [address] [id number] [place] [address]- 3866 Mar, [facility] [place] [facility] [address] [id number] [place] [address]- 2896 Feb, [facility] [place] [facility] [address] [id number] [place] [address]- 0466 Feb, [facility] [place] [facility] [address] [id number] [place] [address]- 1616 Feb, [facility] [place] [facility] [address] [id number] [place] [address]- 7891 06 Jan, 2011 [facility] [place] [facility] [address] [id number] [place] [address]- 3110 10 Dec, 2010 [facility] [place] [facility] [address] [id number] [place] [address]- 7065 14 Jul, 2010 [facility] [place] [facility] [address] [id number] [place] [address]- 1467 10 Jun, 2010 [facility] [place] [facility] [address] [id number] [place] [address]- 8939 29 Jan, 2010 [facility] [place] [facility] [address] [id number] [place] [address]- 8850 16 Dec, 2009 [facility] [place] [facility] [address] [id number] [place] [address]- 0406 18 Nov, 2009 [facility] [place] [facility] [address] [id number], [place] [address]- 3382 14 Aug, 2009 [facility] [place] [facility] [address] [id number] [place] [address]- 2202 14 Jan, 2009 [facility] [place] [facility] [address] [id number] [place] [address]- 0996 14 Jan, 2009 [facility] [place] [facility] [address] [id number] [place] [address]- 1144 10 Jan, 2009 [facility] [place] [facility] [address] [id number], [place] [address]- 6116 Jan, [facility] [address] [id number] [place] [address]- 4276 Dec, [facility] [address] [id number], [place] [address]- 5862 Dec, [facility] [address] [id number], [place] [address]- 1234 May, IMMUNIZATIONS No Known Immunizations SOCIAL HISTORY Never Assessed REASON FOR VISIT Controlled Med Refill 11/15/2016 PLAN OF CARE VITAL SIGNS MEDICATIONS Medication [...]
--- OUTSIDE RECORDS SUMMARY | 2018-05-01 11:06 | XMS REPORT ---
Author Author JEZ TOMLINSON Organization [facility] Address [address] [place] [address] Care Team Providers Care [employer] Administrator Name Role Phone JEZ TOMLINSON Unavailable PROBLEMS Type Condition ICD9-CM Code TLD65-UY Code Onset Dates Condition Status SNOMED Code Problem Hypertension I10 Active 03639297 Problem Eustachian tube dysfunction H69.80 Active 13202223 Problem Knee pain M25.569 Active 26348597 Problem Dysthymia F34.1 Active 66343550 Problem Other chronic pain G89.29 Active 47218534 Problem Acute right-sided low back pain with right-sided sciatica M54.41 Active 226575583 Problem Pharyngitis, unspecified etiology J02.9 Active 110943957 Problem Anxiety disorder, unspecified F41.9 Active 582401746 Problem Psoriasis L40.9 Active 0009100 Problem Dysuria R30.0 Active [id number] ALLERGIES No Information ENCOUNTERS Encounter Location Date Diagnosis [place] [id number] [place] [address] 50382- 4906 Jul, [place] [address] [place] [id number] [place] [address] 16363- 7499 June, Anxiety disorder, unspecified F41.9 and Pain in right knee M25.561 [place] [address] [place] [id number] [place] [address] 68059- 5171 June, Pain in right knee M25.561 ; Pain in left knee M25.562 ; Other chronic pain G89.29 ; Anxiety disorder, unspecified F41.9 ; Acute right- sided low back pain with right-sided sciatica M54.41 and BMI 40.0-44.9, adult Z68.41 [place] [address] [place] [id number] [place] [address] 51257- 9594 May, Anxiety disorder, unspecified F41.9 [facility] [address] [address] 5729 Apr, Anxiety disorder, unspecified F41.9 [facility] [address] [address] 5781 Apr, Anxiety disorder, unspecified F41.9 [facility] [id number] [place] [address] 39885- 3823 Mar, Anxiety disorder, unspecified F41.9 [facility] [id number] [place] [address] 40468- 2198 Mar, [facility] [address] [place] [id number] [place] [address] 86169- 8942 Feb, Anxiety disorder, unspecified F41.9 [facility] [address] [place] [id number] [place] [address] 13309- 2695 Jan, Anxiety disorder, unspecified F41.9 [facility] [address] [address] 4891 Dec, Anxiety disorder, unspecified F41.9 ; Hypertension I10 ; Encounter for screening mammogram for breast cancer Z12.31 ; Psoriasis L40.9 and BMI 40.0-44.9, adult Z68.41 [facility] [address] [address] 9566 Dec, Anxiety disorder, unspecified F41.9 [facility] [address] [address]- 3628 Nov, [facility] [id number] [place] [address] 98560- 8064 Nov, Anxiety disorder, unspecified F41.9 [facility] [address] [place] [id number] [address] 5043 Nov, [address] [id number] [id number] Oct, Dysuria R30.0 [facility] [address] [place] [id number] [place] [address] 66209- 4349 Oct, Anxiety disorder, unspecified F41.9 [facility] [address] [place] [id number] [place] [address] 62093- 3909 Sep, Anxiety disorder, unspecified F41.9 [facility] [address] [place] [id number] [place] [address] 31964- 4596 Aug, Anxiety disorder, unspecified F41.9 [facility] [address] [place] [id number] [place] [address] 62602- 1284 Aug, [facility] [address] [place] [id number] [place] [address] 07606- 5022 Jul, Anxiety disorder, unspecified F41.9 [facility] [address] [place] [id number] [place] [address] 38582- 3027 June, Anxiety disorder, unspecified F41.9 [facility] [address] [place] [address] 01878- 6503 June, Anxiety disorder, unspecified F41.9 [facility] [address] [place] [id number] [place] [address] 55977- 5031 May, Anxiety disorder, unspecified F41.9 [facility] [address] [address]- 4603 Apr, [facility] [address] [place] [id number] [place] [address] 41373- 6424 Apr, Anxiety disorder, unspecified F41.9 [facility] [address] [place] [id number] [place] [address] 69145- 5047 Mar, Well woman exam Z01.419 ; Cervical cancer screening Z12.4 and Breast cancer screening Z12.39 [facility] [address] [place] [address] 35664- 8901 Mar, Anxiety disorder, unspecified F41.9 [facility] [address] [place] [id number] [place] [address] 24452- 0786 Mar, Eustachian tube dysfunction H69.80 and Pharyngitis, unspecified etiology J02.9 [place] [address] [place] [id number] [place] [address] 55012- 5685 Feb, Anxiety disorder, unspecified F41.9 [place] [address] 01516- 7927 Jan, Anxiety disorder, unspecified F41.9 [place] [address] 20380- 3723 Dec, Anxiety disorder, unspecified F41.9 [place] [address] [place] [id number] [place] [address] 17112- 6825 Oct, Anxiety disorder, unspecified F41.9 [place] [address] 53762- 3952 Oct, Irritable bowel syndrome with diarrhea K58.0 ; Hypertension I10 ; Family history of diabetes mellitus Z83.3 and Visual changes H53.9 [place] [address] [place] [id number] [place] [address] 76033- 3192 Sep, Anxiety disorder, unspecified F41.9 [place] [address] [place] [id number] [place] [address] 36642- 5810 Sep, RLQ abdominal pain R10.31 [place] [address] [place] [id number] [place] [address] 25183- 7081 Sep, RLQ abdominal pain R10.31 and 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 [place] [address] [place] [id number] [place] [address] 80382- 6182 Aug, Anxiety disorder, unspecified F41.9 [place] [address] [place] [id number] [place] [address] 36243- 4742 Aug, [place] [address] [place] [id number] [place] [address] 28287- 9679 Aug, [facility] [address] [place] [id number] [place] [address] 81148- 8802 Aug, Knee pain M25.569 [facility] [address] [place] [id number] [place] [address] 04097- 9296 Jul, [facility] [address] [place] [id number] [place] [address] 42497- 3115 June, Anxiety disorder, unspecified F41.9 [facility] [address] [place] [id number] [place] [address] 16516- 0851 May, [facility] [address] [place] [id number] [place] [address] 18366- 9330 May, [facility] [address] [place] [id number] [place] [address] 95156- 2823 Apr, [facility] [address] [place] [id number] [place] [address] 83585- 9958 Apr, [facility] [address] [place] [id number] [place] [address] 57204- 6770 Mar, Hypertension I10 ; Dysthymia F34.1 ; Knee pain M25.569 and Eustachian tube dysfunction H69.80 [facility] [address] [place] [id number] [place] [address] 65147- 5039 Mar, [facility] [address] [place] [id number] [address]- 9556 Feb, [facility] [address] [place] [id number] [place] [address] 988738- 3369 Jan, [facility] [address] [place] [id number] [place] [address] 08684- 9806 Jan, [facility] [address] [address]- 7112 Dec, [facility] [address] [address]- 5476 Dec, [facility] [address] [place] [id number] [place] [address] 99562- 5135 Nov, [facility] [address] [id number] [id number] Oct, Dental examination V72.2 [facility] [address] [place] [address] AVE [id number] [id number] 15 Oct, 2014 Allergic rhinitis 477.9 and Chronic serous otitis media of both ears 381.10 [facility] [id number] [place] [address] 96807- 1879 Sep, [facility] [address] [id number] [id number] Sep, Sinusitis 473.9 and Bronchitis 490 [facility] [address] [place] [id number] [place] [address] 68414- 4226 Aug, [facility] [address] [place] [id number] [place] [address] 38829- 4961 Jul, [facility] [address] [place] [id number] [place] [address] 12915- 8833 Jul, [facility] [address] [place] [id number] [place] [address] 84469- 4530 May, [facility] [id number] [place] [address] 64122- 1016 May, [facility] [id number] [place] [address] 49604- 7420 Apr, [facility] [address] [place] [id number] [place] [address] 47556- 5860 Apr, [facility] [address] [place] [id number] [address]- 1356 Feb, [facility] [id number] [place] [address] 72128- 9360 Feb, [facility] [address] [id number] [place] [address]- 1531 Feb, [facility] [place] [facility] [address] [id number] [place] [address]- 6952 Feb, [facility] [place] [facility] [address] [id number] [place] [address]- 6446 Feb, [facility] [place] [facility] [address] [id number] [place] [address]- 0787 Feb, [facility] [place] [facility] [address] [id number] [place] [address]- 3429 Feb, [facility] [place] [facility] [address] [id number] [place] [address]- 1083 Feb, [facility] [place] [facility] [address] [id number] [place] [address]- 6706 Feb, [facility] [place] [facility] [address] [id number] [place] [address]- 2586 Feb, [facility] [place] [facility] [address] [id number] [place] [address]- 7742 Jan, [facility] [place] [facility] [address] [id number] [place] [address]- 7126 Jan, [facility] [place] [facility] [address] [id number] [place] [address]- 5545 Jan, [facility] [place] [facility] [address] [id number] [place] [address]- 3835 Jan, [facility] [place] [facility] [address] [id number] [place] [address]- 9412 Jan, [facility] [place] [facility] [address] [id number] [place] [address]- 2603 Dec, [facility] [place] [facility] [address] [id number] [place] [address]- 4191 Dec, [facility] [place] [facility] [address] [id number] [place] [address]- 4312 Nov, [facility] [place] [facility] [address] [id number] [place] [address]- 2714 Nov, [facility] [place] [facility] [address] [id number] [place] [address]- 2853 Nov, [facility] [place] [facility] [address] [id number] [place] [address]- 2866 Nov, [facility] [place] [facility] [address] [id number] [place] [address]- 8223 Oct, [facility] [place] [facility] [address] [id number] [place] [address]- 3469 Oct, [facility] [place] [facility] [address] [id number] [place] [address]- 1615 Oct, [facility] [place] [facility] [address] [id number] [place] [address]- 3887 Oct, [facility] [place] [facility] [address] [id number] [place] [address]- 1111 Oct, [facility] [place] [facility] [address] [id number] [place] [address]- 2269 Oct, [facility] [place] [facility] [address] [id number] [place] [address]- 1418 Sep, [facility] [place] [facility] [address] [id number] [place] [address]- 8948 Sep, [facility] [place] [facility] [address] [id number] [place] [address]- 1360 Sep, [facility] [place] [facility] [address] [id number] [place] [address]- 9910 Sep, [facility] [place] [facility] [address] [id number] [place] [address]- 0147 Sep, [facility] [place] [facility] [address] [id number] [place] [address]- 9378 Sep, [facility] [place] [facility] [address] [id number] [place] [address]- 0748 Aug, [facility] [place] [facility] [address] [id number] [place] [address]- 1586 Aug, [facility] [place] [facility] [address] [id number] [place] [address]- 3777 June, [facility] [place] [facility] [address] [id number] [place] [address]- 2047 June, [facility] [place] [facility] [address] [id number] [place] [address]- 7829 May, [facility] [place] [facility] [address] [id number] [place] [address]- 4586 May, [facility] [place] [facility] [address] [facility] [id number] [place] [address]- 2533 Apr, [facility] [place] [facility] [address] [id number] [place] [address]- 2544 Apr, [facility] [place] [facility] [address] [id number] [place] [address]- 3868 Mar, [facility] [place] [facility] [address] [id number] [place] [address]- 4942 Mar, [facility] [place] [facility] [address] [facility] [id number] [place] [address]- 6829 Mar, [facility] [place] [facility] [address] [id number] [place] [address]- 9920 Mar, [facility] [place] [facility] [address] [id number] [place] [address]- 2563 Mar, [facility] [place] [facility] [address] [id number] [place] [address]- 9799 Mar, [facility] [place] [facility] [address] [facility] [id number] [place] [address]- 0573 Mar, [facility] [place] [facility] [address] [facility] [id number] [place] [address]- 5262 Mar, [facility] [address] [id number] [place] [address]- 9209 Nov, [facility] [place] [facility] [address] [id number] [place] [address]- 0810 Nov, [facility] [place] [facility] [address] [id number] [place] [address]- 1316 Sep, [facility] [place] [facility] [address] [id number] [place] [address]- 4473 Aug, [facility] [place] [facility] [address] [id number] [place] [address]- 9842 Apr, [facility] [place] [facility] [address] [id number] [place] [address]- 0029 Mar, [facility] [address] [facility] [id number] [place] [address]- 6766 Mar, [facility] [place] [facility] [address] [facility] [id number] [place] [address]- 9853 Feb, [facility] [place] [facility] [address] [facility] [id number] [place] [address]- 1543 Jan, [facility] [place] [facility] [address] [facility] [id number] [place] [address]- 4779 Jan, [facility] [place] [facility] [address] [facility] [id number] [place] [address]- 3133 Dec, [facility] [place] [facility] [address] [id number] [place] [address]- 5015 Dec, [facility] [place] [facility] [address] [id number] [place] [address]- 9606 Nov, [facility] [place] [facility] [address] [facility] [id number] [place] [address]- 4002 Oct, [facility] [place] [facility] [address] [facility] [id number] [place] [address]- 5597 Oct, [facility] [place] [facility] [address] [id number] [place] [address]- 1395 Sep, [facility] [place] [facility] [address] [id number] [place] [address]- 5416 Aug, [facility] [place] [facility] [address] [id number] [place] [address] 2546 Jul, [facility] [place] [facility] [address] [id number] [place] [address]- 3386 May, [facility] [place] [facility] [address] [id number] [place] [address]- 7666 Mar, [facility] [place] [facility] [address] [id number] [place] [address]- 9156 Mar, [facility] [place] [facility] [address] [id number] [place] [address]- 3456 Mar, [facility] [place] [facility] [address] [id number] [place] [address]- 3616 Mar, [facility] [place] [facility] [address] [id number] [place] [address]- 2712 Feb, [facility] [place] [facility] [address] [id number] [place] [address]- 8226 Feb, [facility] [place] [facility] [address] [id number] [place] [address]- 3068 Feb, [facility] [place] [facility] [address] [id number] [place] [address]- 1426 Jan, [facility] [place] [facility] [address] [id number] [place] [address]- 9988 Dec, [facility] [place] [facility] [address] [id number] [place] [address]- 0906 14 Jul, 2010 [facility] [place] [facility] [address] [id number] [place] [address]- 7283 June, [facility] [place] [facility] [address] [id number] [place] [address]- 8516 29 Jan, 2010 [facility] [address] [facility] [id number] [place] [address]- 2451 16 Dec, 2009 [facility] [address] [facility] [id number] [place] [address]- 0105 18 Nov, 2009 [facility] [address] [facility] [id number] [place] 2586 14 Aug, 2009 [facility] [address] [facility] [id number] [place] [address]- 5140 14 Jan, 2009 [facility] [address] [facility] [id number] [place] 2237 14 Jan, 2009 [facility] [address] [address]- 2370 Jan, [facility] [address] [address]- 0554 Jan, [facility] [address] [address]- 5779 Dec, [facility] [id number] 5868 Dec, [facility] [id number] 5797 May, IMMUNIZATIONS No Known Immunizations SOCIAL HISTORY Never Assessed REASON FOR VISIT Controlled Med Refill 02/07/17 PLAN OF CARE VITAL SIGNS MEDICATIONS Medication [...]
--- OUTSIDE RECORDS SUMMARY | 2018-05-01 11:07 | XMS REPORT ---
Author Author JEZ TOMLINSON Organization [facility] Address [address] [place] [address] Care Team Providers Care Principal Developer Name Role Phone JEZ TOMLINSON Unavailable PROBLEMS Type Condition ICD9-CM Code AWC24-FV Code Onset Dates Condition Status SNOMED Code Problem Eustachian tube dysfunction H69.80 Active 66595013 Problem Knee pain M25.569 Active 16981032 Problem Psoriasis L40.9 Active 3469222 Problem Dysuria R30.0 Active 27835248 Problem Hypertension I10 Active 26492788 Problem Dysthymia F34.1 Active 77148655 Problem Pharyngitis, unspecified etiology J02.9 Active 340236598 Problem Anxiety disorder, unspecified F41.9 Active 313456612 ALLERGIES No Information ENCOUNTERS Encounter Location Date Diagnosis [place] [id number] [place] [address] 47224- 2848 Apr, Anxiety disorder, unspecified F41.9 [place] [facility] [id number] [place] [address] 00975- 4122 Mar, Anxiety disorder, unspecified F41.9 [facility] [id number] [place] [address] 24185- 8000 Mar, [facility] [id number] [place] [address] 55797- 0845 Feb, Anxiety disorder, unspecified F41.9 [place] [address] 7[address]01- 0906 Jan, Anxiety disorder, unspecified F41.9 [place] [facility] [id number] [place] [address] 96351- 3138 Dec, Anxiety disorder, unspecified F41.9 ; Hypertension I10 ; Encounter for screening mammogram for breast cancer Z12.31 ; Psoriasis L40.9 and BMI 40.0-44.9, adult Z68.41 [facility] [id number] [place] [address] 44420- 0039 Dec, Anxiety disorder, unspecified F41.9 [facility] [id number] [place] [address] 36428- 5477 Nov, [facility] [id number] [place] [address] 08183- 1933 Nov, Anxiety disorder, unspecified F41.9 [facility] [id number] [place] [address] 87703- 7537 Nov, [place] [id number] [id number] Oct, Dysuria R30.0 [facility] [id number] [place] [address] 98249- 3229 Oct, Anxiety disorder, unspecified F41.9 [facility] [id number] [place] [address] 21789- 6254 Sep, Anxiety disorder, unspecified F41.9 [facility] [id number] [place] [address] 20891- 6162 Aug, Anxiety disorder, unspecified F41.9 [place] [id number] [place] [address] 70547- 4817 Aug, [facility] [id number] [place] [address] 51693- 0870 Jul, Anxiety disorder, unspecified F41.9 [facility] [id number] [place] [address] 80966- 3171 June, Anxiety disorder, unspecified F41.9 [facility] [id number] [place] [address] 79985- 0084 June, Anxiety disorder, unspecified F41.9 [place] [address] [address] 8585 May, Anxiety disorder, unspecified F41.9 [place] [id number] [place] [address] 88256- 3706 Apr, [place] [id number] [place] [address] 18973- 0350 Apr, Anxiety disorder, unspecified F41.9 [facility] [id number] [place] [address] 70614- 2001 Mar, Well woman exam Z01.419 ; Cervical cancer screening Z12.4 and Breast cancer screening Z12.39 [place] [id number] [place] [address] 87680- 7320 Mar, Anxiety disorder, unspecified F41.9 [place] [id number] [place] [address] 83387- 5036 Mar, Eustachian tube dysfunction H69.80 and Pharyngitis, unspecified etiology J02.9 [place] [id number] [place] [address] 42959- 1328 Feb, Anxiety disorder, unspecified F41.9 [place] [id number] [place] [address] 77019- 4152 Jan, Anxiety disorder, unspecified F41.9 [place] [id number] [place] [address] 16344- 3405 Dec, Anxiety disorder, unspecified F41.9 [place] [id number] [place] [address] 34476- 6189 Oct, Anxiety disorder, unspecified F41.9 [place] [id number] [place] [address] 33334- 3109 Oct, Irritable bowel syndrome with diarrhea K58.0 ; Hypertension I10 ; Family history of diabetes mellitus Z83.3 and Visual changes H53.9 [place] [id number] [address] 7746 Sep, Anxiety disorder, unspecified F41.9 [facility] [id number] [place] [address] 32680- 3306 Sep, RLQ abdominal pain R10.31 [facility] [id number] [place] [address] 87137- 4046 Sep, RLQ abdominal pain R10.31 and 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 [facility] [id number] [place] [address] 37237- 5758 Aug, Anxiety disorder, unspecified F41.9 [facility] [id number] [place] [address] 19268- 1346 Aug, [facility] [id number] [place] [address] 30117- 2620 Aug, [facility] [id number] [place] [address] 46977- 7096 Aug, Knee pain M25.569 [facility] [id number] [place] [address] 74854- 1601 Jul, [facility] [id number] [place] [address] 03440- 6051 June, Anxiety disorder, unspecified F41.9 [facility] [id number] [place] [address] 96734- 7136 May, [facility] [id number] [place] [address] 40582- 2543 May, [facility] [id number] [place] [address] 33385- 3246 Apr, [facility] [id number] [place] [address] 56190 2546 Apr, [facility] [id number] [place] [address] 76524- 1873 Mar, Hypertension I10 ; Dysthymia F34.1 ; Knee pain M25.569 and Eustachian tube dysfunction H69.80 [facility] [id number] [place] [address] 67767- 4544 Mar, [facility] [id number] [place] [address] 863389- 1000 Feb, [facility] [address] 466371- 7840 Jan, [facility] [id number] [place] [address] 54888- 8346 Jan, [facility] [id number] [place] [address] 386915- 4804 Dec, [facility] [id number] [place] [address] 86045- 5120 Dec, [facility] [id number] [place] [address] 83662- 8718 Nov, [address] [id number] [id number] Oct, Dental examination V72.[id number] [place] [address] [id number] Oct, Allergic rhinitis 477.9 and Chronic serous otitis media of both ears 381.10 [facility] [id number] [place] [address] 75568- 2476 Sep, [id number] [place] [address] [id number] Sep, Sinusitis 473.9 and Bronchitis 490 [facility] [id number] [place] [address] 92831- 0106 Aug, [facility] [id number] [place] [address] 79957- 1586 Jul, [facility] [id number] [place] [address] 46679- 7707 Jul, [facility] [place] [facility] [address] [id number] [place] [address]- 3475 May, [facility] [place] [facility] [address] [id number] [place] [address]- 6976 May, [facility] [place] [facility] [address] [id number] [place] [address]- 2546 Apr, [facility] [place] [facility] [address] [id number] [place] [address]- 2546 Apr, [facility] [place] [facility] [address] [id number] [place] [address]- 5226 Feb, [facility] [place] [facility] [address] [id number] [place] [address]- 4866 Feb, [facility] [place] [facility] [address] [id number] [place] [address]- 0340 Feb, [facility] [place] [facility] [address] [id number], [place] [address]- 3618 Feb, [facility] [place] [facility] [address] [id number], [place] [address]- 8633 Feb, [facility] [place] [facility] [address] [id number], [place] [address]- 2208 Feb, [facility] [place] [facility] [address] [id number], [place] [address]- 2561 Feb, [facility] [place] [facility] [address] [id number], [place] [address]- 1665 Feb, [facility] [place] [facility] [address] [id number], [place] [address]- 4091 Feb, [facility] [place] [facility] [address] [id number], [place] [address]- 4886 Feb, [facility] [place] [facility] [address] [id number] [place] [address]- 8846 Jan, [facility] [place] [facility] [address] [id number] [place] [address]- 0087 Jan, [facility] [place] [facility] [address] [id number] [place] [address]- 0818 Jan, [facility] [place] [facility] [address] [id number] [place] [address]- 2914 Jan, [facility] [place] [facility] [address] [id number] [place] [address]- 7439 Jan, [facility] [place] [facility] [address] [id number] [place] [address]- 4808 Dec, [facility] [place] [facility] [address] [id number] [place] [address]- 7338 Dec, [facility] [place] [facility] [address] [id number] [place] [address]- 0040 Nov, [facility] [place] [facility] [address] [id number] [place] [address]- 1077 Nov, [facility] [place] [facility] [address] [id number] [place] [address]- 4319 Nov, [facility] [place] [facility] [address] [id number] [place] [address]- 4933 Nov, [facility] [place] [facility] [address] [id number] [place] [address]- 2287 Oct, [facility] [place] [facility] [address] [id number] [place] [address]- 2549 22 Oct, 2013 [facility] [place] [facility] [address] [id number] [place] [address]- 2541 10 Oct, 2013 [facility] [place] [facility] [address] [id number] [place] [address] 2549 10 Oct, 2013 [facility] [place] [facility] [address] [id number] [place] [address]- 2543 Oct, [facility] [place] [facility] [address] [id number] [place] [address] 2548 Oct, [facility] [place] [facility] [address] [id number] [place] [address]- 9854 Sep, [facility] [place] [facility] [address] [id number] [place] [address]- 9645 Sep, [facility] [place] [facility] [address] [id number] [place] [address]- 3155 Sep, [facility] [place] [facility] [address] [id number] [place] [address]- 7781 Sep, [facility] [place] [facility] [address] [id number] [place] [address]- 1837 Sep, [facility] [place] [facility] [address] [id number] [place] [address]- 8271 Sep, [facility] [place] [facility] [address] [id number] [place] [address]- 4014 Aug, [facility] [place] [facility] [address] [id number] [place] [address]- 3018 Aug, [facility] [place] [facility] [address] [id number] [place] [address]- 7533 June, [facility] [place] [facility] [address] [id number] [place] [address]- 9481 June, [facility] [place] [facility] [address] [id number] [place] [address]- 2217 May, [facility] [place] [facility] [address] [id number] [place] [address]- 9142 May, [facility] [place] [facility] [address] [id number] [place] [address]- 0637 Apr, [facility] [place] [facility] [address] [id number] [place] [address]- 1727 Apr, [facility] [place] [facility] [address] [id number] [place] 6770 Mar, [facility] [place] [facility] [address] [id number] [place] [address]- 1316 Mar, [facility] [place] [facility] [address] [id number] [place] [address]- 7936 Mar, [facility] [place] [facility] [address] [id number] [place] [address]- 9446 Mar, [facility] [place] [facility] [address] [id number] [place] [address]- 5776 Mar, [facility] [place] [facility] [address] [id number] [place] [address]- 4976 Mar, [facility] [place] [facility] [address] [id number] [place] [address]- 5796 Mar, [facility] [place] [facility] [address] [id number] [place] [address]- 4293 Mar, [facility] [place] [facility] [address] [facility] [id number] [place] [address]- 7021 Nov, [facility] [place] [facility] [address] [id number] [place] [address]- 9874 Nov, [facility] [place] [facility] [address] [id number] [place] [address]- 7619 Sep, [facility] [place] [facility] [address] [facility] [id number] [place] [address]- 2981 Aug, [facility] [place] [facility] [address] [id number] [place] [address] 2546 Apr, [facility] [place] [facility] [address] [id number] [place] [address] 2541 Mar, [facility] [place] [facility] [address] [id number] [place] [address]- 0711 Mar, [facility] [place] [facility] [address] [id number] [place] [address] 2546 Feb, [facility] [place] [facility] [address] [id number] [place] [address]- 4296 Jan, [facility] [place] [facility] [address] [id number] [place] [address]- 1976 Jan, [facility] [place] [facility] [address] [id number] [place] [address]- 2276 Dec, [facility] [place] [facility] [address] [id number] [place] [address]- 9326 Dec, [facility] [place] [facility] [address] [id number] [place] [address]- 5456 Nov, [facility] [place] [facility] [address] [id number] [place] [address]- 0286 Oct, [facility] [place] [facility] [address] [id number] [place] [address]- 5356 Oct, [facility] [place] [facility] [address] [id number] [place] [address]- 5326 Sep, [facility] [place] [facility] [address] [id number], [place] [address]- 8596 Aug, [facility] [place] [facility] [address] [id number] [place] [address]- 2996 Jul, [facility] [place] [facility] [address] [id number], [place] [address]- 8006 May, [facility] [place] [facility] [address] [id number] [place] [address]- 9506 Mar, [facility] [place] [facility] [address] [id number], [place] [address]- 4026 Mar, [facility] [place] [facility] [address] [id number] [place] [address]- 7696 Mar, [facility] [place] [facility] [address] [id number], [place] [address]- 7546 Mar, [facility] [place] [facility] [address] [id number] [place] [address]- 4646 Feb, [facility] [place] [facility] [address] [id number] [place] [address]- 7533 31 Feb, 2011 [facility] [address] [id number] [place] [address]- 7014 06 Feb, 2011 [facility] [place] [facility] [address] [id number] [place] [address]- 0632 06 Jan, 2011 [facility] [place] [facility] [address] [id number] [place] [address]- 5465 10 Dec, 2010 [facility] [place] [facility] [address] [id number] [place] [address]- 7888 14 Jul, 2010 [facility] [place] [facility] [address] [id number] [place] [address]- 0287 10 Jun, 2010 [facility] [place] [facility] [address] [id number] [place] [address]- 6880 29 Jan, 2010 [facility] [place] [facility] [address] [id number] [place] [address]- 8048 16 Dec, 2009 [facility] [place] [facility] [address] [id number] [place] [address]- 1027 18 Nov, 2009 [facility] [place] [facility] [address] [id number] [place] [address]- 5264 14 Aug, 2009 [facility] [place] [facility] [address] [id number] [place] [address]- 9731 14 Jan, 2009 [facility] [place] [facility] [address] [id number] [place] [address]- 5875 14 Jan, 2009 [facility] [place] [facility] [address] [id number] [place] [address]- 9539 10 Jan, 2009 [facility] [place] [facility] [address] [id number] [place] [address]- 2101 07 Jan, 2009 [facility] [place] [facility] [address] [id number] [place] [address]- 3610 25 Dec, 2008 [facility] [place] [facility] [address] [id number] [place] [address]- 5367 10 Dec, 2008 [facility] [address] [facility] [id number] [place] [address]- 9139 May, IMMUNIZATIONS No Known Immunizations SOCIAL HISTORY Never Assessed REASON FOR VISIT Controlled Med Refill PLAN OF CARE VITAL SIGNS MEDICATIONS Medication [...]
--- OUTSIDE RECORDS SUMMARY | 2018-05-01 11:07 | XMS REPORT ---
Author Author JEZ TOMLINSON Organization [facility] Address [address] [place] [address] Care Team Providers Care Hog Room Supervisor Name Role Phone JEZ TOMLINSON Unavailable PROBLEMS Type Condition ICD9-CM Code [id number] Code Onset Dates Condition Status SNOMED Code Problem Hypertension I10 Active 03666127 Problem Eustachian tube dysfunction H69.80 Active 48134550 Problem Knee pain M25.569 Active 94848327 Problem Dysthymia F34.1 Active 20085877 Problem Other chronic pain G89.29 Active 77213012 Problem Acute right-sided low back pain with right-sided sciatica M54.41 Active 173522157 Problem Pharyngitis, unspecified etiology J02.9 Active 175514337 Problem Anxiety disorder, unspecified F41.9 Active 443178135 Problem Psoriasis L40.9 Active 9734071 Problem Dysuria R30.0 Active 75786991 ALLERGIES No Information ENCOUNTERS Encounter Location Date Diagnosis [place] [id number] [place] [address] 41019- 1874 Jul, Anxiety disorder, unspecified F41.9 ; Shortness of breath R06.02 ; Therapeutic drug monitoring Z51.81 ; Family history of diabetes mellitus Z83.3 ; BMI 40.0-44.9, adult Z68.41 and Tobacco abuse Z72.0 [place] [id number] [address] June, Anxiety disorder, unspecified F41.9 and Pain in right knee M25.561 [place] [id number] [place] [address] 59248- 3777 June, Pain in right knee M25.561 ; Pain in left knee M25.562 ; Other chronic pain G89.29 ; Anxiety disorder, unspecified F41.9 ; Acute right- sided low back pain with right-sided sciatica M54.41 and BMI 40.0-44.9, adult Z68.41 [place] [address] [place] [id number] [place] [address] 10380- 7846 27 May, 2017 Anxiety disorder, unspecified F41.9 [place] [id number] [place] [address] 66645- 7453 Apr, Anxiety disorder, unspecified F41.9 [place] [id number] [place] [address] 71801- 4949 Apr, Anxiety disorder, unspecified F41.9 [place] [id number] [place] [address] 21914- 4431 Mar, Anxiety disorder, unspecified F41.9 [place] [address] [id number] [place] [address] 64910- 6698 Mar, [place] [id number] [place] [address] 39656- 4577 Feb, Anxiety disorder, unspecified F41.9 [place] [id number] [place] [address] 00116- 3730 Jan, Anxiety disorder, unspecified F41.9 [place] [id number] [place] [address] 96219- 8849 Dec, Anxiety disorder, unspecified F41.9 ; Hypertension I10 ; Encounter for screening mammogram for breast cancer Z12.31 ; Psoriasis L40.9 and BMI 40.0-44.9, adult Z68.41 [place] [id number] [place] [address] 46050- 4471 14 Dec, 2016 Anxiety disorder, unspecified F41.9 [place] [address] [id number] [place] [address] 67692- 6635 Nov, [place] [address] [place] [id number] [place] [address] 23522- 3020 Nov, Anxiety disorder, unspecified F41.9 [facility] [address], [place] [address] 7258 Nov, [facility] [address] [facility] [address] [id number] [id number] Oct, Dysuria R30.0 [facility] [address], [place] [address]- 5761 Oct, Anxiety disorder, unspecified F41.9 [facility] [address], [place] [address]- 9123 Sep, Anxiety disorder, unspecified F41.9 [facility] [address] [place] [id number] [place] [address] 92082- 7160 Aug, Anxiety disorder, unspecified F41.9 [facility] [address], [place] [address] 5000 Aug, [facility] [address] [place] [address] 15097- 6498 Jul, Anxiety disorder, unspecified F41.9 [facility] [address] [place] [address] 04284- 4297 June, Anxiety disorder, unspecified F41.9 [facility] [address], [place] [address]- 2532 June, Anxiety disorder, unspecified F41.9 [facility] [address], [place] [address]- 3693 May, Anxiety disorder, unspecified F41.9 [facility] [address], [place] [address]- 7862 Apr, [facility] [address] [place] [address] 82291- 8111 Apr, Anxiety disorder, unspecified F41.9 [facility] [address], [place] [address]- 1785 22 Feb, 2017 Well woman exam Z01.419 ; Cervical cancer screening Z12.4 and Breast cancer screening Z12.39 [place] [address] 83402- 4669 Mar, Anxiety disorder, unspecified F41.9 [place] [address] [place] [address] [id number] [place] [address] 85098- 0761 Mar, Eustachian tube dysfunction H69.80 and Pharyngitis, unspecified etiology J02.9 [place] [address] [place] [id number] [place] [address] 90256- 8983 Feb, Anxiety disorder, unspecified F41.9 [place] [address] 22011- 8069 Jan, Anxiety disorder, unspecified F41.9 [place] [address] 10339- 6368 Dec, Anxiety disorder, unspecified F41.9 [place] [address] 32765- 0850 Oct, Anxiety disorder, unspecified F41.9 [place] [address] 81376- 4271 Oct, Irritable bowel syndrome with diarrhea K58.0 ; Hypertension I10 ; Family history of diabetes mellitus Z83.3 and Visual changes H53.9 [place] [address] [place] [id number] [place] [address] 96661- 5314 Sep, Anxiety disorder, unspecified F41.9 [place] [address] [place] [id number] [place] [address] 19355- 7814 Sep, RLQ abdominal pain R10.31 [place] [address] 44107- 3575 Sep, RLQ abdominal pain R10.31 and 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 [place] [address] 51982- 7828 Aug, Anxiety disorder, unspecified F41.9 [facility] [address] [place] [address] [id number] [place] [address] 57050- 3693 Aug, [facility] [address] [place] [id number] [place] [address] 83843- 2703 Aug, [facility] [address] [place] [id number] [place] [address] 14284- 1897 Aug, Knee pain M25.569 [facility] [address] [place] [id number] [place] [address] 42127- 4768 Jul, [facility] [id number] [place] [address] 02417- 8272 June, Anxiety disorder, unspecified F41.9 [facility] [address] [id number] [place] [address] 86251- 5036 May, [facility] [id number] [place] [address] 42147- 5826 May, [facility] [id number] [place] [address] 17609- 9308 Apr, [facility] [address] [id number] [place] [address] 49371- 5109 Apr, [facility] [address] [place] [id number] [place] [address] 52772- 8344 Mar, Hypertension I10 ; Dysthymia F34.1 ; Knee pain M25.569 and Eustachian tube dysfunction H69.80 [facility] [id number], [place] [address]- 7611 Mar, [facility] [address] [place] [id number] [place] [address] 02768- 5688 Feb, [facility] [address], [place] [address]- 4698 Jan, [facility] [address] [place] [address]- 8667 Jan, [facility] [address] [place] [id number] [place] [address] 73687- 6134 Dec, [facility] [address] [place] [id number] [place] [address] 29281- 8140 Dec, [facility] [address] [place] [address] 17721- 3597 Nov, [facility] [address] [facility] [address] [id number] [id number] Oct, Dental examination V72.2 [facility] [address] [place] [address] [id number] [place] [address] [id number] Oct, Allergic rhinitis 477.9 and Chronic serous otitis media of both ears 381.10 [facility] [address] [place] [id number] [place] [address] 88854- 0110 Sep, [facility] [place] [address] [place] [address] [id number] [id number] Sep, Sinusitis 473.9 and Bronchitis 490 [facility] [address] [place] [id number] [place] [address] 11205- 6648 Aug, [facility] [address] [place] [id number] [place] [address] 13483- 6027 Jul, [facility] [address] [place] [address] 34612- 1193 Jul, [facility] [address] [place] [id number] [place] [address] 14711- 1122 May, [facility] [id number] [place] [address] 179034- 8371 May, [facility] [address] [place] [id number] [place] [address] 24880- 4800 Apr, [facility] [address] 3157 Apr, [facility] [place] [facility] [address] [id number] [place] [address]- 5984 Feb, [facility] [place] [facility] [address] [id number] [place] [address]- 2157 Feb, [facility] [place] [facility] [address] [id number] [place] [address]- 5016 Feb, [facility] [place] [facility] [address] [id number] [place] [address]- 4898 Feb, [facility] [place] [facility] [address] [id number] [place] [address]- 4316 Feb, [facility] [place] [facility] [address] [id number] [place] [address]- 9053 Feb, [facility] [place] [facility] [address] [id number] [place] [address]- 8437 Feb, [facility] [place] [facility] [address] [id number] [place] [address]- 7815 Feb, [facility] [place] [facility] [address] [id number] [place] [address]- 1936 Feb, [facility] [place] [facility] [address] [id number] [place] [address]- 1016 Feb, [facility] [place] [facility] [address] [id number] [place] [address]- 4285 Jan, [facility] [place] [facility] [address] [id number] [place] [address]- 7700 Jan, [facility] [place] [facility] [address] [id number] [place] [address]- 5676 Jan, [facility] [place] [facility] [address] [id number] [place] [address]- 5476 Jan, [facility] [place] [facility] [address] [id number] [place] [address]- 1286 Jan, [facility] [place] [facility] [address] [id number] [place] [address]- 6222 Dec, [facility] [place] [facility] [address] [id number] [place] [address]- 5971 Dec, [facility] [place] [facility] [address] [id number] [place] [address]- 8002 Nov, [facility] [place] [facility] [address] [id number] [place] [address]- 9213 Nov, [facility] [place] [facility] [address] [id number] [place] [address]- 2430 Nov, [facility] [place] [facility] [address] [id number] [place] [address]- 1423 Nov, [facility] [place] [facility] [address] [id number] [place] [address]- 7638 Oct, [facility] [place] [facility] [address] [id number] [place] [address]- 3434 Oct, [facility] [place] [facility] [address] [id number] [place] [address]- 0123 Oct, [facility] [place] [facility] [address] [id number] [place] [address]- 1234 Oct, [facility] [place] [facility] [address] [id number] [place] [address]- 8229 Oct, [facility] [place] [facility] [address] [id number] [place] [address]- 2625 Oct, [facility] [place] [facility] [address] [id number] [address]- 4536 Sep, [facility] [place] [facility] [address] [id number] [place] [address]- 7169 Sep, [facility] [place] [facility] [address] [id number] [place] [address]- 5625 Sep, [facility] [place] [facility] [address] [id number] [place] [address]- 1013 Sep, [facility] [place] [facility] [address] [id number] [place] [address]- 5772 Sep, [facility] [place] [facility] [address] [id number] [place] [address]- 4009 Sep, [facility] [place] [facility] [address] [id number] [place] [address]- 8267 Aug, [facility] [place] [facility] [address] [id number] [place] [address]- 6490 Aug, [facility] [place] [facility] [address] [id number] [place] [address]- 2838 June, [facility] [place] [facility] [address] [id number] [place] [address]- 3925 June, [facility] [place] [facility] [address] [id number] [place] [address]- 9687 May, [facility] [place] [facility] [address] [id number] [place] [address]- 3545 May, [facility] [place] [facility] [address] [id number] [place] [address]- 1500 Apr, [facility] [place] [facility] [address] [id number] [place] [address]- 0252 Apr, [facility] [place] [facility] [address] [facility] [id number] [place] [address]- 3690 Mar, [facility] [place] [facility] [address] [id number] [place] [address]- 2544 Mar, [facility] [place] [facility] [address] [id number] [place] [address]- 1385 Mar, [facility] [place] [facility] [address] [id number] [place] [address]- 5029 Mar, [facility] [place] [facility] [address] [id number] [place] [address]- 3194 Mar, [facility] [place] [facility] [address] [id number] [place] 4505 Mar, [facility] [place] [facility] [address] [id number] [place] [address]- 4897 Mar, [facility] [place] [facility] [address] [id number] [place] [address]- 3652 Mar, [facility] [place] [facility] [address] [id number] [place] [address]- 3961 Nov, [facility] [place] [facility] [address] [id number] [place] [address]- 3906 Nov, [facility] [place] [facility] [address] [id number] [place] [address]- 4548 Sep, [facility] [place] [facility] [address] [id number] [place] [address]- 5834 Aug, [facility] [place] [facility] [address] [id number] [place] [address]- 9855 Apr, [facility] [place] [facility] [address] [id number] [place] [address]- 8531 Mar, [facility] [place] [facility] [address] [id number] [place] [address]- 8059 Mar, [facility] [place] [facility] [address] [id number] [place] [address]- 7598 Feb, [facility] [place] [facility] [address] [id number] [place] [address]- 9723 Jan, [facility] [place] [facility] [address] [id number] [place] [address]- 3293 Jan, [facility] [place] [facility] [address] [id number] [place] [address]- 2476 Dec, [facility] [place] [facility] [address] [id number] [place] [address]- 8871 Dec, [facility] [place] [facility] [address] [facility] [id number] [place] [address]- 6761 Nov, [facility] [place] [facility] [address] [id number] [place] [address]- 4406 Oct, [facility] [address] [id number] [place] [address]- 8596 Oct, [facility] [place] [facility] [address] [id number] [place] [address] 2546 Sep, [facility] [address] [id number] [place] [address]- 1310 Aug, [facility] [address] [id number] [place] [address] 2546 Jul, [facility] [address] [id number] [place] [address]- 1986 May, [facility] [place] [facility] [address] [id number] [place] [address]- 4356 Mar, [facility] [address] [id number] [place] [address]- 0506 Mar, [facility] [address] [id number] [place] [address]- 0872 Mar, [facility] [address] [id number] [place] [address]- 4556 Mar, [facility] [address] [facility] [id number] [place] [address]- 8766 Feb, [facility] [address] [id number] [place] [address]- 6766 Feb, [facility] [address] [id number] [place] [address]- 2546 Feb, [facility] [place] [facility] [address] [id number] [place] [address]- 5956 Jan, [facility] [place] [facility] [address] [id number] [place] [address]- 2546 Dec, [facility] [address] [id number] [place] [address]- 2893 Jul, [facility] [address], [place] [address]- 1581 10 Jun, 2010 [facility] [address], [place] [address]- 4335 29 Jan, 2010 [facility] [address], [place] [address]- 8727 16 Dec, 2009 [facility] [address], [place] [address]- 2797 Nov, [facility] [address]- 7012 14 Aug, 2009 [facility] [id number] [place] [address] 428864- 3393 14 Jan, 2009 [facility] [address], [place] [address]- 7054 Jan, [facility] [address], [place] [address]- 1001 Jan, [facility] [address] 4541 Jan, [facility] [address], [place] [address]- 2035 Dec, [facility] [address], [place] [address]- 8570 Dec, [facility] [address], [place] [address]- 3305 May, IMMUNIZATIONS No Known Immunizations SOCIAL HISTORY Never Assessed REASON FOR VISIT Controlled Med Refill 04/04/17 PLAN OF CARE VITAL SIGNS MEDICATIONS Medication [...]
[2018-05-01] MEDS ORDERED: SUCCINYLCHOLINE INJ 100 MG/5 ML SYR ONE (11:08)
[2018-05-01] MEDS ORDERED: SEVOFLURANE (ULTANE) 15 ML INHAL SOLN ONE ×3 (11:08→14:14)
[2018-05-01] MEDS ORDERED: LIDOCAINE PF 2% 5 ML (XYLOCAINE) VIAL ONE (11:08)
[2018-05-01] MEDS ORDERED: DEXAMETHASONE 10 MG/ML (DECADRON) 1 ML VIAL ONE (11:08)
[2018-05-01] MEDS ORDERED: proPOfol 200 MG/20 ML (DIPRIVAN) VIAL IV ONE ×2 (11:08→13:53)
[2018-05-01] MEDS ORDERED: MIDAZOLAM 2 MG/2 ML (VERSED) VIAL ONE (11:08)
[2018-05-01] MEDS ORDERED: ONDANSETRON 4 MG/2 ML (SDV) Z0FRAN ONE (11:08)
[2018-05-01] MEDS ORDERED: fentaNYL INJECTION 100 MCG/2 ML AMP ONE ×3 (11:08→14:37)
--- OUTSIDE RECORDS SUMMARY | 2018-05-01 11:08 | XMS REPORT ---
Author Author JIMMIE BLACKWELL [facility] Address [address] [place] [address] Care Team Providers Care Transplant Case Manager Name Role Phone JIMMIE BLACKWELL Unavailable PROBLEMS Type Condition ICD9-CM Code [id number] Code Onset Dates Condition Status SNOMED Code Problem Eustachian tube dysfunction H69.80 Active 41176228 Problem Knee pain M25.569 Active 12147565 Problem Psoriasis L40.9 Active 1554963 Problem Dysuria R30.0 Active 59478591 Problem Hypertension I10 Active 78215524 Problem Dysthymia F34.1 Active 79223890 Problem Pharyngitis, unspecified etiology J02.9 Active 340399319 Problem Anxiety disorder, unspecified F41.9 Active 163077457 ALLERGIES No Known Allergies ENCOUNTERS Encounter Location Date Diagnosis [facility] [id number] [place] [address] 38894- 9090 May, Anxiety disorder, unspecified F41.9 [facility] [id number] [place] [address] 13347- 8745 Apr, Anxiety disorder, unspecified F41.9 [facility] [id number] [place] [address] 08721- 8462 Apr, Anxiety disorder, unspecified F41.9 [facility] [id number] [place] [address] 04174- 6312 Mar, Anxiety disorder, unspecified F41.9 [facility] [id number] [place] [address] 24169- 3232 Mar, [facility] [id number] [place] [address] 64550- 1280 Feb, Anxiety disorder, unspecified F41.9 [facility] [address] [address] 59[address] Jan, Anxiety disorder, unspecified F41.9 [facility] [id number] [place] [address] 81428- 7926 Dec, Anxiety disorder, unspecified F41.9 ; Hypertension I10 ; Encounter for screening mammogram for breast cancer Z12.31 ; Psoriasis L40.9 and BMI 40.0-44.9, adult Z68.41 [facility] [id number] [place] [address] 02759- 4514 Dec, Anxiety disorder, unspecified F41.9 [facility] [id number] [place] [address] 92787- 5784 Nov, [facility] [id number] [place] [address] 34689- 8605 Nov, Anxiety disorder, unspecified F41.9 [facility] [id number] [place] [address] 65727- 1822 Nov, [address] [id number] [id number] Oct, Dysuria R30.0 [facility] [address] [address] 1560 Oct, Anxiety disorder, unspecified F41.9 [facility] [id number] [place] [address] 54308- 5212 Sep, Anxiety disorder, unspecified F41.9 [facility] [id number] [place] [address] 58732- 2108 Aug, Anxiety disorder, unspecified F41.9 [facility] [id number] [place] [address] 66535- 2078 Aug, [facility] [id number] [place] [address] 44114- 1240 Jul, Anxiety disorder, unspecified F41.9 [facility] [address] [address] 6782 June, Anxiety disorder, unspecified F41.9 [facility] [id number] [place] [address] 322531- 9385 June, Anxiety disorder, unspecified F41.9 [facility] [address] [address] May, Anxiety disorder, unspecified F41.9 [facility] [id number] [place] [address] 51897- 6950 Apr, [facility] [id number] [place] [address] 315458- 9259 Apr, Anxiety disorder, unspecified F41.9 [facility] [id number] [place] [address] 69395- 1047 Mar, Well woman exam Z01.419 ; Cervical cancer screening Z12.4 and Breast cancer screening Z12.39 [facility] [address] [place] [address] 73948- 5372 Mar, Anxiety disorder, unspecified F41.9 [facility] [address] [place] [address] 67781- 1900 Mar, Eustachian tube dysfunction H69.80 and Pharyngitis, unspecified etiology J02.9 [facility] [address] [address] 4861 Feb, Anxiety disorder, unspecified F41.9 [facility] [address] [address]- 7844 Jan, Anxiety disorder, unspecified F41.9 [facility] [id number] [place] [address] 207638- 3006 Dec, Anxiety disorder, unspecified F41.9 [facility] [address] [address]- 2049 Oct, Anxiety disorder, unspecified F41.9 [facility] [id number] [place] [address] 29275- 8233 Oct, Irritable bowel syndrome with diarrhea K58.0 ; Hypertension I10 ; Family history of diabetes mellitus Z83.3 and Visual changes H53.9 [facility] [id number] [place] [address] 00722- 8251 Sep, Anxiety disorder, unspecified F41.9 [facility] [id number] [place] [address] 72446- 9756 Sep, RLQ abdominal pain R10.31 [facility] [address] 84951- 4011 Sep, RLQ abdominal pain R10.31 and 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 [facility] [id number] [place] [address] 54397- 5366 Aug, Anxiety disorder, unspecified F41.9 [facility] [id number] [place] [address] 44721- 4792 Aug, [facility] [id number] [place] [address] 09222- 4208 Aug, [facility] [id number] [place] [address] 93051- 5758 Aug, Knee pain M25.569 [facility] [id number] [place] [address] 66821- 2318 Jul, [facility] [id number] [place] [address] 68564- 6905 June, Anxiety disorder, unspecified F41.9 [facility] [id number] [place] [address] 23225- 7507 May, [facility] [id number] [place] [address] 96572- 9342 May, [facility] [address] [place] [address]- 2217 Apr, [facility] [id number] [place] [address] 69791- 9144 Apr, [facility] [id number] [place] [address] 80511- 4897 Mar, Hypertension I10 ; Dysthymia F34.1 ; Knee pain M25.569 and Eustachian tube dysfunction H69.80 [facility] [id number] [place] [address] 50223- 5829 Mar, [facility] [id number] [place] [address] 57277- 8840 Feb, [facility] [id number] [place] [address] 27758- 5023 Jan, [facility] [id number] [place] [address] 86916- 5710 Jan, [facility] [id number] [place] [address] 06440- 5376 Dec, [facility] [id number] [place] [address] 58792- 2106 Dec, [facility] [id number] [place] [address] 98392- 6907 Nov, [facility] [address] [id number] [id number] Oct, Dental examination V72.2 [facility] [address] [id number] [id number] Oct, Allergic rhinitis 477.9 and Chronic serous otitis media of both ears 381.10 [facility] [id number] [place] [address] 15273- 6536 Sep, [facility] [address] [id number] [id number] Sep, Sinusitis 473.9 and Bronchitis 490 [facility] [address] [facility] [id number] [place] [address]- 2196 Aug, [facility] [place] [facility] [address] [id number] [place] [address]- 5034 Jul, [facility] [place] [facility] [address] [id number] [place] [address]- 2546 Jul, [facility] [place] [facility] [address] [id number] [place] [address]- 1876 May, [facility] [place] [facility] [address] [id number] [place] [address]- 2138 May, [facility] [place] [facility] [address] [id number] [place] [address]- 5865 Apr, [facility] [place] [facility] [address] [id number] [place] [address]- 1146 Apr, [facility] [place] [facility] [address] [id number] [place] [address]- 9622 Feb, [facility] [place] [facility] [address] [id number] [place] [address]- 1737 Feb, [facility] [place] [facility] [address] [id number] [place] [address]- 3664 Feb, [facility] [place] [facility] [address] [id number] [place] [address]- 2324 Feb, [facility] [place] [facility] [address] [id number] [place] [address]- 2856 Feb, [facility] [place] [facility] [address] [id number] [place] [address]- 0821 Feb, [facility] [place] [facility] [address] [id number] [place] [address]- 8836 Feb, [facility] [place] [facility] [address] [id number] [place] [address]- 2546 Feb, [facility] [place] [facility] [address] [id number] [place] [address]- 2007 Feb, [facility] [place] [facility] [address] [id number] [place] [address]- 4522 Feb, [facility] [place] [facility] [address] [id number] [place] [address]- 5642 Jan, [facility] [place] [facility] [address] [id number] [place] [address]- 7373 Jan, [facility] [place] [facility] [address] [id number] [place] [address]- 5078 Jan, [facility] [place] [facility] [address] [id number] [place] [address]- 9335 Jan, [facility] [place] [facility] [address] [id number] [place] [address]- 8145 Jan, [facility] [place] [facility] [address] [id number] [place] [address]- 9862 Dec, [facility] [place] [facility] [address] [id number] [place] [address]- 3531 Dec, [facility] [place] [facility] [address] [id number] [place] [address]- 4354 Nov, [facility] [place] [facility] [address] [id number] [place] [address]- 0192 Nov, [facility] [place] [facility] [address] [id number] [place] [address]- 7377 Nov, [facility] [place] [facility] [address] [id number] [address]- 3231 Nov, [facility] [place] [facility] [address] [id number] [place] [address]- 8418 Oct, [facility] [place] [facility] [address] [id number] [place] [address]- 4332 Oct, [facility] [place] [facility] [address] [id number] [place] [address]- 4594 Oct, [facility] [place] [facility] [address] [id number] [place] [address]- 3394 Oct, [facility] [place] [facility] [address] [id number] [place] [address]- 8486 Oct, [facility] [place] [facility] [address] [id number] [place] [address]- 6290 Oct, [facility] [place] [facility] [address] [id number] [place] [address]- 6654 Sep, [facility] [place] [facility] [address] [id number] [place] [address]- 6146 Sep, [facility] [place] [facility] [address] [id number] [place] [address]- 4085 Sep, [facility] [place] [facility] [address] [id number] [place] [address]- 4610 Sep, [facility] [place] [facility] [address] [id number] [place] [address]- 4108 Sep, [facility] [place] [facility] [address] [id number] [place] [address]- 6335 Sep, [facility] [place] [facility] [address] [id number] [place] [address]- 1929 Aug, [facility] [place] [facility] [address] [id number] [place] [address]- 1858 Aug, [facility] [place] [facility] [address] [id number] [place] [address]- 4057 June, [facility] [place] [facility] [address] [id number] [place] [address]- 5766 June, [facility] [place] [facility] [address] [id number] [place] [address]- 4879 May, [facility] [place] [facility] [address] [id number] [place] [address]- 9130 May, [facility] [place] [facility] [address] [id number] [place] [address]- 5906 Apr, [facility] [place] [facility] [address] [id number] [place] [address]- 8482 Apr, [facility] [place] [facility] [address] [id number] [place] [address]- 3764 Mar, [facility] [place] [facility] [address] [id number] [place] [address]- 1417 Mar, [facility] [place] [facility] [address] [id number] [place] [address]- 1135 Mar, [facility] [place] [facility] [address] [id number] [place] [address]- 9932 Mar, [facility] [place] [facility] [address] [id number] [place] [address]- 0324 Mar, [facility] [place] [facility] [address] [id number] [place] [address]- 3476 Mar, [facility] [place] [facility] [address] [id number] [place] [address]- 6002 Mar, [facility] [place] [facility] [address] [id number] [place] [address]- 8661 Mar, [facility] [place] [facility] [address] [facility] [id number] [place] [address]- 2056 Nov, [facility] [place] [facility] [address] [id number] [place] [address]- 7721 Nov, [facility] [place] [facility] [address] [id number] [address]- 0163 Sep, [facility] [place] [facility] [address] [id number] [place] [address]- 2065 Aug, [facility] [place] [facility] [address] [id number] [place] [address]- 2541 Apr, [facility] [place] [facility] [address] [id number] [place] [address]- 6110 Mar, [facility] [place] [facility] [address] [id number] [place] [address]- 6046 Mar, [facility] [address] [id number] [place] [address]- 7843 Feb, [facility] [place] [facility] [address] [id number] [place] [address]- 8756 Jan, [facility] [place] [facility] [address] [facility] [id number] [place] [address]- 1356 Jan, [facility] [place] [facility] [address] [id number] [place] [address]- 4068 Dec, [facility] [place] [facility] [address] [id number] [place] [address]- 0594 Dec, [facility] [place] [facility] [address] [facility] [id number] [place] [address]- 2546 Nov, [facility] [place] [facility] [id number] [place] [address]- 2136 Oct, [facility] [place] [facility] [address] [id number] [place] [address]- 0159 Oct, [facility] [place] [facility] [address] [facility] [id number] [place] [address]- 7688 Sep, [facility] [place] [facility] [address] [facility] [id number] [place] [address]- 6835 Aug, [facility] [place] [facility] [address] [facility] [id number] [place] [address]- 9846 Jul, [facility] [place] [facility] [address] [facility] [id number] [address]- 2546 May, [facility] [place] [facility] [address] [id number] [place] [address]- 7396 Mar, [facility] [place] [facility] [address] [facility] [id number] [place] [address]- 2546 Mar, [facility] [place] [facility] [address] [facility] [id number] [place] [address]- 2946 Mar, [facility] [place] [facility] [address] [id number] [place] [address]- 4164 06 Mar, 2011 [facility] [place] [facility] [address] [id number] [place] [address]- 4125 Feb, [facility] [place] [facility] [address] [id number] [place] [address]- 8328 Feb, [facility] [place] [facility] [address] [id number] [place] [address]- 0368 Feb, [facility] [place] [facility] [address] [id number] [place] [address]- 3629 06 Jan, 2011 [facility] [place] [facility] [address] [id number] [place] [address]- 2406 10 Dec, 2010 [facility] [place] [facility] [address] [id number] [place] [address]- 4163 14 Jul, 2010 [facility] [place] [facility] [address] [id number] [place] [address]- 4487 10 Jun, 2010 [facility] [place] [facility] [address] [id number] [place] [address]- 7939 29 Jan, 2010 [facility] [place] [facility] [address] [id number] [address]- 0836 16 Dec, 2009 [facility] [place] [facility] [address] [id number] [address]- 0665 18 Nov, 2009 [facility] [place] [facility] [address] [id number] [address]- 3204 14 Aug, 2009 [facility] [place] [facility] [address] [id number] [place] [address]- 4238 14 Jan, 2009 [facility] [place] [facility] [address] [id number], [place] [address]- 8479 14 Jan, 2009 [facility] [place] [facility] [address] [id number] [address]- 3147 10 Jan, 2009 [facility] [place] [facility] [address] [id number][place] [address]- 6126 Jan, [facility] [address] [facility] [id number] [place] [address]- 4026 Dec, [facility] [address] [facility] [id number][place] [address]- 5216 Dec, [facility] [address] [facility] [id number] [place] [address]- 6696 May, IMMUNIZATIONS No Known Immunizations SOCIAL HISTORY Never Assessed REASON FOR VISIT UTI symptoms héctor jeffries PLAN OF CARE Activity Details Follow Up prn Reason: VITAL SIGNS Height 67 in 2016-11-16 Weight 272.0 lbs 2016-11-16 Temperature 97.8 degrees Fahrenheit 2016-11-16 Heart Rate 84 bpm 2016-11-16 Respiratory Rate 18 2016-11-16 BMI 42.60 kg/m2 2016-11-16 Blood pressure systolic 138 mmHg 2016-11-16 Blood pressure diastolic 86 mmHg 2016-11-16 MEDICATIONS Medication Instructions Dosage Frequency Start Date End Date Duration Status Alprazolam 1 MG Orally Twice a day, and 1 tablet at bedtime 0.5 Tablet as needed Apr, 28 days Active Cipro 500 mg Orally Twice a day 1 tablet 12h Oct, Oct, 05 days Active Fluoxetine HCl 20 MG TAKE 3 CAPSULES BY MOUTH ONCE DAILY 30 Active Propranolol HCl 20 MG 1 tablet Twice a day Orally 90 Active Bentyl 20 mg Orally 4 times a day before meals and bedtime 1 tablet Sep, Active RESULTS No Results PROCEDURES Procedure Date Ordered Result Body Site URINALYSIS, AUTO, W/O SCOPE Nov 16, 2016 URINE CULTURE/COLONY COUNT Nov 16, 2016 INSTRUCTIONS MEDICATIONS ADMINISTERED No Known Medications MEDICAL (GENERAL) HISTORY Type Description Date Medical History depression Medical History hx of anxiety Medical History mitral valve prolapse Surgical History tonsillectomy and adenoidectomy Surgical History partial hysterectomy Surgical History jaw surgery 1974 Surgical History colonoscopy 10/26/15 Surgical History colonoscopy 11/2016 Hospitalization History for surgery
--- OUTSIDE RECORDS SUMMARY | 2018-05-01 11:08 | XMS REPORT ---
Author Author JEZ TOMLINSON [facility] Address [address] [place] [address] Care Team Providers Care Sewing Machine Operator Name Role Phone JEZ TOMLINSON Unavailable PROBLEMS Type Condition ICD9-CM Code SYL04-YY Code Onset Dates Condition Status SNOMED Code Problem Knee pain M25.569 Active 15189221 Problem Dysuria R30.0 Active 94757111 Problem Pharyngitis, unspecified etiology J02.9 Active 937304239 Problem Dysthymia F34.1 Active 31565645 Problem Eustachian tube dysfunction H69.80 Active 86399315 Problem Anxiety disorder, unspecified F41.9 Active 834091541 Problem Hypertension I10 Active 24197776 ALLERGIES No Information SOCIAL HISTORY Never Assessed [...]
--- OUTSIDE RECORDS SUMMARY | 2018-05-01 11:08 | XMS REPORT ---
Author Author JEZ TOMLINSON [facility] Address [address] [place] [address] Care Team Providers Care Shipyard Laborer Name Role Phone JEZ TOMLINSON Unavailable PROBLEMS Type Condition ICD9-CM Code SZH50-HX Code Onset Dates Condition Status SNOMED Code Problem Knee pain M25.569 Active 89635725 Problem Dysuria R30.0 Active 46668926 Problem Pharyngitis, unspecified etiology J02.9 Active 876017222 Problem Dysthymia F34.1 Active 82158338 Problem Eustachian tube dysfunction H69.80 Active 37164749 Problem Anxiety disorder, unspecified F41.9 Active 962554657 Problem Hypertension I10 Active 30033212 ALLERGIES No Information SOCIAL HISTORY Never Assessed PLAN OF CARE VITAL SIGNS MEDICATIONS No Known Medications RESULTS No Results PROCEDURES No Known procedures IMMUNIZATIONS No Known Immunizations MEDICAL (GENERAL) HISTORY Type Description Date Medical History depression Medical History hx of anxiety Medical History mitral valve prolapse Surgical History tonsillectomy and adenoidectomy Surgical History partial hysterectomy Surgical History jaw surgery 1974 Surgical History colonoscopy 10/26/15 Hospitalization History for surgery
--- OUTSIDE RECORDS SUMMARY | 2018-05-01 11:08 | XMS REPORT ---
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 Name Role Phone JEZ TOMLINSON Unavailable PROBLEMS Type Condition ICD9-CM Code [id number] Code Onset Dates Condition Status SNOMED Code Problem Knee pain M25.569 Active 53967774 Problem Dysuria R30.0 Active 21851506 Problem Pharyngitis, unspecified etiology J02.9 Active 961526409 Problem Dysthymia F34.1 Active 37206284 Problem Eustachian tube dysfunction H69.80 Active 93424505 Problem Anxiety disorder, unspecified F41.9 Active 427789532 Problem Hypertension I10 Active 36150075 ALLERGIES No Known Allergies SOCIAL HISTORY Never Assessed PLAN OF CARE Activity Details Follow Up prn Reason: VITAL SIGNS Height 67 in 2016-04-19 Weight 262.3 lbs 2016-04-19 Temperature 99.4 degrees Fahrenheit 2016-04-19 Heart Rate 84 bpm 2016-04-19 Respiratory Rate 20 2016-04-19 BMI 41.08 kg/m2 2016-04-19 Blood pressure systolic 130 mmHg 2016-04-19 Blood pressure diastolic 84 mmHg 2016-04-19 MEDICATIONS Medication Instructions Dosage Frequency Start Date End Date Duration Status Fluoxetine HCl 20 MG TAKE 3 CAPSULES BY MOUTH ONCE DAILY 30 Active Propranolol HCl 20 MG 1 tablet Twice a day Orally 90 Active Bentyl 20 mg Orally 4 times a day before meals and bedtime 1 tablet Sep, Active Alprazolam 1 MG Orally Twice a day, and 1 tablet at bedtime 0.5 Tablet as needed Apr, 28 days Active Fiber Active Flonase Allergy Relief 50 MCG/ACT Nasally 2 times a day 1 spray in each nostril 12h 25 Mar, 2015 Active ProAir HFA 108 (90 Base) MCG/ACT Inhalation every 4 hrs 2 puffs as needed 4h Sep, Active tramadol 50 mg by oral route 3 times a day 1 tablet as needed 8h 23 Apr, 2014 28 days Active Probiotic Active RESULTS Name Result Date Reference Range PAP TEST W/ HPV REGARDLESS 2016-04-19 DIAGNOSIS: Specimen adequacy: Clinician provided ICD10: Performed by: QC reviewed by: . . Pathologist provided ICD10: Note: HPV, high-risk Negative Negative PDF Report 2016-04-19 PDF Report1 [facility] Mammogram, Bilateral Screening 2016-05-18 PROCEDURES Procedure Date Ordered Result Body Site SPECIMEN HANDLING Apr 19, 2016 IMMUNIZATIONS No Known Immunizations MEDICAL (GENERAL) HISTORY Type Description Date Medical History depression Medical History hx of anxiety Medical History mitral valve prolapse Surgical History tonsillectomy and adenoidectomy Surgical History partial hysterectomy Surgical History jaw surgery 1974 Surgical History colonoscopy 10/26/15 Hospitalization History for surgery
--- OUTSIDE RECORDS SUMMARY | 2018-05-01 11:09 | XMS REPORT ---
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 Name Role Phone JEZ TOMLINSON Unavailable PROBLEMS Type Condition ICD9-CM Code [id number] Code Onset Dates Condition Status SNOMED Code Problem Eustachian tube dysfunction H69.80 Active 09136191 Problem Knee pain M25.569 Active 90837307 Problem Psoriasis L40.9 Active 6350103 Problem Dysuria R30.0 Active 56039343 Problem Hypertension I10 Active 69609592 Problem Dysthymia F34.1 Active 20069236 Problem Pharyngitis, unspecified etiology J02.9 Active 943766863 Problem Anxiety disorder, unspecified F41.9 Active [id number] ALLERGIES No Information ENCOUNTERS Encounter Location Date Diagnosis [place] [id number] [place] [address] 45204- 2324 Apr, Anxiety disorder, unspecified F41.9 [place] [id number] [place] [address] 76902- 6984 Apr, Anxiety disorder, unspecified F41.9 [facility] [id number] [place] [address] 48293- 5107 Mar, Anxiety disorder, unspecified F41.9 [facility] [id number] [place] [address] 84360- 3019 Mar, [facility] [address] [address]- 9652 Feb, Anxiety disorder, unspecified F41.9 [facility] [id number] [place] [address] 32907- 2205 Jan, Anxiety disorder, unspecified F41.9 [place] [address], [place] [address] Dec, Anxiety disorder, unspecified F41.9 ; Hypertension I10 ; Encounter for screening mammogram for breast cancer Z12.31 ; Psoriasis L40.9 and BMI 40.0-44.9, adult Z68.41 [facility] [address], [place] [address] 9012 Dec, Anxiety disorder, unspecified F41.9 [facility] [id number] [place] [address] 69943- 5383 Nov, [place] [id number] [place] [address] 99487- 8014 Nov, Anxiety disorder, unspecified F41.9 [place] [id number] [place] [address] 56438- 7404 Nov, [address] [id number] [id number] Oct, Dysuria R30.0 [facility] [id number] [place] [address] 50614- 7656 Oct, Anxiety disorder, unspecified F41.9 [place] [address] [address]- 5465 Sep, Anxiety disorder, unspecified F41.9 [place] [id number] [place] [address] 64781- 8880 Aug, Anxiety disorder, unspecified F41.9 [facility] [address], [place] [address]- 1046 Aug, [facility] [id number] [place] [address] 30746- 8790 Jul, Anxiety disorder, unspecified F41.9 [facility] [address], [place] [address]- 0309 June, Anxiety disorder, unspecified F41.9 [place] [address], [place] [address]- 0010 June, Anxiety disorder, unspecified F41.9 [place] [id number] [place] [address] 54671- 9574 May, Anxiety disorder, unspecified F41.9 [facility] [id number] [place] [address] 35537- 1724 Apr, [place] [id number] [place] [address] 213163- 6101 Apr, Anxiety disorder, unspecified F41.9 [place] [id number] [place] [address] 040039- 3495 Mar, Well woman exam Z01.419 ; Cervical cancer screening Z12.4 and Breast cancer screening Z12.39 [place] [id number] [place] [address] 46284- 9054 Mar, Anxiety disorder, unspecified F41.9 [place] [id number] [place] [address] 86828- 8605 Mar, Eustachian tube dysfunction H69.80 and Pharyngitis, unspecified etiology J02.9 [place] [id number] [place] [address] 93721- 9819 Feb, Anxiety disorder, unspecified F41.9 [place] [id number] [place] [address] 98507- 0896 Jan, Anxiety disorder, unspecified F41.9 [place] [id number] [place] [address] 90624- 9778 Dec, Anxiety disorder, unspecified F41.9 [place] [id number] [place] [address] 75524- 6195 Oct, Anxiety disorder, unspecified F41.9 [place] [id number] [place] [address] 25553- 5842 Oct, Irritable bowel syndrome with diarrhea K58.0 ; Hypertension I10 ; Family history of diabetes mellitus Z83.3 and Visual changes H53.9 [facility] [address] 76611- 2364 Sep, Anxiety disorder, unspecified F41.9 [facility] [id number] [place] [address] 45410- 4158 Sep, RLQ abdominal pain R10.31 [facility] [address] 09493- 9829 Sep, RLQ abdominal pain R10.31 and 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 [facility] [address] 47026- 2184 Aug, Anxiety disorder, unspecified F41.9 [facility] [address] 03148- 7618 Aug, [facility] [address] 63531- 4562 Aug, [facility] [address] 31500- 2889 Aug, Knee pain M25.569 [facility] [id number] [place] [address] 14953- 2963 Jul, [facility] [id number] [place] [address] 92766- 4707 June, Anxiety disorder, unspecified F41.9 [facility] [id number] [place] [address] 55592- 3052 May, [facility] [address] 57950- 1177 May, [facility] [id number] [place] [address] 58438- 6107 Apr, [facility] [address] 33181- 8833 Apr, [facility] [address], [place] [address]- 9858 Mar, Hypertension I10 ; Dysthymia F34.1 ; Knee pain M25.569 and Eustachian tube dysfunction H69.80 [facility] [address], [place] [address]- 9345 Mar, [facility] [id number] [place] [address] 946199- 5467 Feb, [facility] [id number] [place] [address] 76728- 7558 Jan, [facility] [id number] [place] [address] 222257- 8461 Jan, [facility] [id number] [place] [address] 89345- 9006 Dec, [facility] [id number] [place] [address] 26979- 3685 Dec, [facility] [id number] [place] [address] 15285- 0703 Nov, [facility] [address] [facility] [id number] [id number] Oct, Dental examination V72.2 [facility] [address] [place] [address] [id number] [id number] Oct, Allergic rhinitis 477.9 and Chronic serous otitis media of both ears 381.10 [facility] [address], [place] [address]- 4608 Sep, [facility] [id number] [place] [id number] Sep, Sinusitis 473.9 and Bronchitis 490 [facility] [id number] [place] [address] 22431- 8029 Aug, [facility] [address] [place] [address]- 3342 Jul, [facility] [place] [facility] [address] [id number] [place] [address]- 9444 Jul, [facility] [place] [facility] [address] [id number] [place] [address]- 4728 May, [facility] [place] [facility] [address] [id number] [place] [address]- 8566 May, [facility] [place] [facility] [address] [id number] [place] [address]- 1137 Apr, [facility] [place] [facility] [address] [id number] [place] [address]- 0684 Apr, [facility] [place] [facility] [address] [id number] [place] [address]- 4938 Feb, [facility] [place] [facility] [address] [id number] [place] [address]- 8845 Feb, [facility] [place] [facility] [address] [id number] [place] [address]- 8341 Feb, [facility] [place] [facility] [address] [id number] [place] [address]- 5272 Feb, [facility] [place] [facility] [address] [id number] [place] [address]- 9795 Feb, [facility] [place] [facility] [address] [id number] [place] [address]- 1889 Feb, [facility] [place] [facility] [address] [id number] [place] [address]- 0168 Feb, [facility] [place] [facility] [address] [id number] [place] [address]- 5442 Feb, [facility] [place] [facility] [address] [id number] [place] [address]- 8570 Feb, [facility] [place] [facility] [address] [id number] [place] [address]- 1014 Feb, [facility] [place] [facility] [address] [id number] [place] [address]- 3425 Jan, [facility] [place] [facility] [address] [id number] [place] [address]- 1364 Jan, [facility] [place] [facility] [address] [id number] [place] [address]- 8928 Jan, [facility] [place] [facility] [address] [id number] [place] [address]- 4136 Jan, [facility] [place] [facility] [address] [id number] [place] [address]- 0540 Jan, [facility] [place] [facility] [address] [id number] [place] [address]- 5851 Dec, [facility] [place] [facility] [address] [id number] [place] [address]- 4430 Dec, [facility] [place] [facility] [address] [id number] [place] [address]- 8125 Nov, [facility] [place] [facility] [address] [id number] [place] [address]- 0720 Nov, [facility] [place] [facility] [address] [id number] [place] [address]- 2124 Nov, [facility] [place] [facility] [address] [id number] [place] [address]- 1033 Nov, [facility] [place] [facility] [address] [id number] [place] [address]- 4190 Oct, [facility] [place] [facility] [address] [id number] [place] [address]- 1521 22 Oct, 2013 [facility] [place] [facility] [address] [id number] [place] [address]- 1068 10 Oct, 2013 [facility] [place] [facility] [address] [id number] [place] [address]- 1113 10 Oct, 2013 [facility] [place] [facility] [address] [id number] [place] [address]- 1746 Oct, [facility] [place] [facility] [address] [id number] [place] [address]- 4230 Oct, [facility] [place] [facility] [address] [id number] [place] [address]- 1444 Sep, [facility] [place] [facility] [address] [id number] [place] [address]- 9400 Sep, [facility] [place] [facility] [address] [id number] [place] [address]- 4496 Sep, [facility] [place] [facility] [address] [id number] [place] [address]- 8018 Sep, [facility] [place] [facility] [address] [id number] [place] [address]- 5718 Sep, [facility] [place] [facility] [address] [id number] [place] [address]- 1922 Sep, [facility] [place] [facility] [address] [id number] [place] [address]- 7931 Aug, [facility] [place] [facility] [address] [id number] [place] [address]- 2341 Aug, [facility] [place] [facility] [address] [id number] [place] [address]- 1008 June, [facility] [place] [facility] [address] [id number] [place] [address]- 7264 June, [facility] [place] [facility] [address] [id number] [place] [address]- 3007 May, [facility] [place] [facility] [address] [id number] [place] [address]- 5827 May, [facility] [place] [facility] [address] [id number] [place] [address]- 6774 Apr, [facility] [place] [facility] [address] [id number] [place] 8733 Apr, [facility] [place] [facility] [address] [id number] [place] [address]- 8229 Mar, [facility] [place] [facility] [address] [id number] [place] [address]- 4027 Mar, [facility] [place] [facility] [address] [id number] [place] [address]- 3466 Mar, [facility] [place] [facility] [address] [id number] [place] [address]- 6196 Mar, [facility] [place] [facility] [address] [id number] [place] [address]- 9228 Mar, [facility] [place] [facility] [address] [id number] [place] [address]- 6749 Mar, [facility] [place] [facility] [address] [facility] [id number] [place] [address]- 7785 Mar, [facility] [place] [facility] [address] [facility] [id number] [place] [address]- 1063 Mar, [facility] [place] [facility] [address] [id number] [place] [address]- 1582 Nov, [facility] [place] [facility] [address] [facility] [id number] [place] [address]- 1216 Nov, [facility] [place] [facility] [address] [facility] [id number] [place] [address]- 4864 Sep, [facility] [place] [facility] [address] [id number] [place] [address]- 2817 Aug, [facility] [place] [facility] [address] [id number] [place] [address]- 8477 Apr, [facility] [place] [facility] [address] [id number] [place] [address]- 6766 Mar, [facility] [place] [facility] [address] [id number] [place] [address]- 3176 Mar, [facility] [place] [facility] [address] [facility] [id number], [place] [address]- 2546 Feb, [facility] [place] [facility] [address] [id number] [place] [address]- 7596 Jan, [facility] [place] [facility] [address] [id number] [place] [address]- 4867 Jan, [facility] [place] [facility] [address] [facility] [id number] [place] [address]- 1361 Dec, [facility] [place] [facility] [address] [id number], [place] [address]- 6191 Dec, [facility] [place] [facility] [address] [id number] [place] [address]- 4226 Nov, [facility] [place] [facility] [address] [facility] [id number] [place] [address]- 6894 Oct, [facility] [place] [facility] [address] [facility] [id number], [place] [address]- 5211 Oct, [facility] [place] [facility] [address] [facility] [id number], [place] [address]- 5637 Sep, [facility] [place] [facility] [address] [facility] [id number], [place] [address]- 8331 Aug, [facility] [place] [facility] [address] [facility] [id number], [place] [address]- 8531 Jul, [facility] [place] [facility] [address] [facility] [id number], [place] [address]- 3644 May, [facility] [place] [facility] [address] [facility] [id number], [place] [address]- 8588 Mar, [facility] [place] [facility] [address] [id number], [place] [address]- 3491 Mar, [facility] [place] [facility] [address] [facility] [id number], [place] [address]- 3713 Mar, [facility] [place] [facility] [address] [facility] [id number], [place] [address]- 3736 Mar, [facility] [place] [facility] [address] [id number] [place] [address]- 3154 31 Feb, 2011 [facility] [place] [facility] [address] [id number] [place] [address]- 9298 31 Feb, 2011 [facility] [place] [facility] [address] [id number] [place] [address] 2546 06 Feb, 2011 [facility] [place] [facility] [address] [id number] [place] [address]- 4136 06 Jan, 2011 [facility] [place] [facility] [address] [id number] [place] [address]- 6785 10 Dec, 2010 [facility] [place] [facility] [address] [id number] [place] [address]- 9911 14 Jul, 2010 [facility] [place] [facility] [address] [id number] [place] [address]- 9153 June, [facility] [place] [facility] [address] [id number] [place] [address]- 4366 29 Jan, 2010 [facility] [place] [facility] [address] [id number] [place] [address]- 6126 16 Dec, 2009 [facility] [place] [facility] [address] [id number] [place] [address]- 5911 18 Nov, 2009 [facility] [place] [facility] [address] [id number] [place] [address]- 4977 14 Aug, 2009 [facility] [place] [facility] [address] [id number] [place] [address]- 0408 14 Jan, 2009 [facility] [place] [facility] [address] [id number] [place] [address]- 4516 14 Jan, 2009 [facility] [place] [facility] [address] [id number] [place] [address]- 2120 10 Jan, 2009 [facility] [place] [facility] [address] [id number] [place] [address]- 8416 07 Jan, 2009 [facility] [place] [facility] [address] [id number] [place] [address]- 7663 Dec, [facility] [address] [facility] [id number] [place] [address]- 4495 Dec, [facility] [address] [facility] [id number] [place] [address]- 2074 May, IMMUNIZATIONS No Known Immunizations SOCIAL HISTORY [...]
--- OUTSIDE RECORDS SUMMARY | 2018-05-01 11:09 | XMS REPORT ---
Author Author JEZ TOMLINSON Organization [facility] Address [address] [place] [address] Care Team Providers Care Mesh Man Name Role Phone JEZ TOMLINSON Unavailable PROBLEMS Type Condition ICD9-CM Code SHH41-DL Code Onset Dates Condition Status SNOMED Code Problem Hypertension I10 Active 22190613 Problem Eustachian tube dysfunction H69.80 Active 95266357 Problem Knee pain M25.569 Active 01130762 Problem Dysthymia F34.1 Active 97601936 Problem Other chronic pain G89.29 Active 56104118 Problem Acute right-sided low back pain with right-sided sciatica M54.41 Active 577165694 Problem Pharyngitis, unspecified etiology J02.9 Active 692749892 Problem Anxiety disorder, unspecified F41.9 Active 793225259 Problem Psoriasis L40.9 Active 6278044 Problem Dysuria R30.0 Active [id number] ALLERGIES No Information ENCOUNTERS Encounter Location Date Diagnosis [place] [id number] [place] [address] 17823- 4430 Jul, [place] [address] [place] [id number] [place] [address] 91516- 1413 June, Anxiety disorder, unspecified F41.9 and Pain in right knee M25.561 [place] [address] [place] [id number] [place] [address] 32382- 5529 June, Pain in right knee M25.561 ; Pain in left knee M25.562 ; Other chronic pain G89.29 ; Anxiety disorder, unspecified F41.9 ; Acute right- sided low back pain with right-sided sciatica M54.41 and BMI 40.0-44.9, adult Z68.41 [place] [address] [place] [id number] [place] [address] 30391- 9982 May, Anxiety disorder, unspecified F41.9 [facility] [address] [address] 8119 Apr, Anxiety disorder, unspecified F41.9 [facility] [address] [address] Apr, Anxiety disorder, unspecified F41.9 [facility] [id number] [place] [address] 78375- 5664 Mar, Anxiety disorder, unspecified F41.9 [facility] [id number] [place] [address] 97222- 2807 Mar, [facility] [address] [place] [id number] [place] [address] 48523- 9343 Feb, Anxiety disorder, unspecified F41.9 [facility] [address] [place] [id number] [place] [address] 48129- 2117 Jan, Anxiety disorder, unspecified F41.9 [facility] [address] [address] 9831 Dec, Anxiety disorder, unspecified F41.9 ; Hypertension I10 ; Encounter for screening mammogram for breast cancer Z12.31 ; Psoriasis L40.9 and BMI 40.0-44.9, adult Z68.41 [facility] [address] [address] 2809 Dec, Anxiety disorder, unspecified F41.9 [facility] [address] [address] 5158 Nov, [facility] [id number] [place] [address] 20853- 6405 Nov, Anxiety disorder, unspecified F41.9 [facility] [address] [place] [id number] [address] 8943 Nov, [address] [id number] [id number] Oct, Dysuria R30.0 [facility] [address] [place] [id number] [place] [address] 43150- 4830 Oct, Anxiety disorder, unspecified F41.9 [facility] [address] [id number] [place] [address] 61370- 2700 Sep, Anxiety disorder, unspecified F41.9 [facility] [address] [id number] [place] [address] 20094- 3596 Aug, Anxiety disorder, unspecified F41.9 [facility] [address] [place] [id number] [place] [address] 98230- 6492 Aug, [facility] [address] [place] [id number] [place] [address] 72315- 5195 Jul, Anxiety disorder, unspecified F41.9 [facility] [address] [place] [id number] [place] [address] 54817- 6505 June, Anxiety disorder, unspecified F41.9 [facility] [id number] [place] [address] 52253- 1856 June, Anxiety disorder, unspecified F41.9 [facility] [address] [place] [address] [id number] [place] [address] 35893- 5042 May, Anxiety disorder, unspecified F41.9 [facility] [address] [address]- 3735 Apr, [facility] [address] [place] [address] [id number] [place] [address] 68983- 0002 Apr, Anxiety disorder, unspecified F41.9 [facility] [address] [place] [id number] [place] [address] 59961- 0583 Mar, Well woman exam Z01.419 ; Cervical cancer screening Z12.4 and Breast cancer screening Z12.39 [facility] [address] [place] [address] 68520- 1998 Mar, Anxiety disorder, unspecified F41.9 [facility] [address] [place] [id number] [place] [address] 45957- 5276 Mar, Eustachian tube dysfunction H69.80 and Pharyngitis, unspecified etiology J02.9 [place] [address] [place] [id number] [place] [address] 52655- 4010 Feb, Anxiety disorder, unspecified F41.9 [place] [address] 99524- 7580 Jan, Anxiety disorder, unspecified F41.9 [place] [address] 44779- 2650 Dec, Anxiety disorder, unspecified F41.9 [place] [address] [place] [id number] [place] [address] 23554- 1356 Oct, Anxiety disorder, unspecified F41.9 [place] [address] 05783- 7878 Oct, Irritable bowel syndrome with diarrhea K58.0 ; Hypertension I10 ; Family history of diabetes mellitus Z83.3 and Visual changes H53.9 [place] [address] [place] [id number] [place] [address] 22696- 7199 Sep, Anxiety disorder, unspecified F41.9 [place] [address] [place] [id number] [place] [address] 20718- 6001 Sep, RLQ abdominal pain R10.31 [place] [address] [place] [id number] [place] [address] 09509- 1354 Sep, RLQ abdominal pain R10.31 and 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 [place] [address] [place] [id number] [place] [address] 17890- 5486 Aug, Anxiety disorder, unspecified F41.9 [place] [address] [place] [id number] [place] [address] 57463- 3791 Aug, [place] [address] [place] [id number] [place] [address] 65181- 6359 Aug, [facility] [address] [place] [address] [id number] [place] [address] 63147- 3175 Aug, Knee pain M25.569 [facility] [address] [place] [id number] [place] [address] 76602- 1922 Jul, [facility] [address] [place] [address] [id number] [place] [address] 18267- 8705 June, Anxiety disorder, unspecified F41.9 [facility] [address] [place] [address] [id number] [place] [address] 32567- 2420 May, [facility] [address] [address] [id number] [place] [address] 60646- 6678 May, [facility] [address] [place] [address] [id number] [place] [address] 89962- 1735 Apr, [facility] [address] [place] [id number] [place] [address] 20461- 0784 Apr, [facility] [address] [place] [address] [id number] [place] [address] 04896- 2487 Mar, Hypertension I10 ; Dysthymia F34.1 ; Knee pain M25.569 and Eustachian tube dysfunction H69.80 [facility] [address] [place] [id number] [place] [address] 39221- 7241 Mar, [facility] [address] [id number] [address]- 2313 Feb, [facility] [address] [place] [id number] [place] [address] 343653- 3801 Jan, [facility] [address] [place] [id number] [place] [address] 89440- 3702 Jan, [facility] [address] [address]- 0969 Dec, [facility] [address] [address]- 2466 Dec, [facility] [address] [place] [address] [id number] [place] [address] 09794- 6892 Nov, [facility] [address] [id number] [id number] Oct, Dental examination V72.2 [facility] [address] [place] [address] AVE [id number] [id number] 15 Oct, 2014 Allergic rhinitis 477.9 and Chronic serous otitis media of both ears 381.10 [facility] [id number] [place] [address] 00274- 7993 Sep, [facility] [address] [id number] [id number] Sep, Sinusitis 473.9 and Bronchitis 490 [facility] [address] [place] [id number] [place] [address] 78560- 6300 Aug, [facility] [address] [place] [address] [id number] [place] [address] 13976- 3702 Jul, [facility] [address] [place] [address] [id number] [place] [address] 21558- 4409 Jul, [facility] [id number] [place] [address] 90970- 9929 May, [facility] [id number] [place] [address] 62841- 5699 May, [facility] [id number] [place] [address] 27545- 3765 Apr, [facility] [address] [id number] [place] [address] 99918- 9012 Apr, [facility] [id number] [address]- 6406 Feb, [facility] [id number] [place] [address] 14950- 4519 Feb, [facility] [address] [id number] [place] [address]- 7927 Feb, [facility] [place] [facility] [address] [id number] [place] [address]- 7031 Feb, [facility] [place] [facility] [address] [id number] [place] [address]- 7488 Feb, [facility] [place] [facility] [address] [id number] [place] [address]- 7824 Feb, [facility] [place] [facility] [address] [id number] [place] [address]- 9434 Feb, [facility] [place] [facility] [address] [id number] [place] [address]- 8314 Feb, [facility] [place] [facility] [address] [id number] [place] [address]- 0153 Feb, [facility] [place] [facility] [address] [id number] [place] [address]- 2233 Feb, [facility] [place] [facility] [address] [id number] [place] [address]- 4677 Jan, [facility] [place] [facility] [address] [id number] [place] [address]- 8215 Jan, [facility] [place] [facility] [address] [id number] [place] [address]- 9217 Jan, [facility] [place] [facility] [address] [id number] [place] [address]- 4898 Jan, [facility] [place] [facility] [address] [id number] [place] [address]- 9024 Jan, [facility] [place] [facility] [address] [id number] [place] [address]- 7995 Dec, [facility] [place] [facility] [address] [id number] [place] [address]- 2870 Dec, [facility] [place] [facility] [address] [id number] [place] [address]- 4449 Nov, [facility] [place] [facility] [address] [id number] [place] [address]- 4907 Nov, [facility] [place] [facility] [address] [id number] [place] [address]- 7192 Nov, [facility] [place] [facility] [address] [id number] [place] [address]- 3606 Nov, [facility] [place] [facility] [address] [id number] [place] [address]- 5575 Oct, [facility] [place] [facility] [address] [id number] [place] [address]- 8090 Oct, [facility] [place] [facility] [address] [id number] [place] [address]- 9739 Oct, [facility] [place] [facility] [address] [id number] [place] [address]- 2120 Oct, [facility] [place] [facility] [address] [id number] [place] [address]- 7950 Oct, [facility] [place] [facility] [address] [id number] [place] [address]- 8970 Oct, [facility] [place] [facility] [address] [id number] [place] [address]- 5645 Sep, [facility] [place] [facility] [address] [id number] [place] [address]- 7706 Sep, [facility] [place] [facility] [address] [id number] [place] [address]- 3203 Sep, [facility] [place] [facility] [address] [id number] [place] [address]- 5740 Sep, [facility] [place] [facility] [address] [id number] [place] [address]- 1910 Sep, [facility] [place] [facility] [address] [id number] [place] [address]- 1035 Sep, [facility] [place] [facility] [address] [id number] [place] [address]- 5760 Aug, [facility] [place] [facility] [address] [id number] [place] [address]- 1944 Aug, [facility] [place] [facility] [address] [id number] [place] [address]- 1383 June, [facility] [place] [facility] [address] [id number] [place] [address]- 2465 June, [facility] [place] [facility] [address] [id number] [place] [address]- 5893 May, [facility] [place] [facility] [address] [id number] [place] [address]- 9569 May, [facility] [place] [facility] [address] [facility] [id number] [place] [address]- 3072 Apr, [facility] [place] [facility] [address] [id number] [place] [address]- 6456 Apr, [facility] [place] [facility] [address] [id number] [place] [address]- 8973 Mar, [facility] [place] [facility] [address] [id number] [place] [address]- 7334 Mar, [facility] [place] [facility] [address] [facility] [id number] [place] [address]- 2433 Mar, [facility] [place] [facility] [address] [id number] [place] [address]- 8318 Mar, [facility] [place] [facility] [address] [id number] [place] [address]- 6085 Mar, [facility] [place] [facility] [address] [id number] [place] [address]- 0925 Mar, [facility] [place] [facility] [address] [facility] [id number] [place] [address]- 9505 Mar, [facility] [place] [facility] [address] [facility] [id number] [address]- 9965 Mar, [facility] [address] [id number] [place] [address]- 0799 Nov, [facility] [place] [facility] [address] [id number] [place] [address]- 8089 Nov, [facility] [place] [facility] [address] [id number] [place] [address]- 2782 Sep, [facility] [place] [facility] [address] [id number] [place] [address]- 8678 Aug, [facility] [place] [facility] [address] [id number] [place] [address]- 4959 Apr, [facility] [place] [facility] [address] [id number] [place] [address]- 6352 Mar, [facility] [address] [facility] [id number] [place] [address]- 4800 Mar, [facility] [place] [facility] [address] [facility] [id number] [place] [address]- 0622 Feb, [facility] [place] [facility] [address] [facility] [id number] [place] [address]- 2604 Jan, [facility] [place] [facility] [address] [facility] [id number] [place] [address]- 5516 Jan, [facility] [place] [facility] [address] [facility] [id number] [place] [address]- 9129 Dec, [facility] [place] [facility] [address] [id number] [address]- 3416 Dec, [facility] [place] [facility] [address] [id number] [place] [address]- 8866 Nov, [facility] [place] [facility] [address] [facility] [id number] [place] [address]- 2982 Oct, [facility] [place] [facility] [address] [facility] [id number] [place] [address]- 6320 Oct, [facility] [place] [facility] [address] [id number] [place] [address]- 0919 Sep, [facility] [place] [facility] [address] [id number] [place] [address]- 9868 Aug, [facility] [place] [facility] [address] [id number] [place] [address] 2546 Jul, [facility] [place] [facility] [address] [id number] [place] [address]- 9621 May, [facility] [place] [facility] [address] [id number] [place] [address]- 9966 Mar, [facility] [place] [facility] [address] [id number] [place] [address]- 2366 Mar, [facility] [place] [facility] [address] [id number] [place] [address]- 1996 Mar, [facility] [place] [facility] [address] [id number] [place] [address]- 5656 Mar, [facility] [place] [facility] [address] [id number] [place] [address]- 8642 Feb, [facility] [place] [facility] [address] [id number] [place] [address]- 7286 Feb, [facility] [place] [facility] [address] [id number] [place] [address]- 6695 Feb, [facility] [place] [facility] [address] [id number] [place] [address]- 9526 Jan, [facility] [place] [facility] [address] [id number] [place] [address]- 9251 Dec, [facility] [place] [facility] [address] [id number] [place] [address]- 7156 14 Jul, 2010 [facility] [place] [facility] [address] [id number] [place] [address]- 2292 June, [facility] [place] [facility] [address] [id number] [address]- 9301 29 Jan, 2010 [facility] [address] [facility] [id number] [place] [address]- 3282 16 Dec, 2009 [facility] [address] [facility] [id number] [address]- 2247 Nov, [facility] [address] [facility] [id number] [place] 3221 14 Aug, 2009 [facility] [address] [facility] [id number] [place] [address]- 7236 14 Jan, 2009 [facility] [address] [facility] [id number] [place] 5069 Jan, [facility] [address] [facility] [id number] [place] [address]- 2402 Jan, [facility] [address] [address]- 9129 Jan, [facility] [address] [address]- 3966 Dec, [facility] [address] [id number] 3154 Dec, [facility] [address] [id number] 3091 May, IMMUNIZATIONS No Known Immunizations SOCIAL HISTORY Never Assessed REASON FOR VISIT Controlled Med Refill 03/07/17 PLAN OF CARE VITAL SIGNS MEDICATIONS Medication [...]
--- OUTSIDE RECORDS SUMMARY | 2018-05-01 11:10 | XMS REPORT ---
Author Author JEZ TOMLINSON Organization [facility] Address [address] [place] [address] Care Team Providers Care Director Of Marketing And Promotions Name Role Phone JEZ TOMLINSON Unavailable PROBLEMS Type Condition ICD9-CM Code NUE09-BM Code Onset Dates Condition Status SNOMED Code Problem Eustachian tube dysfunction H69.80 Active 69192181 Problem Knee pain M25.569 Active 68684241 Problem Psoriasis L40.9 Active 9837065 Problem Dysuria R30.0 Active 79543495 Problem Hypertension I10 Active 64832064 Problem Dysthymia F34.1 Active 77496151 Problem Pharyngitis, unspecified etiology J02.9 Active 006537658 Problem Anxiety disorder, unspecified F41.9 Active [id number] ALLERGIES No Information ENCOUNTERS Encounter Location Date Diagnosis [place] [id number] [place] [address] 22387- 9016 Apr, Anxiety disorder, unspecified F41.9 [place] [id number] [place] [address] 81721- 9367 Apr, Anxiety disorder, unspecified F41.9 [facility] [id number] [place] [address] 52640- 0929 Mar, Anxiety disorder, unspecified F41.9 [facility] [id number] [place] [address] 97831- 2658 Mar, [facility] [address] [address]- [address]201 Feb, Anxiety disorder, unspecified F41.9 [facility] [id number] [place] [address] 17725- 9440 Jan, Anxiety disorder, unspecified F41.9 [place] [address], [place] [address] 5860 Dec, Anxiety disorder, unspecified F41.9 ; Hypertension I10 ; Encounter for screening mammogram for breast cancer Z12.31 ; Psoriasis L40.9 and BMI 40.0-44.9, adult Z68.41 [facility] [address], [place] [address] 9194 Dec, Anxiety disorder, unspecified F41.9 [facility] [id number] [place] [address] 41114- 4535 Nov, [place] [id number] [place] [address] 45718- 4362 Nov, Anxiety disorder, unspecified F41.9 [place] [id number] [place] [address] 91663- 1999 Nov, [address] [id number] [id number] Oct, Dysuria R30.0 [facility] [id number] [place] [address] 02365- 9925 Oct, Anxiety disorder, unspecified F41.9 [place] [address], [place] [address]- 9734 Sep, Anxiety disorder, unspecified F41.9 [place] [id number] [place] [address] 78737- 4308 Aug, Anxiety disorder, unspecified F41.9 [facility] [address], [place] [address]- 6100 Aug, [facility] [id number] [place] [address] 48724- 4310 Jul, Anxiety disorder, unspecified F41.9 [facility] [address], [place] [address]- 4563 June, Anxiety disorder, unspecified F41.9 [place] [address], [place] [address]- 7216 June, Anxiety disorder, unspecified F41.9 [place] [id number] [place] [address] 23373- 1788 May, Anxiety disorder, unspecified F41.9 [facility] [id number] [place] [address] 37411- 1766 Apr, [place] [id number] [place] [address] 367086- 9634 Apr, Anxiety disorder, unspecified F41.9 [place] [id number] [place] [address] 208385- 3000 Mar, Well woman exam Z01.419 ; Cervical cancer screening Z12.4 and Breast cancer screening Z12.39 [place] [id number] [place] [address] 02323- 7118 Mar, Anxiety disorder, unspecified F41.9 [place] [id number] [place] [address] 92155- 5327 Mar, Eustachian tube dysfunction H69.80 and Pharyngitis, unspecified etiology J02.9 [place] [id number] [place] [address] 08702- 1382 Feb, Anxiety disorder, unspecified F41.9 [place] [id number] [place] [address] 60817- 1985 Jan, Anxiety disorder, unspecified F41.9 [place] [id number] [place] [address] 42527- 2226 Dec, Anxiety disorder, unspecified F41.9 [place] [address] [place] [address] 62364- 0515 Oct, Anxiety disorder, unspecified F41.9 [place] [id number] [place] [address] 43027- 2712 Oct, Irritable bowel syndrome with diarrhea K58.0 ; Hypertension I10 ; Family history of diabetes mellitus Z83.3 and Visual changes H53.9 [facility] [address] 65809- 9059 Sep, Anxiety disorder, unspecified F41.9 [facility] [id number] [place] [address] 41307- 2513 Sep, RLQ abdominal pain R10.31 [facility] [address] 06942- 3528 Sep, RLQ abdominal pain R10.31 and 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 [facility] [address] 90354- 0798 Aug, Anxiety disorder, unspecified F41.9 [facility] [address] 99746- 4075 Aug, [facility] [address] 45720- 7077 Aug, [facility] [address] 71602- 1075 Aug, Knee pain M25.569 [facility] [id number] [place] [address] 11476- 8283 Jul, [facility] [id number] [place] [address] 71092- 2000 June, Anxiety disorder, unspecified F41.9 [facility] [id number] [place] [address] 11490- 8963 May, [facility] [address] 01559- 5426 May, [facility] [id number] [place] [address] 90337- 9651 Apr, [facility] [address] 52969- 2489 Apr, [facility] [address], [place] [address]- 3401 Mar, Hypertension I10 ; Dysthymia F34.1 ; Knee pain M25.569 and Eustachian tube dysfunction H69.80 [facility] [address], [place] [address]- 2088 Mar, [facility] [id number] [place] [address] 536551- 7926 Feb, [facility] [id number] [place] [address] 45892- 2789 Jan, [facility] [id number] [place] [address] 688494- 4020 Jan, [facility] [id number] [place] [address] 93177- 4650 Dec, [facility] [id number] [place] [address] 60412- 5475 Dec, [facility] [id number] [place] [address] 10641- 3327 Nov, [facility] [address] [facility] [id number] [id number] Oct, Dental examination V72.2 [facility] [address] [place] [address] [id number] [id number] Oct, Allergic rhinitis 477.9 and Chronic serous otitis media of both ears 381.10 [facility] [address], [place] [address]- 6594 Sep, [facility] [address] [facility] [id number] [place] [id number] Sep, Sinusitis 473.9 and Bronchitis 490 [facility] [id number] [place] [address] 97802- 2532 Aug, [facility] [address] [place] [address]- 6092 Jul, [facility] [place] [facility] [address] [id number] [place] [address]- 0477 Jul, [facility] [place] [facility] [address] [id number] [place] [address]- 3364 May, [facility] [place] [facility] [address] [id number] [place] [address]- 4724 May, [facility] [place] [facility] [address] [id number] [place] [address]- 2720 Apr, [facility] [place] [facility] [address] [id number] [place] [address]- 1499 Apr, [facility] [place] [facility] [address] [id number] [place] [address]- 4847 Feb, [facility] [place] [facility] [address] [id number] [place] [address]- 6743 Feb, [facility] [place] [facility] [address] [id number] [place] [address]- 3936 Feb, [facility] [place] [facility] [address] [id number] [place] [address]- 8099 Feb, [facility] [place] [facility] [address] [id number] [place] [address]- 1527 Feb, [facility] [place] [facility] [address] [id number] [place] [address]- 6705 Feb, [facility] [place] [facility] [address] [id number] [place] [address]- 7941 Feb, [facility] [place] [facility] [address] [id number] [place] [address]- 4666 Feb, [facility] [place] [facility] [address] [id number] [place] [address]- 8045 Feb, [facility] [place] [facility] [address] [id number] [place] [address]- 8382 Feb, [facility] [place] [facility] [address] [id number] [place] [address]- 2638 Jan, [facility] [place] [facility] [address] [id number] [place] [address]- 0614 Jan, [facility] [place] [facility] [address] [id number] [place] [address]- 6326 Jan, [facility] [place] [facility] [address] [id number] [place] [address]- 2584 Jan, [facility] [place] [facility] [address] [id number] [place] [address]- 4036 Jan, [facility] [place] [facility] [address] [id number] [place] [address]- 0711 Dec, [facility] [place] [facility] [address] [id number] [place] [address]- 0388 Dec, [facility] [place] [facility] [address] [id number] [place] [address]- 1374 Nov, [facility] [place] [facility] [address] [id number] [place] [address]- 8577 Nov, [facility] [place] [facility] [address] [id number] [place] [address]- 3414 Nov, [facility] [place] [facility] [address] [id number] [place] [address]- 9771 Nov, [facility] [place] [facility] [address] [id number] [place] [address]- 8574 Oct, [facility] [place] [facility] [address] [id number] [place] [address]- 1038 22 Oct, 2013 [facility] [place] [facility] [address] [id number] [place] [address]- 3284 10 Oct, 2013 [facility] [place] [facility] [address] [id number] [place] [address]- 0515 10 Oct, 2013 [facility] [place] [facility] [address] [id number] [place] [address]- 8710 Oct, [facility] [place] [facility] [address] [id number] [place] [address]- 1635 Oct, [facility] [place] [facility] [address] [id number] [place] [address]- 7162 Sep, [facility] [place] [facility] [address] [id number] [place] [address]- 9248 Sep, [facility] [place] [facility] [address] [id number] [place] [address]- 5111 Sep, [facility] [place] [facility] [address] [id number] [place] [address]- 8581 Sep, [facility] [place] [facility] [address] [id number] [place] [address]- 8612 Sep, [facility] [place] [facility] [address] [id number] [place] [address]- 4674 Sep, [facility] [place] [facility] [address] [id number] [place] [address]- 7190 Aug, [facility] [place] [facility] [address] [id number] [place] [address]- 1610 Aug, [facility] [place] [facility] [address] [id number] [place] [address]- 4831 June, [facility] [place] [facility] [address] [id number] [place] [address]- 5684 June, [facility] [place] [facility] [address] [id number] [place] [address]- 4758 May, [facility] [place] [facility] [address] [id number] [place] [address]- 6757 May, [facility] [place] [facility] [address] [id number] [place] [address]- 0498 Apr, [facility] [place] [facility] [address] [id number] [place] 3163 Apr, [facility] [place] [facility] [address] [id number] [place] [address]- 1912 Mar, [facility] [place] [facility] [address] [id number] [place] [address]- 3235 Mar, [facility] [place] [facility] [address] [id number] [place] [address]- 0236 Mar, [facility] [place] [facility] [address] [id number] [place] [address]- 6186 Mar, [facility] [place] [facility] [address] [id number] [place] [address]- 2879 Mar, [facility] [place] [facility] [address] [id number] [place] [address]- 3276 Mar, [facility] [place] [facility] [address] [facility] [id number] [place] [address]- 9618 Mar, [facility] [place] [facility] [address] [facility] [id number] [place] [address]- 5128 Mar, [facility] [place] [facility] [address] [id number] [place] [address]- 7246 Nov, [facility] [place] [facility] [address] [facility] [id number] [place] [address]- 0305 Nov, [facility] [place] [facility] [address] [facility] [id number] [place] [address]- 3095 Sep, [facility] [place] [facility] [address] [id number] [place] [address]- 0593 Aug, [facility] [place] [facility] [address] [id number] [place] [address]- 4706 Apr, [facility] [place] [facility] [address] [id number] [place] [address]- 2926 Mar, [facility] [place] [facility] [address] [id number] [place] [address]- 5094 Mar, [facility] [place] [facility] [address] [facility] [id number], [place] [address]- 2546 Feb, [facility] [place] [facility] [address] [id number] [place] [address]- 4686 Jan, [facility] [place] [facility] [address] [id number] [place] [address]- 9692 Jan, [facility] [place] [facility] [address] [facility] [id number] [place] [address]- 0035 Dec, [facility] [place] [facility] [address] [id number], [place] [address]- 1358 Dec, [facility] [place] [facility] [address] [id number] [place] [address]- 1791 Nov, [facility] [place] [facility] [address] [facility] [id number] [place] [address]- 4439 Oct, [facility] [place] [facility] [address] [facility] [id number], [place] [address]- 4094 Oct, [facility] [place] [facility] [address] [facility] [id number], [place] [address]- 5421 Sep, [facility] [place] [facility] [address] [facility] [id number], [place] [address]- 1304 Aug, [facility] [place] [facility] [address] [facility] [id number], [place] [address]- 1209 Jul, [facility] [place] [facility] [address] [facility] [id number], [place] [address]- 1937 May, [facility] [place] [facility] [address] [facility] [id number], [place] [address]- 3659 Mar, [facility] [place] [facility] [address] [id number], [place] [address]- 2854 Mar, [facility] [place] [facility] [address] [facility] [id number], [place] [address]- 4824 Mar, [facility] [place] [facility] [address] [facility] [id number], [place] [address]- 7506 Mar, [facility] [place] [facility] [address] [id number] [place] [address]- 4814 31 Feb, 2011 [facility] [place] [facility] [address] [id number] [place] [address]- 6080 31 Feb, 2011 [facility] [place] [facility] [address] [id number] [place] [address] 2546 06 Feb, 2011 [facility] [place] [facility] [address] [id number] [place] [address]- 7706 06 Jan, 2011 [facility] [place] [facility] [address] [id number] [place] [address]- 4452 10 Dec, 2010 [facility] [place] [facility] [address] [id number] [place] [address]- 9494 14 Jul, 2010 [facility] [place] [facility] [address] [id number] [place] [address]- 2958 June, [facility] [place] [facility] [address] [id number] [place] [address]- 6695 29 Jan, 2010 [facility] [place] [facility] [address] [id number] [place] [address]- 0852 16 Dec, 2009 [facility] [place] [facility] [address] [id number] [place] [address]- 0357 18 Nov, 2009 [facility] [place] [facility] [address] [id number] [place] [address]- 6633 14 Aug, 2009 [facility] [place] [facility] [address] [id number] [place] [address]- 1389 14 Jan, 2009 [facility] [place] [facility] [address] [id number] [place] [address]- 8513 14 Jan, 2009 [facility] [place] [facility] [address] [id number] [place] [address]- 9293 10 Jan, 2009 [facility] [place] [facility] [address] [id number] [place] [address]- 2796 07 Jan, 2009 [facility] [place] [facility] [address] [id number] [place] [address]- 0452 Dec, [facility] [address] [facility] [id number] [place] [address]- 2546 Dec, [facility] [address] [facility] [id number], [place] [address]- 7216 May, IMMUNIZATIONS No Known Immunizations SOCIAL HISTORY Never Assessed REASON FOR VISIT Controlled Med Refill 09/20/2016 PLAN OF CARE VITAL SIGNS MEDICATIONS Medication [...]
--- OUTSIDE RECORDS SUMMARY | 2018-05-01 11:11 | XMS REPORT | Continuity of Care Document ---
Author Author [facility] Address Unknown Phone Unavailable Allergies Active Description Code Type Severity Reaction Onset Reported/Identified Relationship to Patient Clinical Status Yes No Known Drug Allergies [id number] Drug Allergy Unknown N/A 12/25/2013 Medications There is no data. Problems Date Dx Coded Attending Type Code Diagnosis Diagnosed By 11/22/2007 JEZ TOMLINSON APRN 401.1 HYPERTENSION, BENIGN ESSENTIAL 11/22/2007 JEZ TOMLINSON APRN S V58.69 MEDICATION HIGH RISK 11/22/2007 401.1 HYPERTENSION, BENIGN ESSENTIAL 11/22/2007 V58.69 MEDICATION HIGH RISK 11/22/2007 JEZ TOMLINSON APRN S 401.1 HYPERTENSION, BENIGN ESSENTIAL 11/22/2007 UMER TOMLINSON APRNA S V58.69 MEDICATION HIGH RISK 11/22/2007 401.1 HYPERTENSION, BENIGN ESSENTIAL 11/22/2007 V58.69 MEDICATION HIGH RISK 11/22/2007 401.1 HYPERTENSION, BENIGN ESSENTIAL 11/22/2007 V58.69 MEDICATION HIGH RISK 11/22/2007 KATIA JIMÉNEZ LEIGH ANN K 401.1 HYPERTENSION, BENIGN ESSENTIAL 11/22/2007 MONTALVO DO LEIGH ANN K V58.69 MEDICATION HIGH RISK 11/22/2007 KATIA JIMÉNEZ LEIGH ANN K 401.1 HYPERTENSION, BENIGN ESSENTIAL 11/22/2007 MONTALVO DO LEIGH ANN K V58.69 MEDICATION HIGH RISK 11/22/2007 JEZ TOMLINSON APRN S 401.1 HYPERTENSION, BENIGN ESSENTIAL 11/22/2007 UMER TOMLINSON APRNA S V58.69 MEDICATION HIGH RISK 11/22/2007 YANNA GALLARDO MD 401.1 HYPERTENSION, BENIGN ESSENTIAL 11/22/2007 YANNA GALLARDO MD V58.69 MEDICATION HIGH RISK 11/22/2007 MONTALVO DO LEIGH ANN K 401.1 HYPERTENSION, BENIGN ESSENTIAL 11/22/2007 MONTALVO DO LEIGH ANN K V58.69 MEDICATION HIGH RISK 11/22/2007 JEZ TOMLINSON APRN S 401.1 HYPERTENSION, BENIGN ESSENTIAL 11/22/2007 JEZ TOMLINSON APRN S V58.69 MEDICATION HIGH RISK 05/20/2008 JEZ TOMLINSON APRN S 528.9 DISEASES OF THE ORAL SOFT TISSUES (EXCEPT GINGIVA, TONGUE) 05/20/2008 UMER TOMLINSON APRNA S 625.6 FEMALE STRESS INCONTINENCE 05/20/2008 CASI TOMLINSON APRNNDA S 787.91 diarrhea 05/20/2008 UMER TOMLINSON APRNA S V72.3 GYNECOLOGICAL EXAMINATION 05/20/2008 528.9 DISEASES OF THE ORAL SOFT TISSUES (EXCEPT GINGIVA, TONGUE) 05/20/2008 625.6 FEMALE STRESS INCONTINENCE 05/20/2008 787.91 diarrhea 05/20/2008 V72.3 GYNECOLOGICAL EXAMINATION 05/20/2008 JEZ TOMLINSON APRN S 528.9 DISEASES OF THE ORAL SOFT TISSUES (EXCEPT GINGIVA, TONGUE) 05/20/2008 JEZ TOMLINSON APRN S 625.6 FEMALE STRESS INCONTINENCE 05/20/2008 UMER TOMLINSON APRNA S 787.91 diarrhea 05/20/2008 UMER TOMLINSON APRNA S V72.3 GYNECOLOGICAL EXAMINATION 05/20/2008 528.9 DISEASES [...] ORAL SOFT TISSUES (EXCEPT GINGIVA, TONGUE) 05/20/2008 CASI TOMLINSON APRNNDA S 625.6 FEMALE STRESS INCONTINENCE 05/20/2008 CASI TOMLINSON APRNNDA S 787.91 DIARRHEA 05/20/2008 CASI TOMLINSON APRNNDA S V72.3 GYNECOLOGICAL EXAMINATION 05/20/2008 SAMI WOLFE ALI 528.9 DISEASES OF THE ORAL SOFT TISSUES (EXCEPT GINGIVA, TONGUE) 05/20/2008 YANNA GALLARDO MD 625.6 FEMALE STRESS INCONTINENCE 05/20/2008 SAMI WOLFE ALI 787.91 DIARRHEA 05/20/2008 SAMI WOLFE ALI V72.3 GYNECOLOGICAL EXAMINATION 05/20/2008 MONTALVO DO LEIGH ANN K 528.9 DISEASES OF THE ORAL SOFT TISSUES (EXCEPT GINGIVA, TONGUE) 05/20/2008 KATIA JIMÉNEZ LEIGH ANN K 625.6 FEMALE STRESS INCONTINENCE 05/20/2008 MONTALVO DO LEIGH ANN K 787.91 DIARRHEA 05/20/2008 MONTALVO DO LEIGH ANN K V72.3 GYNECOLOGICAL EXAMINATION 05/20/2008 CASI TOMLINSON APRNNDA S 528.9 DISEASES OF THE ORAL SOFT TISSUES (EXCEPT GINGIVA, TONGUE) 05/20/2008 CASI TOMLINSON APRNNDA S 625.6 FEMALE STRESS INCONTINENCE 05/20/2008 CASI TOMLINSON APRNNDA S 787.91 DIARRHEA 05/20/2008 CASI TOMLINSON APRNNDA S V72.3 GYNECOLOGICAL EXAMINATION 06/10/2008 CASI TOMLINSON APRNNDA S 388.30 TINNITUS UNSPECIFIED 06/10/2008 388.30 TINNITUS UNSPECIFIED 06/10/2008 CASI TOMLINSON APRNNDA S 388.30 TINNITUS UNSPECIFIED 06/10/2008 388.30 TINNITUS UNSPECIFIED 06/10/2008 388.30 TINNITUS UNSPECIFIED 06/10/2008 KATIA JIMÉNEZ LEIGH ANN K 388.30 TINNITUS UNSPECIFIED 06/10/2008 FLORECITA MONTALVO DOA K 388.30 TINNITUS UNSPECIFIED 06/10/2008 CASI TOMLINSON APRNNDA S 388.30 TINNITUS UNSPECIFIED 06/10/2008 YANNA GALLARDO MD 388.30 TINNITUS UNSPECIFIED 06/10/2008 MONTALVO DO, LEIGH ANN K 388.30 TINNITUS UNSPECIFIED 06/10/2008 BUSHRA ORTIZ JEZ S 388.30 TINNITUS UNSPECIFIED 02/08/2009 CASI TOMLINSON APRNNDA S 706.2 SEBACEOUS CYST 02/08/2009 CASI TOMLINSON APRNNDA S 729.5 PAIN IN LIMB 02/08/2009 706.2 SEBACEOUS CYST 02/08/2009 729.5 PAIN IN LIMB 02/08/2009 BUSHRA ORTIZ JEZ S 706.2 SEBACEOUS CYST 02/08/2009 CASI TOMLINSON [...] TOMLINSON APRNNDA S 706.2 SEBACEOUS CYST 02/08/2009 BUSHRA ORTIZ JEZ S 729.5 PAIN IN LIMB 02/08/2009 YANNA GALLARDO MD 706.2 SEBACEOUS CYST 02/08/2009 YANNA GALLARDO MD 729.5 PAIN IN LIMB 02/08/2009 MONTALVO DO, LEIGH ANN K 706.2 SEBACEOUS CYST 02/08/2009 MONTALVO DO, LEIGH ANN K 729.5 PAIN IN LIMB 02/08/2009 CASI TOMLINSON APRNNDA S 706.2 SEBACEOUS CYST 02/08/2009 BUSHRA ORTIZ JEZ S 729.5 PAIN IN LIMB 09/08/2009 CASI TOMLINSON APRNNDA S 333.94 RESTLESS LEGS SYNDROME (RLS) 09/08/2009 333.94 RESTLESS LEGS SYNDROME (RLS) 09/08/2009 JEZ TOMLINSON APRN 333.94 RESTLESS LEGS SYNDROME (RLS) 09/08/2009 333.94 [...] OF TOE, UNSPECIFIED 07/05/2010 JEZ TOMLINSON APRN S 461.9 SINUSITIS ACUTE 07/05/2010 JEZ TOMLINSON APRN S 525.9 UNSPECIFIED DISORDER OF THE TEETH AND SUPPORTING STRUCTURES 07/05/2010 CASI TOMLINSON APRNNDA S 787.02 NAUSEA ALONE 07/05/2010 461.9 SINUSITIS ACUTE 07/05/2010 525.9 UNSPECIFIED DISORDER OF THE TEETH AND SUPPORTING STRUCTURES 07/05/2010 787.02 NAUSEA ALONE 07/05/2010 CASI TOMLINSON APRNNDA S 461.9 SINUSITIS ACUTE 07/05/2010 CASI TOMLINSON APRNNDA S 525.9 UNSPECIFIED DISORDER OF THE TEETH AND SUPPORTING STRUCTURES 07/05/2010 JEZ TOMLINSON APRN S 787.02 NAUSEA ALONE 07/05/2010 461.9 SINUSITIS ACUTE 07/05/2010 525.9 UNSPECIFIED DISORDER OF THE TEETH AND SUPPORTING STRUCTURES 07/05/2010 787.02 NAUSEA ALONE 07/05/2010 461.9 SINUSITIS ACUTE 07/05/2010 525.9 UNSPECIFIED DISORDER OF THE TEETH AND SUPPORTING STRUCTURES 07/05/2010 787.02 NAUSEA ALONE 07/05/2010 LEIGH ANN MONTALVO DO K 461.9 SINUSITIS ACUTE 07/05/2010 LEIGH ANN MONTALVO DO K 525.9 UNSPECIFIED DISORDER OF THE TEETH AND SUPPORTING STRUCTURES 07/05/2010 FLORECITA MONTALVO DOA K 787.02 NAUSEA ALONE 07/05/2010 FLORECITA MONTALVO DOA K 461.9 SINUSITIS ACUTE 07/05/2010 LEIGH ANN MONTALVO DO K 525.9 UNSPECIFIED DISORDER OF THE TEETH AND SUPPORTING STRUCTURES 07/05/2010 FLORECITA MONTALVO DOA K 787.02 NAUSEA ALONE 07/05/2010 CASI TOMLINSON APRNNDA S 461.9 SINUSITIS ACUTE 07/05/2010 JEZ TOMLINSON APRN S 525.9 UNSPECIFIED DISORDER OF THE TEETH AND SUPPORTING STRUCTURES 07/05/2010 UMER TOMLINSON APRNA S 787.02 NAUSEA ALONE 07/05/2010 YANNA GALLARDO MD 461.9 SINUSITIS ACUTE 07/05/2010 YANNA GALLARDO MD 525.9 UNSPECIFIED DISORDER OF THE TEETH AND SUPPORTING STRUCTURES 07/05/2010 YANNA GALLARDO MD 787.02 NAUSEA ALONE 07/05/2010 KATIA JIMÉNEZ LEIGH ANN K 461.9 SINUSITIS ACUTE 07/05/2010 FLORECITA MONTALVO DOA K 525.9 UNSPECIFIED DISORDER OF THE TEETH AND SUPPORTING STRUCTURES 07/05/2010 FLORECITA MONTALVO DOA K 787.02 NAUSEA ALONE 07/05/2010 JEZ TOMLINSON APRN S 461.9 SINUSITIS ACUTE 07/05/2010 JEZ TOMLINSON APRN S 525.9 UNSPECIFIED DISORDER OF THE TEETH AND SUPPORTING STRUCTURES 07/05/2010 JEZ TOMLINSON APRN S 787.02 NAUSEA ALONE 08/09/2010 UMER TOMLINSON APRNA S 305.1 current smoker 08/09/2010 JEZ TOMLINSON APRN S 382.00 OTITIS MEDIA ACUTE SUPPURATIVE RIGHT EAR 08/09/2010 305.1 current smoker 08/09/2010 382.00 OTITIS MEDIA ACUTE SUPPURATIVE RIGHT EAR 08/09/2010 JEZ TOMLINSON APRN S 305.1 current smoker 08/09/2010 JEZ TOMLINSON APRN S 382.00 OTITIS MEDIA ACUTE SUPPURATIVE RIGHT EAR 08/09/2010 305.1 current smoker 08/09/2010 382.00 OTITIS MEDIA ACUTE SUPPURATIVE RIGHT EAR 08/09/2010 305.1 current smoker 08/09/2010 382.00 OTITIS MEDIA ACUTE SUPPURATIVE RIGHT EAR 08/09/2010 FLORECITA MONTALVO DOA K 305.1 current smoker 08/09/2010 MONTALVO DO LEIGH ANN K 382.00 OTITIS MEDIA ACUTE SUPPURATIVE RIGHT EAR 08/09/2010 KATIA JIMÉNEZ LEIGH ANN K 305.1 current smoker 08/09/2010 KATIA JIMÉNEZ LEIGH ANN K 382.00 OTITIS MEDIA ACUTE SUPPURATIVE RIGHT EAR 08/09/2010 JEZ TOMLINSON APRN S 305.1 current smoker 08/09/2010 JEZ TOMLINSON APRN S 382.00 OTITIS MEDIA ACUTE SUPPURATIVE RIGHT EAR 08/09/2010 YANNA GALLARDO MD 305.1 current smoker 08/09/2010 YANNA GALLARDO MD 382.00 OTITIS MEDIA ACUTE SUPPURATIVE RIGHT EAR 08/09/2010 KATIA JIMÉNEZ LEIGH ANN K 305.1 current smoker 08/09/2010 KATIA JIMÉNEZ LEIGH ANN K 382.00 OTITIS MEDIA ACUTE SUPPURATIVE RIGHT EAR 08/09/2010 JEZ TOMLINSON APRN S 305.1 current smoker 08/09/2010 JEZ TOMLINSON APRN S 382.00 OTITIS MEDIA ACUTE SUPPURATIVE RIGHT EAR 03/28/2011 BUSHRA FOOD CRITIC, JEZ S 300.00 anxiety 03/28/2011 BUSHRA ORTIZ, JEZ S 530.81 ESOPHAGEAL REFLUX 03/28/2011 300.00 anxiety 03/28/2011 530.81 ESOPHAGEAL REFLUX 03/28/2011 BUSHRA ORTIZ JEZ S 300.00 anxiety 03/28/2011 BUSHRA ORTIZ JEZ S 530.81 ESOPHAGEAL REFLUX 03/28/2011 300.00 anxiety 03/28/2011 530.81 ESOPHAGEAL REFLUX 03/28/2011 300.00 anxiety 03/28/2011 530.81 ESOPHAGEAL REFLUX 03/28/2011 MONTALVO DO, LEIGH ANN K 300.00 anxiety 03/28/2011 MONTALVO DO, LEIGH ANN K 530.81 ESOPHAGEAL REFLUX 03/28/2011 MONTALVO DO, LEIGH ANN K 300.00 anxiety 03/28/2011 MONTALVO DO, LEIGH ANN K 530.81 ESOPHAGEAL REFLUX 03/28/2011 BUSHRA ORTIZ JEZ S 300.00 anxiety 03/28/2011 BUSHRA ORTIZ JEZ S 530.81 ESOPHAGEAL REFLUX 03/28/2011 YANNA GALLARDO MD 300.00 anxiety 03/28/2011 YANNA GALLARDO MD 530.81 ESOPHAGEAL REFLUX 03/28/2011 MONTALVO DO, LEIGH ANN K 300.00 anxiety 03/28/2011 MONTALVO DO, LEIGH ANN K 530.81 ESOPHAGEAL REFLUX 03/28/2011 BUSHRA ORTIZ JEZ S 300.00 anxiety 03/28/2011 CASI TOMLINSON APRNNDA S 530.81 ESOPHAGEAL REFLUX 11/02/2011 CASI TOMLINSON APRNNDA S 702.19 OTHER SEBORRHEIC KERATOSIS 11/02/2011 702.19 OTHER SEBORRHEIC KERATOSIS 11/02/2011 UMER TOMLINSON APRNA S 702.19 OTHER SEBORRHEIC KERATOSIS 11/02/2011 702.19 OTHER SEBORRHEIC KERATOSIS 11/02/2011 702.19 OTHER SEBORRHEIC KERATOSIS 11/02/2011 MONTALVO DO, LEIGH ANN K 702.19 OTHER SEBORRHEIC KERATOSIS 11/02/2011 MONTALVO DO, LEIGH ANN K 702.19 OTHER SEBORRHEIC KERATOSIS 11/02/2011 UMER TOMLINSON APRNA S 702.19 OTHER SEBORRHEIC KERATOSIS 11/02/2011 SAMI WOLFE, ALI 702.19 OTHER SEBORRHEIC KERATOSIS 11/02/2011 KATIA JIMÉNEZ LEIGH ANN K 702.19 OTHER SEBORRHEIC KERATOSIS 11/02/2011 BUSHRA ORTIZ JEZ S 702.19 OTHER SEBORRHEIC KERATOSIS 04/09/2012 [facility] [employer] CRITIC, JEZ S 682.9 CELLULITIS AND ABSCESS OF UNSPECIFIED SITES 04/09/2012 BUSHRA ORTIZ JEZ S 728.71 PLANTAR FASCIAL FIBROMATOSIS 04/09/2012 [...] K 728.71 PLANTAR FASCIAL FIBROMATOSIS 04/09/2012 B[facility]RA FOOD CRITIC, JEZ S 682.9 CELLULITIS AND ABSCESS OF UNSPECIFIED SITES 04/09/2012 BUSHRA ORTIZ JEZ S 728.71 PLANTAR FASCIAL FIBROMATOSIS 04/09/2012 SAMI WOLFE, ALI 682.9 CELLULITIS AND ABSCESS OF UNSPECIFIED SITES 04/09/2012 SAMI WOLFE, ALI 728.71 PLANTAR FASCIAL FIBROMATOSIS 04/09/2012 KATIA JIMÉNEZ LEIGH ANN K 682.9 CELLULITIS AND ABSCESS OF UNSPECIFIED SITES 04/09/2012 KATIA JIMÉNEZ LEIGH ANN K 728.71 PLANTAR FASCIAL FIBROMATOSIS 04/09/2012 B[facility]RA FOOD CRITIC, JEZ S 682.9 CELLULITIS AND ABSCESS OF UNSPECIFIED SITES 04/09/2012 BUSHRA ORTIZ JEZ S 728.71 PLANTAR FASCIAL FIBROMATOSIS 04/10/2013 LEIGH ANN MONTALVO DO K 388.70 OTALGIA 04/10/2013 FLORECITA MONTALVO DOA K 696.1 PSORIASIS 04/10/2013 LEIGH ANN MONTALVO DO K V73.81 HPV SCREENING 04/10/2013 MONTALVO DO, LEIGH ANN K V76.10 BREAST CANCER SCREENING 04/10/2013 MONTALVO , LEIGH ANN K V76.2 CERVICAL CANCER SCREENING (PAP SMEAR) 04/10/2013 KATIA JIMÉNEZ, LEIGH ANN K 388.70 OTALGIA 04/10/2013 MONTALVO DO, LEIGH ANN K 696.1 PSORIASIS 04/10/2013 MONTALVO , LEIGH ANN K V73.81 HPV SCREENING 04/10/2013 KATIA JIMÉNEZ, LEIGH ANN K V76.10 BREAST CANCER SCREENING 04/10/2013 KATIA JIMÉNEZ, LEIGH ANN K V76.2 CERVICAL CANCER SCREENING (PAP SMEAR) 04/10/2013 CASI TOMLINSON APRNNDA S 388.70 OTALGIA 04/10/2013 BUSHRA ORTIZ JEZ S 696.1 PSORIASIS 04/10/2013 CASI TOMLINSON APRNNDA S V73.81 HPV SCREENING 04/10/2013 CASI TOMLINSON APRNNDA S V76.10 BREAST CANCER SCREENING 04/10/2013 CASI TOMLINSON APRNNDA S V76.2 CERVICAL CANCER SCREENING (PAP SMEAR) 04/10/2013 SAMI WOLFE, ALI 388.70 OTALGIA 04/10/2013 SAMI WOLFE, YANNA 696.1 PSORIASIS 04/10/2013 YANNA GALLARDO MD V73.81 HPV SCREENING 04/10/2013 YANNA GALLARDO MD V76.10 BREAST CANCER SCREENING 04/10/2013 SAMI WOLFE, YANNA V76.2 CERVICAL CANCER SCREENING (PAP SMEAR) 04/10/2013 KATIA JIMÉNEZ, LEIGH ANN K 388.70 OTALGIA 04/10/2013 KATIA JIMÉNEZ, LEIGH ANN K 696.1 PSORIASIS 04/10/2013 KATIA JIMÉNEZ, LEIGH ANN K V73.81 HPV SCREENING 04/10/2013 KATIA JIMÉNEZ, LEIGH ANN K V76.10 BREAST CANCER SCREENING 04/10/2013 KATIA JIMÉNEZ, LEIGH ANN K V76.2 CERVICAL CANCER SCREENING (PAP SMEAR) 04/10/2013 BUSHRA ORTIZ JEZ S 388.70 OTALGIA 04/10/2013 BUSHRA ORTIZ JEZ S 696.1 PSORIASIS 04/10/2013 [facility] FOOD CRITIC, JEZ S V73.81 HPV SCREENING 04/10/2013 CASI TOMLINSON APRNNDA S V76.10 BREAST CANCER SCREENING 04/10/2013 CASI TOMLINSON APRNNDA S V76.2 CERVICAL CANCER SCREENING (PAP SMEAR) 10/22/2013 KATIA DO LEIGH ANN K 307.81 TENSION HEADACHE 10/22/2013 KATIA JIMÉNEZ LEIGH ANN K 704.00 ALOPECIA UNSPECIFIED 10/22/2013 KATIA JIMÉNEZ LEIGH ANN K 786.50 CHEST PAIN 10/22/2013 KATIA JIMÉNEZ LEIGH ANN K V18.0 FAMILY HISTORY OF DIABETES MELLITUS 10/22/2013 CASI TOMLINSON APRNNDA S 307.81 TENSION HEADACHE 10/22/2013 CASI TOMLINSON APRNNDA S 704.00 ALOPECIA UNSPECIFIED 10/22/2013 CASI TOMLINSON APRNNDA S 786.50 CHEST PAIN 10/22/2013 BUSHRA ORTIZ JEZ S V18.0 FAMILY HISTORY OF DIABETES MELLITUS 10/22/2013 YANNA GALLARDO MD 307.81 TENSION HEADACHE 10/22/2013 YANNA GALLARDO MD 704.00 ALOPECIA UNSPECIFIED 10/22/2013 YANNA GALLARDO MD 786.50 CHEST PAIN 10/22/2013 YANNA GALLARDO MD V18.0 FAMILY HISTORY OF DIABETES MELLITUS 10/22/2013 [...] TOMLINSON APRNNDA S V15.82 NICOTINE ABUSE 11/05/2013 YANNA GALLARDO MD 278.02 OVERWEIGHT 11/05/2013 YANNA GALLARDO MD 307.42 INSOMNIA, PSYCHOPHYSIOLOGICAL 11/05/2013 YANNA GALLARDO MD 729.5 PAIN- LEG 11/05/2013 YANNA GALLARDO MD V15.82 NICOTINE ABUSE 11/05/2013 KATIA JIMÉNEZFLORECITAA K 278.02 OVERWEIGHT 11/05/2013 KATIA JIMÉNEZ LEIGH ANN K 307.42 INSOMNIA, PSYCHOPHYSIOLOGICAL 11/05/2013 KATIA JIMÉNEZFLORECITAA K 729.5 PAIN- LEG 11/05/2013 KATIA JIMÉNEZ LEIGH ANN K V15.82 NICOTINE ABUSE 11/05/2013 BUSHRA ORTIZ JEZ S 278.02 OVERWEIGHT 11/05/2013 CASI TOMLINSON APRNNDA S 307.42 INSOMNIA, PSYCHOPHYSIOLOGICAL 11/05/2013 CASI TOMLINSON APRNNDA S 729.5 PAIN- LEG 11/05/2013 CASI TOMLINSON APRNNDA S V15.82 NICOTINE ABUSE 12/10/2013 YANNA GALLARDO MD 785.1 PALPITATIONS 12/10/2013 YANNA GALLARDO MD 786.09 DYSPNEA 12/10/2013 KATIA JIMÉNEZLEIGH ANN K 785.1 PALPITATIONS 12/10/2013 KATIA JIMÉNEZFLORECITAA K 786.09 DYSPNEA 12/10/2013 BUSHRA FOOD CRITICCASI HillNDA S 785.1 PALPITATIONS 12/10/2013 CASI TOMLINSON APRNNDA S 786.09 DYSPNEA 01/13/2014 SAMI WOLFE FACC, YANNA FACP CCDS Ot 278.00 OBESITY, NOS 01/13/2014 SAMI WOLFE FACC, ALI FACP CCDS Ot 305.1 TOBACCO USE DISORDER 01/13/2014 SAMI WOLFE FACC, YANNA FACP CCDS Ot 785.1 PALPITATIONS 01/13/2014 SAMI WOLFE FACC, YANNA FACP CCDS Ot 786.09 RESPIRATORY ABNORM NEC 01/13/2014 SAMI WOLFE FACC, ALI FACP CCDS Ot 786.59 CHEST PAIN NEC 01/13/2014 SAMI WOLFE FACC, YANNA FACP CCDS Ot 794.30 ABN CARDIOVASC STUDY NOS 01/13/2014 SAMI WOLFE FACC, YANNA FACP CCDS Ot V17.3 FAM HX-ISCHEM HEART DIS 01/13/2014 YANNA GALLARDO MD, FACC FACP CCDS Ot V58.69 OTH MED,LT,CURRENT USE 01/13/2014 SAMI WOLFE FACC, ALI FACP CCDS Ot V85.41 BODY MASS INDEX 40.0-44.9, ADULT 02/23/2014 JEZ TOMLINSON APRN S 627.2 HOT FLASHES 02/23/2014 JEZ TOMLINSON APRN S 789.03 ABDOMINAL PAIN RIGHT LOWER QUADRANT 03/10/2014 JEZ TOMLINSON DREDGEMASTER Ot 789.03 03/10/2014 JEZ TOMLINSON DREDGEMASTER Ot 789.03 10/20/2015 GERMAINE MOTA Ot V76.12 OTH SCREEN MAMMO-MALIGN NEOPLASM OF KRISTIN 10/20/2015 SAMI WOLFE FACC, YANNA FACP CCDS Ot 785.1 PALPITATIONS 10/20/2015 SAMI WOLFE FACC, YANNA FACP CCDS Ot 786.09 RESPIRATORY ABNORM NEC 10/20/2015 SAMI WOLFE FACC, ALI FACP CCDS Ot 785.1 PALPITATIONS 10/20/2015 SAMI WOLFE FACC, ALI FACP CCDS Ot 786.09 RESPIRATORY ABNORM NEC 10/20/2015 JEZ TOMLINSON DREDGEMASTER Ot 789.03 ABDOMINAL PAIN, RIGHT LOWER QUADRANT 10/20/2015 JEZ TOMLINSON DREDGEMASTER Ot 789.03 ABDOMINAL PAIN, RIGHT LOWER QUADRANT 10/20/2015 JEZ TOMLINSON DREDGEMASTER Ot R10.31 RIGHT LOWER QUADRANT PAIN 10/22/2015 ALMEIDAYENNY GRISSOM DO D Ot R19.7 DIARRHEA, UNSPECIFIED 10/22/2015 ALMEIDAYENNY GRISSOM DO D Ot Z01.818 ENCOUNTER FOR OTHER PREPROCEDURAL EXAMIN 10/25/2015 ALMEIDACASI GRISSOM DOTT D Ot R19.7 DIARRHEA, UNSPECIFIED 10/25/2015 ALMEIDA CASI JIMÉNEZTT D Ot Z01.818 ENCOUNTER FOR OTHER PREPROCEDURAL EXAMIN 10/26/2015 GERMAINE MOTA Ot V76.12 OTH SCREEN MAMMO-MALIGN NEOPLASM OF KRISTIN 10/26/2015 SAMI WOLFE FACC, ALI FACP CCDS Ot 785.1 PALPITATIONS 10/26/2015 SAMI WOLFE FACC, ALI FACP CCDS Ot 786.09 RESPIRATORY ABNORM NEC 10/26/2015 SAMI WOLFE FACC, ALI FACP CCDS Ot 785.1 PALPITATIONS 10/26/2015 [facility] CCD[facility] Ot 786.09 RESPIRATORY ABNORM NEC 10/26/2015 JEZ TOMLINSON DREDGEMASTER Ot 789.03 ABDOMINAL PAIN, RIGHT LOWER QUADRANT 10/26/2015 JEZ TOMLINSON DREDGEMASTER Ot 789.03 ABDOMINAL PAIN, RIGHT LOWER QUADRANT 10/26/2015 JEZ TOMLINSON DREDGEMASTER Ot R10.31 RIGHT LOWER QUADRANT PAIN 10/26/2015 GERMAINE MOTA Ot V76.12 OT SCREEN MAMMO-MALIGN NEOPLASM OF KRISTIN 10/26/2015 SAMI WOLFE [facility] CCDS Ot 785.1 PALPITATIONS 10/26/2015 SAMI WOLFE [facility], ALI FACP CCDS Ot 786.09 RESPIRATORY ABNORM NEC 10/26/2015 SAMI WOLFE [facility], ALI FACP CCDS Ot 785.1 PALPITATIONS 10/26/2015 SAMI WOLFE [facility], [facility] Ot 786.09 RESPIRATORY ABNORM NEC 10/26/2015 JEZ TOMLINSON DREDGEMASTER Ot 789.03 ABDOMINAL PAIN, RIGHT LOWER QUADRANT 10/26/2015 JEZ TOMLINSON DREDGEMASTER Ot 789.03 ABDOMINAL PAIN, RIGHT LOWER QUADRANT 10/26/2015 JEZ TOMLINSON Ot R10.31 RIGHT LOWER QUADRANT PAIN 10/26/2015 JEZ TOMLINSON DREDGEMASTER Ot 789.03 ABDOMINAL PAIN, RIGHT LOWER QUADRANT [...] NONINFECTIVE GASTROENTERITIS AND COLITIS 11/08/2015 ALMEIDA YENNY Ot K62.1 RECTAL POLYP 11/08/2015 [place] YENNY Ot K63.5 POLYP OF COLON 02/25/2016 [...] 786.09 RESPIRATORY ABNORM NEC 02/25/2016 JEZ TOMLINSON DREDGEMASTER Ot 789.03 ABDOMINAL PAIN, RIGHT LOWER QUADRANT 02/25/2016 JEZ TOMLINSON DREDGEMASTER Ot 789.03 ABDOMINAL PAIN, RIGHT LOWER QUADRANT 02/25/2016 JEZ TOMLINSON DREDGEMASTER Ot R10.31 RIGHT LOWER QUADRANT PAIN 02/25/2016 BUSHRAJEZ NOVOA DREDGEMASTER Ot R10.31 RIGHT LOWER QUADRANT PAIN 02/25/2016 JEZ TOMLINSON DREDGEMASTER Ot 789.03 ABDOMINAL PAIN, RIGHT LOWER QUADRANT 11/02/2016 GERMAINE MOTA Ot V76.12 OTH SCREEN MAMMO-MALIGN NEOPLASM OF KRISTIN 11/02/2016 SAMI WOLFE FACC, YANNA FACP CCDS Ot 785.1 PALPITATIONS 11/02/2016 SAMI WOLFE FACC, ALI FACP CCDS Ot 786.09 RESPIRATORY ABNORM NEC 11/02/2016 SAMI WOLFE FACC, ALI FACP CCDS Ot 785.1 PALPITATIONS 11/02/2016 SAMI WOLFE FACC, ALI FACP CCDS Ot 786.09 RESPIRATORY ABNORM NEC 11/02/2016 JEZ TOMLINSON DREDGEMASTER Ot 789.03 ABDOMINAL PAIN, RIGHT LOWER QUADRANT 11/02/2016 JEZ TOMLINSON Ot 789.03 ABDOMINAL PAIN, RIGHT LOWER QUADRANT 11/02/2016 JEZ TOMLINSON Ot R10.31 RIGHT LOWER QUADRANT PAIN 11/16/2016 YENNY ALMEIDA DO Ot Z01.818 ENCOUNTER FOR OTHER PREPROCEDURAL EXAMIN 11/16/2016 YENNY ALMEIDA DO Ot Z86.010 PERSONAL HISTORY OF COLONIC POLYPS 11/21/2016 YENNY ALMEIDA DO Ot E66.01 MORBID (SEVERE) OBESITY DUE TO EXCESS CA 11/21/2016 YENNY ALMEIDA DO Ot F17.210 NICOTINE DEPENDENCE, CIGARETTES, UNCOMPL 11/21/2016 YENNY ALMEIDA DO Ot I10 ESSENTIAL (PRIMARY) HYPERTENSION 11/21/2016 YENNY ALMEIDA DO Ot K62.1 RECTAL POLYP 11/21/2016 YENNY ALMEIDA DO Ot Z09 ENCNTR FOR F/U EXAM AFT TRTMT FOR COND O 11/21/2016 YENNY ALMEIDA DO Ot Z68.41 BODY MASS INDEX (BMI) 40.0-44.9, ADULT 11/21/2016 YENNY ALMEIDA DO Ot 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 11/21/2016 YENNY ALMEIDA DO Ot Z86.010 PERSONAL HISTORY OF COLONIC POLYPS 06/22/2017 JEZ TOMLINSON Ot Z12.31 ENCNTR SCREEN MAMMOGRAM FOR MALIGNANT NE 11/20/2017 GERMAINE MOTA Ot V76.12 OTH SCREEN MAMMO-MALIGN NEOPLASM OF [place] 11/20/2017 SAMI WOLFE FACC, ALI FACP CCDS Ot 785.1 PALPITATIONS 11/20/2017 SAMI WOLFE FACC, ALI FACP CCDS Ot 786.09 RESPIRATORY ABNORM NEC 11/20/2017 SAMI WOLFE FACC, ALI FACP CCDS Ot 785.1 PALPITATIONS 11/20/2017 SAMI WOLFE FACJack, ALI FACP CCDS Ot 786.09 RESPIRATORY ABNORM NEC 11/20/2017 JEZ TOMLINSON DREDGEMASTER Ot 789.03 ABDOMINAL PAIN, RIGHT LOWER QUADRANT 11/20/2017 JEZ TOMLINSON Ot 789.03 ABDOMINAL PAIN, RIGHT LOWER QUADRANT 11/20/2017 BUSHRA, JEZ DREDGEMASTER Ot R10.31 RIGHT LOWER QUADRANT PAIN 11/20/2017 JEZ TOMLINSON DREDGEMASTER Ot Z12.31 ENCNTR SCREEN MAMMOGRAM FOR MALIGNANT NE 11/22/2017 BAIMA, EVELIA L DREDGEMASTER Ot I10 ESSENTIAL (PRIMARY) HYPERTENSION 11/22/2017 BAIMA, EVELIA L DREDGEMASTER Ot 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 11/22/2017 BAIMA, EVELIA L DREDGEMASTER Ot I34.0 NONRHEUMATIC MITRAL (VALVE) INSUFFICIENC 11/22/2017 BAIMA, EVELIA L DREDGEMASTER Ot I73.9 PERIPHERAL VASCULAR DISEASE, UNSPECIFIED 11/22/2017 BAIMA, EVELIA L DREDGEMASTER Ot R06.09 OTHER FORMS OF DYSPNEA 11/22/2017 BAIMA, EVELIA L DREDGEMASTER Ot R29.818 OTHER SYMPTOMS AND SIGNS INVOLVING THE N 11/22/2017 BAIMA, EVELIA L DREDGEMASTER Ot Z72.0 TOBACCO USE 12/08/2017 BAIMA, EVELIA L DREDGEMASTER Ot I10 ESSENTIAL (PRIMARY) HYPERTENSION 12/08/2017 BAIMA, EVELIA L DREDGEMASTER Ot 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 12/08/2017 BAIMA, EVELIA L DREDGEMASTER Ot I34.0 NONRHEUMATIC MITRAL (VALVE) INSUFFICIENC 12/08/2017 BAIMA, EVELIA L DREDGEMASTER Ot R06.09 OTHER FORMS OF DYSPNEA 12/08/2017 BAIMA, EVELIA L DREDGEMASTER Ot Z72.0 TOBACCO USE 12/10/2017 BAIMA, EVELIA L DREDGEMASTER Ot I10 ESSENTIAL (PRIMARY) HYPERTENSION 12/10/2017 BAIMA, EVELIA L DREDGEMASTER Ot 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 12/10/2017 BAIMA, EVELIA L DREDGEMASTER Ot I34.0 NONRHEUMATIC MITRAL (VALVE) INSUFFICIENC 12/10/2017 BAIMA, EVELIA L DREDGEMASTER Ot I73.9 PERIPHERAL VASCULAR DISEASE, UNSPECIFIED 12/10/2017 BAIMA, EVELIA L DREDGEMASTER Ot R06.09 OTHER FORMS OF DYSPNEA 12/10/2017 BAIMA, EVELIA L DREDGEMASTER Ot R29.818 OTHER SYMPTOMS AND SIGNS INVOLVING THE N 12/10/2017 BAIMA, EVELIA L DREDGEMASTER Ot Z72.0 TOBACCO USE 12/10/2017 BAIMA, EVELIA L DREDGEMASTER Ot I10 ESSENTIAL (PRIMARY) HYPERTENSION 12/10/2017 DEBBIEMARIA DE JESUS, EVELIA L DREDGEMASTER Ot 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 12/10/2017 BAILOU PRETTYHER L DREDGEMASTER Ot I34.0 NONRHEUMATIC MITRAL (VALVE) INSUFFICIENC 12/10/2017 BAIMA, EVELIA L DREDGEMASTER Ot I73.9 PERIPHERAL VASCULAR DISEASE, UNSPECIFIED 12/10/2017 BAIMA EVELIA L DREDGEMASTER Ot R06.09 OTHER FORMS OF DYSPNEA 12/10/2017 DEBBIEMARIA DE JESUS EVELIA L DREDGEMASTER Ot R29.818 OTHER SYMPTOMS AND SIGNS INVOLVING THE N 12/10/2017 GÓMEZEVELIA L DREDGEMASTER Ot Z72.0 TOBACCO USE 12/12/2017 GERMAINE MOTA Ot V76.12 OTH SCREEN MAMMO-MALIGN NEOPLASM OF [place] 12/12/2017 SAMI WOLFE FACC, ALI FACP CCDS Ot 785.1 PALPITATIONS 12/12/2017 SAMI WOLFE FACC, ALI FACP CCDS Ot 786.09 RESPIRATORY ABNORM NEC 12/12/2017 SAMI WOLFE FACC, ALI FACP CCDS Ot 785.1 PALPITATIONS 12/12/2017 SAMI MD FACC, ALI FACP CCDS Ot 786.09 RESPIRATORY ABNORM NEC 12/12/2017 JEZ TOMLINSON DREDGEMASTER Ot 789.03 ABDOMINAL PAIN, RIGHT LOWER QUADRANT 12/12/2017 JEZ TOMLINSON DREDGEMASTER Ot 789.03 ABDOMINAL PAIN, RIGHT LOWER QUADRANT 12/12/2017 JEZ TOMLINSON DREDGEMASTER Ot R10.31 RIGHT LOWER QUADRANT PAIN 12/12/2017 JEZ TOMLINSON DREDGEMASTER Ot Z12.31 ENCNTR SCREEN MAMMOGRAM FOR MALIGNANT NE 12/12/2017 GÓMEZ EVELIA L DREDGEMASTER Ot I10 ESSENTIAL (PRIMARY) HYPERTENSION 12/12/2017 GÓMEZ EVELIA L DREDGEMASTER Ot 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 12/12/2017 DEBBIELOU PRETTYHER L DREDGEMASTER Ot I34.0 NONRHEUMATIC MITRAL (VALVE) INSUFFICIENC 12/12/2017 GÓMEZ EVELIA L DREDGEMASTER Ot I73.9 PERIPHERAL VASCULAR DISEASE, UNSPECIFIED 12/12/2017 BAIMA, EVELIA L DREDGEMASTER Ot R06.09 OTHER FORMS OF DYSPNEA 12/12/2017 BAIMA, EVELIA L DREDGEMASTER Ot R29.818 OTHER SYMPTOMS AND SIGNS INVOLVING THE N 12/12/2017 BAIMA, EVELIA L DREDGEMASTER Ot Z72.0 TOBACCO USE 12/12/2017 BAIMA, EVELIA L DREDGEMASTER Ot I10 ESSENTIAL (PRIMARY) HYPERTENSION 12/12/2017 BAIMA, EVELIA L DREDGEMASTER Ot 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 12/12/2017 BAIMA, EVELIA L DREDGEMASTER Ot I34.0 NONRHEUMATIC MITRAL (VALVE) INSUFFICIENC 12/12/2017 BAIMA, EVELIA L DREDGEMASTER Ot R06.09 OTHER FORMS OF DYSPNEA 12/12/2017 BAIMA, EVELIA L DREDGEMASTER Ot Z72.0 TOBACCO USE 12/12/2017 BAIMA, EVELIA L DREDGEMASTER Ot I10 ESSENTIAL (PRIMARY) HYPERTENSION 12/12/2017 BAIMA, EVELIA L DREDGEMASTER Ot 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 12/12/2017 BAIMA, EVELIA L DREDGEMASTER Ot I34.0 NONRHEUMATIC MITRAL (VALVE) INSUFFICIENC 12/12/2017 BAIMA, EVELIA L DREDGEMASTER Ot R06.09 OTHER FORMS OF DYSPNEA 12/12/2017 BAIMA, EVELIA L DREDGEMASTER Ot Z72.0 TOBACCO USE 12/26/2017 DARREN MEHTA E FOOD CRITIC Ot G47.00 INSOMNIA, UNSPECIFIED 12/26/2017 JANINE DARREN E FOOD CRITIC Ot G47.10 HYPERSOMNIA, UNSPECIFIED 12/26/2017 JANINE DARREN E FOOD CRITIC Ot G47.33 OBSTRUCTIVE SLEEP APNEA (ADULT) (PEDIATR 12/26/2017 JANINE DARRNE E FOOD CRITIC Ot G47.50 PARASOMNIA, UNSPECIFIED 12/27/2017 JANINE DARREN E FOOD CRITIC Ot G47.00 INSOMNIA, UNSPECIFIED 12/27/2017 JANINE DARREN E FOOD CRITIC Ot G47.10 HYPERSOMNIA, UNSPECIFIED 12/27/2017 JANINE DARREN E FOOD CRITIC Ot G47.33 OBSTRUCTIVE SLEEP APNEA (ADULT) (PEDIATR 12/27/2017 DOROTHY MEHTAINE E FOOD CRITIC Ot G47.50 PARASOMNIA, UNSPECIFIED 02/04/2018 BAIMA, EVELIA L DREDGEMASTER Ot I10 ESSENTIAL (PRIMARY) HYPERTENSION 02/04/2018 ÓGMEZEVELIA DREDGEMASTER Ot 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 02/04/2018 EVELIA MAGAÑA Sameera DREDGEMASTER Ot I34.0 NONRHEUMATIC MITRAL (VALVE) INSUFFICIENC 02/04/2018 DEBBIEMARIA DE JESUS EVELIA L DREDGEMASTER Ot R06.09 OTHER FORMS OF DYSPNEA 02/04/2018 EVELIA MAGAÑA DREDGEMASTER Ot Z72.0 TOBACCO USE 02/04/2018 JANINEDARREN PRECIADO FOOD CRITIC Ot R06.02 SHORTNESS OF BREATH 02/04/2018 JANINEDOROTHY PRECIADOINE Quin FOOD CRITIC Ot R16.1 SPLENOMEGALY, NOT ELSEWHERE CLASSIFIED 02/04/2018 JANINEDARREN PRECIADO FOOD CRITIC Ot Z72.0 TOBACCO USE 02/05/2018 JANINEDARREN PRECIADO FOOD CRITIC Ot R06.02 SHORTNESS OF BREATH 02/05/2018 JANINEDARREN PRECIADO FOOD CRITIC Ot R16.1 SPLENOMEGALY, NOT ELSEWHERE CLASSIFIED 02/05/2018 JANINEDOROTHY PRECIADOINE Quin FOOD CRITIC Ot Z72.0 TOBACCO USE 02/05/2018 JACOBY GRANADOS, GERMAINE [place] Ot V76.12 OTH SCREEN MAMMO-MALIGN NEOPLASM OF KRISTIN 02/05/2018 SAMI WOLFE FACC, ALI FACP CCDS Ot 785.1 PALPITATIONS 02/05/2018 SAMI WOLFE FACC, ALI FACP CCDS Ot 786.09 RESPIRATORY ABNORM NEC 02/05/2018 SAMI WOLFE FACC, ALI FACP CCDS Ot 785.1 PALPITATIONS 02/05/2018 SAMI WOLFE FACC, ALI FACP CCDS Ot 786.09 RESPIRATORY ABNORM NEC 02/05/2018 JEZ TOMLINSON DREDGEMASTER Ot 789.03 ABDOMINAL PAIN, RIGHT LOWER QUADRANT 02/05/2018 JEZ TOMLINSON DREDGEMASTER Ot 789.03 ABDOMINAL PAIN, RIGHT LOWER QUADRANT 02/05/2018 JEZ TOMLINSON DREDGEMASTER Ot R10.31 RIGHT LOWER QUADRANT PAIN 02/05/2018 JEZ TOMLINSON DREDGEMASTER Ot Z12.31 ENCNTR SCREEN MAMMOGRAM FOR MALIGNANT NE 02/05/2018 EVELIA MAGAÑA DREDGEMASTER Ot I10 ESSENTIAL (PRIMARY) HYPERTENSION 02/05/2018 GÓMEZ EVELIA Sameera DREDGEMASTER Ot 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 02/05/2018 BAIMAEVELIA L DREDGEMASTER Ot I34.0 NONRHEUMATIC MITRAL (VALVE) INSUFFICIENC 02/05/2018 BAIMA EVELIA L DREDGEMASTER Ot I73.9 PERIPHERAL VASCULAR DISEASE, UNSPECIFIED 02/05/2018 BAIMARIA DE JESUS EVELIA L DREDGEMASTER Ot R06.09 OTHER FORMS OF DYSPNEA 02/05/2018 BAIMA, EVELIA L DREDGEMASTER Ot R29.818 OTHER SYMPTOMS AND SIGNS INVOLVING THE N 02/05/2018 BAIMA EVELIA L DREDGEMASTER Ot Z72.0 TOBACCO USE 02/05/2018 BAIMA, EVELIA L DREDGEMASTER Ot I10 ESSENTIAL (PRIMARY) HYPERTENSION 02/05/2018 BAIMA, EVELIA L DREDGEMASTER Ot 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 02/05/2018 BAIMA, EVELIA L DREDGEMASTER Ot I34.0 NONRHEUMATIC MITRAL (VALVE) INSUFFICIENC 02/05/2018 BAIMARIA DE JESUS EVELIA L DREDGEMASTER Ot R06.09 OTHER FORMS OF DYSPNEA 02/05/2018 BAIMARIA DE JESUS EVELIA L DREDGEMASTER Ot Z72.0 TOBACCO USE 02/05/2018 DARREN MEHTA APRN Ot R06.02 SHORTNESS OF BREATH 02/05/2018 DARREN MEHTA APRN Ot R16.1 SPLENOMEGALY, NOT ELSEWHERE CLASSIFIED 02/05/2018 DARREN MEHTA FOOD CRITIC Ot Z72.0 TOBACCO USE 02/08/2018 JEZ TOMLINSON DREDGEMASTER Ot E04.2 NONTOXIC MULTINODULAR GOITER 02/13/2018 JEZ TOMLINSON DREDGEMASTER Ot E04.2 NONTOXIC MULTINODULAR GOITER 03/19/2018 SHENA WOLFE, MOOKIE [place] Ot E04.1 NONTOXIC SINGLE THYROID NODULE 03/25/2018 JEZ TOMLINSON DREDGEMASTER Ot E04.2 NONTOXIC MULTINODULAR GOITER 03/25/2018 SHENA WOLFE, MOOKIE [place] Ot E04.1 NONTOXIC SINGLE THYROID NODULE 03/26/2018 JEZ TOMLINSON DREDGEMASTER Ot E04.2 NONTOXIC MULTINODULAR GOITER 04/25/2018 JACOBY GRANADOS, GERMAINE [place] Ot V76.12 OTH SCREEN MAMMO-MALIGN NEOPLASM OF KRISTIN 04/25/2018 SAMI WOLFE FACC, ALI FACP CCDS Ot 785.1 PALPITATIONS 04/25/2018 SAMI WOLFE FACC, YANNA FACP CCDS Ot 786.09 RESPIRATORY ABNORM NEC 04/25/2018 SAMI WOLFE FACC, ALI FACP CCDS Ot 785.1 PALPITATIONS 04/25/2018 SAMI WOLFE FACJack, ALI FACP CCDS Ot 786.09 RESPIRATORY ABNORM NEC 04/25/2018 JEZ TOMLINSON DREDGEMASTER Ot 789.03 ABDOMINAL PAIN, RIGHT LOWER QUADRANT 04/25/2018 JEZ TOMLINSON DREDGEMASTER Ot 789.03 ABDOMINAL PAIN, RIGHT LOWER QUADRANT 04/25/2018 JEZ TOMLINSON DREDGEMASTER Ot R10.31 RIGHT LOWER QUADRANT PAIN 04/25/2018 JEZ TOMLINSON DREDGEMASTER Ot Z12.31 ENCNTR SCREEN MAMMOGRAM FOR MALIGNANT NE 04/25/2018 EVELIA MAGAÑA L DREDGEMASTER Ot I10 ESSENTIAL (PRIMARY) HYPERTENSION 04/25/2018 GÓMEZ EVELIA L DREDGEMASTER Ot 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 04/25/2018 GÓMEZ EVELIA L DREDGEMASTER Ot I34.0 NONRHEUMATIC MITRAL (VALVE) INSUFFICIENC 04/25/2018 GÓMEZ EVELIA L DREDGEMASTER Ot I73.9 PERIPHERAL VASCULAR DISEASE, UNSPECIFIED 04/25/2018 GÓMEZ EVELIA L DREDGEMASTER Ot R06.09 OTHER FORMS OF DYSPNEA 04/25/2018 GÓMEZ EVELIA L DREDGEMASTER Ot R29.818 OTHER SYMPTOMS AND SIGNS INVOLVING THE N 04/25/2018 EVELIA MAGAÑA L DREDGEMASTER Ot Z72.0 TOBACCO USE 04/25/2018 LOU MAGAÑAHER L DREDGEMASTER Ot I10 ESSENTIAL (PRIMARY) HYPERTENSION 04/25/2018 GÓMEZ EVELIA L DREDGEMASTER Ot 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 04/25/2018 DEBBIEMA EVELIA L DREDGEMASTER Ot I34.0 NONRHEUMATIC MITRAL (VALVE) INSUFFICIENC 04/25/2018 DEBBIEMA EVELIA L DREDGEMASTER Ot R06.09 OTHER FORMS OF DYSPNEA 04/25/2018 LOU MAGAÑAHER L DREDGEMASTER Ot Z72.0 TOBACCO USE 04/25/2018 DARREN MEHTA APRN Ot R06.02 SHORTNESS OF BREATH 04/25/2018 DARREN MEHTA APRN Ot R16.1 SPLENOMEGALY, NOT ELSEWHERE CLASSIFIED 04/25/2018 DARREN MEHTA APRN Ot Z72.0 TOBACCO USE 04/25/2018 JEZ TOMLINSON Ot E04.2 NONTOXIC MULTINODULAR GOITER 04/25/2018 SHENA WOLFE, MOOKIE [place] Ot E04.1 NONTOXIC SINGLE THYROID NODULE Procedures Code Description Performed By Performed On Q0091 PAP SMEAR OBTAIN SMEAR 04/10/2013 43849 NUCLEAR STRESS TESTING 04/10/2013 70960 ECHO 2D 04/10/2013 55244 HEMOCCULT 04/10/2013 53727 PAP SMEAR 04/14/2013 25141 MAMMOGRAM, SCREENING 04/25/2013 67200 EKG, TRACING (IN-HOUSE) 10/22/2013 88870 UA LONG DIP 10/22/2013 12477 A1C (IN-HOUSE) 10/24/2013 37049 ROUTINE VENIPUNCTURE 10/24/2013 56734 CBC 10/24/2013 6098173 GFR CALC (RESULT ONLY) 10/24/2013 13902 CMP 10/24/2013 47992 LIPID PANEL 10/24/2013 77315 MAGNESIUM 10/24/2013 86155 TSH 10/24/2013 39844 INSULIN LEVEL 10/24/2013 CARDIOLOG YANNA GALLARDO 11/05/2013 95672 ROUTINE VENIPUNCTURE 02/23/[address] ABDOMEN AND PELVIS W/ CONTRAST 02/24/2014 61261 FSH 02/24/2014 05083 US PELVIC COMPL (REFLEX CPT - 75714) 03/02/2014 Results Test Result Range No Test Indicated - 11/16/15 11:33 . Comment Dear Doctor, Comment Comp. Metabolic Panel (14) - 11/16/15 11:33 Glucose, Serum 91 mg/dL 65-99 BUN 9 mg/dL 6-24 Creatinine, Serum 0.61 mg/dL 0.57-1.00 eGFR If NonAfricn Am 102 mL/min/1.73 >59 eGFR If Africn Am 118 mL/min/1.73 >59 BUN/Creatinine Ratio 15 9-23 Sodium, Serum 140 mmol/L 134-144 Potassium, Serum 4.2 mmol/L 3.5-5.2 Chloride, Serum 98 mmol/L 97-108 Carbon Dioxide, Total 25 mmol/L 18-29 Calcium, Serum 9.1 mg/dL 8.7-10.2 Protein, Total, Serum 7.0 g/dL 6.0-8.5 Albumin, Serum 4.4 g/dL 3.5-5.5 Globulin, Total 2.6 g/dL 1.5-4.5 A/G Ratio 1.7 1.1-2.5 Bilirubin, Total 0.9 mg/dL 0.0-1.2 Alkaline Phosphatase, S 83 IU/L 39-117 AST (SGOT) 15 IU/L 0-40 ALT (SGPT) 17 IU/L 0-32 Lipid Panel - 11/16/15 11:33 Cholesterol, Total 183 mg/dL 100-199 Triglycerides 94 mg/dL 0-149 HDL Cholesterol 63 mg/dL >39 VLDL Cholesterol Denis 19 mg/dL 5-40 LDL Cholesterol Calc 101 mg/dL 0-99 Pap Lb, HPV-hr - 04/19/16 15:13 HPV, high-risk Negative Negative DIAGNOSIS: Comment Specimen adequacy: Comment Clinician provided ICD10: Comment Performed by: Comment QC reviewed by: Comment . . Pathologist provided ICD10: Comment Note: Comment CULTURE, URINE - 11/16/16 12:04 CULTURE, URINE, ROUTINE SEE NOTE NRG PDM - 09 PANEL (PROFILE 1) - 08/20/17 13:15 Prescribed Drug 1 Xanax(TM) NRG Creatinine 53.3 mg/dL > or=20.0 pH 6.95 4.5 - 9.0 Oxidant NEGATIVE mcg/mL <200 Amphetamines NEGATIVE ng/mL <500 medMATCH Amphetamines CONSISTENT NRG Benzodiazepines POSITIVE ng/mL <100 Marijuana Metabolite POSITIVE ng/mL <20 Cocaine Metabolite NEGATIVE ng/mL <150 medMATCH Cocaine Metab CONSISTENT NRG Opiates NEGATIVE ng/mL <100 medMATCH Opiates CONSISTENT NRG Oxycodone NEGATIVE ng/mL <100 medMATCH Oxycodone CONSISTENT NRG COMMENT NRG Alphahydroxyalprazolam 74 ng/mL <25 medMATCH aOH alprazolam CONSISTENT NRG Alphahydroxymidazolam NEGATIVE ng/mL <50 medMATCH aOH midazolam CONSISTENT NRG Alphahydroxytriazolam NEGATIVE ng/mL <50 medMATCH aOH triazolam CONSISTENT NRG Aminoclonazepam NEGATIVE ng/mL <25 medMATCH Aminoclonazepam CONSISTENT NRG Hydroxyethylflurazepam NEGATIVE ng/mL <50 medMATCH OH,Et flurazepam CONSISTENT NRG Lorazepam NEGATIVE ng/mL <50 medMATCH Lorazepam CONSISTENT NRG Nordiazepam NEGATIVE ng/mL <50 medMATCH Nordiazepam CONSISTENT NRG Oxazepam NEGATIVE ng/mL <50 medMATCH Oxazepam CONSISTENT NRG Temazepam NEGATIVE ng/mL <50 medMATCH Temazepam CONSISTENT NRG Marijuana Metabolite 66 ng/mL <5 medMATCH Marijuana Metab INCONSISTENT NRG Barbiturates NEGATIVE ng/mL <300 medMATCH Barbiturates CONSISTENT NRG Methadone Metabolite NEGATIVE ng/mL <100 medMATCH Methadone Metab CONSISTENT NRG Phencyclidine NEGATIVE ng/mL <25 medMATCH Phencyclidine CONSISTENT NRG TSH - 09/24/17 12:32 TSH 0.79 mIU/L 0.40-4.50 Encounters ACCT No. Visit Date/Time Discharge Status Pt. Type Provider Facility Loc./Unit Complaint [id number] 02/23/2014 16:18:00 02/23/2014 23:59:59 CLS Outpatient JEZ TOMLINSON APRN [id number] 12/10/2013 08:55:00 12/10/2013 23:59:59 CLS Outpatient YANNA GALLARDO MD [id number] 11/05/2013 10:15:00 11/05/2013 23:59:59 CLS Outpatient JEZ TOMLINSON APRN [id number] 10/24/2013 08:54:00 10/24/2013 23:59:59 CLS Outpatient LEIGH ANN MONTALVO DO [id number] 04/10/2013 13:00:00 04/10/2013 23:59:59 CLS Outpatient LEIGH ANN MONTALVO DO [id number] 04/10/2013 13:00:00 04/10/2013 23:59:59 CLS Outpatient LEIGH ANN MONTALVO DO [id number] 05/22/2012 12:48:00 05/22/2012 23:59:59 CLS Outpatient [id number] 04/09/2012 10:09:00 04/09/2012 23:59:59 CLS Outpatient JEZ TOMLINSON APRN [id number] 11/02/2011 13:33:00 11/02/2011 23:59:59 CLS Outpatient [id number] 11/02/2011 13:33:00 11/02/2011 23:59:59 CLS Outpatient BUSHRA ORTIZ JEZ Short [id number] 09/24/2012 15:19:00 Document Registration [id number] 04/24/2016 17:07:00 Document Registration [id number] 11/17/2015 10:06:00 Document Registration [id number] 03/11/2018 11:20:00 03/11/2018 23:59:59 CLS Outpatient JEZ TOMLINSON APRN [facility] [id number] 09/24/2017 12:20:00 Document Registration [id number] 08/20/2017 13:00:00 Document Registration [id number] 11/16/2016 11:40:00 Document Registration [id number] 03/09/2014 13:21:52 ACT Document Registration [id number] 11/17/2015 10:06:00 Document Registration [id number] 04/30/2018 10:15:00 04/30/2018 10:48:00 DIS Outpatient MOOKIE CHATTERJEE MD [facility] PREOP THYROID NODULES [id number] 04/25/2018 12:59:00 04/25/2018 23:59:59 CLS Outpatient MOOKIE CHATTERJEE MD [facility] LAB THYROID NODULE [id number] 03/06/2018 09:54:00 03/06/2018 23:59:59 CLS Outpatient MOOKIE CHATTERJEE MD [facility] RAD THYROID NODULE [id number] 02/07/2018 13:06:00 02/07/2018 23:59:59 CLS Outpatient JEZ TOMLINSON [facility] RAD THYROID NODULE [id number] 12/26/2017 13:44:00 12/26/2017 13:52:00 DIS Outpatient DARREN MEHTA APRN [facility] SLEEP SNORING,EDS [id number] 12/12/2017 11:47:00 12/12/2017 23:59:59 CLS Outpatient DARREN MEHTA FOOD CRITIC [facility] RAD TOBACCO USER, DYSPNEA [id number] 12/04/2017 13:27:00 12/04/2017 23:59:59 CLS Outpatient EVELIA MAGAÑA DREDGEMASTER [facility] CARD DYSPNEA ON EXERTION [id number] 11/20/2017 10:49:00 11/20/2017 23:59:59 CLS Outpatient EVELIA MAGAÑA Sameera DREDGEMASTER [facility] CARD DYSPNEA ON EXERTION [id number] 02/06/2017 12:54:00 02/06/2017 23:59:59 CLS Outpatient JEZ TOMLINSON [facility] RAD Z12.31 SCREENING MAMMO [id number] 11/21/2016 08:45:00 11/21/2016 12:33:00 DIS Outpatient YENNY ALMEIDA DO [facility] ENDO HISTORY POLYPS [id number] 11/16/2016 05:33:00 11/16/2016 15:11:00 DIS Outpatient YENNY ALMEIDA DO [facility] PREOP COLONOSCOPY [id number] 10/26/2015 09:46:00 10/26/2015 15:00:00 DIS Outpatient YENNY ALMEIDA DO [facility] SDC SCREENING [id number] 10/22/2015 05:39:00 10/22/2015 10:46:00 DIS Outpatient YENNY ALMEIDA DO [facility] PREOP SCREENING [id number] 10/11/2015 08:34:00 10/11/2015 23:59:59 CLS Outpatient JEZ TOMLINSON [facility] RAD RLQ ABD PAIN [id number] 03/09/2014 13:21:00 03/09/2014 23:59:59 CLS Outpatient JEZ TOMLINSON DREDGEMASTER [facility] RAD ABD PAIN, RLQ [id number] 03/02/2014 11:11:00 03/02/2014 23:59:59 CLS Outpatient JEZ TOMLINSON DREDGEMASTER [facility] RAD RLQ PAIN [id number] 01/13/2014 08:16:00 01/13/2014 17:11:00 DIS Outpatient SAMI WOLFE FACC, YANNA VENEGAS CCDS [facility] CATH ABN STRESS TEST [id number] 12/25/2013 07:42:00 12/25/2013 23:59:59 CLS Outpatient SAMI WOLFE FACC, YANNA VENEGAS CCDS [facility] CARD ANGINA,SOB, FATIGUE [id number] 12/18/2013 10:44:00 12/18/2013 23:59:59 CLS Outpatient SAMI WOLFE FACC, YANNA VENEGAS CCDS [facility] CARD ANGINA,SOB, FATIGUE [id number] 04/21/2013 10:08:00 04/21/2013 23:59:59 CLS Outpatient GERMAINE MOTA [facility] RAD SCREENING [id number] 05/01/2018 10:40:00 ACT Outpatient MOOKIE CHATTERJEE MD [facility] THYROID NODULES
[2018-05-01 11:32] LABS: BASOPHILS # (AUTO) 0.1 10^3/uL (0.0-0.1); BASOPHILS % (AUTO) 2 % (0-10); EOSINOPHILS # (AUTO) 0.2 10^3/uL (0.0-0.3); EOSINOPHILS % (AUTO) 3 % (0-10); HEMATOCRIT 37 % (35-52); HEMOGLOBIN 13.1 G/DL (11.5-16.0); LYMPHOCYTES # (AUTO) 1.5 X 10^3 (1.0-4.0); LYMPHOCYTES % (AUTO) 23 % (12-44); MEAN CORPUSCULAR HEMOGLOBIN 31 PG (25-34); MEAN CORPUSCULAR HGB CONC 35 G/DL (32-36); MEAN CORPUSCULAR VOLUME 87 FL (80-99); MEAN PLATELET VOLUME 8.9 FL (7.4-10.4); MONOCYTES # (AUTO) 0.4 X 10^3 (0.0-1.0); MONOCYTES % (AUTO) 7 % (0-12); NEUTROPHILS # (AUTO) 4.5 X 10^3 (1.8-7.8); NEUTROPHILS % (AUTO) 67 % (42-75); PLATELET COUNT 251 10^3/uL (130-400); RED CELL DISTRIBUTION WIDTH 17.6 % (10.0-14.5); WHITE BLOOD COUNT 6.8 10^3/uL (4.3-11.0)
[2018-05-01] MEDS: LACTATED RINGERS 1,000 ML IV PRN ×2 (11:33→13:00)
[2018-05-01 11:36] VITALS: BP 129/57
[2018-05-01] MEDS ORDERED: BUP/EPI 0.5% 1:200,000 (SENSORCAINE) 30 ML VIAL ONE (11:42)
[2018-05-01] MEDS ORDERED: MELA10TA2 PO (11:43)
[2018-05-01 11:49] LABS: BUN/CREATININE RATIO 19; CALCIUM 9.4 MG/DL (8.5-10.1); CARBON DIOXIDE 25 MMOL/L (21-32); CHLORIDE 102 MMOL/L (98-107); CREATININE SERUM 0.64 MG/DL (0.60-1.30); GFR ESTIMATED > 60; GLUCOSE 95 MG/DL (70-105); POTASSIUM 4.1 MMOL/L (3.6-5.0); SODIUM 135 MMOL/L (135-145)
--- NOTE | 2018-05-01 12:12 | Progress Note-Pre Operative ---
Pre-Operative Progress Note H&P Reviewed The H&P was reviewed, patient examined and no changes noted. Date Seen by Provider: Apr 25, 2018 Time Seen by Provider: 11:00 Date H&P Reviewed: May 01, 2018 Time H&P Reviewed: 12:11 Pre-Operative Diagnosis: bilateral thyroid nodules MOOKIE CHATTERJEE MD May 01, 2018 12:12
[2018-05-01] MEDS ORDERED: GLYCOPYRROLATE 0.2 MG/ML (ROBINUL) 2 ML VIAL ONE (12:35)
[2018-05-01] MEDS ORDERED: RT-ALBUTEROL HFA (VENTOLIN) PER PUFF IH ONE (13:13)
--- NOTE | 2018-05-01 14:49 | Operative Report ---
Operative Report Date of Procedure/Surgery May 01, 2018 Surgeon (s) MOOKIE CHATTERJEE MD Occupational Medicine Specialist (s): Ayanna Boyle ( Med Student III) Post-Operative Diagnosis Same Procedure Performed 1. Total thyroidectomy 2. Intraoperative nerve monitoring 3. Reimplantation of left superior parathyroid gland in sternomastoid muscle Description of Procedure Anesthesia Type: General Estimated blood loss (mL): 50 mL Specimen(s) collected/removed Both lobes of thyroid Description of the Procedure Indication for the procedure: This lady was found to have bilateral, large and calcified thyroid nodules. Fine needle aspiration was negative. Initially, she was reassured with recommendations for a follow-up ultrasound in a year. However, she returned, requesting thyroidectomy to establish definitive diagnosis. This appeared to be a reasonable approach. Informed consent was obtained after reviewing the operative details and complications postoperative hematoma, transient hoarseness of voice and hypocalcemia. Description of the procedure: She was placed supine on the operating table and general anesthesia induced. 2 g of Ancef were administered intravenously as prophylaxis against wound infection. Sequential compression devices were placed around her legs, to minimize the risk of venous thrombosis. Her neck and upper chest were prepared and draped in the usual sterile manner. Preemptive analgesia was established using 0.5 percent Marcaine with epinephrine. A 5 cm transverse incision was made and platysma incised transversely. Flaps were raised superiorly to the level of the thyroid cartilage and inferiorly to the sternal notch. Cervical fascia was incised vertically and the strap muscles were retracted laterally. I began the dissection on the left side. Thyroid lobe was retracted medially displaying a distinct middle thyroid vein. It was controlled using the Harmonic scalpel. Superior thyroid artery was controlled between 0 silk sutures , reinforced with a Ligaclip. During this maneuver, superior parathyroid gland became devascularized and therefore, it was placed in saline with the wedge being sent for frozen section for confirmation. The pathologist confirmed the tissue to be off parathyroid margin and at the end of the operation, the tissue was implanted in the sternocleidomastoid muscle. Branches of the inferior thyroid artery were controlled using ligaclips and minimal use of Harmonic scalpel, identifying and protecting the recurrent laryngeal nerve. The nerve was found coursing between the branches of the inferior thyroid artery and protected by constant visual inspection and intermittent nerve stimulation technique. The inferior parathyroid gland was identified and preserved along with this blood supply. The isthmus of the thyroid gland was transected using the Harmonic scalpel on the left lobe sent separately for histological examination. On the right side, a similar dissection was performed. The recurrent laryngeal nerve was found in its conventional position, densely adherent to the posterior surface of the thyroid lobe. It was carefully and confirmed to have satisfactory EMG signals. Both parathyroid glands were identified and preserved along with their blood supply. Right lobe was sent for histologic examination separately. We had the DATA REPORTING ANALYST conduct Valsalva maneuver, looking there wasn't any. Thrombin was placed along the tracheoesophageal groove to optimize hemostasis. Neck was then flexed, in preparation for closure. Cervical fascia was approximated using 3-0 Vicryl and platysma using the same material. Skin was closed using 4-0 Vicryl, in a subcuticular fashion. Reimplantation of left superior parathyroid gland: The 20 gland was sliced into small fragments and placed into the left sternomastoid muscle, being marked with a 2-0 Prolene suture. She tolerated the procedure well, was extubated in the operating room and taken to the recovery room in a stable condition. Findings of the Procedure See op report Allergies and Home Medications Allergies Coded Allergies: No Known Drug Allergies (Unverified , 12/25/13) Home Medications Fluoxetine HCl 20 Mg Tablet, 60 MG PO HS, (Reported) take 3 (20mg) tabs Gabapentin 400 Mg Capsule, 400 MG PO HS, (Reported) Melatonin 10 Mg Tablet, 10 MG PO HS, (Reported) Oxybutynin Chloride 5 Mg Tablet, 5 MG PO HS, (Reported) Propranolol HCl 20 Mg Tablet, 20 MG PO BID, (Reported) med is bid but current prescription got changed to daily in error, talked with PCP and med is suppose to be bid and will be fixed with next prescription Patient Home Medication List Home Medication List Reviewed: Yes MOOKIE CHATTERJEE MD May 01, 2018 14:49
[2018-05-01] MEDS ORDERED: ACHD5005 PO (14:53)
[2018-05-01] MEDS ORDERED: LEVO112T55 PO (14:54)
--- NOTE | 2018-05-01 14:54 | Discharge Inst-Simple/Standard ---
Discharge Inst-Standard Discharge Medications New, Converted or Re-Newed RX: RX on Chart Patient Instructions/Follow Up Plan of Care/Instructions/FU: Dressings off in a.m. Follow-up in 2 weeks Activity as Tolerated: Yes Discharge Diet: No Restrictions MOOKIE CHATTERJEE MD May 01, 2018 14:54
[2018-05-01] MEDS ORDERED: HYDROcodone/APAP 5 MG/325 MG (LORTAB) TAB PO PRN (15:00)
[2018-05-01] MEDS ORDERED: ONDANSETRON 4 MG/2 ML (SDV) Z0FRAN IVP PRN (15:15)
[2018-05-01] MEDS ORDERED: PROMETHAZINE INJ 25 MG/ML (PHENERGAN) AMP IVP ONE (15:15)
[2018-05-01] MEDS ORDERED: morphine INJ 10 MG/ML 1ML (SYR OR VIAL) IVP ONE (15:15)
[2018-05-01] MEDS ORDERED: fentaNYL INJECTION 100 MCG/2 ML AMP IVP ONE (15:15)
[2018-05-01 16:00] VITALS: BP 132/63
[2018-05-01] MEDS: fentaNYL INJECTION 100 MCG/2 ML AMP IVP PRN ×4 (17:24→23:47)
[2018-05-01] MEDS: LACTATED RINGERS 1,000 ML IV SCH (17:42)
[2018-05-01] MEDS ORDERED: FLU QUADRIvalent (5+ YOA) 2018-2019 (AFLURIA) 0.5 ML IM ONE (19:45)
[2018-05-01] MEDS: FLUoxetine HCL 20 MG (PROzac) CAP PO SCH (20:09)
[2018-05-01] MEDS: ONDANSETRON 4 MG/2 ML (SDV) Z0FRAN IVP PRN (20:22)
[2018-05-01 20:25] VITALS: BP 140/63
[2018-05-02] VITALS: BP 134/63
[2018-05-02] MEDS: LACTATED RINGERS 1,000 ML IV SCH ×2 (02:38→13:05)
[2018-05-02] MEDS: fentaNYL INJECTION 100 MCG/2 ML AMP IVP PRN ×2 (02:38→06:38)
[2018-05-02] MEDS: ONDANSETRON 4 MG/2 ML (SDV) Z0FRAN IVP PRN ×3 (02:38→19:44)
[2018-05-02 04:44] VITALS: BP 143/66
[2018-05-02] MEDS ORDERED: LEVOTHYROXINE 112 MCG (LEVOTHROID) TAB PO NR (06:00)
[2018-05-02] MEDS ORDERED: METOCLOPRAMIDE INJ 10 MG/2 ML (REGLAN) IVP NR (07:00)
[2018-05-02 07:14] LABS: BUN/CREATININE RATIO 20; CALCIUM 7.8 MG/DL (8.5-10.1); CARBON DIOXIDE 25 MMOL/L (21-32); CHLORIDE 97 MMOL/L (98-107); CREATININE SERUM 0.64 MG/DL (0.60-1.30); GFR ESTIMATED > 60; GLUCOSE 114 MG/DL (70-105); POTASSIUM 3.7 MMOL/L (3.6-5.0); SODIUM 135 MMOL/L (135-145)
--- NOTE | 2018-05-02 07:47 | Anesthesia-General Post-Op ---
General Patient Condition Mental Status/LOC: Same as Preop Cardiovascular: Satisfactory Nausea/Vomiting: Absent Respiratory: Satisfactory Pain: Controlled Complications: Absent Post Op Complications Complications None Follow Up Care/Instructions Patient Instructions None needed. Anesthesia/Patient Condition Patient Condition Patient is doing well, no complaints, stable vital signs, no apparent adverse anesthesia problems. No complications reported per nursing. ANNETTA SCHREIBER CRNA May 02, 2018 07:47
[2018-05-02 08:00] VITALS: BP 147/81
[2018-05-02] MEDS ORDERED: ACETAMINOPHEN 325 MG TABLET PO PRN (09:15)
[2018-05-02] MEDS ORDERED: CALCIUM GLUCONATE 10% INJ 4.65 MEQ in NS (IVPB) 50 ML IV NR ×2 (09:15→12:30)
--- NOTE | 2018-05-02 09:18 | Progress Note-Standard ---
Standard Progress Note Progress Notes/Assess & Plan Date Seen by a Provider: May 02, 2018 Time Seen by a Provider: 09:16 Progress/Assessment & Plan Ongoing postoperative nausea vomiting all night. I became aware of this about 6 :30 am when I called the night nurse. Reglan has been used with some improvement. Subcutaneous hematoma over the left side of the neck, soft. No hoarseness of voice. Calcium slightly decreased at 7.8. Ionized calcium pending. In view of vomiting and headache, reasonable to treat low, total calcium with IV calcium gluconate. Due to unresolved postoperative vomiting and hypocalcemia, it is essential that she be kept in the hospital until symptoms improve. Final Diagnosis bilateral thyroid nodules. Postoperative nausea and vomiting. Postoperative hypocalcemia MOOKIE CHATTERJEE MD May 02, 2018 09:18
[2018-05-02] MEDS: PANTOPRAZOLE 40 MG (PROTONIX) VIAL IV SCH ×2 (09:36→19:43)
[2018-05-02] MEDS: APAP 300 MG/CODEINE 30 MG (TYLENOL #3) TAB PO PRN ×3 (09:36→19:43)
[2018-05-02] MEDS: PROPRANOLOL 20 MG (INDERAL) TABLET PO SCH ×2 (09:36→19:42)
[2018-05-02 12:00] VITALS: BP 151/84
[2018-05-02] MEDS: METOCLOPRAMIDE INJ 10 MG/2 ML (REGLAN) IVP PRN (12:15)
--- NOTE | 2018-05-02 15:24 | NUR ---
Patient ambulated to end of broussard and back without difficulty. Walked her without oxygen for trial and pulse ox was 89% and then O2 per NC @1Liter the pulse ox was then 92%. Patient tolerated well.
[2018-05-02 15:57] VITALS: BP 116/72
[2018-05-02 19:26] VITALS: BP 132/77
[2018-05-02] MEDS: FLUoxetine HCL 20 MG (PROzac) CAP PO SCH (19:42)
[2018-05-03 00:38] VITALS: BP 134/65
[2018-05-03 04:01] VITALS: BP 138/67
[2018-05-03 06:29] LABS: BUN/CREATININE RATIO 19; CALCIUM 7.1 MG/DL (8.5-10.1); CARBON DIOXIDE 25 MMOL/L (21-32); CHLORIDE 94 MMOL/L (98-107); CREATININE SERUM 0.64 MG/DL (0.60-1.30); GFR ESTIMATED > 60; GLUCOSE 109 MG/DL (70-105); POTASSIUM 3.8 MMOL/L (3.6-5.0); SODIUM 130 MMOL/L (135-145)
--- NOTE | 2018-05-03 06:48 | NUR ---
Dr. Bell notified of NA at 130 and Calcium at 7.1. New orders rec for Calcium Carbonate 600mg po TID and Levothyroxine 112 mcg x 1 dose now.
[2018-05-03] MEDS ORDERED: LEVOTHYROXINE 112 MCG (LEVOTHROID) TAB PO ONE (07:00)
[2018-05-03 08:00] VITALS: BP 157/74
[2018-05-03] MEDS: PROPRANOLOL 20 MG (INDERAL) TABLET PO SCH (08:32)
[2018-05-03] MEDS: PANTOPRAZOLE 40 MG (PROTONIX) VIAL IV SCH (08:32)
[2018-05-03] MEDS: ONDANSETRON 4 MG/2 ML (SDV) Z0FRAN IVP PRN (08:44)
[2018-05-03] MEDS ORDERED: CALCIUM CARBONATE 600 MG (CALCARB) TAB PO ONE (09:00)
[2018-05-03] MEDS: METOCLOPRAMIDE INJ 10 MG/2 ML (REGLAN) IVP PRN (10:47)
[2018-05-03] MEDS: APAP 300 MG/CODEINE 30 MG (TYLENOL #3) TAB PO PRN (10:47)
[2018-05-03] MEDS ORDERED: FLU QUADRIvalent (5+ YOA) 2018-2019 (AFLURIA) 0.5 ML IM ONE (10:54)
[2018-05-03] MEDS ORDERED: TRAM50TA2 PO (11:37)
--- NOTE | 2018-05-03 11:41 | Progress Note-Standard ---
Standard Progress Note Progress Notes/Assess & Plan Date Seen by a Provider: May 03, 2018 Time Seen by a Provider: 11:38 Progress/Assessment & Plan Ongoing postoperative nausea vomiting all night. I became aware of this about 6 :30 am when I called the night nurse. Reglan has been used with some improvement. Subcutaneous hematoma over the left side of the neck, soft. No hoarseness of voice. Calcium slightly decreased at 7.8. Ionized calcium pending. In view of vomiting and headache, reasonable to treat low, total calcium with IV calcium gluconate. Due to unresolved postoperative vomiting and hypocalcemia, it is essential that she be kept in the hospital until symptoms improve. PONV resolved, tolerating diet. Subcutaneous hematoma stable. No respiratory distress. Calcium still low, but asymptomatic. Could be discharged home Final Diagnosis Andres Thyroid Nodules. Post-op nausea and vomiting. Subcutaneous hematoma, stable. MOOKIE CHATTERJEE MD May 03, 2018 11:41
--- NOTE | 2018-05-03 11:47 | Discharge Summary ---
Diagnosis/Chief Complaint Date of Admission May 02, 2018 at 11:32 Date of Discharge 05/03/18 Discharge Date: May 02, 2018 Discharge Time: 11:42 Admission Diagnosis Admission Diagnosis Bilateral thyroid nodules. Discharge Diagnosis Same plus subcutaneous hematoma Reason Hospital Visit Elective admission for total thyroidectomy. Developed severe post-op vomiting, requiring slightly longer hospital stay. Subcutaneous hematoma of no consequence. Responded to drug therapy and able to tolerate a soft diet. Discharge Summary Discharge Physical Examination Allergies: Coded Allergies: No Known Drug Allergies (Unverified , 12/25/13) Vitals & I&Os Vital Signs Date Time Temp Pulse Resp B/P (MAP) Pulse Ox O2 Delivery O2 Flow Rate FiO2 05/03/18 08:00 97.0 82 20 157/74 (101) 93 Nasal Cannula 4.00 Hospital Course Labs (last 24 hrs) Laboratory Tests 05/01/18 10:35: White Blood Count 6.8, Red Blood Count 4.27L, Hemoglobin 13.1, Hematocrit 37, Mean Corpuscular Volume 87, Mean Corpuscular Hemoglobin 31, Mean Corpuscular Hemoglobin Concent 35, Red Cell Distribution Width 17.6H, Platelet Count 251, Mean Platelet Volume 8.9, Neutrophils (%) (Auto) 67, Lymphocytes (%) (Auto) 23, Monocytes (%) (Auto) 7, Eosinophils (%) (Auto) 3, Basophils (%) (Auto) 2, Neutrophils # (Auto) 4.5, Lymphocytes # (Auto) 1.5, Monocytes # (Auto) 0.4, Eosinophils # (Auto) 0.2, Basophils # (Auto) 0.1, Sodium Level 135, Potassium Level 4.1, Chloride Level 102, Carbon Dioxide Level 25, Anion Gap 8, Blood Urea Nitrogen 12, Creatinine 0.64, Estimat Glomerular Filtration Rate > 60, BUN/ Creatinine Ratio 19, Glucose Level 95, Calcium Level 9.4 05/02/18 06:27: Sodium Level 135, Potassium Level 3.7, Chloride Level 97L, Carbon Dioxide Level 25, Anion Gap 13, Blood Urea Nitrogen 13, Creatinine 0.64, Estimat Glomerular Filtration Rate > 60, BUN/Creatinine Ratio 20, Glucose Level 114H, Calcium Level 7.8L, Ionized Calcium (Measured) 0.94L, Ionized Calcium pH 7.45, Ionized Calcium (Corrected) 0.97L 05/03/18 05:57: Sodium Level 130L, Potassium Level 3.8, Chloride Level 94L, Carbon Dioxide Level 25, Anion Gap 11, Blood Urea Nitrogen 12, Creatinine 0.64, Estimat Glomerular Filtration Rate > 60, BUN/Creatinine Ratio 19, Glucose Level 109H, Calcium Level 7.1L Microbiology 05/01/18 MRSA Screen - Final, Complete MRSA not isolated Pending Labs Microbiology Date/Time Source Procedure Growth Status 05/01/18 10:35 Nasal MRSA Screen - Final MRSA not isolated Complete Laboratory Tests 05/01/18 10:35: White Blood Count 6.8, Red Blood Count 4.27, Hemoglobin 13.1, Hematocrit 37, Mean Corpuscular Volume 87, Mean Corpuscular Hemoglobin 31, Mean Corpuscular Hemoglobin Concent 35, Red Cell Distribution Width 17.6, Platelet Count 251, Mean Platelet Volume 8.9, Neutrophils (%) (Auto) 67, Lymphocytes (%) (Auto) 23, Monocytes (%) (Auto) 7, Eosinophils (%) (Auto) 3, Basophils (%) (Auto) 2, Neutrophils # (Auto) 4.5, Lymphocytes # (Auto) 1.5, Monocytes # (Auto) 0.4, Eosinophils # (Auto) 0.2, Basophils # (Auto) 0.1, Sodium Level 135, Potassium Level 4.1, Chloride Level 102, Carbon Dioxide Level 25, Anion Gap 8, Blood Urea Nitrogen 12, Creatinine 0.64, Estimat Glomerular Filtration Rate > 60, BUN/ Creatinine Ratio 19, Glucose Level 95, Calcium Level 9.4 05/02/18 06:27: Sodium Level 135, Potassium Level 3.7, Chloride Level 97, Carbon Dioxide Level 25, Anion Gap 13, Blood Urea Nitrogen 13, Creatinine 0.64, Estimat Glomerular Filtration Rate > 60, BUN/Creatinine Ratio 20, Glucose Level 114, Calcium Level 7.8, Ionized Calcium (Measured) 0.94, Ionized Calcium pH 7.45, Ionized Calcium ( Corrected) 0.97 05/03/18 05:57: Sodium Level 130, Potassium Level 3.8, Chloride Level 94, Carbon Dioxide Level 25, Anion Gap 11, Blood Urea Nitrogen 12, Creatinine 0.64, Estimat Glomerular Filtration Rate > 60, BUN/Creatinine Ratio 19, Glucose Level 109, Calcium Level 7.1 Discharge Home Medications: Active Scripts Active Tramadol HCl 50 Mg Tablet 50 Mg PO Q12H PRN Levothyroxine Sodium 112 Mcg Tablet 112 Mcg PO DAILY 30 Days Reported Melatonin 10 Mg Tablet 10 Mg PO HS Gabapentin 400 Mg Capsule 400 Mg PO HS Oxybutynin Chloride 5 Mg Tablet 5 Mg PO HS Fluoxetine HCl 20 Mg Tablet 60 Mg PO HS take 3 (20mg) tabs Propranolol HCl 20 Mg Tablet 20 Mg PO BID med is bid but current prescription got changed to daily in error, talked with PCP and med is suppose to be bid and will be fixed with next prescription Instructions to patient/family Please see electronic discharge instructions given to patient. Clinical Quality Measures DVT/VTE Risk/Contraindication: Risk Factor Score Per Nursin RFS Level Per Nursing on Admit: 2=Moderate MOOKIE CHATTERJEE MD May 03, 2018 11:47
[2018-05-03 12:00] VITALS: BP 140/68
== END 2018-05-03 12:20 | disposition home or self-care (01) | DRG 982 ==
LOC: SDC 10:40 → 4TH 16:00 → SDC 05-02 11:32 → 4TH 05-02 11:32
PROVIDERS: ADMIT Surgery; ATTEND Surgery
PROC: 0GTH0ZZ Resection of Right Thyroid Gland Lobe, Open Approach (ICD-10-PCS; 2018-05-01)
PROC: [UNRECOGNIZED PROCEDURE] (2018-05-01)
PROC: 0GTG0ZZ Resection of Left Thyroid Gland Lobe, Open Approach (ICD-10-PCS; principal; 2018-05-01 12:12)
DX: E89.89 Other postprocedural endocrine and metabolic complications and disorders (principal); L76.32 Postprocedural hematoma of skin and subcutaneous tissue following other procedure; R11.2 Nausea with vomiting, unspecified; E83.51 Hypocalcemia; E04.1 Nontoxic single thyroid nodule; E66.01 Morbid (severe) obesity due to excess calories; Z68.41 Body mass index [BMI] 40.0-44.9, adult; F17.210 Nicotine dependence, cigarettes, uncomplicated; I10 Essential (primary) hypertension; I34.1 Nonrheumatic mitral (valve) prolapse; G47.33 Obstructive sleep apnea (adult) (pediatric)
CPT/HCPCS: 36415; 80048; 82330; 85025; 87081; 88305; 88307; 88311; 88331; 90471; 90686

== ENCOUNTER 2018-05-05 22:36 | Inpatient (IN) | payer OTHER ==
[~2018-05-05] VITALS: Ht 170.2 cm; Wt 121.6 kg
[~2018-05-05 22:36] MED LIST changes: +ACHD5005 PO; +LEVO112T55 PO; +MELA10TA2 PO
--- OUTSIDE RECORDS SUMMARY | 2018-05-05 22:51 | XMS REPORT | Continuity of Care Document ---
Author Author [facility] Address Unknown Phone Unavailable Allergies Active Description Code Type Severity Reaction Onset Reported/Identified Relationship to Patient Clinical Status Yes No Known Drug Allergies [id number] Drug Allergy Unknown N/A 12/25/2013 Medications There [...] 787.91 DIARRHEA 05/20/2008 V72.3 GYNECOLOGICAL EXAMINATION 05/20/2008 MONATLVO DO, LEIGH ANN K 528.9 DISEASES OF [...] MEDIA ACUTE SUPPURATIVE RIGHT EAR 03/28/2011 BUSHRA RESTAURANT HOURLY TEAM MEMBER, JEZ S 300.00 anxiety 03/28/2011 BUSHRA ORTIZ, [...] S 702.19 OTHER SEBORRHEIC KERATOSIS 04/09/2012 B[place]RA RESTAURANT HOURLY TEAM MEMBER, JEZ S 682.9 CELLULITIS AND ABSCESS OF [...] K 728.71 PLANTAR FASCIAL FIBROMATOSIS 04/09/2012 [place]RA RESTAURANT HOURLY TEAM MEMBER, JEZ S 682.9 CELLULITIS AND ABSCESS OF UNSPECIFIED SITES 04/09/2012 BUSHRA ORTIZ JEZ S 728.71 PLANTAR FASCIAL FIBROMATOSIS 04/09/2012 SAMI WOLFE, ALI 682.9 CELLULITIS AND ABSCESS OF UNSPECIFIED SITES 04/09/2012 SAMI WOLFE, ALI 728.71 PLANTAR FASCIAL FIBROMATOSIS 04/09/2012 KATIA JIMÉNEZ LEIGH ANN K 682.9 CELLULITIS AND ABSCESS OF UNSPECIFIED SITES 04/09/2012 KATIA JIMÉNEZ LEIGH ANN K 728.71 PLANTAR FASCIAL FIBROMATOSIS 04/09/2012 [place] RESTAURANT HOURLY TEAM MEMBER, JEZ S 682.9 CELLULITIS AND ABSCESS OF [...] ORTIZ JEZ S 696.1 PSORIASIS 04/10/2013 [place]RA RESTAURANT HOURLY TEAM MEMBER, JEZ S V73.81 HPV SCREENING 04/10/2013 CASI [...] YANNA GALLARDO MD 307.81 TENSION HEADACHE 10/22/2013 AYNNA GALLARDO MD 704.00 ALOPECIA UNSPECIFIED 10/22/2013 YANNA GALLARDO MD 786.50 CHEST PAIN 10/22/2013 YANNA GALLARDO MD V18.0 FAMILY HISTORY OF DIABETES MELLITUS 10/22/2013 KATIA FLORECITA IJMÉNEZA K 307.81 TENSION HEADACHE 10/22/2013 KATIA JIMÉNEZ [...] KATIA JIMÉNEZFLORECITAA K 786.09 DYSPNEA 12/10/2013 BUSHRA RESTAURANT HOURLY TEAM MEMBERCASI HillNDA S 785.1 PALPITATIONS 12/10/2013 CASI TOMLINSON [...] PAIN RIGHT LOWER QUADRANT 03/10/2014 JEZ TOMLINSON RN STARS Ot 789.03 03/10/2014 JEZ TOMLINSON RN STARS Ot 789.03 10/20/2015 GERMAINE MOTA Ot V76.12 OTH SCREEN MAMMO-MALIGN NEOPLASM OF KRISTIN 10/20/2015 SAMI WOLFE FACC, YANNA FACP CCDS Ot 785.1 PALPITATIONS 10/20/2015 SAMI WOLFE FACC, YANNA FACP CCDS Ot 786.09 RESPIRATORY ABNORM NEC 10/20/2015 SAMI WOLFE FACC, ALI FACP CCDS Ot 785.1 PALPITATIONS 10/20/2015 SAMI WOLFE FACC, ALI FACP CCDS Ot 786.09 RESPIRATORY ABNORM NEC 10/20/2015 JEZ TOMLINSON RN STARS Ot 789.03 ABDOMINAL PAIN, RIGHT LOWER QUADRANT 10/20/2015 JEZ TOMLINSON RN STARS Ot 789.03 ABDOMINAL PAIN, RIGHT LOWER QUADRANT 10/20/2015 JEZ TOMLINSON RN STARS Ot R10.31 RIGHT LOWER QUADRANT PAIN 10/22/2015 [...] CCDS Ot 785.1 PALPITATIONS 10/26/2015 SAMI WOLFE [facility] CCDS Ot 786.09 RESPIRATORY ABNORM NEC 10/26/2015 JEZ TOMLINSON RN STARS Ot 789.03 ABDOMINAL PAIN, RIGHT LOWER QUADRANT 10/26/2015 JEZ TOMLINSON RN STARS Ot 789.03 ABDOMINAL PAIN, RIGHT LOWER QUADRANT 10/26/2015 JEZ TOMLINSON RN STARS Ot R10.31 RIGHT LOWER QUADRANT PAIN 10/26/2015 GERMAINE MOTA Ot V76.12 OT SCREEN MAMMO-MALIGN NEOPLASM OF KRISTIN 10/26/2015 SAMI WOLFE [facility] CCDS Ot 785.1 PALPITATIONS 10/26/2015 SAMI WOLFE [facility], ALI FACP CCDS Ot 786.09 RESPIRATORY ABNORM NEC 10/26/2015 SAMI WOLFE [facility], ALI FACP CCDS Ot 785.1 PALPITATIONS 10/26/2015 SAMI WOLFE [facility], [facility] Ot 786.09 RESPIRATORY ABNORM NEC 10/26/2015 JEZ TOMLINSON RN STARS Ot 789.03 ABDOMINAL PAIN, RIGHT LOWER QUADRANT 10/26/2015 JEZ TOMLINSON RN STARS Ot 789.03 ABDOMINAL PAIN, RIGHT LOWER QUADRANT 10/26/2015 JEZ TOMLINSON Ot R10.31 RIGHT LOWER QUADRANT PAIN 10/26/2015 JEZ TOMLINSON RN STARS Ot 789.03 ABDOMINAL PAIN, RIGHT LOWER QUADRANT [...] ALMEIDA YENNY Ot K62.1 RECTAL POLYP 11/08/2015 [place] YENNY Ot K63.5 POLYP OF COLON 02/25/2016 [...] 786.09 RESPIRATORY ABNORM NEC 02/25/2016 JEZ TOMLINSON RN STARS Ot 789.03 ABDOMINAL PAIN, RIGHT LOWER QUADRANT 02/25/2016 JEZ TOMLINSON RN STARS Ot 789.03 ABDOMINAL PAIN, RIGHT LOWER QUADRANT 02/25/2016 JEZ TOMLINSON RN STARS Ot R10.31 RIGHT LOWER QUADRANT PAIN 02/25/2016 BUSHRAJEZ NOVOA RN STARS Ot R10.31 RIGHT LOWER QUADRANT PAIN 02/25/2016 JEZ TOMLINSON RN STARS Ot 789.03 ABDOMINAL PAIN, RIGHT LOWER QUADRANT [...] 786.09 RESPIRATORY ABNORM NEC 11/02/2016 JEZ TOMLINSON RN STARS Ot 789.03 ABDOMINAL PAIN, RIGHT LOWER QUADRANT [...] 11/21/2016 YENNY ALMEIDA DO Ot Z79.899 OTHER ROPE TOW OPERATOR (CURRENT) DRUG THERAPY 11/21/2016 YENNY ALMEIDA DO [...] 786.09 RESPIRATORY ABNORM NEC 11/20/2017 JEZ TOMLINSON RN STARS Ot 789.03 ABDOMINAL PAIN, RIGHT LOWER QUADRANT 11/20/2017 JEZ TOMLINSON Ot 789.03 ABDOMINAL PAIN, RIGHT LOWER QUADRANT 11/20/2017 BUSHRA, JEZ RN STARS Ot R10.31 RIGHT LOWER QUADRANT PAIN 11/20/2017 JEZ TOMLINSON RN STARS Ot Z12.31 ENCNTR SCREEN MAMMOGRAM FOR MALIGNANT NE 11/22/2017 BAIMA, EVELIA L RN STARS Ot I10 ESSENTIAL (PRIMARY) HYPERTENSION 11/22/2017 BAIMA, EVELIA L RN STARS Ot 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 11/22/2017 BAIMA, EVELIA L RN STARS Ot I34.0 NONRHEUMATIC MITRAL (VALVE) INSUFFICIENC 11/22/2017 BAIMA, EVELIA L RN STARS Ot I73.9 PERIPHERAL VASCULAR DISEASE, UNSPECIFIED 11/22/2017 BAIMA, EVELIA L RN STARS Ot R06.09 OTHER FORMS OF DYSPNEA 11/22/2017 BAIMA, EVELIA L RN STARS Ot R29.818 OTHER SYMPTOMS AND SIGNS INVOLVING THE N 11/22/2017 BAIMA, EVELIA L RN STARS Ot Z72.0 TOBACCO USE 12/08/2017 BAIMA, EVELIA L RN STARS Ot I10 ESSENTIAL (PRIMARY) HYPERTENSION 12/08/2017 BAIMA, EVELIA L RN STARS Ot 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 12/08/2017 BAIMA, EVELIA L RN STARS Ot I34.0 NONRHEUMATIC MITRAL (VALVE) INSUFFICIENC 12/08/2017 BAIMA, EVELIA L RN STARS Ot R06.09 OTHER FORMS OF DYSPNEA 12/08/2017 BAIMA, EVELIA L RN STARS Ot Z72.0 TOBACCO USE 12/10/2017 BAIMA, EVELIA L RN STARS Ot I10 ESSENTIAL (PRIMARY) HYPERTENSION 12/10/2017 BAIMA, EVELIA L RN STARS Ot 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 12/10/2017 BAIMA, EVELIA L RN STARS Ot I34.0 NONRHEUMATIC MITRAL (VALVE) INSUFFICIENC 12/10/2017 BAIMA, EVELIA L RN STARS Ot I73.9 PERIPHERAL VASCULAR DISEASE, UNSPECIFIED 12/10/2017 BAIMA, EVELIA L RN STARS Ot R06.09 OTHER FORMS OF DYSPNEA 12/10/2017 BAIMA, EVELIA L RN STARS Ot R29.818 OTHER SYMPTOMS AND SIGNS INVOLVING THE N 12/10/2017 BAIMA, EVELIA L RN STARS Ot Z72.0 TOBACCO USE 12/10/2017 BAIMA, EVELIA L RN STARS Ot I10 ESSENTIAL (PRIMARY) HYPERTENSION 12/10/2017 DEBBIEMARIA DE JESUS, EVELIA L RN STARS Ot 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 12/10/2017 BAILOU PRETTYHER L RN STARS Ot I34.0 NONRHEUMATIC MITRAL (VALVE) INSUFFICIENC 12/10/2017 BAIMA, EVELIA L RN STARS Ot I73.9 PERIPHERAL VASCULAR DISEASE, UNSPECIFIED 12/10/2017 BAIMA EVELIA L RN STARS Ot R06.09 OTHER FORMS OF DYSPNEA 12/10/2017 DEBBIEMARIA DE JESUS EVELIA L RN STARS Ot R29.818 OTHER SYMPTOMS AND SIGNS INVOLVING THE N 12/10/2017 GÓMEZEVELIA L RN STARS Ot Z72.0 TOBACCO USE 12/12/2017 GERMAINE MOTA Ot V76.12 OTH SCREEN MAMMO-MALIGN NEOPLASM OF [place]RI[place] 12/12/2017 SAMI WOLFE FACC, ALI FACP CCDS Ot 785.1 PALPITATIONS 12/12/2017 SAMI WOLFE FACC, ALI FACP CCDS Ot 786.09 RESPIRATORY ABNORM NEC 12/12/2017 SAMI WOLFE FACC, ALI FACP CCDS Ot 785.1 PALPITATIONS 12/12/2017 SAMI MD FACC, ALI FACP CCDS Ot 786.09 RESPIRATORY ABNORM NEC 12/12/2017 JEZ TOMLINSON RN STARS Ot 789.03 ABDOMINAL PAIN, RIGHT LOWER QUADRANT 12/12/2017 JEZ TOMLINSON RN STARS Ot 789.03 ABDOMINAL PAIN, RIGHT LOWER QUADRANT 12/12/2017 JEZ TOMLINSON RN STARS Ot R10.31 RIGHT LOWER QUADRANT PAIN 12/12/2017 JEZ TOMLINSON RN STARS Ot Z12.31 ENCNTR SCREEN MAMMOGRAM FOR MALIGNANT NE 12/12/2017 GÓMEZ EVELIA L RN STARS Ot I10 ESSENTIAL (PRIMARY) HYPERTENSION 12/12/2017 GÓMEZ EVELIA L RN STARS Ot 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 12/12/2017 DEBBIELOU PRETTYHER L RN STARS Ot I34.0 NONRHEUMATIC MITRAL (VALVE) INSUFFICIENC 12/12/2017 GÓMEZ EVELIA L RN STARS Ot I73.9 PERIPHERAL VASCULAR DISEASE, UNSPECIFIED 12/12/2017 BAIMA, EVELIA L RN STARS Ot R06.09 OTHER FORMS OF DYSPNEA 12/12/2017 BAIMA, EVELIA L RN STARS Ot R29.818 OTHER SYMPTOMS AND SIGNS INVOLVING THE N 12/12/2017 BAIMA, EVELIA L RN STARS Ot Z72.0 TOBACCO USE 12/12/2017 BAIMA, EVELIA L RN STARS Ot I10 ESSENTIAL (PRIMARY) HYPERTENSION 12/12/2017 BAIMA, EVELIA L RN STARS Ot 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 12/12/2017 BAIMA, EVELIA L RN STARS Ot I34.0 NONRHEUMATIC MITRAL (VALVE) INSUFFICIENC 12/12/2017 BAIMA, EVELIA L RN STARS Ot R06.09 OTHER FORMS OF DYSPNEA 12/12/2017 BAIMA, EVELIA L RN STARS Ot Z72.0 TOBACCO USE 12/12/2017 BAIMA, EVELIA L RN STARS Ot I10 ESSENTIAL (PRIMARY) HYPERTENSION 12/12/2017 BAIMA, EVELIA L RN STARS Ot 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 12/12/2017 BAIMA, EVELIA L RN STARS Ot I34.0 NONRHEUMATIC MITRAL (VALVE) INSUFFICIENC 12/12/2017 BAIMA, EVELIA L RN STARS Ot R06.09 OTHER FORMS OF DYSPNEA 12/12/2017 BAIMA, EVELIA L RN STARS Ot Z72.0 TOBACCO USE 12/26/2017 DARREN MEHTA E RESTAURANT HOURLY TEAM MEMBER Ot G47.00 INSOMNIA, UNSPECIFIED 12/26/2017 JANINE DARREN E RESTAURANT HOURLY TEAM MEMBER Ot G47.10 HYPERSOMNIA, UNSPECIFIED 12/26/2017 JANINE DARREN E RESTAURANT HOURLY TEAM MEMBER Ot G47.33 OBSTRUCTIVE SLEEP APNEA (ADULT) (PEDIATR 12/26/2017 JANINE DARREN E RESTAURANT HOURLY TEAM MEMBER Ot G47.50 PARASOMNIA, UNSPECIFIED 12/27/2017 JANINE DARREN E RESTAURANT HOURLY TEAM MEMBER Ot G47.00 INSOMNIA, UNSPECIFIED 12/27/2017 JANINE DARREN E RESTAURANT HOURLY TEAM MEMBER Ot G47.10 HYPERSOMNIA, UNSPECIFIED 12/27/2017 JANINE DARREN E RESTAURANT HOURLY TEAM MEMBER Ot G47.33 OBSTRUCTIVE SLEEP APNEA (ADULT) (PEDIATR 12/27/2017 DOROTHY MEHTAINE E RESTAURANT HOURLY TEAM MEMBER Ot G47.50 PARASOMNIA, UNSPECIFIED 02/04/2018 BAIMA, EVELIA L RN STARS Ot I10 ESSENTIAL (PRIMARY) HYPERTENSION 02/04/2018 GÓMEZEVELIA RN STARS Ot 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 02/04/2018 EVELIA MAGAÑA Sameera RN STARS Ot I34.0 NONRHEUMATIC MITRAL (VALVE) INSUFFICIENC 02/04/2018 DEBBIEMARIA DE JESUS EVELIA L RN STARS Ot R06.09 OTHER FORMS OF DYSPNEA 02/04/2018 EVELIA MAGAÑA RN STARS Ot Z72.0 TOBACCO USE 02/04/2018 JANINEDARREN PRECIADO RESTAURANT HOURLY TEAM MEMBER Ot R06.02 SHORTNESS OF BREATH 02/04/2018 JANINEDOROTHY PRECIADOINE Quin RESTAURANT HOURLY TEAM MEMBER Ot R16.1 SPLENOMEGALY, NOT ELSEWHERE CLASSIFIED 02/04/2018 JANINEDARREN PRECIADO RESTAURANT HOURLY TEAM MEMBER Ot Z72.0 TOBACCO USE 02/05/2018 JANINEDARREN PRECIADO RESTAURANT HOURLY TEAM MEMBER Ot R06.02 SHORTNESS OF BREATH 02/05/2018 JANINEDARREN PRECIADO RESTAURANT HOURLY TEAM MEMBER Ot R16.1 SPLENOMEGALY, NOT ELSEWHERE CLASSIFIED 02/05/2018 JANINEDOROTHY PRECIADOINE Quin RESTAURANT HOURLY TEAM MEMBER Ot Z72.0 TOBACCO USE 02/05/2018 JACOBY GRANADOS, [...] 786.09 RESPIRATORY ABNORM NEC 02/05/2018 JEZ TOMLINSON RN STARS Ot 789.03 ABDOMINAL PAIN, RIGHT LOWER QUADRANT 02/05/2018 JEZ TOMLINSON RN STARS Ot 789.03 ABDOMINAL PAIN, RIGHT LOWER QUADRANT 02/05/2018 JEZ TOMLINSON RN STARS Ot R10.31 RIGHT LOWER QUADRANT PAIN 02/05/2018 JEZ TOMLINSON RN STARS Ot Z12.31 ENCNTR SCREEN MAMMOGRAM FOR MALIGNANT NE 02/05/2018 EVELIA MAGAÑA RN STARS Ot I10 ESSENTIAL (PRIMARY) HYPERTENSION 02/05/2018 GÓMEZ EVELIA Sameera RN STARS Ot 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 02/05/2018 BAIMAEVELIA L RN STARS Ot I34.0 NONRHEUMATIC MITRAL (VALVE) INSUFFICIENC 02/05/2018 BAIMA EVELIA L RN STARS Ot I73.9 PERIPHERAL VASCULAR DISEASE, UNSPECIFIED 02/05/2018 BAIMARIA DE JESUS EVELIA L RN STARS Ot R06.09 OTHER FORMS OF DYSPNEA 02/05/2018 BAIMA, EVELIA L RN STARS Ot R29.818 OTHER SYMPTOMS AND SIGNS INVOLVING THE N 02/05/2018 BAIMA EVELIA L RN STARS Ot Z72.0 TOBACCO USE 02/05/2018 BAIMA, EVELIA L RN STARS Ot I10 ESSENTIAL (PRIMARY) HYPERTENSION 02/05/2018 BAIMA, EVELIA L RN STARS Ot 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 02/05/2018 BAIMA, EVELIA L RN STARS Ot I34.0 NONRHEUMATIC MITRAL (VALVE) INSUFFICIENC 02/05/2018 BAIMARIA DE JESUS EVELIA L RN STARS Ot R06.09 OTHER FORMS OF DYSPNEA 02/05/2018 BAIMARIA DE JESUS EVELIA L RN STARS Ot Z72.0 TOBACCO USE 02/05/2018 DARREN MEHTA APRN Ot R06.02 SHORTNESS OF BREATH 02/05/2018 DARREN MEHTA APRN Ot R16.1 SPLENOMEGALY, NOT ELSEWHERE CLASSIFIED 02/05/2018 DARREN MEHTA RESTAURANT HOURLY TEAM MEMBER Ot Z72.0 TOBACCO USE 02/08/2018 JEZ TOMLINSON RN STARS Ot E04.2 NONTOXIC MULTINODULAR GOITER 02/13/2018 JEZ TOMLINSON RN STARS Ot E04.2 NONTOXIC MULTINODULAR GOITER 03/19/2018 SHENA WOLFE, MOOKIE [place] Ot E04.1 NONTOXIC SINGLE THYROID NODULE 03/25/2018 JEZ TOMLINSON RN STARS Ot E04.2 NONTOXIC MULTINODULAR GOITER 03/25/2018 SHENA WOLFE, MOOKIE [place] Ot E04.1 NONTOXIC SINGLE THYROID NODULE 03/26/2018 JEZ TOMLINSON RN STARS Ot E04.2 NONTOXIC MULTINODULAR GOITER 04/25/2018 JACOBY [...] 786.09 RESPIRATORY ABNORM NEC 04/25/2018 JEZ TOMLINSON RN STARS Ot 789.03 ABDOMINAL PAIN, RIGHT LOWER QUADRANT 04/25/2018 JEZ TOMLINSON RN STARS Ot 789.03 ABDOMINAL PAIN, RIGHT LOWER QUADRANT 04/25/2018 JEZ TOMLINSON RN STARS Ot R10.31 RIGHT LOWER QUADRANT PAIN 04/25/2018 JEZ TOMLINSON RN STARS Ot Z12.31 ENCNTR SCREEN MAMMOGRAM FOR MALIGNANT NE 04/25/2018 EVELIA MAGAÑA L RN STARS Ot I10 ESSENTIAL (PRIMARY) HYPERTENSION 04/25/2018 GÓMEZ EVELIA L RN STARS Ot 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 04/25/2018 GÓMEZ EVELIA L RN STARS Ot I34.0 NONRHEUMATIC MITRAL (VALVE) INSUFFICIENC 04/25/2018 GÓMEZ EVELIA L RN STARS Ot I73.9 PERIPHERAL VASCULAR DISEASE, UNSPECIFIED 04/25/2018 GÓMEZ EVELIA L RN STARS Ot R06.09 OTHER FORMS OF DYSPNEA 04/25/2018 GÓMEZ EVELIA L RN STARS Ot R29.818 OTHER SYMPTOMS AND SIGNS INVOLVING THE N 04/25/2018 EVELIA MAGAÑA L RN STARS Ot Z72.0 TOBACCO USE 04/25/2018 LOU MAGAÑAHER L RN STARS Ot I10 ESSENTIAL (PRIMARY) HYPERTENSION 04/25/2018 GÓMEZ EVELIA L RN STARS Ot 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 04/25/2018 DEBBIEMA EVELIA L RN STARS Ot I34.0 NONRHEUMATIC MITRAL (VALVE) INSUFFICIENC 04/25/2018 DEBBIEMA EVELIA L RN STARS Ot R06.09 OTHER FORMS OF DYSPNEA 04/25/2018 LOU MAGAÑAHER L RN STARS Ot Z72.0 TOBACCO USE 04/25/2018 DARREN MEHTA APRN Ot R06.02 SHORTNESS OF BREATH 04/25/2018 DARREN MEHTA APRN Ot R16.1 SPLENOMEGALY, NOT ELSEWHERE CLASSIFIED 04/25/2018 DARREN MEHTA APRN Ot Z72.0 TOBACCO USE 04/25/2018 JEZ TOMLINSON Ot E04.2 NONTOXIC MULTINODULAR GOITER 04/25/2018 SHENA WOLFE, MOOKIE [place] Ot E04.1 NONTOXIC SINGLE THYROID NODULE Procedures Code Description Performed By [place]formed On Q0091 PAP SMEAR OBTAIN SMEAR 04/10/2013 62629 NUCLEAR STRESS TESTING 04/10/2013 03664 ECHO 2D 04/10/2013 70008 HEMOCCULT 04/10/2013 16737 PAP SMEAR 04/14/2013 75179 MAMMOGRAM, SCREENING 04/25/2013 96471 EKG, TRACING (IN-HOUSE) 10/22/2013 40700 UA LONG DIP 10/22/2013 65560 A1C (IN-HOUSE) 10/24/2013 81421 ROUTINE VENIPUNCTURE 10/24/2013 45547 CBC 10/24/2013 7428166 GFR CALC (RESULT ONLY) 10/24/2013 40178 CMP 10/24/2013 84676 LIPID PANEL 10/24/2013 72622 MAGNESIUM 10/24/2013 73427 TSH 10/24/2013 44704 INSULIN LEVEL 10/24/2013 CARDIOLOG YANNA GALLARDO 11/05/2013 58557 ROUTINE VENIPUNCTURE 02/23/[address] ABDOMEN AND PELVIS W/ CONTRAST 02/24/2014 45674 FSH 02/24/2014 96189 US PELVIC COMPL (REFLEX CPT - 55611) 03/02/2014 Results Test Result Range No Test [...] - 09/24/17 12:32 TSH 0.79 mIU/L 0.40-4.50 Complete blood count (CBC) with automated white blood cell (WBC) differential - 05/01/18 10:35 Blood leukocytes automated count (number/volume) 6.8 10*3/uL 4.3-11.0 Blood erythrocytes automated count (number/volume) 4.27 10*6/uL 4.35-5.85 Venous blood hemoglobin measurement (mass/volume) 13.1 g/dL 11.5-16.0 Blood hematocrit (volume fraction) 37 % 35-52 Automated erythrocyte mean corpuscular volume 87 [foz_us] 80-99 Automated erythrocyte mean corpuscular hemoglobin (mass per erythrocyte) 31 pg 25-34 Automated erythrocyte mean corpuscular hemoglobin concentration measurement ( mass/volume) 35 g/dL 32-36 Automated erythrocyte distribution width ratio 17.6 % 10.0-14.5 Automated blood platelet count (count/volume) 251 10*3/uL 130-400 Automated blood platelet mean volume measurement 8.9 [foz_us] 7.4-10.4 Automated blood neutrophils/100 leukocytes 67 % 42-75 Automated blood lymphocytes/100 leukocytes 23 % 12-44 Blood monocytes/100 leukocytes 7 % 0-12 Automated blood eosinophils/100 leukocytes 3 % 0-10 Automated blood basophils/100 leukocytes 2 % 0-10 Blood neutrophils automated count (number/volume) 4.5 10*3 1.8-7.8 Blood lymphocytes automated count (number/volume) 1.5 10*3 1.0-4.0 Blood monocytes automated count (number/volume) 0.4 10*3 0.0-1.0 Automated eosinophil count 0.2 10*3/uL 0.0-0.3 Automated blood basophil count (count/volume) 0.1 10*3/uL 0.0-0.1 Whole blood basic metabolic panel - 05/01/18 10:35 Serum or plasma sodium measurement (moles/volume) 135 mmol/L 135-145 Serum or plasma potassium measurement (moles/volume) 4.1 mmol/L 3.6-5.0 Serum or plasma chloride measurement (moles/volume) 102 mmol/L 98-107 Carbon dioxide 25 mmol/L 21-32 Serum or plasma anion gap determination (moles/volume) 8 mmol/L 5-14 Serum or plasma urea nitrogen measurement (mass/volume) 12 mg/dL 7-18 Serum or plasma creatinine measurement (mass/volume) 0.64 mg/dL 0.60-1.30 Serum or plasma urea nitrogen/creatinine mass ratio 19 NRG Serum or plasma creatinine measurement with calculation of estimated glomerular filtration rate > NRG Serum or plasma glucose measurement (mass/volume) 95 mg/dL 70-105 Serum or plasma calcium measurement (mass/volume) 9.4 mg/dL 8.5-10.1 Methicillin resistant Staphylococcus aureus (MRSA) screening culture - 10:35 Methicillin resistant Staphylococcus aureus (MRSA) screening culture NEG NRG Whole blood basic metabolic panel - 05/02/18 06:27 Serum or plasma sodium measurement (moles/volume) 135 mmol/L 135-145 Serum or plasma potassium measurement (moles/volume) 3.7 mmol/L 3.6-5.0 Serum or plasma chloride measurement (moles/volume) 97 mmol/L 98-107 Carbon dioxide 25 mmol/L 21-32 Serum or plasma anion gap determination (moles/volume) 13 mmol/L 5-14 Serum or plasma urea nitrogen measurement (mass/volume) 13 mg/dL 7-18 Serum or plasma creatinine measurement (mass/volume) 0.64 mg/dL 0.60-1.30 Serum or plasma urea nitrogen/creatinine mass ratio 20 NRG Serum or plasma creatinine measurement with calculation of estimated glomerular filtration rate > NRG Serum or plasma glucose measurement (mass/volume) 114 mg/dL 70-105 Serum or plasma calcium measurement (mass/volume) 7.8 mg/dL 8.5-10.1 IONIZED CALCIUM (SEND OFF) - 05/02/18 06:27 Blood ionized calcium measurement (mass/volume) 0.94 % 1.16-1.32 Venous blood ionized calcium measurement adjusted to pH 7.4 (moles/volume) 0.97 % 1.16-1.32 pH measurement 7.45 NRG Whole blood basic metabolic panel - 05/03/18 05:57 Serum or plasma sodium measurement (moles/volume) 130 mmol/L 135-145 Serum or plasma potassium measurement (moles/volume) 3.8 mmol/L 3.6-5.0 Serum or plasma chloride measurement (moles/volume) 94 mmol/L 98-107 Carbon dioxide 25 mmol/L 21-32 Serum or plasma anion gap determination (moles/volume) 11 mmol/L 5-14 Serum or plasma urea nitrogen measurement (mass/volume) 12 mg/dL 7-18 Serum or plasma creatinine measurement (mass/volume) 0.64 mg/dL 0.60-1.30 Serum or plasma urea nitrogen/creatinine mass ratio 19 NRG Serum or plasma creatinine measurement with calculation of estimated glomerular filtration rate > NRG Serum or plasma glucose measurement (mass/volume) 109 mg/dL 70-105 Serum or plasma calcium measurement (mass/volume) 7.1 mg/dL 8.5-10.1 Encounters ACCT No. Visit Date/Time Discharge Status Pt. Type Provider Facility Loc./Unit Complaint [id number] 02/23/2014 16:18:00 02/23/2014 23:59:59 [facility] Outpatient JEZ TOMLINSON APRN [id number] 12/10/2013 08:55:00 12/10/2013 23:59:59 [facility] Outpatient YANNA GALLARDO MD [id number] 11/05/2013 10:15:00 11/05/2013 23:59:59 [facility] Outpatient JEZ TOMLINSON APRN [id number] 10/24/2013 08:54:00 10/24/2013 23:59:59 CLS Outpatient LEIGH ANN MONTALVO DO [id number] 04/10/2013 13:00:00 04/10/2013 23:59:59 CLS Outpatient LEIGH ANN MONTALVO DO [id number] 04/10/2013 13:00:00 04/10/2013 23:59:59 CLS Outpatient LEIGH ANN MONTALVO DO [id number] 05/22/2012 12:48:00 05/22/2012 23:59:59 CLS Outpatient [id number] 04/09/2012 10:09:00 04/09/2012 23:59:59 CLS Outpatient JEZ TOMLINSON APRN [id number] 11/02/2011 13:33:00 11/02/2011 23:59:59 CLS Outpatient [id number] 11/02/2011 13:33:00 11/02/2011 23:59:59 CLS Outpatient JEZ TOMLINSON APRN [id number] 09/24/2012 15:19:00 Document Registration [id number] 04/24/2016 17:07:00 Document Registration [id number] 11/17/2015 10:06:00 Document Registration [id number] 03/11/2018 11:20:00 03/11/2018 23:59:59 CLS Outpatient JEZ TOMLINSON APRN [facility] [id number] 09/24/2017 12:20:00 Document Registration [id number] 08/20/2017 13:00:00 Document Registration [id number] 11/16/2016 11:40:00 Document Registration [email or web address] 03/09/2014 13:21:52 ACT Document Registration [id number] 11/17/2015 10:06:00 Document Registration [id number] 05/02/2018 11:32:00 05/03/2018 12:20:00 DIS Inpatient MOOKIE CHATTERJEE MD Via [facility] 4TH POST OP NAUSEA,VOMITING, HYPOCALCEMIA [id number] 04/30/2018 10:15:00 04/30/2018 10:48:00 DIS Outpatient MOOKIE CHATTERJEE MD [facility] PREOP THYROID NODULES [id number] 04/25/2018 12:59:00 04/25/2018 23:59:59 CLS Outpatient MOOKIE CHATTERJEE MD [facility] LAB THYROID NODULE [id number] 03/06/2018 09:54:00 03/06/2018 23:59:59 CLS Outpatient MOOKIE CHATTERJEE MD [facility] RAD THYROID NODULE [id number] 02/07/2018 13:06:00 02/07/2018 23:59:59 CLS Outpatient JEZ TOMLINSON [facility] RAD THYROID NODULE [id number] 12/26/2017 13:44:00 12/26/2017 13:52:00 DIS Outpatient DARREN MEHTA APRN [facility] SLEEP SNORING,EDS [id number] 12/12/2017 11:47:00 12/12/2017 23:59:59 CLS Outpatient DARREN MEHTA APRN [facility] RAD TOBACCO USER, DYSPNEA [id number] 12/04/2017 13:27:00 12/04/2017 23:59:59 CLS Outpatient EVELIA MAGAÑA RN STARS [facility] CARD DYSPNEA ON EXERTION [id number] 11/20/2017 10:49:00 11/20/2017 23:59:59 CLS Outpatient EVELIA MAGAÑA RN STARS [facility] CARD DYSPNEA ON EXERTION [id number] 02/06/2017 12:54:00 02/06/2017 23:59:59 CLS Outpatient JEZ TOMLINSON [facility] RAD Z12.31 SCREENING MAMMO [id number] 11/21/2016 08:45:00 11/21/2016 12:33:00 DIS Outpatient YENNY ALMEIDA DO [facility] ENDO HISTORY POLYPS [id number] 11/16/2016 05:33:00 11/16/2016 15:11:00 DIS Outpatient YENNY ALMEIDA DO [facility] PREOP COLONOSCOPY [id number] 10/26/2015 09:46:00 10/26/2015 15:00:00 DIS Outpatient YENNY ALMEIDA DO [facility] SDC SCREENING [id number] 10/22/2015 05:39:00 10/22/2015 10:46:00 DIS Outpatient YENNY ALMEIDA DO [facility] PREOP SCREENING [id number] 10/11/2015 08:34:00 10/11/2015 23:59:59 CLS Outpatient JEZ TOMLINSON [facility] RAD RLQ ABD PAIN [id number] 03/09/2014 13:21:00 03/09/2014 23:59:59 CLS Outpatient JEZ TOMLINSON [facility] RAD ABD PAIN, RLQ [id number] 03/02/2014 11:11:00 03/02/2014 23:59:59 CLS Outpatient JEZ TOMLINSON [facility] RAD RLQ PAIN [id number] 01/13/2014 08:16:00 01/13/2014 17:11:00 DIS Outpatient YANNA GALLARDO MD, FACC FACP CCDS [facility] CATH ABN STRESS TEST [id number] 12/25/2013 07:42:00 12/25/2013 23:59:59 CLS Outpatient YANNA GALLARDO MD, FACC FACKathi CCDS [facility] CARD ANGINA,SOB, FATIGUE [id number] 12/18/2013 10:44:00 12/18/2013 23:59:59 CLS Outpatient YANNA GALLARDO MD, FACC FACP CCDS [facility] CARD ANGINA,SOB, FATIGUE [id number] 04/21/2013 10:08:00 04/21/2013 23:59:59 CLS Outpatient GERMAINE MOTA [facility] RAD SCREENING
[2018-05-05 23:53] LABS: BASOPHILS # (AUTO) 0.1 10^3/uL (0.0-0.1); BASOPHILS % (AUTO) 1 % (0-10); EOSINOPHILS # (AUTO) 0.2 10^3/uL (0.0-0.3); EOSINOPHILS % (AUTO) 2 % (0-10); HEMATOCRIT 33 % (35-52); HEMOGLOBIN 11.8 G/DL (11.5-16.0); LYMPHOCYTES # (AUTO) 1.8 X 10^3 (1.0-4.0); LYMPHOCYTES % (AUTO) 18 % (12-44); MEAN CORPUSCULAR HEMOGLOBIN 31 PG (25-34); MEAN CORPUSCULAR HGB CONC 36 G/DL (32-36); MEAN CORPUSCULAR VOLUME 86 FL (80-99); MEAN PLATELET VOLUME 8.8 FL (7.4-10.4); MONOCYTES # (AUTO) 0.8 X 10^3 (0.0-1.0); MONOCYTES % (AUTO) 8 % (0-12); NEUTROPHILS # (AUTO) 7.1 X 10^3 (1.8-7.8); NEUTROPHILS % (AUTO) 71 % (42-75); PLATELET COUNT 348 10^3/uL (130-400); RED CELL DISTRIBUTION WIDTH 17.2 % (10.0-14.5); WHITE BLOOD COUNT 10.1 10^3/uL (4.3-11.0)
--- NOTE | 2018-05-05 23:55 | ED General ---
General Chief Complaint: General Problems/Pain Stated Complaint: HAD THYROID SURGERY ON , NOT FEELING WELL Nursing Triage Note: pt had thyroid removed 4days ago and now c/o increased shakiness, weakness, and intermittent numbness around lips and fingers. pt also has significant bruising to chest. Nursing Sepsis Screen: No Definite Risk Source of Information: Patient Exam Limitations: No Limitations (GROVER GAVIN) History of Present Illness Date Seen by Provider: May 05, 2018 Time Seen by Provider: 23:40 Initial Comments 58-year-old female who presents to the emergency room with complaints of shakiness, weakness, numbness to her lips and around and her fingers bilaterally , intermittent chest pain that started the day after she had her thyroid removed. She is 4 days postop from a complete thyroidectomy by Dr. Chatterjee. She has significant swelling and ecchymosis around the incision site that extends down to her mid chest and covers both breasts bilaterally. She denies pain at the surgical site. Surgery was on 04/30/18 Timing/Duration: 4-5 Days Associated Systoms: Chest Pain, Malaise, Weakness (GROVER GAVIN) Allergies and Home Medications Allergies Coded Allergies: No Known Drug Allergies (Unverified , 12/25/13) Home Medications Fluoxetine HCl 20 Mg Tablet, 60 MG PO HS, (Reported) take 3 (20mg) tabs Gabapentin 400 Mg Capsule, 400 MG PO HS, (Reported) Levothyroxine Sodium 112 Mcg Tablet, 112 MCG PO DAILY Prescribed by: MOOKIE CHATTERJEE on 05/01/18 1454 Melatonin 10 Mg Tablet, 10 MG PO HS, (Reported) Oxybutynin Chloride 5 Mg Tablet, 5 MG PO HS, (Reported) Propranolol HCl 20 Mg Tablet, 20 MG PO BID, (Reported) med is bid but current prescription got changed to daily in error, talked with PCP and med is suppose to be bid and will be fixed with next prescription Tramadol HCl 50 Mg Tablet, 50 MG PO Q12H PRN for PAIN-MODERATE Prescribed by: MOOKIE CHATTERJEE on 05/03/18 1137 Patient Home Medication List Home Medication List Reviewed: Yes (GROVER GAVIN) Review of Systems Review of Systems Constitutional: no symptoms reported, see HPI EENTM: throat swelling (moderate swelling and ecchymosis around thyroidectomy incision site) Cardiovascular: see HPI, chest pain Skin: see HPI, other (ecchymosis spreading from thyroidectomy site to mid chest and bilateral breasts) (GROVER GAVIN) All Other Systems Reviewed Negative Unless Noted: Yes (GROVER GAVIN) Past Wsdhvci-Dtpyxz-Vfnaqq Hx Past Med/Social Hx: Reviewed Nursing Past Med/Soc Hx (GROVER GAVIN) Patient Social History Alcohol Use: Denies Use Recreational Drug Use: No Smoking Status: Current Everyday Smoker Type Used: Cigarettes Recent Foreign Travel: No Contact w/Someone Who Travel: No Recent Infectious Disease Expo: No Recent Hopitalizations: No (GROVER GAVIN) Immunizations Up To Date Date of Influenza Vaccine: Jan 13, 2014 (GROVER GAVIN) Past Medical History Surgeries: Yes (jaw sx, ) Bowel Surgery, Hysterectomy, Thyroidectomy, Tonsillectomy Respiratory: Yes Sleep Apnea Currently Using CPAP: Yes Currently Using BIPAP: No Cardiac: Yes (mitral valve prolapse) Heart Murmur, Hypertension Neurological: No 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 [employer] LIAISON History: Hysterectomy Genitourinary: No Bladder Infection, Dialysis Gastrointestinal: No Polyps Musculoskeletal: No Arthritis Endocrine: No HEENT: No Cancer: No Psychosocial: Yes Anxiety, Depression Integumentary: No Blood Disorders: No (GROVER GAVIN) Family Medical History Reviewed Nursing Family Hx (GROVER GAVIN) Physical Exam Vital Signs Vital Signs - First Documented 05/05/18 23:05 Temp 99.0 Pulse 80 Resp 18 B/P (MAP) 152/82 (105) Pulse Ox 96 O2 Delivery Room Air (GISSELLE BARGER MD) Vital Signs Capillary Refill : Less Than 3 Seconds (GROVER GAVIN) Height, Weight, BMI Height: 5'7.00" Weight: 270lbs. oz. 122.017157ad; 42.7 BMI Method:Stated General Appearance: No Apparent Distress, WD/WN Neck: Full Range of Motion, Other (significant swelling and ecchymosis around thyroidectomy site.) Respiratory: Chest Non Tender, Lungs Clear, Normal Breath Sounds, No Accessory Muscle Use, No Respiratory Distress, Other (ecchymosis across chest) Cardiovascular: Regular Rate, Rhythm, No Edema, No Gallop, No JVD, No Murmur, Normal Peripheral Pulses Gastrointestinal: Normal Bowel Sounds, No Organomegaly, No Pulsatile Mass, Non Tender, Soft Extremity: Normal Capillary Refill Neurologic/Psychiatric: Alert, Oriented x3, Normal Mood/Affect Skin: Normal Color, Warm/Dry (GROVER GAVIN) Progress/Results/Core Measures Suspected Sepsis Recent Fever Within 48 Hours: No Infection Criteria Present: None New/Unexplained Altered Menta: No Sepsis Screen: No Definite Risk SIRS Temperature:99.0 Pulse: 80 Respiratory Rate: 18 Laboratory Tests 05/05/18 23:40: White Blood Count 10.1 Blood Pressure 152 /82 Mean: 105 Laboratory Tests 05/05/18 23:40: Creatinine 0.66, INR Comment 1.1, Platelet Count 348, Total Bilirubin 1.5H (GROVER GAVIN) Results/Orders Lab Results Laboratory Tests Test 05/05/18 23:40 Range/Units White Blood Count 10.1 4.3-11.0 10^3/uL Red Blood Count 3.80 L 4.35-5.85 10^6/uL Hemoglobin 11.8 11.5-16.0 G/DL Hematocrit 33 L 35-52 % Mean Corpuscular Volume 86 80-99 FL Mean Corpuscular Hemoglobin 31 25-34 PG Mean Corpuscular Hemoglobin Concent 36 32-36 G/DL Red Cell Distribution Width 17.2 H 10.0-14.5 % Platelet Count 348 130-400 10^3/uL Mean Platelet Volume 8.8 7.4-10.4 FL Neutrophils (%) (Auto) 71 42-75 % Lymphocytes (%) (Auto) 18 12-44 % Monocytes (%) (Auto) 8 0-12 % Eosinophils (%) (Auto) 2 0-10 % Basophils (%) (Auto) 1 0-10 % Neutrophils # (Auto) 7.1 1.8-7.8 X 10^3 Lymphocytes # (Auto) 1.8 1.0-4.0 X 10^3 Monocytes # (Auto) 0.8 0.0-1.0 X 10^3 Eosinophils # (Auto) 0.2 0.0-0.3 10^3/uL Basophils # (Auto) 0.1 0.0-0.1 10^3/uL Prothrombin Time 14.1 12.2-14.7 SEC INR Comment 1.1 0.8-1.4 Activated Partial Thromboplast Time 30 24-35 SEC Sodium Level 139 135-145 MMOL/L Potassium Level 3.4 L 3.6-5.0 MMOL/L Chloride Level 98 98-107 MMOL/L Carbon Dioxide Level 25 21-32 MMOL/L Anion Gap 16 H 5-14 MMOL/L Blood Urea Nitrogen 7 7-18 MG/DL Creatinine 0.66 0.60-1.30 MG/DL Estimat Glomerular Filtration Rate > 60 BUN/Creatinine Ratio 11 Glucose Level 102 70-105 MG/DL Calcium Level 6.4 L 8.5-10.1 MG/DL Corrected Calcium 6.3 L 8.5-10.1 MG/DL Magnesium Level 2.0 1.8-2.4 MG/DL Total Bilirubin 1.5 H 0.1-1.0 MG/DL Aspartate Amino Transf (AST/SGOT) 20 5-34 U/L Alanine Aminotransferase (ALT/SGPT) 28 0-55 U/L Alkaline Phosphatase 68 40-136 U/L Myoglobin 32.3 10.0-92.0 NG/ML Troponin I < 0.028 <0.028 NG/ML B-Type Natriuretic Peptide 148.9 H <100.0 PG/ML Total Protein 7.1 6.4-8.2 GM/DL Albumin 4.1 3.2-4.5 GM/DL TSH [place] Testing 2.31 0.35-4.94 UIU/ML (GISSELLE BARGER MD) My Orders Orders - GISSELLE BARGER MD Ns Iv 1000 Ml (Sodium Chloride 0.9%) (05/06/18 02:35) Calcium Gluconate 10% Inj (Calcium Glu (05/06/18 02:45) Calcium Gluconate 10% Inj (Calcium Glu (05/06/18 02:45) Calcium Gluconate 10% Inj (Calcium Glu (05/06/18 02:45) (GISSELLE BARGER MD) Vital Signs/I&O 05/05/18 23:05 Temp 99.0 Pulse 80 Resp 18 B/P (MAP) 152/82 (105) Pulse Ox 96 O2 Delivery Room Air (GISSELLE BARGER MD) Vital Signs/I&O Capillary Refill : Less Than 3 Seconds (GROVER GAVIN) Blood Pressure Mean: 105 Progress Note : Progress Note 0045: Assumed care from Grover Gavin APRN. Pending CT of the neck and chest. 0150: Dr. Chatterjee paged. I have reexamined the patient. She does have mass effect to anterior neck. She does have bruising that cascade stand the anterior chest from the thyroid surgical wound. Patient's greatest concern is that the discoloration has increased over time. She states that the size of the mass in her neck has not changed. CT results reviewed and noted as below. I will discuss with Dr. Chatterjee for further instructions. Calcium is noted to be low and is lower than at discharge. Patient states that she has taken multiple calcium carbonate tablet since discharge. 0245: I did discuss the case with Dr. Chatterjee. We will give calcium gluconate 3 A IV now and patient is to be admitted. I did discuss this with the patient and family who agree with plan. Patient does have hypocalcemia and postoperative pain. Admit, observation status. (GISSELLE BARGER MD) ECG Initial ECG Impression Date: May 05, 2018 Initial ECG Impression Time: 23:47 Initial ECG Rate: 66 Initial ECG Rhythm: Normal Sinus Comment Sinus rhythm with normal axis. No evidence of ST elevation NC. Similar to 13 January 2014. Interpreted by me. (GISSELLE BARGER MD) Diagnostic Imaging Diagonstic Imaging: CT Plain Films/CT/US/NM/MRI: chest, other Comments CT soft tissue of the neck shows postsurgical changes including a relatively dense fluid collection with a few foci of air along the anterior neck measuring approximately 6.1 x 6.1 x 2 cm, likely representing a postsurgical seroma/blood products. There is edema within the thyroidectomy bed. Airways patent throughout. CT of the chest shows no acute findings. Reviewed: [facility] Departure Communication (Admissions) Time/Spoke to Admitting Phy: 02:45 (GISSELLE BARGER MD) Impression Primary Impression: Hypocalcemia Additional Impression: Postoperative pain Disposition: ADMITTED INPATIENT Condition: Stable Admissions Decision to Admit Reason: Admit from ER (General) Decision to Admit/Date: May 06, 2018 Time/Decision to Admit Time: 02:45 (GISSELLE BARGER MD) Departure-Patient Inst. Referrals: [facility] (PCP/Family) Primary Care Physician GROVER GAVIN May 05, 2018 23:55 GISSELLE BARGER MD May 06, 2018 01:55
[2018-05-06 00:02] LABS: INR 1.1 (0.8-1.4); PROTHROMBIN TIME PATIENT 14.1 SEC (12.2-14.7)
[2018-05-06 00:10] LABS: ALANINE AMINOTRANSFERASE 28 U/L (0-55); ALBUMIN 4.1 GM/DL (3.2-4.5); ALKALINE PHOSPHATASE 68 U/L (40-136); BILIRUBIN,TOTAL 1.5 MG/DL (0.1-1.0); BUN/CREATININE RATIO 11; CALCIUM 6.4 MG/DL (8.5-10.1); CARBON DIOXIDE 25 MMOL/L (21-32); CHLORIDE 98 MMOL/L (98-107); CREATININE SERUM 0.66 MG/DL (0.60-1.30); GFR ESTIMATED > 60; GLUCOSE 102 MG/DL (70-105); POTASSIUM 3.4 MMOL/L (3.6-5.0); SODIUM 139 MMOL/L (135-145); TOTAL PROTEIN 7.1 GM/DL (6.4-8.2)
[2018-05-06 00:18] LABS: MYOGLOBIN SERUM 32.3 NG/ML (10.0-92.0)
[2018-05-06] MEDS ORDERED: NS IV 1000 ML 1,000 ML IV ONE (02:35)
[2018-05-06] MEDS ORDERED: CALCIUM GLUC. 10% 4.65 MEQ/10 ML VIAL IV ONE ×3 (02:45)
[2018-05-06] MEDS ORDERED: NS (IVPB) 50 ML ONE (02:55)
[2018-05-06] MEDS ORDERED: NS (IVPB) 100 ML ONE (02:56)
[2018-05-06] MEDS ORDERED: MAGNESIUM 1 GM/100 ML IVPB 200 ML IV ONE (03:43)
[2018-05-06] MEDS: MAGNESIUM 1 GM/100 ML IVPB 100 ML IV SCH ×2 (03:50→05:10)
--- NOTE | 2018-05-06 04:15 | NUR ---
CARMELLA POP admitted to room 417-1, with an admitting diagnosis of POST OP PAIN AND HYPOCALCEMIA, on 05/06/18 from ED via WC, accompanied by AND STAFF.CARMELLA POP introduced to surroundings, call light, bed controls, phone, TV, temperature control, lights, meal times, smoking policy, visitor policy, side rail policy, bathrooms and showers. Patient Rights given to patient in the handbook. CARMELLA POP verbalizes understanding that [facility] is not responsible for the loss or damage to any personal effects or valuables that are kept in the patients possession during their hospitalization. PLANS OF CARE DISCUSSED WITH PT AND VERBALIZES UNDERSTANDING. CARMELLA POP verbalizes understanding of Interdisciplinary Patient Education. Patient and/or family were informed about the Rapid Response Team and its purpose.
--- OUTSIDE RECORDS SUMMARY | 2018-05-06 04:38 | XMS REPORT | Continuity of Care Document ---
Author Author [facility] Address Unknown Phone Unavailable Allergies Active Description Code Type Severity Reaction Onset Reported/Identified Relationship to Patient Clinical Status Yes No Known Drug Allergies [id number] Drug Allergy Unknown N/A 12/25/2013 Medications There [...] CASI TOMLINSON APRNNDA S 787.91 DIARRHEA 05/20/2008 CAIS TOMLINSON APRNNDA S V72.3 GYNECOLOGICAL EXAMINATION 06/10/2008 [...] MEDIA ACUTE SUPPURATIVE RIGHT EAR 03/28/2011 [place] SERVICE SUPPORT REPRESENTATIVE, JEZ S 300.00 anxiety 03/28/2011 BUSHRA ORTIZ, [...] K 530.81 ESOPHAGEAL REFLUX 03/28/2011 BUSHRA ORTIZ EJZ S 300.00 anxiety 03/28/2011 B[place]RA ORTIZ JEZ S 530.81 ESOPHAGEAL REFLUX 03/28/2011 YANNA GALLARDO MD 300.00 anxiety 03/28/2011 YANNA GALLARDO MD 530.81 ESOPHAGEAL REFLUX 03/28/2011 MONTALVO DO, LEIGH ANN K 300.00 anxiety 03/28/2011 MONTALVO DO, LEIGH ANN K 530.81 ESOPHAGEAL REFLUX 03/28/2011 B[place]RA ORTIZ JEZ S 300.00 anxiety 03/28/2011 CASI TOMLINSON APRNNDA S 530.81 ESOPHAGEAL REFLUX 11/02/2011 CAIS TOMLINSON APRNNDA S 702.19 OTHER SEBORRHEIC KERATOSIS [...] S 702.19 OTHER SEBORRHEIC KERATOSIS 04/09/2012 [place] SERVICE SUPPORT REPRESENTATIVE, JEZ S 682.9 CELLULITIS AND ABSCESS OF [...] K 728.71 PLANTAR FASCIAL FIBROMATOSIS 04/09/2012 [place] SERVICE SUPPORT REPRESENTATIVE, JEZ S 682.9 CELLULITIS AND ABSCESS OF UNSPECIFIED SITES 04/09/2012 B[place]RA ORTIZ JEZ S 728.71 PLANTAR FASCIAL FIBROMATOSIS 04/09/2012 SAMI WOLFE, ALI 682.9 CELLULITIS AND ABSCESS OF UNSPECIFIED SITES 04/09/2012 SAMI WOLFE, ALI 728.71 PLANTAR FASCIAL FIBROMATOSIS 04/09/2012 KATIA JIMÉNEZ LEIGH ANN K 682.9 CELLULITIS AND ABSCESS OF UNSPECIFIED SITES 04/09/2012 KATIA JIMÉNEZ LEIGH ANN K 728.71 PLANTAR FASCIAL FIBROMATOSIS 04/09/2012 [place] SERVICE SUPPORT REPRESENTATIVE, JEZ S 682.9 CELLULITIS AND ABSCESS OF [...] ORTIZ JEZ S 696.1 PSORIASIS 04/10/2013 [facility] SERVICE SUPPORT REPRESENTATIVE, JEZ S V73.81 HPV SCREENING 04/10/2013 CASI [...] KATIA JIMÉNEZFLORECITAA K 786.09 DYSPNEA 12/10/2013 [facility] SERVICE SUPPORT REPRESENTATIVECASI HillNDA S 785.1 PALPITATIONS 12/10/2013 CASI TOMLISNON APRNNDA S 786.09 DYSPNEA 01/13/2014 SAMI WOLFE [...] PAIN RIGHT LOWER QUADRANT 03/10/2014 JEZ TOMLINSON VRT MECHANIC Ot 789.03 03/10/2014 JEZ TOMLINSON VRT MECHANIC Ot 789.03 10/20/2015 GERMAINE MOTA Ot V76.12 OTH SCREEN MAMMO-MALIGN NEOPLASM OF KRISTIN 10/20/2015 SAMI WOLFE FACC, YANNA FACP CCDS Ot 785.1 PALPITATIONS 10/20/2015 SAMI WOLFE FACC, YANNA FACP CCDS Ot 786.09 RESPIRATORY ABNORM NEC 10/20/2015 SAMI WOLFE FACC, ALI FACP CCDS Ot 785.1 PALPITATIONS 10/20/2015 SAMI WOLFE FACC, ALI FACP CCDS Ot 786.09 RESPIRATORY ABNORM NEC 10/20/2015 JEZ TOMLINSON VRT MECHANIC Ot 789.03 ABDOMINAL PAIN, RIGHT LOWER QUADRANT 10/20/2015 JEZ TOMLINSON VRT MECHANIC Ot 789.03 ABDOMINAL PAIN, RIGHT LOWER QUADRANT 10/20/2015 JEZ TOMLINSON VRT MECHANIC Ot R10.31 RIGHT LOWER QUADRANT PAIN 10/22/2015 [...] CCDS Ot 785.1 PALPITATIONS 10/26/2015 SAMI WOLFE [facility] CCDS Ot 786.09 RESPIRATORY ABNORM NEC 10/26/2015 JEZ TOMLINSON VRT MECHANIC Ot 789.03 ABDOMINAL PAIN, RIGHT LOWER QUADRANT 10/26/2015 JEZ TOMLINSON VRT MECHANIC Ot 789.03 ABDOMINAL PAIN, RIGHT LOWER QUADRANT 10/26/2015 JEZ TOMLINSON VRT MECHANIC Ot R10.31 RIGHT LOWER QUADRANT PAIN 10/26/2015 GERMAINE MOTA Ot V76.12 OT SCREEN MAMMO-MALIGN NEOPLASM OF [place]RISTIN 10/26/2015 SAMI WOLFE [facility] CCDS Ot 785.1 PALPITATIONS 10/26/2015 SAMI WOLFE [facility], ALI FACP CCDS Ot 786.09 RESPIRATORY ABNORM NEC 10/26/2015 SAMI WOLFE [facility], ALI FACP CCDS Ot 785.1 PALPITATIONS 10/26/2015 SAMI WOLFE [facility] 786.09 RESPIRATORY ABNORM NEC 10/26/2015 JEZ TOMLINSON VRT MECHANIC Ot 789.03 ABDOMINAL PAIN, RIGHT LOWER QUADRANT 10/26/2015 JEZ TOMLINSON VRT MECHANIC Ot 789.03 ABDOMINAL PAIN, RIGHT LOWER QUADRANT 10/26/2015 JEZ TOMLINSON Ot R10.31 RIGHT LOWER QUADRANT PAIN 10/26/2015 JEZ TOMLINSON VRT MECHANIC Ot 789.03 ABDOMINAL PAIN, RIGHT LOWER QUADRANT [...] ALMEIDA YENNY Ot K62.1 RECTAL POLYP 11/08/2015 [place] YENNY Ot K63.5 POLYP OF COLON 02/25/2016 [...] 786.09 RESPIRATORY ABNORM NEC 02/25/2016 JEZ TOMLINSON VRT MECHANIC Ot 789.03 ABDOMINAL PAIN, RIGHT LOWER QUADRANT 02/25/2016 JEZ TOMLINSON VRT MECHANIC Ot 789.03 ABDOMINAL PAIN, RIGHT LOWER QUADRANT 02/25/2016 JEZ TOMLINSON VRT MECHANIC Ot R10.31 RIGHT LOWER QUADRANT PAIN 02/25/2016 BUSHRAJEZ NOVOA VRT MECHANIC Ot R10.31 RIGHT LOWER QUADRANT PAIN 02/25/2016 JEZ TOMLINSON VRT MECHANIC Ot 789.03 ABDOMINAL PAIN, RIGHT LOWER QUADRANT 11/02/2016 GERMAINE MOTA Ot V76.12 OTH SCREEN MAMMO-MALIGN NEOPLASM OF [place]RISTIN 11/02/2016 SAMI WOLFE FACC, YANNA FACP CCDS Ot 785.1 PALPITATIONS 11/02/2016 SAMI WOLFE FACC, ALI FACP CCDS Ot 786.09 RESPIRATORY ABNORM NEC 11/02/2016 SAMI OWLFE FACC, ALI FACP CCDS Ot 785.1 PALPITATIONS 11/02/2016 SAMI WOLFE FACC, ALI FACP CCDS Ot 786.09 RESPIRATORY ABNORM NEC 11/02/2016 JEZ TOMLINSON VRT MECHANIC Ot 789.03 ABDOMINAL PAIN, RIGHT LOWER QUADRANT [...] 11/21/2016 YENNY ALMEIDA DO Ot Z79.899 OTHER NARROW FABRIC CALENDERER (CURRENT) DRUG THERAPY 11/21/2016 YENNY ALMEIDA DO [...] 786.09 RESPIRATORY ABNORM NEC 11/20/2017 JEZ TOMLINSON VRT MECHANIC Ot 789.03 ABDOMINAL PAIN, RIGHT LOWER QUADRANT 11/20/2017 JEZ TOMLINSON Ot 789.03 ABDOMINAL PAIN, RIGHT LOWER QUADRANT 11/20/2017 BUSHRA, JEZ VRT MECHANIC Ot R10.31 RIGHT LOWER QUADRANT PAIN 11/20/2017 JEZ TOMLINSON VRT MECHANIC Ot Z12.31 ENCNTR SCREEN MAMMOGRAM FOR MALIGNANT NE 11/22/2017 BAIMA, EVELIA L VRT MECHANIC Ot I10 ESSENTIAL (PRIMARY) HYPERTENSION 11/22/2017 BAIMA, EVELIA L VRT MECHANIC Ot 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 11/22/2017 BAIMA, EVELIA L VRT MECHANIC Ot I34.0 NONRHEUMATIC MITRAL (VALVE) INSUFFICIENC 11/22/2017 BAIMA, EVELIA L VRT MECHANIC Ot I73.9 PERIPHERAL VASCULAR DISEASE, UNSPECIFIED 11/22/2017 BAIMA, EVELIA L VRT MECHANIC Ot R06.09 OTHER FORMS OF DYSPNEA 11/22/2017 BAIMA, EVELIA L VRT MECHANIC Ot R29.818 OTHER SYMPTOMS AND SIGNS INVOLVING THE N 11/22/2017 BAIMA, EVELIA L VRT MECHANIC Ot Z72.0 TOBACCO USE 12/08/2017 BAIMA, EVELIA L VRT MECHANIC Ot I10 ESSENTIAL (PRIMARY) HYPERTENSION 12/08/2017 BAIMA, EVELIA L VRT MECHANIC Ot 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 12/08/2017 BAIMA, EVELIA L VRT MECHANIC Ot I34.0 NONRHEUMATIC MITRAL (VALVE) INSUFFICIENC 12/08/2017 BAIMA, EVELIA L VRT MECHANIC Ot R06.09 OTHER FORMS OF DYSPNEA 12/08/2017 BAIMA, EVELIA L VRT MECHANIC Ot Z72.0 TOBACCO USE 12/10/2017 BAIMA, EVELIA L VRT MECHANIC Ot I10 ESSENTIAL (PRIMARY) HYPERTENSION 12/10/2017 BAIMA, EVELIA L VRT MECHANIC Ot 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 12/10/2017 BAIMA, EEVLIA L VRT MECHANIC Ot I34.0 NONRHEUMATIC MITRAL (VALVE) INSUFFICIENC 12/10/2017 BAIMA, EVELIA L VRT MECHANIC Ot I73.9 PERIPHERAL VASCULAR DISEASE, UNSPECIFIED 12/10/2017 BAIMA, EVELIA L VRT MECHANIC Ot R06.09 OTHER FORMS OF DYSPNEA 12/10/2017 BAIMA, EVELIA L VRT MECHANIC Ot R29.818 OTHER SYMPTOMS AND SIGNS INVOLVING THE N 12/10/2017 BAIMA, EVELIA L VRT MECHANIC Ot Z72.0 TOBACCO USE 12/10/2017 BAIMA, EVELIA L VRT MECHANIC Ot I10 ESSENTIAL (PRIMARY) HYPERTENSION 12/10/2017 DEBBIEMARIA DE JESUS, EVELIA L VRT MECHANIC Ot 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 12/10/2017 BAILOU PRETTYHER L VRT MECHANIC Ot I34.0 NONRHEUMATIC MITRAL (VALVE) INSUFFICIENC 12/10/2017 BAIMA, EVELIA L VRT MECHANIC Ot I73.9 PERIPHERAL VASCULAR DISEASE, UNSPECIFIED 12/10/2017 BAIMA EVELIA L VRT MECHANIC Ot R06.09 OTHER FORMS OF DYSPNEA 12/10/2017 DEBBIEMARIA DE JESUS EVELIA L VRT MECHANIC Ot R29.818 OTHER SYMPTOMS AND SIGNS INVOLVING THE N 12/10/2017 GÓMEZEVELIA L VRT MECHANIC Ot Z72.0 TOBACCO USE 12/12/2017 GERMAINE MOTA Ot V76.12 OTH SCREEN MAMMO-MALIGN NEOPLASM OF [place]RI[place] 12/12/2017 SAMI WOLFE FACC, ALI FACP CCDS Ot 785.1 PALPITATIONS 12/12/2017 SAMI WOLFE FACC, ALI FACP CCDS Ot 786.09 RESPIRATORY ABNORM NEC 12/12/2017 SAMI WOLFE FACC, ALI FACP CCDS Ot 785.1 PALPITATIONS 12/12/2017 SAMI MD FACC, ALI FACP CCDS Ot 786.09 RESPIRATORY ABNORM NEC 12/12/2017 JEZ TOMLINSON VRT MECHANIC Ot 789.03 ABDOMINAL PAIN, RIGHT LOWER QUADRANT 12/12/2017 JEZ TOMLINSON VRT MECHANIC Ot 789.03 ABDOMINAL PAIN, RIGHT LOWER QUADRANT 12/12/2017 JEZ TOMLINSON VRT MECHANIC Ot R10.31 RIGHT LOWER QUADRANT PAIN 12/12/2017 JEZ TOMLINSON VRT MECHANIC Ot Z12.31 ENCNTR SCREEN MAMMOGRAM FOR MALIGNANT NE 12/12/2017 GÓMEZ EVELIA L VRT MECHANIC Ot I10 ESSENTIAL (PRIMARY) HYPERTENSION 12/12/2017 GÓMEZ EVELIA L VRT MECHANIC Ot 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 12/12/2017 DEBBIELOU PRETTYHER L VRT MECHANIC Ot I34.0 NONRHEUMATIC MITRAL (VALVE) INSUFFICIENC 12/12/2017 GÓMEZ EVELIA L VRT MECHANIC Ot I73.9 PERIPHERAL VASCULAR DISEASE, UNSPECIFIED 12/12/2017 BAIMA, EVELIA L VRT MECHANIC Ot R06.09 OTHER FORMS OF DYSPNEA 12/12/2017 BAIMA, EVELIA L VRT MECHANIC Ot R29.818 OTHER SYMPTOMS AND SIGNS INVOLVING THE N 12/12/2017 BAIMA, EVELIA L VRT MECHANIC Ot Z72.0 TOBACCO USE 12/12/2017 BAIMA, EVELIA L VRT MECHANIC Ot I10 ESSENTIAL (PRIMARY) HYPERTENSION 12/12/2017 BAIMA, EVELIA L VRT MECHANIC Ot 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 12/12/2017 BAIMA, EVELIA L VRT MECHANIC Ot I34.0 NONRHEUMATIC MITRAL (VALVE) INSUFFICIENC 12/12/2017 BAIMA, EVELIA L VRT MECHANIC Ot R06.09 OTHER FORMS OF DYSPNEA 12/12/2017 BAIMA, EVELIA L VRT MECHANIC Ot Z72.0 TOBACCO USE 12/12/2017 BAIMA, EVELIA L VRT MECHANIC Ot I10 ESSENTIAL (PRIMARY) HYPERTENSION 12/12/2017 BAIMA, EVELIA L VRT MECHANIC Ot 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 12/12/2017 BAIMA, EVELIA L VRT MECHANIC Ot I34.0 NONRHEUMATIC MITRAL (VALVE) INSUFFICIENC 12/12/2017 BAIMA, EVELIA L VRT MECHANIC Ot R06.09 OTHER FORMS OF DYSPNEA 12/12/2017 BAIMA, EVELIA L VRT MECHANIC Ot Z72.0 TOBACCO USE 12/26/2017 DARREN MEHTA E SERVICE SUPPORT REPRESENTATIVE Ot G47.00 INSOMNIA, UNSPECIFIED 12/26/2017 JANINE DARREN E SERVICE SUPPORT REPRESENTATIVE Ot G47.10 HYPERSOMNIA, UNSPECIFIED 12/26/2017 JANINE DARREN E SERVICE SUPPORT REPRESENTATIVE Ot G47.33 OBSTRUCTIVE SLEEP APNEA (ADULT) (PEDIATR 12/26/2017 JANINE DARREN E SERVICE SUPPORT REPRESENTATIVE Ot G47.50 PARASOMNIA, UNSPECIFIED 12/27/2017 JANINE DARREN E SERVICE SUPPORT REPRESENTATIVE Ot G47.00 INSOMNIA, UNSPECIFIED 12/27/2017 JANINE DARREN E SERVICE SUPPORT REPRESENTATIVE Ot G47.10 HYPERSOMNIA, UNSPECIFIED 12/27/2017 JANINE DARREN E SERVICE SUPPORT REPRESENTATIVE Ot G47.33 OBSTRUCTIVE SLEEP APNEA (ADULT) (PEDIATR 12/27/2017 DOROTHY MEHTAINE E SERVICE SUPPORT REPRESENTATIVE Ot G47.50 PARASOMNIA, UNSPECIFIED 02/04/2018 BAIMA, EVELIA L VRT MECHANIC Ot I10 ESSENTIAL (PRIMARY) HYPERTENSION 02/04/2018 GÓMEZEVELIA VRT MECHANIC Ot 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 02/04/2018 EVELIA MAGAÑA Sameera VRT MECHANIC Ot I34.0 NONRHEUMATIC MITRAL (VALVE) INSUFFICIENC 02/04/2018 DEBBIEMARIA DE JESUS EVELIA L VRT MECHANIC Ot R06.09 OTHER FORMS OF DYSPNEA 02/04/2018 EVELIA MAGAÑA VRT MECHANIC Ot Z72.0 TOBACCO USE 02/04/2018 JANINEDARREN PRECIADO SERVICE SUPPORT REPRESENTATIVE Ot R06.02 SHORTNESS OF BREATH 02/04/2018 JANINEDOROTHY PRECIADOINE Quin SERVICE SUPPORT REPRESENTATIVE Ot R16.1 SPLENOMEGALY, NOT ELSEWHERE CLASSIFIED 02/04/2018 JANINEDARREN PRECIADO SERVICE SUPPORT REPRESENTATIVE Ot Z72.0 TOBACCO USE 02/05/2018 JANINEDARREN PRECIADO SERVICE SUPPORT REPRESENTATIVE Ot R06.02 SHORTNESS OF BREATH 02/05/2018 JANINEDARREN PRECIADO SERVICE SUPPORT REPRESENTATIVE Ot R16.1 SPLENOMEGALY, NOT ELSEWHERE CLASSIFIED 02/05/2018 JANINEDOROTHY PRECIADOINE Quin SERVICE SUPPORT REPRESENTATIVE Ot Z72.0 TOBACCO USE 02/05/2018 JACOBY GRANADOS, [...] 786.09 RESPIRATORY ABNORM NEC 02/05/2018 JEZ TOMLINSON VRT MECHANIC Ot 789.03 ABDOMINAL PAIN, RIGHT LOWER QUADRANT 02/05/2018 JEZ TOMLINSON VRT MECHANIC Ot 789.03 ABDOMINAL PAIN, RIGHT LOWER QUADRANT 02/05/2018 JEZ TOMLINSON VRT MECHANIC Ot R10.31 RIGHT LOWER QUADRANT PAIN 02/05/2018 JEZ TOMLINSON VRT MECHANIC Ot Z12.31 ENCNTR SCREEN MAMMOGRAM FOR MALIGNANT NE 02/05/2018 EVELIA MAGAÑA VRT MECHANIC Ot I10 ESSENTIAL (PRIMARY) HYPERTENSION 02/05/2018 GÓMEZ EVELIA Sameera VRT MECHANIC Ot 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 02/05/2018 BAIMAEVELIA L VRT MECHANIC Ot I34.0 NONRHEUMATIC MITRAL (VALVE) INSUFFICIENC 02/05/2018 BAIMA EVELIA L VRT MECHANIC Ot I73.9 PERIPHERAL VASCULAR DISEASE, UNSPECIFIED 02/05/2018 BAIMARIA DE JESUS EVELIA L VRT MECHANIC Ot R06.09 OTHER FORMS OF DYSPNEA 02/05/2018 BAIMA, EVELIA L VRT MECHANIC Ot R29.818 OTHER SYMPTOMS AND SIGNS INVOLVING THE N 02/05/2018 BAIMA EVELIA L VRT MECHANIC Ot Z72.0 TOBACCO USE 02/05/2018 BAIMA, EVELIA L VRT MECHANIC Ot I10 ESSENTIAL (PRIMARY) HYPERTENSION 02/05/2018 BAIMA, EVELIA L VRT MECHANIC Ot 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 02/05/2018 BAIMA, EVELIA L VRT MECHANIC Ot I34.0 NONRHEUMATIC MITRAL (VALVE) INSUFFICIENC 02/05/2018 BAIMARIA DE JESUS EVELIA L VRT MECHANIC Ot R06.09 OTHER FORMS OF DYSPNEA 02/05/2018 BAIMARIA DE JESUS EVELIA L VRT MECHANIC Ot Z72.0 TOBACCO USE 02/05/2018 DARREN MEHTA APRN Ot R06.02 SHORTNESS OF BREATH 02/05/2018 DARREN MEHTA APRN Ot R16.1 SPLENOMEGALY, NOT ELSEWHERE CLASSIFIED 02/05/2018 DARREN MEHTA SERVICE SUPPORT REPRESENTATIVE Ot Z72.0 TOBACCO USE 02/08/2018 JEZ TOMLINSON VRT MECHANIC Ot E04.2 NONTOXIC MULTINODULAR GOITER 02/13/2018 JEZ TOMLINSON VRT MECHANIC Ot E04.2 NONTOXIC MULTINODULAR GOITER 03/19/2018 SHENA WOLFE, MOOKIE [place] Ot E04.1 NONTOXIC SINGLE THYROID NODULE 03/25/2018 JEZ TOMLINSON VRT MECHANIC Ot E04.2 NONTOXIC MULTINODULAR GOITER 03/25/2018 SHENA WOLFE, MOOKIE [place] Ot E04.1 NONTOXIC SINGLE THYROID NODULE 03/26/2018 JEZ TOMLINSON VRT MECHANIC Ot E04.2 NONTOXIC MULTINODULAR GOITER 04/25/2018 JACOBY [...] 786.09 RESPIRATORY ABNORM NEC 04/25/2018 JEZ TOMLINSON VRT MECHANIC Ot 789.03 ABDOMINAL PAIN, RIGHT LOWER QUADRANT 04/25/2018 JEZ TOMLINSON VRT MECHANIC Ot 789.03 ABDOMINAL PAIN, RIGHT LOWER QUADRANT 04/25/2018 JEZ TOMLINSON VRT MECHANIC Ot R10.31 RIGHT LOWER QUADRANT PAIN 04/25/2018 JEZ TOMLINSON VRT MECHANIC Ot Z12.31 ENCNTR SCREEN MAMMOGRAM FOR MALIGNANT NE 04/25/2018 EVELIA MAGAÑA L VRT MECHANIC Ot I10 ESSENTIAL (PRIMARY) HYPERTENSION 04/25/2018 GÓMEZ EVELIA L VRT MECHANIC Ot 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 04/25/2018 GÓMEZ EVELIA L VRT MECHANIC Ot I34.0 NONRHEUMATIC MITRAL (VALVE) INSUFFICIENC 04/25/2018 GÓMEZ EVELIA L VRT MECHANIC Ot I73.9 PERIPHERAL VASCULAR DISEASE, UNSPECIFIED 04/25/2018 GÓMEZ EVELIA L VRT MECHANIC Ot R06.09 OTHER FORMS OF DYSPNEA 04/25/2018 GÓMEZ EVELIA L VRT MECHANIC Ot R29.818 OTHER SYMPTOMS AND SIGNS INVOLVING THE N 04/25/2018 EVELIA MAGAÑA L VRT MECHANIC Ot Z72.0 TOBACCO USE 04/25/2018 LOU MAGAÑAHER L VRT MECHANIC Ot I10 ESSENTIAL (PRIMARY) HYPERTENSION 04/25/2018 GÓMEZ EVELIA L VRT MECHANIC Ot 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 04/25/2018 DEBBIEMA EVELIA L VRT MECHANIC Ot I34.0 NONRHEUMATIC MITRAL (VALVE) INSUFFICIENC 04/25/2018 DEBBIEMA EVELIA L VRT MECHANIC Ot R06.09 OTHER FORMS OF DYSPNEA 04/25/2018 LOU MAGAÑAHER L VRT MECHANIC Ot Z72.0 TOBACCO USE 04/25/2018 DARREN MEHTA APRN Ot R06.02 SHORTNESS OF BREATH 04/25/2018 DARREN MEHTA APRN Ot R16.1 SPLENOMEGALY, NOT ELSEWHERE CLASSIFIED 04/25/2018 DARREN MEHTA APRN Ot Z72.0 TOBACCO USE 04/25/2018 JEZ TOMLINSON Ot E04.2 NONTOXIC MULTINODULAR GOITER 04/25/2018 SHENA WOLFE, MOOKIE [place] Ot E04.1 NONTOXIC SINGLE THYROID NODULE Procedures Code Description Performed By [place] On Q0091 PAP SMEAR OBTAIN SMEAR 04/10/2013 58294 NUCLEAR STRESS TESTING 04/10/2013 11262 ECHO 2D 04/10/2013 34853 HEMOCCULT 04/10/2013 10670 PAP SMEAR 04/14/2013 82754 MAMMOGRAM, SCREENING 04/25/2013 58633 EKG, TRACING (IN-HOUSE) 10/22/2013 50755 UA LONG DIP 10/22/2013 43342 A1C (IN-HOUSE) 10/24/2013 77100 ROUTINE VENIPUNCTURE 10/24/2013 89346 CBC 10/24/2013 5780220 GFR CALC (RESULT ONLY) 10/24/2013 56821 CMP 10/24/2013 81982 LIPID PANEL 10/24/2013 48826 MAGNESIUM 10/24/2013 22845 TSH 10/24/2013 66023 INSULIN LEVEL 10/24/2013 CARDIOLOG YANNA GALLARDO 11/05/2013 30706 ROUTINE VENIPUNCTURE 02/23/[address] ABDOMEN AND PELVIS W/ CONTRAST 02/24/2014 09025 FSH 02/24/2014 14224 US PELVIC COMPL (REFLEX CPT - 95920) 03/02/2014 Results Test Result Range No Test [...] Status Pt. Type Provider Facility Loc./Unit Complaint [id number] 02/23/2014 16:18:00 02/23/2014 23:59:59 [facility] Outpatient JEZ TOMLINSON APRN [id number] 12/10/2013 08:55:00 12/10/2013 23:59:59 [facility] Outpatient YANNA GALLARDO MD [id number] 11/05/2013 10:15:00 11/05/2013 23:59:59 [facility] Outpatient JEZ TOMLINSON APRN [id number] 10/24/2013 08:54:00 10/24/2013 23:59:59 CLS Outpatient LEIGH ANN MONTALVO DO [id number] 04/10/2013 13:00:00 04/10/2013 23:59:59 CLS Outpatient LEIGH ANN MONTALVO DO [id number] 04/10/2013 13:00:00 04/10/2013 23:59:59 CLS Outpatient LEIGH ANN MONTALVO DO [id number] 05/22/2012 12:48:00 05/22/2012 23:59:59 CLS Outpatient [id number] 04/09/2012 10:09:00 04/09/2012 23:59:59 CLS Outpatient JEZ TOMLINSON APRN [id number] 11/02/2011 13:33:00 11/02/2011 23:59:59 CLS Outpatient [id number] 11/02/2011 13:33:00 11/02/2011 23:59:59 [facility] Outpatient JEZ TOMLINSON APRN [id number] 09/24/2012 15:19:00 Document Registration [id number] 04/24/2016 17:07:00 Document Registration [id number] 11/17/2015 10:06:00 Document Registration [id number] 03/11/2018 11:20:00 03/11/2018 23:59:59 [facility] Outpatient JEZ [facility]OMLINSON [facility]N [facility] [id number] 09/24/2017 12:20:00 Document Registration [id number] 08/20/2017 13:00:00 Document Registration [id number] 11/16/2016 11:40:00 Document Registration [email or web address] 03/09/2014 13:21:52 [place] Document Registration [id number] 11/17/2015 10:06:00 Document Registration [id number] 05/02/2018 11:32:00 05/03/2018 12:20:00 DIS Inpatient MOOKIE CHATTERJEE MD [facility] 4TH POST OP NAUSEA,VOMITING, HYPOCALCEMIA [id number] 04/30/2018 10:15:00 04/30/2018 10:48:00 DIS Outpatient MOOKIE CHATTERJEE MD [facility] PREOP THYROID NODULES [id number] 04/25/2018 12:59:00 04/25/2018 23:59:59 CLS Outpatient MOOKIE CHATTERJEE MD [facility] LAB THYROID NODULE [id number] 03/06/2018 09:54:00 03/06/2018 23:59:59 CLS Outpatient MOOKIE CHATTREJEE MD [facility] RAD THYROID NODULE [id number] 02/07/2018 13:06:00 02/07/2018 23:59:59 CLS Outpatient JEZ TOMLINSON [facility] RAD THYROID NODULE [id number] 12/26/2017 13:44:00 12/26/2017 13:52:00 DIS Outpatient DARREN MEHTA APRN [facility] SLEEP SNORING,EDS [id number] 12/12/2017 11:47:00 12/12/2017 23:59:59 CLS Outpatient DARREN MEHTA APRN [facility] RAD TOBACCO USER, DYSPNEA [id number] 12/04/2017 13:27:00 12/04/2017 23:59:59 CLS Outpatient EVELIA MAGAÑA VRT MECHANIC [facility] CARD DYSPNEA ON EXERTION [id number] 11/20/2017 10:49:00 11/20/2017 23:59:59 CLS Outpatient EVELIA MAGAÑA VRT MECHANIC [facility] CARD DYSPNEA ON EXERTION [id number] 02/06/2017 12:54:00 02/06/2017 23:59:59 CLS Outpatient JEZ TOMLINSON [facility] RAD Z12.31 SCREENING MAMMO [id number] 11/21/2016 08:45:00 11/21/2016 12:33:00 DIS Outpatient YENNY ALMEIDA DO [facility] ENDO HISTORY POLYPS [id number] 11/16/2016 05:33:00 11/16/2016 15:11:00 DIS Outpatient YENNY ALMEIDA DO [facility] PREOP COLONOSCOPY [id number] 10/26/2015 09:46:00 10/26/2015 15:00:00 DIS Outpatient YENNY ALMEIDA DO [facility] SDC SCREENING [id number] 10/22/2015 05:39:00 10/22/2015 10:46:00 DIS Outpatient YENNY ALMEIDA DO [facility] PREOP SCREENING [id number] 10/11/2015 08:34:00 10/11/2015 23:59:59 CLS Outpatient JEZ TOMLINSON [facility] RAD RLQ ABD PAIN [id number] 03/09/2014 13:21:00 03/09/2014 23:59:59 CLS Outpatient JEZ TOMLINSON [facility] RAD ABD PAIN, RLQ [id number] 03/02/2014 11:11:00 03/02/2014 23:59:59 CLS Outpatient JEZ TOMLINSON [facility] RAD RLQ PAIN [id number] 01/13/2014 08:16:00 01/13/2014 17:11:00 DIS Outpatient YANNA GALLARDO MD, FACC FACP CCDS [facility] CATH ABN STRESS TEST [id number] 12/25/2013 07:42:00 12/25/2013 23:59:59 CLS Outpatient YANNA GALLARDO MD, FACC FACKathi CCDS [facility] CARD ANGINA,SOB, FATIGUE [id number] 12/18/2013 10:44:00 12/18/2013 23:59:59 CLS Outpatient YANNA GALLARDO MD, FACC FACP CCDS [facility] CARD ANGINA,SOB, FATIGUE [id number] 04/21/2013 10:08:00 04/21/2013 23:59:59 CLS Outpatient GERMAINE MOTA [facility] RAD SCREENING
[2018-05-06] MEDS ORDERED: NS IV 1000 ML 1,000 ML IV SCH (05:45)
[2018-05-06] MEDS ORDERED: ONDANSETRON 4 MG/2 ML (SDV) Z0FRAN IV PRN (06:00)
[2018-05-06] MEDS: LEVOTHYROXINE 112 MCG (LEVOTHROID) TAB PO SCH (06:20)
--- NOTE | 2018-05-06 07:19 | Diagnostic Imaging Report ---
INDICATION: Weakness COMPARISON: None FINDINGS: Single view of the chest demonstrates slight cardiac enlargement without overt pulmonary edema. Lungs are clear. There is no pneumothorax or effusion. Osseous structures normal. IMPRESSION: Minimal cardiac enlargement without pulmonary edema or infiltrate. Dictated by: Dictated on workstation # [id number]
[2018-05-06 07:21] LABS: BASOPHILS # (AUTO) 0.1 10^3/uL (0.0-0.1); BASOPHILS % (AUTO) 1 % (0-10); EOSINOPHILS # (AUTO) 0.2 10^3/uL (0.0-0.3); EOSINOPHILS % (AUTO) 3 % (0-10); HEMATOCRIT 31 % (35-52); HEMOGLOBIN 11.2 G/DL (11.5-16.0); LYMPHOCYTES # (AUTO) 1.7 X 10^3 (1.0-4.0); LYMPHOCYTES % (AUTO) 18 % (12-44); MEAN CORPUSCULAR HEMOGLOBIN 31 PG (25-34); MEAN CORPUSCULAR HGB CONC 36 G/DL (32-36); MEAN CORPUSCULAR VOLUME 87 FL (80-99); MEAN PLATELET VOLUME 8.8 FL (7.4-10.4); MONOCYTES # (AUTO) 0.7 X 10^3 (0.0-1.0); MONOCYTES % (AUTO) 8 % (0-12); NEUTROPHILS # (AUTO) 6.5 X 10^3 (1.8-7.8); NEUTROPHILS % (AUTO) 70 % (42-75); PLATELET COUNT 330 10^3/uL (130-400); RED CELL DISTRIBUTION WIDTH 17.3 % (10.0-14.5); WHITE BLOOD COUNT 9.2 10^3/uL (4.3-11.0)
[2018-05-06] MEDS: MAGNESIUM 1 GM/D5W 100 ML IVPB IV SCH (07:33)
--- NOTE | 2018-05-06 07:34 | NUR ---
pharmacy put in duplicate order for magnesium iv that was already given in the ed. non administered these orders
[2018-05-06 07:42] LABS: ALANINE AMINOTRANSFERASE 25 U/L (0-55); ALBUMIN 3.9 GM/DL (3.2-4.5); ALKALINE PHOSPHATASE 67 U/L (40-136); BILIRUBIN,TOTAL 1.3 MG/DL (0.1-1.0); BUN/CREATININE RATIO 9; CALCIUM 6.6 MG/DL (8.5-10.1); CARBON DIOXIDE 26 MMOL/L (21-32); CHLORIDE 101 MMOL/L (98-107); CREATININE SERUM 0.64 MG/DL (0.60-1.30); GFR ESTIMATED > 60; GLUCOSE 106 MG/DL (70-105); POTASSIUM 3.4 MMOL/L (3.6-5.0); SODIUM 142 MMOL/L (135-145); TOTAL PROTEIN 6.6 GM/DL (6.4-8.2)
--- NOTE | 2018-05-06 07:52 | NUR ---
Dr Bell on floor and new verbal orders received. See order history.
[2018-05-06 08:00] VITALS: BP 131/88
--- NOTE | 2018-05-06 08:48 | Diagnostic Imaging Report ---
Examination: CT soft tissue neck and chest with contrast. Indication: Neck pain and swelling. Patient is status post recent thyroidectomy. Technique: CT scan was performed through the soft tissues of the neck and chest after the intravenous administration of nonionic iodinated contrast, formatted in 3 planes. Comparison: Chest CT performed on 12/22/2017. Findings: Chest: The trachea and main airways are patent, without evidence of tracheal or endobronchial lesion. There is minimal subsegmental dependent atelectasis in both lower lobes. No focal consolidation or pulmonary mass is demonstrated. There is no mediastinal or hilar lymphadenopathy. The esophagus is nondistended. The heart is normal in size. Thoracic aorta is nonaneurysmal. No pericardial effusion. The chest wall is unremarkable. No abnormality in the visualized upper abdomen. The diaphragm is unremarkable. Degenerative changes are noted in the spine. No acute osseous abnormality. Soft tissue neck: The patient is status post thyroidectomy. Surgical clips and low density fluid are demonstrated in the thyroid surgical bed. There is no mass effect on the trachea. Very lobulated hyperdense collection containing scattered foci of gas in the anterior neck at and above the level of the thyroid surgical bed, this measures up to approximately 7.1 x 2.8 x 6.1 (transverse x AP x superior-inferior) cm. At the inferior aspect of this collection, this appears to connect to the low density collection in the thyroid bed. The visualized segments of the orbits, globes, and intracranial compartment are unremarkable. The visualized paranasal sinuses and mastoid air cells are clear. There is no cervical lymphadenopathy. The chief human resources officer, parapharyngeal, retropharyngeal spaces appear normal. The structures of the hypopharynx and larynx are symmetric. The parotid, submandibular, and sublingual glands are normal. Vascular structures appear normal, without evidence of occlusion or thrombosis. No acute fracture or osseous abnormality is demonstrated. Cervical spinal alignment is maintained. No prevertebral soft tissue abnormality is demonstrated. IMPRESSION: Status post thyroidectomy. There is low-density fluid in the surgical bed, without significant surrounding mass effect or compromise of the airway. Anterior and superior to the surgical bed in the more superficial neck soft tissues is a large lobulated hyperdense collection with scattered foci of gas. This measures up to 7 cm in transverse diameter and likely represents postsurgical change/hematoma. Infection should be excluded on a clinical basis. No acute findings in the chest. Findings are in agreement with initial teleradiology report. Dictated by: Dictated on workstation # [id number]
--- NOTE | 2018-05-06 08:52 | History & Physicial ---
History of Present Illness History of Present Illness Reason for visit/HPI concern about subcutaneous hematoma and slight tingling of fingers due to severe , post thyroidectomy hypocalcemia Date of Admission May 06, 2018 at 02:45 Date Seen by a Provider: May 06, 2018 Time Seen by a Provider: 06:45 I consulted on this patient on 05/06/18 08:50 Attending Physician Mookie Chatterjee MD Admitting Physician [place] Consult Allergies and Home Medications Allergies Coded Allergies: No Known Drug Allergies (Unverified , 12/25/13) Home Medications Fluoxetine HCl 20 Mg Tablet, 60 MG PO HS, (Reported) take 3 (20mg) tabs Gabapentin 400 Mg Capsule, 400 MG PO HS, (Reported) Levothyroxine Sodium 112 Mcg Tablet, 112 MCG PO DAILY Prescribed by: MOOKIE CHATTERJEE on 05/01/18 2204 Melatonin 10 Mg Tablet, 10 MG PO HS, (Reported) Oxybutynin Chloride 5 Mg Tablet, 5 MG PO HS, (Reported) Propranolol HCl 20 Mg Tablet, 20 MG PO BID, (Reported) med is bid but current prescription got changed to daily in error, talked with PCP and med is suppose to be bid and will be fixed with next prescription Tramadol HCl 50 Mg Tablet, 50 MG PO Q12H PRN for PAIN-MODERATE Prescribed by: MOOKIE CHATTERJEE on 05/03/18 1137 Patient Home Medication List Home Medication List Reviewed: Yes Past [id number]-[id number]-[id number] Hx Patient Social History Marrital Status: Alcohol Use: Denies Use Recreational Drug Use: No Smoking Status: Current Everyday Smoker Type Used: Cigarettes Recent Foreign Travel: No Contact w/other who traveled: No Recent Hopitalizations: No Recent Infectious Disease Expo: No Immunizations Up To Date Date of Influenza Vaccine: Jan 13, 2014 Surgeries Yes (jaw sx, ) Bowel Surgery, Hysterectomy, Thyroidectomy, Tonsillectomy Respiratory Yes Currently Using CPAP: Yes Currently Using BIPAP: No Cardiovascular Yes (mitral valve prolapse) Heart Murmur, Hypertension Neurological No Reproductive System [employer] CHAIR History: Hysterectomy Genitourinary No Bladder Infection, Dialysis Gastrointestinal No Polyps Musculoskeletal No Arthritis Endocrine History of Endocrine Disorders: No HEENT History of HEENT Disorders: No Cancer No Psychosocial History of Psychiatric Problem: Yes Behavioral Health Disorders: Anxiety, Depression Integumentary History of Skin or Integumenta: No Blood Transfusions History of Blood Disorders: No Review of Systems Constitutional: see HPI EENTM: no symptoms reported Respiratory: no symptoms reported Cardiovascular: no symptoms reported Gastrointestinal: no symptoms reported Genitourinary: no symptoms reported Musculoskeletal: see HPI Skin: see HPI Psychiatric/Neurological: No Symptoms Reported Physical Exam Vital Signs Vital Signs - First Documented 05/05/18 23:05 Temp 99.0 Pulse 80 Resp 18 B/P (MAP) 152/82 (105) Pulse Ox 96 O2 Delivery Room Air Capillary Refill : Less Than 3 Seconds Height, Weight, BMI Height: 5'7.00" Weight: 268lbs. 1.0oz. [id number]; 42.0 BMI Method:Stated General Appearance: Anxious HEENT: Other Neck: Other Respiratory: Lungs Clear Cardiovascular: Regular Rate, Rhythm Gastrointestinal: Non Tender Neurologic/Psychiatric: Alert, Oriented x3 Comments severe ecchymosis of the neck and the upper chest due to diffuse progression of the subcutaneous hematoma. No stridor. Incision clean and dry. Assessment/Plan Assessment and Plan lady with post-thyroidectomy hypocalcemia. Calcium gluconate and magnesium being infused intravenously. We will initiate oral calcium with vitamin D and recheck calcium later this afternoon Admission Diagnosis Admission Status: Observation Clinical Quality Measures DVT/VTE Risk/Contraindication: Risk Factor Score Per Nursin RFS Level Per Nursing on Admit: 3=High MOOKIE CHATTERJEE MD May 06, 2018 08:52
[2018-05-06] MEDS ORDERED: PROPRANOLOL 20 MG (INDERAL) TABLET PO SCH (09:00)
[2018-05-06] MEDS ORDERED: LEVOTHYROXINE 112 MCG (LEVOTHROID) TAB PO SCH (09:00)
[2018-05-06] MEDS: POTASSIUM CL 10MEQ/50ML IVPB 50 ML IV SCH ×3 (09:11→11:07)
[2018-05-06] MEDS: PROPRANOLOL 20 MG (INDERAL) TABLET PO SCH ×2 (09:11→21:09)
[2018-05-06] MEDS: CALCIUM CARB + VIT D 600 MG (CALCARB + D) TAB PO SCH ×3 (09:12→17:33)
[2018-05-06] MEDS ORDERED: ACET-2267 PO (10:19)
--- NOTE | 2018-05-06 10:20 | NUR ---
SPOKE WITH THE PATIENT ABOUT HER MEDICATIONS. WE WENT OVER THE LIST ON FILE AND SHE VERIFIED HOW SHE TAKES THEM. SHE WAS RECENTLY HERE FOR A SURGERY AND HER LIST WAS ENTERED BY [facility]. I CALLED [facility] TO VERIFY WHAT HAS BEEN FILLED RECENTLY: 04-30-18 PROPRANOLOL 20MG BID 04-09-18 OXYBUTYNIN 5MG HS 04-09-18 GABAPENTIN 400MG HS 04-08-18 FLUOXETINE 20MG 3 DAILY (TAKES AT HS) SHE WAS PRESCRIBED LEVOTHYROXINE AND TRAMADOL AT HER DISCHARGE FROM HER SURGERY, THEY WERE PRINTED. SHE DID NOT FILL THEM AT [facility] BUT STATES SHE IS TAKING THEM. SHE MUST HAVE FILLED THEM AT ANOTHER PHARMACY. SHE TAKES MELATONIN 10MG HS AND TYLENOL PRN OTC.
[2018-05-06 12:00] VITALS: BP 158/94
--- NOTE | 2018-05-06 13:18 | NUR ---
3630 DR CHATTERJEE CALLED NEW ORDERS RECEIVED TO D/C IVF AFTER POTASSIUM GIVEN.
[2018-05-06 16:00] VITALS: BP 150/67
[2018-05-06] MEDS ORDERED: FLU QUADRIvalent (5+ YOA) 2018-2019 (AFLURIA) 0.5 ML IM ONE (16:30)
[2018-05-06 20:00] VITALS: BP 134/65
[2018-05-06] MEDS ORDERED: MELATONIN 3 MG TABLET PO SCH (21:00)
[2018-05-06] MEDS ORDERED: FLUoxetine HCL 20 MG (PROzac) CAP PO SCH (21:45)
[2018-05-06] MEDS ORDERED: GABAPENTIN 400 MG (NEURONTIN) CAP PO SCH (21:45)
[2018-05-06] MEDS ORDERED: FLUoxetine HCL 20 MG (PROzac) CAP ONE (21:45)
[2018-05-06] MEDS ORDERED: GABAPENTIN 400 MG (NEURONTIN) CAP ONE (21:45)
[2018-05-07 00:05] VITALS: BP 123/72
[2018-05-07 03:45] LABS: BASOPHILS # (AUTO) 0.1 10^3/uL (0.0-0.1); BASOPHILS % (AUTO) 1 % (0-10); EOSINOPHILS # (AUTO) 0.2 10^3/uL (0.0-0.3); EOSINOPHILS % (AUTO) 2 % (0-10); HEMATOCRIT 32 % (35-52); HEMOGLOBIN 11.3 G/DL (11.5-16.0); LYMPHOCYTES # (AUTO) 2.1 X 10^3 (1.0-4.0); LYMPHOCYTES % (AUTO) 23 % (12-44); MEAN CORPUSCULAR HEMOGLOBIN 31 PG (25-34); MEAN CORPUSCULAR HGB CONC 35 G/DL (32-36); MEAN CORPUSCULAR VOLUME 87 FL (80-99); MEAN PLATELET VOLUME 8.8 FL (7.4-10.4); MONOCYTES # (AUTO) 0.9 X 10^3 (0.0-1.0); MONOCYTES % (AUTO) 9 % (0-12); NEUTROPHILS # (AUTO) 6.1 X 10^3 (1.8-7.8); NEUTROPHILS % (AUTO) 65 % (42-75); PLATELET COUNT 318 10^3/uL (130-400); RED CELL DISTRIBUTION WIDTH 17.4 % (10.0-14.5); WHITE BLOOD COUNT 9.4 10^3/uL (4.3-11.0)
[2018-05-07 04:09] LABS: ALANINE AMINOTRANSFERASE 21 U/L (0-55); ALBUMIN 3.9 GM/DL (3.2-4.5); ALKALINE PHOSPHATASE 65 U/L (40-136); BILIRUBIN,TOTAL 1.3 MG/DL (0.1-1.0); BUN/CREATININE RATIO 10; CALCIUM 6.7 MG/DL (8.5-10.1); CARBON DIOXIDE 26 MMOL/L (21-32); CHLORIDE 99 MMOL/L (98-107); CREATININE SERUM 0.68 MG/DL (0.60-1.30); GFR ESTIMATED > 60; GLUCOSE 96 MG/DL (70-105); POTASSIUM 3.6 MMOL/L (3.6-5.0); SODIUM 141 MMOL/L (135-145); TOTAL PROTEIN 6.5 GM/DL (6.4-8.2)
[2018-05-07] MEDS: CALCIUM CARB + VIT D 600 MG (CALCARB + D) TAB PO SCH ×3 (06:48→17:02)
[2018-05-07] MEDS: LEVOTHYROXINE 112 MCG (LEVOTHROID) TAB PO SCH (06:48)
[2018-05-07 08:00] VITALS: BP 144/76
[2018-05-07] MEDS ORDERED: CALCIUM CARB + VIT D 600 MG (CALCARB + D) TAB PO NR (08:04)
[2018-05-07] MEDS: PROPRANOLOL 20 MG (INDERAL) TABLET PO SCH (08:57)
[2018-05-07] MEDS ORDERED: MAGNESIUM 1 GM/100 ML IVPB 100 ML IV ONE (14:52)
[2018-05-07 15:53] VITALS: BP 132/62
[2018-05-07] MEDS ORDERED: CALCIUM GLUC. 10% 4.65 MEQ/10 ML VIAL IV ONE (16:00)
[2018-05-07] MEDS ORDERED: MAGNESIUM 1 GM/100 ML IVPB 100 ML IV SCH (16:00)
--- NOTE | 2018-05-07 16:00 | NUR ---
ATTEMPTED IV SITE X 6 BY 5 DIFFERENT NURSES WITHOUT SUCCESS FOR IV MEDS ORDERED BY DR. CHATTERJEE.
--- NOTE | 2018-05-07 16:09 | Progress Note-Standard ---
Standard Progress Note Progress Notes/Assess & Plan Date Seen by a Provider: May 07, 2018 Time Seen by a Provider: 15:20 Progress/Assessment & Plan Echymosis imporved. Hypocalcemic symptoms better. Could be discharged later this pm Final Diagnosis Post-thyroidectomy hypocalcemia MOOKIE CHATTERJEE MD May 07, 2018 16:09
--- NOTE | 2018-05-07 16:11 | Discharge Inst-Simple/Standard ---
Discharge Inst-Standard Discharge Medications New, Converted or Re-Newed RX: Other Patient Instructions/Follow Up Plan of Care/Instructions/FU: To take calcium with vit d 4 tablets every 4 hours. May take more if tingling of hands or numbness around the mouth develops. F/U on 05/23 Activity as Tolerated: Yes Discharge Diet: No Restrictions MOOKIE CHATTERJEE MD May 07, 2018 16:11
[2018-05-07] MEDS ORDERED: NS IV ONE (16:15)
[2018-05-07] MEDS ORDERED: CALCIUM GLUCONATE IV ONE (16:15)
[2018-05-07 17:00] VITALS: BP 132/62
--- NOTE | 2018-05-07 17:00 | NUR ---
CARMELLA POP demonstrates understanding of discharge instructions and accurately returns instructions upon questioning. Copy of Post-Discharge Instructions given to PT. CARMELLA POP is able to manage continuing needs after discharge. Patients belongings returned to PT. Patient discharged from [facility] on 05/07/18 at 1700. CARMELLA POP left floor via W/C, accompanied by STAFF AND PER AUTO.
--- NOTE | 2018-05-07 17:00 | NUR ---
NOTIFIED DR. CHATTERJEE ABOUT FAILED IV ATTEMPTS AND UNABLE TO GIVE IV MAG AND IV CALCIUM THAT WAS ORDERED. NEW ORDER TO STOP IV MEDS AND SEND PT. HOME.
== END 2018-05-07 17:00 | disposition home or self-care (01) | DRG 641 ==
LOC: EDUNIT# 22:36 → ER 22:38 → INTOOBSV 05-06 02:45 → UNDOADMOB 05-06 02:45 → 4TH 05-06 02:45 → OBSVTOIN 05-06 02:45 → 4TH 05-06 02:45 → ER 05-06 04:02 → UNDODISIN 05-07 17:00
PROVIDERS: ADMIT Surgery; ATTEND Surgery
DX: E83.51 Hypocalcemia (principal); E89.0 Postprocedural hypothyroidism; G89.18 Other acute postprocedural pain; L76.21 Postprocedural hemorrhage of skin and subcutaneous tissue following a dermatologic procedure; I10 Essential (primary) hypertension; G47.30 Sleep apnea, unspecified; I34.1 Nonrheumatic mitral (valve) prolapse; F17.210 Nicotine dependence, cigarettes, uncomplicated; F41.9 Anxiety disorder, unspecified; F32.9 Major depressive disorder, single episode, unspecified
CPT/HCPCS: 36415; 70491; 71045; 71260; 80053; 83735; 83874; 83880; 84443; 84484; 85025; 85610; 85730; 93005

== ENCOUNTER 2018-05-27 19:51 | Emergency (ER) | payer SELFPAY ==
[~2018-05-27] VITALS: Ht 170.2 cm; Wt 122.5 kg
[~2018-05-27 19:51] MED LIST changes: +ACET-2267 PO
--- OUTSIDE RECORDS SUMMARY | 2018-05-27 20:09 | XMS REPORT | Continuity of Care Document ---
Author Author [facility] Address Unknown Phone Unavailable Allergies Active Description Code Type Severity Reaction Onset Reported/Identified Relationship to Patient Clinical Status Yes No Known Drug Allergies [id number] Drug Allergy Unknown N/A 12/25/2013 Medications There [...] ANN K 787.91 DIARRHEA 05/20/2008 MONTALVO DO LEIG HANN K V72.3 GYNECOLOGICAL EXAMINATION 05/20/2008 CASI TOMLINSON [...] ANN K 729.5 PAIN IN LIMB 02/08/2009 ACSI TOMLINSON APRNNDA S 706.2 SEBACEOUS CYST 02/08/2009 [...] APRN S 461.9 SINUSITIS ACUTE 07/05/2010 JEZ TOMLINOSN APRN S 525.9 UNSPECIFIED DISORDER OF THE [...] MEDIA ACUTE SUPPURATIVE RIGHT EAR 03/28/2011 BUSHRA FREIGHT CALLER, JEZ S 300.00 anxiety 03/28/2011 BUSHRA ORTIZ, [...] S 702.19 OTHER SEBORRHEIC KERATOSIS 04/09/2012 BUSHRA FREIGHT CALLER, JEZ S 682.9 CELLULITIS AND ABSCESS OF [...] K 728.71 PLANTAR FASCIAL FIBROMATOSIS 04/09/2012 BUSHRA FREIGHT CALLER, JEZ S 682.9 CELLULITIS AND ABSCESS OF UNSPECIFIED SITES 04/09/2012 BUSHRA ORTIZ JEZ S 728.71 PLANTAR FASCIAL FIBROMATOSIS 04/09/2012 SAMI WOLFE, ALI 682.9 CELLULITIS AND ABSCESS OF UNSPECIFIED SITES 04/09/2012 SAMI WOLFE, ALI 728.71 PLANTAR FASCIAL FIBROMATOSIS 04/09/2012 KATIA JIMÉNEZ LEIGH ANN K 682.9 CELLULITIS AND ABSCESS OF UNSPECIFIED SITES 04/09/2012 KATIA JIMÉNEZ LEIGH ANN K 728.71 PLANTAR FASCIAL FIBROMATOSIS 04/09/2012 BUSHRA FREIGHT CALLER, JEZ S 682.9 CELLULITIS AND ABSCESS OF [...] ORTIZ JEZ S 696.1 PSORIASIS 04/10/2013 BUSHRA FREIGHT CALLER, JEZ S V73.81 HPV SCREENING 04/10/2013 CASI [...] KATIA JIMÉNEZFLORECITAA K 786.09 DYSPNEA 12/10/2013 BUSHRA FREIGHT CALLERCASI HillNDA S 785.1 PALPITATIONS 12/10/2013 CASI TOMLINSON [...] RIGHT LOWER QUADRANT 03/10/2014 JEZ TOMLINSON RN IV THERAPY Ot 789.03 03/10/2014 JEZ TOMLINSON RN IV THERAPY Ot 789.03 10/20/2015 GERMAINE MOTA Ot V76.12 OTH SCREEN MAMMO-MALIGN NEOPLASM OF KRISTIN 10/20/2015 SAMI WOLFE FACC, YANNA FACP CCDS Ot 785.1 PALPITATIONS 10/20/2015 SAMI WOLFE FACC, YANNA FACP CCDS Ot 786.09 RESPIRATORY ABNORM NEC 10/20/2015 SAMI WOLFE FACC, ALI FACP CCDS Ot 785.1 PALPITATIONS 10/20/2015 SAMI WOLFE FACC, ALI FACP CCDS Ot 786.09 RESPIRATORY ABNORM NEC 10/20/2015 JEZ TOMLINSON RN IV THERAPY Ot 789.03 ABDOMINAL PAIN, RIGHT LOWER QUADRANT 10/20/2015 JEZ TOMLINSON RN IV THERAPY Ot 789.03 ABDOMINAL PAIN, RIGHT LOWER QUADRANT 10/20/2015 JEZ TOMLINSON RN IV THERAPY Ot R10.31 RIGHT LOWER QUADRANT PAIN 10/22/2015 [...] CCDS Ot 785.1 PALPITATIONS 10/26/2015 SAMI WOLFE [facility] CCDS Ot 786.09 RESPIRATORY ABNORM NEC 10/26/2015 JEZ TOMLINSON RN IV THERAPY Ot 789.03 ABDOMINAL PAIN, RIGHT LOWER QUADRANT 10/26/2015 JEZ TOMLINSON RN IV THERAPY Ot 789.03 ABDOMINAL PAIN, RIGHT LOWER QUADRANT 10/26/2015 JEZ TOMLINSON RN IV THERAPY Ot R10.31 RIGHT LOWER QUADRANT PAIN 10/26/2015 GERMAINE MOTA Ot V76.12 OT SCREEN MAMMO-MALIGN NEOPLASM OF KRISTIN 10/26/2015 SAMI WOLFE [facility] CCDS Ot 785.1 PALPITATIONS 10/26/2015 SAMI WOLFE [facility], ALI FACP CCDS Ot 786.09 RESPIRATORY ABNORM NEC 10/26/2015 SAMI WOLFE [facility], ALI FACP CCDS Ot 785.1 PALPITATIONS 10/26/2015 SAMI WOLFE [facility], [facility] Ot 786.09 RESPIRATORY ABNORM NEC 10/26/2015 JEZ TOMLINSON RN IV THERAPY Ot 789.03 ABDOMINAL PAIN, RIGHT LOWER QUADRANT 10/26/2015 JEZ TOMLINSON RN IV THERAPY Ot 789.03 ABDOMINAL PAIN, RIGHT LOWER QUADRANT 10/26/2015 JEZ TOMLINSON Ot R10.31 RIGHT LOWER QUADRANT PAIN 10/26/2015 JEZ TOMLINSON RN IV THERAPY Ot 789.03 ABDOMINAL PAIN, RIGHT LOWER QUADRANT [...] ALMEIDA YENNY Ot K62.1 RECTAL POLYP 11/08/2015 [place] YENNY Ot K63.5 POLYP OF COLON 02/25/2016 [...] RESPIRATORY ABNORM NEC 02/25/2016 JEZ TOMLINSON RN IV THERAPY Ot 789.03 ABDOMINAL PAIN, RIGHT LOWER QUADRANT 02/25/2016 JEZ TOMLINSON RN IV THERAPY Ot 789.03 ABDOMINAL PAIN, RIGHT LOWER QUADRANT 02/25/2016 JEZ TOMLINSON RN IV THERAPY Ot R10.31 RIGHT LOWER QUADRANT PAIN 02/25/2016 BUSHRAJEZ NOVOA RN IV THERAPY Ot R10.31 RIGHT LOWER QUADRANT PAIN 02/25/2016 JEZ TOMLINSON RN IV THERAPY Ot 789.03 ABDOMINAL PAIN, RIGHT LOWER QUADRANT [...] RESPIRATORY ABNORM NEC 11/02/2016 JEZ TOMLINSON RN IV THERAPY Ot 789.03 ABDOMINAL PAIN, RIGHT LOWER QUADRANT [...] 11/21/2016 YENNY ALMEIDA DO Ot Z79.899 OTHER FUN HOUSE ATTENDANT (CURRENT) DRUG THERAPY 11/21/2016 YENNY ALMEIDA DO [...] RESPIRATORY ABNORM NEC 11/20/2017 JEZ TOMLINSON RN IV THERAPY Ot 789.03 ABDOMINAL PAIN, RIGHT LOWER QUADRANT 11/20/2017 JEZ TOMLINSON Ot 789.03 ABDOMINAL PAIN, RIGHT LOWER QUADRANT 11/20/2017 BUSHRA, JEZ RN IV THERAPY Ot R10.31 RIGHT LOWER QUADRANT PAIN 11/20/2017 JEZ TOMLINSON RN IV THERAPY Ot Z12.31 ENCNTR SCREEN MAMMOGRAM FOR MALIGNANT NE 11/22/2017 BAIMA, EVELIA L RN IV THERAPY Ot I10 ESSENTIAL (PRIMARY) HYPERTENSION 11/22/2017 BAIMA, EVELIA L RN IV THERAPY Ot 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 11/22/2017 BAIMA, EVELIA L RN IV THERAPY Ot I34.0 NONRHEUMATIC MITRAL (VALVE) INSUFFICIENC 11/22/2017 BAIMA, EVELIA L RN IV THERAPY Ot I73.9 PERIPHERAL VASCULAR DISEASE, UNSPECIFIED 11/22/2017 BAIMA, EVELIA L RN IV THERAPY Ot R06.09 OTHER FORMS OF DYSPNEA 11/22/2017 BAIMA, EVELIA L RN IV THERAPY Ot R29.818 OTHER SYMPTOMS AND SIGNS INVOLVING THE N 11/22/2017 BAIMA, EVELIA L RN IV THERAPY Ot Z72.0 TOBACCO USE 12/08/2017 BAIMA, EVELIA L RN IV THERAPY Ot I10 ESSENTIAL (PRIMARY) HYPERTENSION 12/08/2017 BAIMA, EVELIA L RN IV THERAPY Ot 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 12/08/2017 BAIMA, EVELIA L RN IV THERAPY Ot I34.0 NONRHEUMATIC MITRAL (VALVE) INSUFFICIENC 12/08/2017 BAIMA, EVELIA L RN IV THERAPY Ot R06.09 OTHER FORMS OF DYSPNEA 12/08/2017 BAIMA, EVELIA L RN IV THERAPY Ot Z72.0 TOBACCO USE 12/10/2017 BAIMA, EVELIA L RN IV THERAPY Ot I10 ESSENTIAL (PRIMARY) HYPERTENSION 12/10/2017 BAIMA, EVELIA L RN IV THERAPY Ot 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 12/10/2017 BAIMA, EVELIA L RN IV THERAPY Ot I34.0 NONRHEUMATIC MITRAL (VALVE) INSUFFICIENC 12/10/2017 BAIMA, EVELIA L RN IV THERAPY Ot I73.9 PERIPHERAL VASCULAR DISEASE, UNSPECIFIED 12/10/2017 BAIMA, EVELIA L RN IV THERAPY Ot R06.09 OTHER FORMS OF DYSPNEA 12/10/2017 BAIMA, EVELIA L RN IV THERAPY Ot R29.818 OTHER SYMPTOMS AND SIGNS INVOLVING THE N 12/10/2017 BAIMA, EVELIA L RN IV THERAPY Ot Z72.0 TOBACCO USE 12/10/2017 BAIMA, EVELIA L RN IV THERAPY Ot I10 ESSENTIAL (PRIMARY) HYPERTENSION 12/10/2017 DEBBIEMARIA DE JESUS, EVELIA L RN IV THERAPY Ot 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 12/10/2017 BAILOU PRETTYHER L RN IV THERAPY Ot I34.0 NONRHEUMATIC MITRAL (VALVE) INSUFFICIENC 12/10/2017 BAIMA, EVELIA L RN IV THERAPY Ot I73.9 PERIPHERAL VASCULAR DISEASE, UNSPECIFIED 12/10/2017 BAIMA EVELIA L RN IV THERAPY Ot R06.09 OTHER FORMS OF DYSPNEA 12/10/2017 DEBBIEMARIA DE JESUS EVELIA L RN IV THERAPY Ot R29.818 OTHER SYMPTOMS AND SIGNS INVOLVING THE N 12/10/2017 GÓMEZEVELIA L RN IV THERAPY Ot Z72.0 TOBACCO USE 12/12/2017 GERMAINE MOTA Ot V76.12 OTH SCREEN MAMMO-MALIGN NEOPLASM OF [place]RI[place] 12/12/2017 SAMI WOLFE FACC, ALI FACP CCDS Ot 785.1 PALPITATIONS 12/12/2017 SAMI WOLFE FACC, ALI FACP CCDS Ot 786.09 RESPIRATORY ABNORM NEC 12/12/2017 SAMI WOLFE FACC, ALI FACP CCDS Ot 785.1 PALPITATIONS 12/12/2017 SAMI MD FACC, ALI FACP CCDS Ot 786.09 RESPIRATORY ABNORM NEC 12/12/2017 JEZ TOMLINSON RN IV THERAPY Ot 789.03 ABDOMINAL PAIN, RIGHT LOWER QUADRANT 12/12/2017 JEZ TOMLINSON RN IV THERAPY Ot 789.03 ABDOMINAL PAIN, RIGHT LOWER QUADRANT 12/12/2017 JEZ TOMLINSON RN IV THERAPY Ot R10.31 RIGHT LOWER QUADRANT PAIN 12/12/2017 JEZ TOMLINSON RN IV THERAPY Ot Z12.31 ENCNTR SCREEN MAMMOGRAM FOR MALIGNANT NE 12/12/2017 GÓMEZ EVELIA L RN IV THERAPY Ot I10 ESSENTIAL (PRIMARY) HYPERTENSION 12/12/2017 GÓMEZ EVELIA L RN IV THERAPY Ot 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 12/12/2017 DEBBIELOU PRETTYHER L RN IV THERAPY Ot I34.0 NONRHEUMATIC MITRAL (VALVE) INSUFFICIENC 12/12/2017 GÓMEZ EVELIA L RN IV THERAPY Ot I73.9 PERIPHERAL VASCULAR DISEASE, UNSPECIFIED 12/12/2017 BAIMA, EVELIA L RN IV THERAPY Ot R06.09 OTHER FORMS OF DYSPNEA 12/12/2017 BAIMA, EVELIA L RN IV THERAPY Ot R29.818 OTHER SYMPTOMS AND SIGNS INVOLVING THE N 12/12/2017 BAIMA, EVELIA L RN IV THERAPY Ot Z72.0 TOBACCO USE 12/12/2017 BAIMA, EVELIA L RN IV THERAPY Ot I10 ESSENTIAL (PRIMARY) HYPERTENSION 12/12/2017 BAIMA, EVELIA L RN IV THERAPY Ot 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 12/12/2017 BAIMA, EVELIA L RN IV THERAPY Ot I34.0 NONRHEUMATIC MITRAL (VALVE) INSUFFICIENC 12/12/2017 BAIMA, EVELIA L RN IV THERAPY Ot R06.09 OTHER FORMS OF DYSPNEA 12/12/2017 BAIMA, EVELIA L RN IV THERAPY Ot Z72.0 TOBACCO USE 12/12/2017 BAIMA, EVELIA L RN IV THERAPY Ot I10 ESSENTIAL (PRIMARY) HYPERTENSION 12/12/2017 BAIMA, EVELIA L RN IV THERAPY Ot 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 12/12/2017 BAIMA, EVELIA L RN IV THERAPY Ot I34.0 NONRHEUMATIC MITRAL (VALVE) INSUFFICIENC 12/12/2017 BAIMA, EVELIA L RN IV THERAPY Ot R06.09 OTHER FORMS OF DYSPNEA 12/12/2017 BAIMA, EVELIA L RN IV THERAPY Ot Z72.0 TOBACCO USE 12/26/2017 DARREN MEHTA E FREIGHT CALLER Ot G47.00 INSOMNIA, UNSPECIFIED 12/26/2017 JANINE DARREN E FREIGHT CALLER Ot G47.10 HYPERSOMNIA, UNSPECIFIED 12/26/2017 JANINE DARREN E FREIGHT CALLER Ot G47.33 OBSTRUCTIVE SLEEP APNEA (ADULT) (PEDIATR 12/26/2017 JANINE DARREN E FREIGHT CALLER Ot G47.50 PARASOMNIA, UNSPECIFIED 12/27/2017 JANINE DARREN E FREIGHT CALLER Ot G47.00 INSOMNIA, UNSPECIFIED 12/27/2017 JANINE DARREN E FREIGHT CALLER Ot G47.10 HYPERSOMNIA, UNSPECIFIED 12/27/2017 JANINE DARREN E FREIGHT CALLER Ot G47.33 OBSTRUCTIVE SLEEP APNEA (ADULT) (PEDIATR 12/27/2017 DOROTHY MEHTAINE E FREIGHT CALLER Ot G47.50 PARASOMNIA, UNSPECIFIED 02/04/2018 BAIMA, EVELIA L RN IV THERAPY Ot I10 ESSENTIAL (PRIMARY) HYPERTENSION 02/04/2018 GÓMEZEVELIA RN IV THERAPY Ot 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 02/04/2018 EVELIA MAGAÑA Sameera RN IV THERAPY Ot I34.0 NONRHEUMATIC MITRAL (VALVE) INSUFFICIENC 02/04/2018 DEBBIEMARIA DE JESUS EVELIA L RN IV THERAPY Ot R06.09 OTHER FORMS OF DYSPNEA 02/04/2018 EVELIA MAGAÑA RN IV THERAPY Ot Z72.0 TOBACCO USE 02/04/2018 JANINEDARREN PRECIADO FREIGHT CALLER Ot R06.02 SHORTNESS OF BREATH 02/04/2018 JANINEDOROTHY PRECIADOINE Quin FREIGHT CALLER Ot R16.1 SPLENOMEGALY, NOT ELSEWHERE CLASSIFIED 02/04/2018 JANINEDARREN PRECIADO FREIGHT CALLER Ot Z72.0 TOBACCO USE 02/05/2018 JANINEDARREN PRECIADO FREIGHT CALLER Ot R06.02 SHORTNESS OF BREATH 02/05/2018 JANINEDARREN PRECIADO FREIGHT CALLER Ot R16.1 SPLENOMEGALY, NOT ELSEWHERE CLASSIFIED 02/05/2018 JANINEDOROTHY PRECIADOINE Quin FREIGHT CALLER Ot Z72.0 TOBACCO USE 02/05/2018 JACOBY GRANADOS, [...] RESPIRATORY ABNORM NEC 02/05/2018 JEZ TOMLINSON RN IV THERAPY Ot 789.03 ABDOMINAL PAIN, RIGHT LOWER QUADRANT 02/05/2018 JEZ TOMLINSON RN IV THERAPY Ot 789.03 ABDOMINAL PAIN, RIGHT LOWER QUADRANT 02/05/2018 JEZ TOMLINSON RN IV THERAPY Ot R10.31 RIGHT LOWER QUADRANT PAIN 02/05/2018 JEZ TOMLINSON RN IV THERAPY Ot Z12.31 ENCNTR SCREEN MAMMOGRAM FOR MALIGNANT NE 02/05/2018 EVELIA MAGAÑA RN IV THERAPY Ot I10 ESSENTIAL (PRIMARY) HYPERTENSION 02/05/2018 GÓMEZ EVELIA Sameera RN IV THERAPY Ot 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 02/05/2018 BAIMAEVELIA L RN IV THERAPY Ot I34.0 NONRHEUMATIC MITRAL (VALVE) INSUFFICIENC 02/05/2018 BAIMA EVELIA L RN IV THERAPY Ot I73.9 PERIPHERAL VASCULAR DISEASE, UNSPECIFIED 02/05/2018 BAIMARIA DE JESUS EVELIA L RN IV THERAPY Ot R06.09 OTHER FORMS OF DYSPNEA 02/05/2018 BAIMA, EVELIA L RN IV THERAPY Ot R29.818 OTHER SYMPTOMS AND SIGNS INVOLVING THE N 02/05/2018 BAIMA EVELIA L RN IV THERAPY Ot Z72.0 TOBACCO USE 02/05/2018 BAIMA, EVELIA L RN IV THERAPY Ot I10 ESSENTIAL (PRIMARY) HYPERTENSION 02/05/2018 BAIMA, EVELIA L RN IV THERAPY Ot 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 02/05/2018 BAIMA, EVELIA L RN IV THERAPY Ot I34.0 NONRHEUMATIC MITRAL (VALVE) INSUFFICIENC 02/05/2018 BAIMARIA DE JESUS EVELIA L RN IV THERAPY Ot R06.09 OTHER FORMS OF DYSPNEA 02/05/2018 BAIMARIA DE JESUS EVELIA L RN IV THERAPY Ot Z72.0 TOBACCO USE 02/05/2018 DARREN MEHTA APRN Ot R06.02 SHORTNESS OF BREATH 02/05/2018 DARREN MEHTA APRN Ot R16.1 SPLENOMEGALY, NOT ELSEWHERE CLASSIFIED 02/05/2018 DARREN MEHTA FREIGHT CALLER Ot Z72.0 TOBACCO USE 02/08/2018 JEZ TOMLINSON RN IV THERAPY Ot E04.2 NONTOXIC MULTINODULAR GOITER 02/13/2018 JEZ TOMLINSON RN IV THERAPY Ot E04.2 NONTOXIC MULTINODULAR GOITER 03/19/2018 SHENA WOLFE, MOOKIE Rowland Ot E04.1 NONTOXIC SINGLE THYROID NODULE 03/25/2018 JEZ TOMLINSON RN IV THERAPY Ot E04.2 NONTOXIC MULTINODULAR GOITER 03/25/2018 SHENA WOLFE, MOOKIE [place] Ot E04.1 NONTOXIC SINGLE THYROID NODULE 03/26/2018 JEZ TOMLINSON RN IV THERAPY Ot E04.2 NONTOXIC MULTINODULAR GOITER 04/25/2018 JACOBY [...] RESPIRATORY ABNORM NEC 04/25/2018 JEZ TOMLINSON RN IV THERAPY Ot 789.03 ABDOMINAL PAIN, RIGHT LOWER QUADRANT 04/25/2018 JEZ TOMLINSON RN IV THERAPY Ot 789.03 ABDOMINAL PAIN, RIGHT LOWER QUADRANT 04/25/2018 JEZ TOMLINSON RN IV THERAPY Ot R10.31 RIGHT LOWER QUADRANT PAIN 04/25/2018 JEZ TOMLINSON RN IV THERAPY Ot Z12.31 ENCNTR SCREEN MAMMOGRAM FOR MALIGNANT NE 04/25/2018 EVELIA MAGAÑA L RN IV THERAPY Ot I10 ESSENTIAL (PRIMARY) HYPERTENSION 04/25/2018 GÓMEZ EVELIA L RN IV THERAPY Ot 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 04/25/2018 GÓMEZ EVELIA L RN IV THERAPY Ot I34.0 NONRHEUMATIC MITRAL (VALVE) INSUFFICIENC 04/25/2018 GÓMEZ EVELIA L RN IV THERAPY Ot I73.9 PERIPHERAL VASCULAR DISEASE, UNSPECIFIED 04/25/2018 GÓMEZ EVELIA L RN IV THERAPY Ot R06.09 OTHER FORMS OF DYSPNEA 04/25/2018 GÓMEZ EVELIA L RN IV THERAPY Ot R29.818 OTHER SYMPTOMS AND SIGNS INVOLVING THE N 04/25/2018 EVELIA MAGAÑA L RN IV THERAPY Ot Z72.0 TOBACCO USE 04/25/2018 LOU MAGAÑAHER L RN IV THERAPY Ot I10 ESSENTIAL (PRIMARY) HYPERTENSION 04/25/2018 GÓMEZ EVELIA L RN IV THERAPY Ot 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 04/25/2018 DEBBIEMA EVELIA L RN IV THERAPY Ot I34.0 NONRHEUMATIC MITRAL (VALVE) INSUFFICIENC 04/25/2018 DEBBIEMA EVELIA L RN IV THERAPY Ot R06.09 OTHER FORMS OF DYSPNEA 04/25/2018 LOU MAGAÑAHER L RN IV THERAPY Ot Z72.0 TOBACCO USE 04/25/2018 DARREN MEHTA APRN Ot R06.02 SHORTNESS OF BREATH 04/25/2018 DARREN MEHTA APRN Ot R16.1 SPLENOMEGALY, NOT ELSEWHERE CLASSIFIED 04/25/2018 DARREN MEHTA APRN Ot Z72.0 TOBACCO USE 04/25/2018 JEZ TOMLINSON Ot E04.2 NONTOXIC MULTINODULAR GOITER 04/25/2018 MOOKIE CHATTERJEE MD Ot E04.1 NONTOXIC SINGLE THYROID NODULE 05/03/2018 MOOKIE CHATTERJEE MD Ot E04.1 NONTOXIC SINGLE THYROID NODULE 05/03/2018 MOOKIE CHATTERJEE MD Ot E66.01 MORBID (SEVERE) OBESITY DUE TO EXCESS CA 05/03/2018 MOOKIE CHATTERJEE MD Ot E83.51 HYPOCALCEMIA 05/03/2018 MOOKIE CHATTERJEE MD Ot E89.89 OTH POSTPROC ENDOCRINE AND METABOLIC COM 05/03/2018 MOOKIE CHATTERJEE MD Ot F17.210 NICOTINE DEPENDENCE, CIGARETTES, UNCOMPL 05/03/2018 MOOKIE CHATTERJEE MD Ot G47.33 OBSTRUCTIVE SLEEP APNEA (ADULT) (PEDIATR 05/03/2018 MOOKIE CHATTERJEE MD Ot I10 ESSENTIAL (PRIMARY) HYPERTENSION 05/03/2018 MOOKIE CHATTERJEE MD Ot I34.1 NONRHEUMATIC MITRAL (VALVE) PROLAPSE 05/03/2018 MOOKIE CHATTERJEE MD Ot L76.32 POSTPROC HEMATOMA OF SKIN, SUBCU FOLLOWI 05/03/2018 MOOKIE CHATTERJEE MD Ot R11.2 NAUSEA WITH VOMITING, UNSPECIFIED 05/03/2018 MOOKIE CHATTERJEE MD Ot Z68.41 BODY MASS INDEX (BMI) 40.0-44.9, ADULT 05/07/2018 MOOKIE CHATTERJEE MD Ot E83.51 HYPOCALCEMIA 05/07/2018 MOOKIE CHATTERJEE MD Ot E89.0 POSTPROCEDURAL HYPOTHYROIDISM 05/07/2018 MOOKIE CHATTERJEE MD Ot F17.210 NICOTINE DEPENDENCE, CIGARETTES, UNCOMPL 05/07/2018 MOOKIE CHATTERJEE MD Ot F32.9 MAJOR DEPRESSIVE DISORDER, SINGLE EPISOD 05/07/2018 MOOKIE CHATTERJEE MD Ot F41.9 ANXIETY DISORDER, UNSPECIFIED 05/07/2018 MOOKIE CHATTERJEE MD Ot G47.30 SLEEP APNEA, UNSPECIFIED 05/07/2018 MOOKIE CHATTERJEE MD Ot G89.18 OTHER ACUTE POSTPROCEDURAL PAIN 05/07/2018 SHENA WOLFE, MOOKIE Rowland Ot I10 ESSENTIAL (PRIMARY) HYPERTENSION 05/07/2018 SHENA WOLFE, MOOKIE [place] Ot I34.1 NONRHEUMATIC MITRAL (VALVE) PROLAPSE 05/07/2018 MOOKIE CHATTERJEE MD Ot L76.21 POSTPROC HEMOR OF SKIN, SUBCU FOL A DERM 05/13/2018 SHENA WOLFE, MOOKIE [place]land Ot E04.1 NONTOXIC SINGLE THYROID NODULE 05/13/2018 MOOKIE CHATTERJEE MD, Ot E04.1 NONTOXIC SINGLE THYROID NODULE Procedures Code Description Performed By Performed On Q0091 PAP SMEAR OBTAIN SMEAR 04/10/2013 07345 NUCLEAR STRESS TESTING 04/10/2013 20393 ECHO 2D 04/10/2013 25017 HEMOCCULT 04/10/2013 89987 PAP SMEAR 04/14/2013 71573 MAMMOGRAM, SCREENING 04/25/2013 57361 EKG, TRACING (IN-HOUSE) 10/22/2013 98549 UA LONG DIP 10/22/2013 40968 A1C (IN-HOUSE) 10/24/2013 93876 ROUTINE VENIPUNCTURE 10/24/2013 88217 CBC 10/24/2013 9059392 GFR CALC (RESULT ONLY) 10/24/2013 31491 CMP 10/24/2013 25314 LIPID PANEL 10/24/2013 06595 MAGNESIUM 10/24/2013 12069 TSH 10/24/2013 42335 INSULIN LEVEL 10/24/2013 CARDIOLOG YANNA GALLARDO 11/05/2013 45899 ROUTINE VENIPUNCTURE 02/23/[address] ABDOMEN AND PELVIS W/ CONTRAST 02/24/2014 21738 FSH 02/24/2014 53437 US PELVIC COMPL (REFLEX CPT - 16028) 03/02/2014 [id number] REATTACHMENT OF L SUP PARATHYROID, OPEN 05/01/2018 [id number] RESECTION OF LEFT THYROID GLAND LOBE, OP 05/01/2018 [id number] RESECTION OF RIGHT THYROID [place], O 05/01/2018 Results Test Result Range No Test Indicated [...] (moles/volume) 0.97 % 1.16-1.32 pH measurement 7.45 [facility] Whole blood basic metabolic panel - 05/03/18 [...] plasma calcium measurement (mass/volume) 7.1 mg/dL 8.5-10.1 Complete blood count (CBC) with automated white blood cell (WBC) differential - 05/05/18 23:40 Blood leukocytes automated count (number/volume) 10.1 10*3/uL 4.3-11.0 Blood erythrocytes automated count (number/volume) 3.80 10*6/uL 4.35-5.85 Venous blood hemoglobin measurement (mass/volume) 11.8 g/dL 11.5-16.0 Blood hematocrit (volume fraction) 33 % 35-52 Automated erythrocyte mean corpuscular volume 86 [foz_us] 80-99 Automated erythrocyte mean corpuscular hemoglobin (mass per erythrocyte) 31 pg 25-34 Automated erythrocyte mean corpuscular hemoglobin concentration measurement ( mass/volume) 36 g/dL 32-36 Automated erythrocyte distribution width ratio 17.2 % 10.0-14.5 Automated blood platelet count (count/volume) 348 10*3/uL 130-400 Automated blood platelet mean volume measurement 8.8 [foz_us] 7.4-10.4 Automated blood neutrophils/100 leukocytes 71 % 42-75 Automated blood lymphocytes/100 leukocytes 18 % 12-44 Blood monocytes/100 leukocytes 8 % 0-12 Automated blood eosinophils/100 leukocytes 2 % 0-10 Automated blood basophils/100 leukocytes 1 % 0-10 Blood neutrophils automated count (number/volume) 7.1 10*3 1.8-7.8 Blood lymphocytes automated count (number/volume) 1.8 10*3 1.0-4.0 Blood monocytes automated count (number/volume) 0.8 10*3 0.0-1.0 Automated eosinophil count 0.2 10*3/uL 0.0-0.3 Automated blood basophil count (count/volume) 0.1 10*3/uL 0.0-0.1 PT panel in platelet poor plasma by coagulation assay - 05/05/18 23:40 Prothrombin time (PT) in platelet poor plasma by coagulation assay 14.1 s 12.2-14.7 INR in platelet poor plasma or blood by coagulation assay 1.1 0.8-1.4 Activated partial thromboplastin time (aPTT) in platelet poor plasma bycoagulation assay - 05/05/18 23:40 Activated partial thromboplastin time (aPTT) in platelet poor plasma bycoagulation assay 30 s 24-35 Comprehensive metabolic panel - 05/05/18 23:40 Serum or plasma sodium measurement (moles/volume) 139 mmol/L 135-145 Serum or plasma potassium measurement (moles/volume) 3.4 mmol/L 3.6-5.0 Serum or plasma chloride measurement (moles/volume) 98 mmol/L 98-107 Carbon dioxide 25 mmol/L 21-32 Serum or plasma anion gap determination (moles/volume) 16 mmol/L 5-14 Serum or plasma urea nitrogen measurement (mass/volume) 7 mg/dL 7-18 Serum or plasma creatinine measurement (mass/volume) 0.66 mg/dL 0.60-1.30 Serum or plasma urea nitrogen/creatinine mass ratio 11 NRG Serum or plasma creatinine measurement with calculation of estimated glomerular filtration rate > NRG Serum or plasma glucose measurement (mass/volume) 102 mg/dL 70-105 Serum or plasma calcium measurement (mass/volume) 6.4 mg/dL 8.5-10.1 Serum or plasma total bilirubin measurement (mass/volume) 1.5 mg/dL 0.1-1.0 Serum or plasma alkaline phosphatase measurement (enzymatic activity/volume) 68 U/L 40-136 Serum or plasma aspartate aminotransferase measurement (enzymatic activity/ volume) 20 U/L 5-34 Serum or plasma alanine aminotransferase measurement (enzymatic activity/volume ) 28 U/L 0-55 Serum or plasma protein measurement (mass/volume) 7.1 g/dL 6.4-8.2 Serum or plasma albumin measurement (mass/volume) 4.1 g/dL 3.2-4.5 CALCIUM CORRECTED 6.3 mg/dL 8.5-10.1 Magnesium - 05/05/18 23:40 Magnesium 2.0 mg/dL 1.8-2.4 Serum or plasma troponin i.cardiac measurement (mass/volume) - 05/05/18 23:40 Serum or plasma troponin i.cardiac measurement (mass/volume) < ng/ mL <0.028 Myoglobin, serum - 05/05/18 23:40 Myoglobin, serum 32.3 ng/mL 10.0-92.0 Serum or plasma lithium measurement (moles/volume) - 05/05/18 23:40 BNP level 148.9 pg/mL <100.0 Serum or plasma thyrotropin measurement by detection limit <=0.05 miu/l (units/ volume) - 05/05/18 23:40 Serum or plasma thyrotropin measurement by detection limit <=0.05 miu/l (units/ volume) 2.31 u[iU]/mL 0.35-4.94 Complete blood count (CBC) with automated white blood cell (WBC) differential - 05/06/18 07:14 Blood leukocytes automated count (number/volume) 9.2 10*3/uL 4.3-11.0 Blood erythrocytes automated count (number/volume) 3.62 10*6/uL 4.35-5.85 Venous blood hemoglobin measurement (mass/volume) 11.2 g/dL 11.5-16.0 Blood hematocrit (volume fraction) 31 % 35-52 Automated erythrocyte mean corpuscular volume 87 [foz_us] 80-99 Automated erythrocyte mean corpuscular hemoglobin (mass per erythrocyte) 31 pg 25-34 Automated erythrocyte mean corpuscular hemoglobin concentration measurement ( mass/volume) 36 g/dL 32-36 Automated erythrocyte distribution width ratio 17.3 % 10.0-14.5 Automated blood platelet count (count/volume) 330 10*3/uL 130-400 Automated blood platelet mean volume measurement 8.8 [foz_us] 7.4-10.4 Automated blood neutrophils/100 leukocytes 70 % 42-75 Automated blood lymphocytes/100 leukocytes 18 % 12-44 Blood monocytes/100 leukocytes 8 % 0-12 Automated blood eosinophils/100 leukocytes 3 % 0-10 Automated blood basophils/100 leukocytes 1 % 0-10 Blood neutrophils automated count (number/volume) 6.5 10*3 1.8-7.8 Blood lymphocytes automated count (number/volume) 1.7 10*3 1.0-4.0 Blood monocytes automated count (number/volume) 0.7 10*3 0.0-1.0 Automated eosinophil count 0.2 10*3/uL 0.0-0.3 Automated blood basophil count (count/volume) 0.1 10*3/uL 0.0-0.1 Comprehensive metabolic panel - 05/06/18 07:14 Serum or plasma sodium measurement (moles/volume) 142 mmol/L 135-145 Serum or plasma potassium measurement (moles/volume) 3.4 mmol/L 3.6-5.0 Serum or plasma chloride measurement (moles/volume) 101 mmol/L 98-107 Carbon dioxide 26 mmol/L 21-32 Serum or plasma anion gap determination (moles/volume) 15 mmol/L 5-14 Serum or plasma urea nitrogen measurement (mass/volume) 6 mg/dL 7-18 Serum or plasma creatinine measurement (mass/volume) 0.64 mg/dL 0.60-1.30 Serum or plasma urea nitrogen/creatinine mass ratio 9 NRG Serum or plasma creatinine measurement with calculation of estimated glomerular filtration rate > NRG Serum or plasma glucose measurement (mass/volume) 106 mg/dL 70-105 Serum or plasma calcium measurement (mass/volume) 6.6 mg/dL 8.5-10.1 Serum or plasma total bilirubin measurement (mass/volume) 1.3 mg/dL 0.1-1.0 Serum or plasma alkaline phosphatase measurement (enzymatic activity/volume) 67 U/L 40-136 Serum or plasma aspartate aminotransferase measurement (enzymatic activity/ volume) 18 U/L 5-34 Serum or plasma alanine aminotransferase measurement (enzymatic activity/volume ) 25 U/L 0-55 Serum or plasma protein measurement (mass/volume) 6.6 g/dL 6.4-8.2 Serum or plasma albumin measurement (mass/volume) 3.9 g/dL 3.2-4.5 CALCIUM CORRECTED 6.7 mg/dL 8.5-10.1 Complete blood count (CBC) with automated white blood cell (WBC) differential - 05/07/18 03:30 Blood leukocytes automated count (number/volume) 9.4 10*3/uL 4.3-11.0 Blood erythrocytes automated count (number/volume) 3.66 10*6/uL 4.35-5.85 Venous blood hemoglobin measurement (mass/volume) 11.3 g/dL 11.5-16.0 Blood hematocrit (volume fraction) 32 % 35-52 Automated erythrocyte mean corpuscular volume 87 [foz_us] 80-99 Automated erythrocyte mean corpuscular hemoglobin (mass per erythrocyte) 31 pg 25-34 Automated erythrocyte mean corpuscular hemoglobin concentration measurement ( mass/volume) 35 g/dL 32-36 Automated erythrocyte distribution width ratio 17.4 % 10.0-14.5 Automated blood platelet count (count/volume) 318 10*3/uL 130-400 Automated blood platelet mean volume measurement 8.8 [foz_us] 7.4-10.4 Automated blood neutrophils/100 leukocytes 65 % 42-75 Automated blood lymphocytes/100 leukocytes 23 % 12-44 Blood monocytes/100 leukocytes 9 % 0-12 Automated blood eosinophils/100 leukocytes 2 % 0-10 Automated blood basophils/100 leukocytes 1 % 0-10 Blood neutrophils automated count (number/volume) 6.1 10*3 1.8-7.8 Blood lymphocytes automated count (number/volume) 2.1 10*3 1.0-4.0 Blood monocytes automated count (number/volume) 0.9 10*3 0.0-1.0 Automated eosinophil count 0.2 10*3/uL 0.0-0.3 Automated blood basophil count (count/volume) 0.1 10*3/uL 0.0-0.1 Comprehensive metabolic panel - 05/07/18 03:30 Serum or plasma sodium measurement (moles/volume) 141 mmol/L 135-145 Serum or plasma potassium measurement (moles/volume) 3.6 mmol/L 3.6-5.0 Serum or plasma chloride measurement (moles/volume) 99 mmol/L 98-107 Carbon dioxide 26 mmol/L 21-32 Serum or plasma anion gap determination (moles/volume) 16 mmol/L 5-14 Serum or plasma urea nitrogen measurement (mass/volume) 7 mg/dL 7-18 Serum or plasma creatinine measurement (mass/volume) 0.68 mg/dL 0.60-1.30 Serum or plasma urea nitrogen/creatinine mass ratio 10 NRG Serum or plasma creatinine measurement with calculation of estimated glomerular filtration rate > NRG Serum or plasma glucose measurement (mass/volume) 96 mg/dL 70-105 Serum or plasma calcium measurement (mass/volume) 6.7 mg/dL 8.5-10.1 Serum or plasma total bilirubin measurement (mass/volume) 1.3 mg/dL 0.1-1.0 Serum or plasma alkaline phosphatase measurement (enzymatic activity/volume) 65 U/L 40-136 Serum or plasma aspartate aminotransferase measurement (enzymatic activity/ volume) 17 U/L 5-34 Serum or plasma alanine aminotransferase measurement (enzymatic activity/volume ) 21 U/L 0-55 Serum or plasma protein measurement (mass/volume) 6.5 g/dL 6.4-8.2 Serum or plasma albumin measurement (mass/volume) 3.9 g/dL 3.2-4.5 CALCIUM CORRECTED 6.8 mg/dL 8.5-10.1 Encounters ACCT No. Visit Date/Time Discharge Status Pt. Type Provider Facility Loc./Unit Complaint [id number] 02/23/2014 16:18:00 02/23/2014 23:59:59 CLS Outpatient JEZ TOMLINSON APRN [id number] 12/10/2013 08:55:00 12/10/2013 23:59:59 CLS Outpatient YANNA GALLARDO MD [id number] 11/05/2013 10:15:00 11/05/2013 23:59:59 CLS Outpatient BUSHRA DIANAJEZ Han [id number] 10/24/2013 08:54:00 10/24/2013 23:59:59 CLS Outpatient LEIGH ANN MONTALVO DO [id number] 04/10/2013 13:00:00 04/10/2013 23:59:59 CLS Outpatient LEIGH ANN MONTALVO DO [id number] 04/10/2013 13:00:00 04/10/2013 23:59:59 CLS Outpatient LEIGH ANN MONTALVO DO [id number] 05/22/2012 12:48:00 05/22/2012 23:59:59 CLS Outpatient [id number] 04/09/2012 10:09:00 04/09/2012 23:59:59 CLS Outpatient JEZ TOMLINSON APRN [id number] 11/02/2011 13:33:00 11/02/2011 23:59:59 CLS Outpatient [id number] 11/02/2011 13:33:00 11/02/2011 23:59:59 CLS Outpatient JEZ TOMLINSON APRN [id number] 09/24/2012 15:19:00 Document Registration [id number] 04/24/2016 17:07:00 Document Registration [id number] 11/17/2015 10:06:00 Document Registration [id number] 03/11/2018 11:20:00 03/11/2018 23:59:59 CLS Outpatient JEZ TOMLINSON APRN [facility] [id number] 09/24/2017 12:20:00 Document Registration [id number] 08/20/2017 13:00:00 Document Registration [id number] 11/16/2016 11:40:00 Document Registration [email or web address] 03/09/2014 13:21:52 ACT Document Registration [id number] 11/17/2015 10:06:00 Document Registration [id number] 05/06/2018 02:45:00 05/07/2018 17:00:00 DIS Inpatient MOOKIE CHATTERJEE MD [facility] 4TH HYPOCALCEMIA,POST OP PAIN [id number] 05/02/2018 11:32:00 05/03/2018 12:20:00 DIS Outpatient MOOKIE CHATTERJEE MD [facility] 4TH POST OP NAUSEA, VOMITING,HYPOCALCEMIA [id number] 04/30/2018 10:15:00 04/30/2018 10:48:00 DIS Outpatient MOOKIE CHATTERJEE MD [facility] PREOP THYROID NODULES [id number] 04/25/2018 12:59:00 04/25/2018 23:59:59 CLS Outpatient MOOKIE CHATTERJEE MD [facility] LAB THYROID NODULE [id number] 03/06/2018 09:54:00 03/06/2018 23:59:59 CLS Outpatient MOOKIE CHATTERJEE MD [facility] RAD THYROID NODULE [id number] 02/07/2018 13:06:00 02/07/2018 23:59:59 CLS Outpatient JEZ TOMLINSON [facility] RAD THYROID NODULE [id number] 12/26/2017 13:44:00 12/26/2017 13:52:00 DIS Outpatient DARREN MEHTA APRN [facility] SLEEP SNORING,EDS [id number] 12/12/2017 11:47:00 12/12/2017 23:59:59 CLS Outpatient DARREN MEHTA APRN [facility] RAD TOBACCO USER, DYSPNEA [id number] 12/04/2017 13:27:00 12/04/2017 23:59:59 CLS Outpatient EVELIA MAGAÑA RN IV THERAPY [facility] CARD DYSPNEA ON EXERTION [id number] 11/20/2017 10:49:00 11/20/2017 23:59:59 CLS Outpatient EVELIA MAGAÑA RN IV THERAPY [facility] CARD DYSPNEA ON EXERTION [id number] 02/06/2017 12:54:00 02/06/2017 23:59:59 CLS Outpatient JEZ TOMLINSON RN IV THERAPY [facility] RAD Z12.31 SCREENING MAMMO [id number] 11/21/2016 08:45:00 11/21/2016 12:33:00 DIS Outpatient YENNY ALMEIDA DO [facility] ENDO HISTORY POLYPS [id number] 11/16/2016 05:33:00 11/16/2016 15:11:00 DIS Outpatient YENNY ALMEIDA DO [facility] PREOP COLONOSCOPY [id number] 10/26/2015 09:46:00 10/26/2015 15:00:00 DIS Outpatient YENNY ALMEIDA DO [facility] SDC SCREENING [id number] 10/22/2015 05:39:00 10/22/2015 10:46:00 DIS Outpatient YENNY ALMEIDA DO [facility] PREOP SCREENING [id number] 10/11/2015 08:34:00 10/11/2015 23:59:59 CLS Outpatient JEZ TOMLINSON [facility] RAD RLQ ABD PAIN [id number] 03/09/2014 13:21:00 03/09/2014 23:59:59 CLS Outpatient JEZ TOMLINSON [facility] RAD ABD PAIN, RLQ [id number] 03/02/2014 11:11:00 03/02/2014 23:59:59 CLS Outpatient JEZ TOMLINSON [facility] RAD RLQ PAIN [id number] 01/13/2014 08:16:00 01/13/2014 17:11:00 DIS Outpatient YANNA GALLARDO MD, FACC FACP CCDS [facility] CATH ABN STRESS TEST [id number] 12/25/2013 07:42:00 12/25/2013 23:59:59 CLS Outpatient SAMI WOLFE FACC ALI FACP CCDS [facility] CARD ANGINA,SOB, FATIGUE [id number] 12/18/2013 10:44:00 12/18/2013 23:59:59 CLS Outpatient YANNA GALLARDO MD, FACC FACP CCDS [facility] CARD ANGINA,SOB, FATIGUE [id number] 04/21/2013 10:08:00 04/21/2013 23:59:59 CLS Outpatient GERMAINE MOTA [facility] RAD SCREENING [id number] 05/27/2018 19:54:00 ACT Emergency IRVIN RAM DO [facility] ER THYROID SWELLING AFTER SAURAV 3/6
[2018-05-27 20:44] LABS: BASOPHILS # (AUTO) 0.1 10^3/uL (0.0-0.1); BASOPHILS % (AUTO) 1 % (0-10); EOSINOPHILS # (AUTO) 0.2 10^3/uL (0.0-0.3); EOSINOPHILS % (AUTO) 2 % (0-10); HEMATOCRIT 35 % (35-52); HEMOGLOBIN 12.3 G/DL (11.5-16.0); LYMPHOCYTES # (AUTO) 1.5 X 10^3 (1.0-4.0); LYMPHOCYTES % (AUTO) 14 % (12-44); MEAN CORPUSCULAR HEMOGLOBIN 30 PG (25-34); MEAN CORPUSCULAR HGB CONC 35 G/DL (32-36); MEAN CORPUSCULAR VOLUME 86 FL (80-99); MEAN PLATELET VOLUME 8.8 FL (7.4-10.4); MONOCYTES # (AUTO) 0.6 X 10^3 (0.0-1.0); MONOCYTES % (AUTO) 6 % (0-12); NEUTROPHILS # (AUTO) 8.5 X 10^3 (1.8-7.8); NEUTROPHILS % (AUTO) 78 % (42-75); PLATELET COUNT 358 10^3/uL (130-400); WHITE BLOOD COUNT 10.8 10^3/uL (4.3-11.0)
[2018-05-27 21:03] LABS: ALANINE AMINOTRANSFERASE 21 U/L (0-55); ALBUMIN 4.4 GM/DL (3.2-4.5); ALKALINE PHOSPHATASE 87 U/L (40-136); BILIRUBIN,TOTAL 1.3 MG/DL (0.1-1.0); BUN/CREATININE RATIO 15; CALCIUM 8.5 MG/DL (8.5-10.1); CARBON DIOXIDE 25 MMOL/L (21-32); CHLORIDE 99 MMOL/L (98-107); CREATININE SERUM 0.68 MG/DL (0.60-1.30); GFR ESTIMATED > 60; GLUCOSE 96 MG/DL (70-105); MAGNESIUM 2.6 MG/DL (1.8-2.4); POTASSIUM 3.6 MMOL/L (3.6-5.0); SODIUM 138 MMOL/L (135-145)
[2018-05-27 21:22] LABS: TSH (THYROID ANALYZER) 17.61 UIU/ML (0.35-4.94)
--- NOTE | 2018-05-27 21:50 | ED EENT ---
History of Present Illness General Chief Complaint: Oral/Throat Problems Stated Complaint: THYROID SWELLING AFTER SAURAV 05/01 Nursing Triage Note: pt verbalized thyroid surgery 05/01 states swelling has gotten better. pt states worsen today. verbalized "feels different" Source: patient Exam Limitations: no limitations History of Present Illness Date Seen by Provider: May 27, 2018 Time Seen by Provider: 20:02 Initial Comments PT ARRIVES VIA POV FROM HOME PT HAD THYROIDECTOMY ON 05/01/[address] CHATTERJEE FOR THYROID NODULES--BENIGN PT STAYED A COUPLE OF DAYS DUE TO POST OP NAUSEA AND VOMITING, AND WAS NOTED TO HAVE A SUB Q HEMATOMA AT THAT TIME PT CAME BACK TO ER 05/05 AND WAS ADMITTED UNTIL 05/07/18 FOR HYPOCALCEMIA PT HAS NOT HAD HER DOSE OF LEVOTHYROXINE CHANGED AT ANY TIME, AND HAS NOT HAD LAB RECHECKED SINCE DISMISSED FROM THE HOSPITAL. PT STATES THE AREA WAS INITIALLY VERY SWOLLEN AND BRUISED AFTER SURGERY, THEN GOT A LITTLE BETTER SAW DR. CHATTERJEE ON 05/23 FOR POST OP VISIT AND WAS STILL SWOLLEN, BUT A LITTLE BETTER. PT STATES SHE WAS TOLD SHE DID NOT HAVE TO RETURN FOR ANY MORE FOLLOW UP APPOINTMENTS PT STATES THAT ON WAKING THIS AM, SHE NOTICED THAT THE SWELLING WAS WORSE, AND HAS BEEN HAVING SLIGHT DIFFICULTY SWALLOWING TODAY PT HAS NOT CHECKED TEMP, BUT STATES SHE HAS HAD "HOT AND COLD RUNNING ALL THROUGH MY BODY" TODAY HAS HAD SLIGHT NAUSEA TODAY NO DIFFICULTY BREATHING NO DRAINAGE FROM WOUND HAS NOT SOUGHT CARE UNTIL TONIGHT HAS NOT TAKEN ANYTHING FOR PAIN AT ANY TIME--STATES SHE HAS TRAMADOL AT HOME BUT HAS NOT BEEN TAKING IT BECAUSE IT CAUSES CONSTIPATION PT STATES SHE HAS NOT BEEN ON ANTIBIOTICS SINCE SURGERY PCP: [facility] [place]ON: DR. CHATTERJEE Allergies and Home Medications Allergies Coded Allergies: No Known Drug Allergies (Unverified , 12/25/13) Home Medications Acetaminophen 500 Mg Tablet, 1,000 MG PO Q6H PRN for PAIN-MILD, (Reported) Fluoxetine HCl 20 Mg Tablet, 60 MG PO HS, (Reported) TAKES 3 (20MG) TABLETS Gabapentin 400 Mg Capsule, 400 MG PO HS, (Reported) Levothyroxine Sodium 112 Mcg Tablet, 112 MCG PO DAILY Prescribed by: MOOKIE CHATTERJEE on 05/01/18 1454 Melatonin 10 Mg Tablet, 10 MG PO HS, (Reported) Oxybutynin Chloride 5 Mg Tablet, 5 MG PO HS, (Reported) Propranolol HCl 20 Mg Tablet, 20 MG PO BID, (Reported) Tramadol HCl 50 Mg Tablet, 50 MG PO Q12H PRN for PAIN-MODERATE Prescribed by: MOOKIE CHATTERJEE on 05/03/18 1137 Patient Home Medication List Home Medication List Reviewed: Yes Review of Systems Review of Systems Constitutional: see HPI Eyes: No Symptoms Reported Ears: No Symptoms Reported Nose: no symptoms reported Mouth: no symptoms reported Throat: see HPI Respiratory: no symptoms reported Cardiovascular: no symptoms reported Gastrointestinal: see HPI Musculoskeletal: see HPI Skin: see HPI Neurological: No Symptoms Reported Hematologic/Lymphatic: No Symptoms Reported Immunological/Allergic: no symptoms reported Past Ijdcpzp-Glwmhq-Wpmmos Hx Patient Social History Alcohol Use: Rarely Uses Recreational Drug Use: No Smoking Status: Current Everyday Smoker (1 PPD FOR > 40 YEARS) Type Used: Cigarettes Recent Foreign Travel: No Contact w/Someone Who Travel: No Recent Infectious Disease Expo: No Immunizations Up To Date Date of Influenza Vaccine: Jan 01, 2018 Past Medical History Surgeries: Yes (JAW SURGERY TO CORRECT UNDERBITE; COLONOSCOPIES WITH MULTIPLE POLYPECTOMIES; HYST/OVARIES INTACT; CARDIAC CATH 12/2013--NORMAL. 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 1.0oz. 122.923854if; 42.0 BMI Method:Estimated General Appearance: no apparent distress, obese Eyes: bilateral eye PERRL, bilateral eye EOMI Mouth/Throat: normal mouth inspection, pharynx normal; No excessive drooling, No trismus, No voice changes; other (NO SUBLINGUAL SWELLING OR ERYTHEMA OR TENDERNESS. ) Neck: other (HAS SIGNIFICANT SWELLING, ERYTHEMA, AND VERY HARD/FIRM INDURATION TO ANTERIOR NECK SURROUNDING SURGICAL WOUND FROM RECENT THYROIDECTOMY; INCISION IS CLEAN, DRY AND INTACT. NO AREAS OF FLUCTUANCE, NO DRAINAGE, NO STREAKS. ) Cardiovascular: regular rate, rhythm, no murmur Respiratory: normal breath sounds, no respiratory distress Neurologic/Psychiatric: open hearth helper II-XII nml as tested, no motor/sensory deficits, alert, normal mood/affect, oriented x 3 Skin: normal color, warm/dry, other ( ABOVE) Progress/Results/Core Measures Results/Orders Lab Results Laboratory Tests Test 05/27/18 20:36 Range/Units White Blood Count 10.8 4.3-11.0 10^3/uL Red Blood Count 4.05 L 4.35-5.85 10^6/uL Hemoglobin 12.3 11.5-16.0 G/DL Hematocrit 35 35-52 % Mean Corpuscular Volume 86 80-99 FL Mean Corpuscular Hemoglobin 30 25-34 PG Mean Corpuscular Hemoglobin Concent 35 32-36 G/DL Red Cell Distribution Width 18.0 H 10.0-14.5 % Platelet Count 358 130-400 10^3/uL Mean Platelet Volume 8.8 7.4-10.4 FL Neutrophils (%) (Auto) 78 H 42-75 % Lymphocytes (%) (Auto) 14 12-44 % Monocytes (%) (Auto) 6 0-12 % Eosinophils (%) (Auto) 2 0-10 % Basophils (%) (Auto) 1 0-10 % Neutrophils # (Auto) 8.5 H 1.8-7.8 X 10^3 Lymphocytes # (Auto) 1.5 1.0-4.0 X 10^3 Monocytes # (Auto) 0.6 0.0-1.0 X 10^3 Eosinophils # (Auto) 0.2 0.0-0.3 10^3/uL Basophils # (Auto) 0.1 0.0-0.1 10^3/uL Sodium Level 138 135-145 MMOL/L Potassium Level 3.6 3.6-5.0 MMOL/L Chloride Level 99 98-107 MMOL/L Carbon Dioxide Level 25 21-32 MMOL/L Anion Gap 14 5-14 MMOL/L Blood Urea Nitrogen 10 7-18 MG/DL Creatinine 0.68 0.60-1.30 MG/DL Estimat Glomerular Filtration Rate > 60 BUN/Creatinine Ratio 15 Glucose Level 96 70-105 MG/DL Calcium Level 8.5 8.5-10.1 MG/DL Corrected Calcium 8.2 L 8.5-10.1 MG/DL Magnesium Level 2.6 H 1.8-2.4 MG/DL Total Bilirubin 1.3 H 0.1-1.0 MG/DL Aspartate Amino Transf (AST/SGOT) 17 5-34 U/L Alanine Aminotransferase (ALT/SGPT) 21 0-55 U/L Alkaline Phosphatase 87 40-136 U/L Total Protein 8.0 6.4-8.2 GM/DL Albumin 4.4 3.2-4.5 GM/DL Free Thyroxine 0.95 0.70-1.48 NG/DL TSH [place] Testing 17.61 H 0.35-4.94 UIU/ML My Orders Orders - IRVIN RAM DO Ct Neck (Soft Tissue) W (05/27/18 20:08) Saline Lock/Iv-Start (05/27/18 20:08) Cbc With Automated Diff (05/27/18 20:08) Comprehensive Metabolic Panel (05/27/18 20:08) Magnesium (05/27/18 20:08) Thyroid Analyzer (05/27/18 20:08) Blood Culture (05/27/18 20:08) Free T4 (Free Thyroxine) (05/27/18 20:36) Piperacillin/Tazobactam (Bulk) (Zosyn In (05/27/18 22:15) Ketorolac Injection (Toradol Injection) (05/27/18 22:15) Piperacillin Sodium/Tazobactam (Zosyn Vi (05/27/18 22:14) Ns (Ivpb) (Sodium Chloride 0.9% Ivpb Bag (05/27/18 22:14) Iohexol Injection (Omnipaque 350 Mg/Ml 1 (05/27/18 23:00) Received Contrast (Hold Metformin- Contr (05/27/18 23:00) Saline Lock/Iv-Start (05/27/18 23:30) Ns Iv 1000 Ml (Sodium Chloride 0.9%) (05/27/18 23:30) Rx-Trimeth/Sulfameth Ds Tab (Rx-Bactrim/ (05/28/18 00:46) Medications Given in ED Current Medications Medications Dose Ordered Sig/Ramya Route Start Time Stop Time Status Last Admin Dose Admin Iohexol 100 ml ONCE ONCE IV 05/27/18 23:00 05/27/18 23:01 DC 05/27/18 22:59 100 ML Ketorolac Tromethamine 30 mg ONCE ONCE IVP 05/27/18 22:15 05/27/18 22:16 DC 05/27/18 22:25 30 MG Piperacillin Sod/ Tazobactam Sod 4.5 gm STK-MED ONCE IV 05/27/18 22:14 05/27/18 22:16 DC 05/27/18 22:26 4.5 GM Sodium Chloride 100 ml @ ud STK-MED ONCE .ROUTE 05/27/18 22:14 05/27/18 22:17 DC 05/27/18 22:26 240 MLS/HR Vital Signs/I&O 05/27/18 05/28/18 20:04 01:14 Temp 98.0 98.0 Pulse 104 79 Resp 20 18 B/P (MAP) 158/91 (113) 147/64 (91) Pulse Ox 93 94 O2 Delivery Room Air 05/27/18 23:59 Intake Total 100 ml Balance 100 ml Blood Pressure Mean: 113 Progress Progress Note : Progress Note DECREASED PAIN WITH TORADOL THIS HOSPITAL IS CURRENTLY ON DIVERSION. DISCUSSED OPTION OF BEING TRANSFERRED TO ANOTHER FACILITY TONIGHT, OR FOLLOW UP WITH DR. CHATTERJEE TOMORROW FOR FURTHER CARE, AND PT OPTS TO GO HOME AND SEE DR. CHATTERJEE. NO FEVER AND NORMAL VITALS DURING ER STAY. Diagnostic Imaging Comments CT NECK SOFT TISSUE--POST OP CHANGES TO THYROID BED WITH SURGICAL CLIPS IN PLACE. DECREASE IN PREVIOUSLY IDENTIFIED FLUID COLLECTION IN THYROID BED, WHICH COMMUNICATES WITH A MUCH LARGER SUB Q COLLECTION OF FLUID THAT HAS INCREASED IN SIZE FROM PREVIOUS STUDY--6.4 X 3.6 X 5.9 CM . LARGER COLLECTION WITH THICK , IRREGULAR ENHANCING WALL, NO GAS IN FLUID COLLECTION. POSSIBLE SEROMA, BUT CANNOT RULE OUT ABSCESS. NO EFFACEMENT OF AIRWAY--PER [facility] VIA FAX @ [phone] Departure Impression Primary Impression: Post-operative wound abscess Additional Impressions: Iatrogenic hypothyroidism Status post thyroidectomy Disposition: HOME, SELF-CARE Condition: Stable Departure-Patient Inst. Referrals: [facility] (PCP/Family) Primary Care Physician MOOKIE CHATTERJEE MD Patient Instructions: Hypothyroidism (Underactive Thyroid) (DC), Skin Abscess, Surgical Wound (DC), Wound Infection Add. Discharge Instructions: INCREASE YOUR LEVOTHYROXINE TO 1 1/2 PILLS DAILY FOLLOW UP WITH [facility] IN 1 WEEK FOR FURTHER EVALUATION OF THYROID MEDICATION FOLLOW UP WITH DR. CHATTERJEE IN THE MORNING FOR FOLLOW UP FOR THIS POST OP PROBLEM RETURN TO ER IF WORSE YOU MAY TAKE YOUR HOME TRAMADOL NEEDED FOR PAIN YOU MAY ALSO TAKE TYLENOL AND IBUPROFEN NEEDED FOR PAIN TAKE COLACE 1-2 PILLS TWICE A DAY FOR CONSTIPATION All discharge instructions reviewed with patient and/or family. Voiced understanding. IRVIN RAM DO May 27, 2018 21:50
[2018-05-27] MEDS ORDERED: PIPERACILLIN/TAZO 4.5 GM VIAL (ZOSYN) IV ONE (22:14)
[2018-05-27] MEDS ORDERED: NS (IVPB) 100 ML ONE (22:14)
[2018-05-27] MEDS ORDERED: KETOROLAC 30 MG/ML VIAL IVP ONE (22:15)
[2018-05-27] MEDS ORDERED: PIPERACILLIN/TAZOBACTAM (BULK) 4.5 GM in NS (IVPB) 100 ML IV ONE (22:15)
[2018-05-27 22:32] LABS: FREE T4 (FREE THYROXINE) 0.95 NG/DL (0.70-1.48)
[2018-05-27] MEDS ORDERED: HOLD METFORMIN - RECEIVED CONTRAST 20 ML VIAL IV SCH (23:00)
[2018-05-27] MEDS ORDERED: IOHEXOL 350 MG/ML 100 ML (OMNIPAQUE 350) VIAL IV ONE (23:00)
[2018-05-27] MEDS ORDERED: NS IV 1000 ML 1,000 ML IV SCH (23:30)
[2018-05-28] MEDS ORDERED: RX-TRIMETH/SULFA. 160-800 MG (BACTRIM DS) TAB PPK#2 PO STA (00:46)
[2018-05-28 01:14] VITALS: BP 147/64
--- NOTE | 2018-05-28 07:40 | Diagnostic Imaging Report ---
PROCEDURE: CT neck soft tissue with contrast. TECHNIQUE: Multiple contiguous axial images were obtained through the neck after the administration of contrast. Auto Exposure Controls were utilized during the CT exam to meet ALARA standards for radiation dose reduction. INDICATION: Throat swelling. Comparison made with prior examination from 05/06/2018. FINDINGS: The visualized intracranial structures are unremarkable. The nasopharyngeal, oropharyngeal and hypopharyngeal tissues are symmetric without mass effect. There is no tonsillar enlargement or abscess. Epiglottis is normal. Trachea is normal. The prevertebral soft tissues are within normal limits. The parotid and submandibular glands are normal in appearance. There are postsurgical changes in the thyroid bed with multiple surgical clips. There is a fluid collection anterior to the thyroid bed that appears to communicate with the larger subcutaneous fluid collection measuring 6.4 cm transverse by 3.6 cm AP by 5.9 cm craniocaudal. This has an enhancing irregular wall. There is no gas within the collection. The fluid collection around the thyroid is decreased in size while the subcutaneous collection has increased in size when compared to prior examination. While this may simply reflect seroma the irregular enhancing ibarra raise the possibility of abscess. There is minimal degenerative change in the cervical spine. Major vascular structures of the neck enhance in a normal fashion. There is no pathologically enlarged adenopathy in the neck. Lung apices are clear. IMPRESSION: Interval decrease in the previously identified fluid collection in the surgical bed of the thyroid however this does appear to communicate with the subcutaneous collection which is increased in size since prior exam. This demonstrates a thick enhancing wall. While there is no gas within the collection the possibility of abscess cannot be entirely excluded. Recommend clinical correlation and if warranted followup with aspiration. There is no significant mass effect on the airway. No other acute abnormality of the neck. Dictated by: Dictated on workstation # [id number]
== END 2018-05-28 01:18 | disposition home or self-care (01) ==
LOC: EDUNIT# 19:51 → ER 19:54
DX: T81.40XA Infection following a procedure, unspecified, initial encounter (principal); E03.2 Hypothyroidism due to medicaments and other exogenous substances; G47.30 Sleep apnea, unspecified; E66.9 Obesity, unspecified; F41.9 Anxiety disorder, unspecified; F32.9 Major depressive disorder, single episode, unspecified; I10 Essential (primary) hypertension; F17.210 Nicotine dependence, cigarettes, uncomplicated; Z90.89 Acquired absence of other organs; Z87.448 Personal history of other diseases of urinary system; Z86.010 Personal history of colon polyps; Z90.710 Acquired absence of both cervix and uterus; Z98.890 Other specified postprocedural states
CPT/HCPCS: 36415; 70491; 80053; 83735; 84439; 84443; 85025; 87040; 96361; 96374; 96375

== ENCOUNTER → 2018-09-10 | Outpatient (CLI) | payer OTHER ==
--- NOTE | 2018-09-10 11:57 | Diagnostic Imaging Report ---
INDICATION: Screening for osteoporosis. COMPARISON: None. FINDINGS: The bone mineral density of the hips and spine was measured. There are no prior studies available for comparison. The T-score for the spine is -1.6. This does indicate osteopenia. The total T-score for the left hip is -1.0 and for the right hip -0.5. The T-score for the right femoral neck is -0.9. These values are within normal limits. However, the T-score for the left femoral neck is -1.6. This does indicate osteopenia. AP Spine L1-L4: [BMD (g/cm2): 1.008] [T-Score: -1.6] [Z-Score: -1.7] [BMD Previous: N/A] [BMD % Change: N/A] LT Hip Neck: [BMD (g/cm2): 0.819] [T-Score: -1.6] [Z-Score: -1.2] LT Hip Total: [BMD (g/cm2):0.879] [T-Score:-1.0] [Z-Score: -0.5] [BMD Previous: N/A] [BMD % Change: N/A] RT Hip Neck: [BMD (g/cm2):0.918] [T-Score:-0.9] [Z-Score:-0.4] RT Hip Total: [BMD (g/cm2):0.941] [T-score:-0.5] [Z-Score:-0.5] [BMD Previous:N/A] [BMD % Change:N/A] *Indicates significant change from prior examination based on 95% confidence level. World Health Organization criteria for BMD interpretation classify patients as Normal (T-score at or above -1.0), Osteopenic (T-score between -1.0 and -2.5) or Osteoporotic (T-score at or below -2.5). LIMITATIONS AND MODIFICATION: None. FRACTURE RISK (FRAX SCORE): The ten year probability of (%): Major Osteoporotic Fracture: [6.9] Hip Fracture: [0.5] IMPRESSION: 1. The total T-scores for the hips and for the right femoral neck are within normal limits. 2. The T-score for the spine and the left femoral neck, however, falls within the range of osteopenia. 3. See below National Osteoporosis Foundation guidelines on when to potentially initiate pharmacologic therapy. Based on the National Osteoporosis Foundation Guidelines, pharmacologic treatment should be initiated in any of the following, unless clinical conditions suggest otherwise: * Any patient with prior fragility fracture of the hip or vertebrae. A spine fracture indicates 5X risk for subsequent spine fracture and 2X risk for subsequent hip fracture. * Osteoporosis (T-score <-2.5). * Postmenopausal women and men age 50 and older with low bone mass/osteopenia (T-score between -1.0 and -2.5) by DXA and 10-year major osteoporotic fracture greater than 20% or a 10-year probability of hip fracture greater than 3%. These fracture risks are supplied above in the FRAX score, if applicable. * Clinician judgment and/or patient preferences may indicate treatment for people with 10-year fracture probabilities above or below these levels. Dictated by: Dictated on workstation # [id number]
== END ==
LOC: RAD 09:12
PROVIDERS: ATTEND Nurse Practitioner Community Health
DX: Z13.820 Encounter for screening for osteoporosis (principal); N95.1 Menopausal and female climacteric states
CPT/HCPCS: 77080

== ENCOUNTER → 2019-05-08 | Outpatient (CLI) | payer SELFPAY ==
[~2019-05-08] MED LIST changes: +OXYB5TAB13 PO; -OXYB5TAB9 PO; +TRM50T PO
--- NOTE | 2019-05-08 13:56 | Diagnostic Imaging Report ---
TIME OF EXAM: 05/08/2019 1:18 PM REASON FOR EXAM: Lung cancer screening. 40 pack year history smoking. Quit 1 year ago. COMPARISON: 05/06/2018. TECHNIQUE: Low Dose CT helical images obtained through the chest. Sagittal and coronal reformats were obtained and reviewed. Dose reduction techniques were utilized. CTDI vol: 2.22 mGy FINDINGS: Nodules: -- A) 4 mm, indeterminate noncalcified groundglass right upper lobe nodule (image 54 series 2) Lungs: Lung volumes are normal. No significant emphysema or fibrosis is present. There is no appreciable bronchiectasis. No pulmonary mass or consolidation is present. No central endoluminal airway lesion is seen. Heart and Mediastinum: Heart size is within normal limits. Small amount of coronary calcifications are present. Aortic atherosclerosis is present without aneurysm. No pericardial effusion is present. No axillary, supraclavicular, mediastinal, internal mammary, or hilar adenopathy is present by CT size criteria. Normal size and attenuation of the visualized thyroid gland. Pleura: Normal pleural spaces. No effusion or pneumothorax. No pleural nodularity or mass. Abdomen: Included views of the upper abdomen demonstrate no acute abnormality. Bones and soft tissues: Regional skeletal and soft tissue structures are age-appropriate. IMPRESSION: 1. Stable 4 mm groundglass nodule in the right upper lobe. No new suspicious pulmonary nodules. Recommend continued surveillance with annual low-dose chest CT. 2. No thoracic lymphadenopathy. Result code: Category 2: Benign Appearance or Behavior Follow up: Continue annual screening with LDCT in 12 months Dictated by: Dictated on workstation # [id number]
== END ==
LOC: RAD 11:54
PROVIDERS: ATTEND Nurse Practitioner Family
DX: R91.1 Solitary pulmonary nodule (principal); R06.00 Dyspnea, unspecified; Z87.891 Personal history of nicotine dependence; Z72.0 Tobacco use

== ENCOUNTER → 2019-09-29 | Outpatient (CLI) | payer OTHER ==
[~2019-09-29] MED LIST changes: +RT-ALBUTEROL SULF 2.5 MG/3 ML PRE-MIX VIAL INH ONE
== END ==
LOC: RT 13:01
PROVIDERS: ATTEND Nurse Practitioner Family
DX: R91.8 Other nonspecific abnormal finding of lung field (principal); R06.00 Dyspnea, unspecified
CPT/HCPCS: 94060; 94726; 94729

== ENCOUNTER → 2020-05-10 | Outpatient (CLI) | payer SELFPAY ==
[~2020-05-10] MED LIST changes: -RT-ALBUTEROL SULF 2.5 MG/3 ML PRE-MIX VIAL INH ONE
--- NOTE | 2020-05-10 16:10 | Diagnostic Imaging Report ---
CT Lung Screening INDICATION:Screening for lung cancer, 42 pack year history of smoking, quit smoking 3 years prior. TECHNIQUE: Noncontrast, low-dose CT imaging performed according to the lung cancer screening protocol. Auto Exposure Controls were utilize during the CT exam to meet ALARA standards for radiation dose reduction. COMPARISON:05/08/2019, 05/06/2018, and 12/12/2017. FINDINGS:Postsurgical changes at the expected location of the thyroid gland again noted. No significant adenopathy within the chest. No aneurysmal dilatation of the thoracic aorta. Mild scattered vascular calcifications. The heart is within normal limits in size. No pericardial effusion. No pleural effusion. The trachea is patent. No pneumothorax. Stable 0.4 cm right upper lobe pulmonary nodule, unchanged since 2019. The lungs are otherwise clear. The spleen is enlarged measuring 16.5 cm in AP dimension. No acute osseous abnormality with scattered osseous degenerative changes present. IMPRESSION:Stable benign 0.4 cm right upper lobe pulmonary nodule, unchanged since 2019. No new pulmonary nodules. Splenomegaly. LUNG-RADS CATEGORY:2S: Benign appearance or behavior. MODIFIER:S: Splenomegaly Follow-up: Continued annual low-dose CT of the chest in 12 months. Dictated by: Dictated on workstation # [id number]
== END ==
LOC: RAD 14:15
PROVIDERS: ATTEND Nurse Practitioner Family
DX: Z12.2 Encounter for screening for malignant neoplasm of respiratory organs (principal); R91.1 Solitary pulmonary nodule; Z87.891 Personal history of nicotine dependence
CPT/HCPCS: 71271

== ENCOUNTER → 2020-10-01 | Outpatient (CLI) | payer OTHER | LOC: CARD 12:00 | PROVIDERS: ATTEND Internal Medicine Cardiovascular Disease | DX: I51.7 Cardiomegaly (principal) | CPT/HCPCS: 93225; 93226; 93306 ==

== ENCOUNTER → 2020-10-05 | Outpatient (CLI) | payer OTHER ==
[~2020-10-05] MED LIST changes: +REGADENOSON 0.4 MG/5 ML SYR (LEXISCAN) IV ONE
[2020-10-05] MEDS: CATHETER FLUSH 10 ML SYR IV PRN ×2 (11:30→13:16)
[2020-10-05 13:14] VITALS: BP 153/78
--- NOTE | 2020-10-05 19:57 | STRESS TEST ---
DATE OF SERVICE: 10/05/2020 RESTING AND POST REGADENOSON TECHNETIUM-99M TETROFOSMIN SPECT CT IMAGING Baseline images were carried out after injection of 10.48 mCi of technetium-99m Tetrofosmin. This was followed by 29.5 mCi of technetium-99m Tetrofosmin for stress imaging. The electrocardiogram showed sinus rhythm at baseline and did not change significantly with regadenoson infusion. Review of images at rest and following stress indicates a small amount of anteroapical ischemia. Gated images show normal global left ventricular systolic function with normal regional wall motion. Left ventricular ejection fraction is calculated to be 64%. CONCLUSIONS: 1. This study is indicative of a small amount of anteroapical ischemia. 2. Normal regional wall motion. 3. Normal global left ventricular systolic function with a calculated ejection fraction of 64%. Job ID: [id number] DocumentID: [id number] Dictated Date: 10/05/2020 17:45:09 Orthopedic Podiatrist Date: 10/05/2020 19:56:23 Dictated By: YANNA GALLARDO MD, MA, FACP, FACC,
== END ==
LOC: CARD 11:45
PROVIDERS: ATTEND Internal Medicine Cardiovascular Disease
DX: R06.09 Other forms of dyspnea (principal)
CPT/HCPCS: 78452; 93017; A9502

== ENCOUNTER 2021-12-21 05:38 | Outpatient (CLI) | payer MEDICARE ==
[~2021-12-21] VITALS: Ht 167.6 cm; Wt 134.7 kg
[~2021-12-21 05:38] MED LIST changes: +DICY20TA PO; -DICY20TA10 PO; -REGADENOSON 0.4 MG/5 ML SYR (LEXISCAN) IV ONE
[2021-12-22] MEDS ORDERED: DOCU-26 PO (09:25)
[2021-12-22] MEDS ORDERED: ALPR1TAB7 PO (09:25)
[2021-12-22] MEDS ORDERED: LEVO137T2 PO (09:25)
[2021-12-22] MEDS ORDERED: FLUT1BLS12 IH (09:25)
[2021-12-22] MEDS ORDERED: GABA-490 PO (09:25)
[2021-12-22] MEDS ORDERED: FLUO40CA PO (09:25)
[2021-12-22] MEDS ORDERED: CALC0.5C11 PO (09:25)
[2021-12-22] MEDS ORDERED: LORA10TA7 PO (09:25)
[2021-12-22] MEDS ORDERED: ASPI-999 PO (09:25)
== END 2021-12-22 09:26 | disposition home or self-care (01) ==
LOC: PREOP 05:38
PROVIDERS: ATTEND Surgery
DX: Z01.818 Encounter for other preprocedural examination (principal)

== ENCOUNTER 2022-01-03 11:03 | Day surgery (SDC) | payer MEDICARE ==
[~2022-01-03] VITALS: Ht 167 cm; Wt 134.7 kg
[~2022-01-03 11:03] MED LIST changes: +ASPI-999 PO; +CALC0.5C11 PO; +DOCU-26 PO; +FLUO40CA PO; +FLUT1BLS12 IH; +LEVO137T2 PO; +LORA10TA7 PO
[2022-01-03] MEDS ORDERED: LACTATED RINGERS 1,000 ML IV STA (11:16)
[2022-01-03] MEDS ORDERED: HURRICAINE EXT TUBE (BENZOCAINE) XX PRN (11:30)
[2022-01-03 11:39] VITALS: BP 150/78
--- NOTE | 2022-01-03 13:49 | Progress Note-Pre Operative ---
Pre-Operative Progress Note Date of Available H&P: Dec 07, 2021 Date H&P Reviewed: Jan 03, 2022 Time H&P Reviewed: 13:49 History & Physical: H&P Reviewed, Patient Examed, No changes noted Pre-Operative Diagnosis: GERD, hx of polyps YENNY ALMEIDA DO Jan 03, 2022 13:49
[2022-01-03] MEDS ORDERED: PROPOFOL INJECTION 50 ML IV ONE (14:54)
[2022-01-03 15:34] VITALS: BP 143/68
--- NOTE | 2022-01-03 15:35 | Discharge Inst-Simple/Standard ---
Discharge Inst-Standard Patient Instructions/Follow Up Plan of Care/Instructions/FU: f/u [address] Grossman Activity as Tolerated: Yes Discharge Diet: No Restrictions, Regular Diet YENNY GROSSMAN DO Jan 03, 2022 15:35
[2022-01-03 15:40] VITALS: BP 143/68
[2022-01-03 16:05] VITALS: BP 143/68
--- NOTE | 2022-01-03 16:09 | Anesthesia-General Post-Op ---
MAC Patient Condition Mental Status/LOC: Same as Preop Cardiovascular: Satisfactory Nausea/Vomiting: Absent Respiratory: Satisfactory Pain: Controlled Complications: Absent Post Op Complications Complications None Follow Up Care/Instructions Patient Instructions None needed. Anesthesiology Discharge Order Discharge Order Patient is doing well, no complaints, stable vital signs, no apparent adverse anesthesia problems. No complications reported per nursing. VICKIE LAGOS CRNA Jan 03, 2022 16:09
--- NOTE | 2022-01-04 00:10 | OPERATIVE REPORT ---
DATE OF SERVICE: 01/03/2022 PREOPERATIVE DIAGNOSES: History of polyps, GERD. POSTOPERATIVE DIAGNOSES: Hiatal hernia, rectal polyp. PROCEDURES: EGD with biopsies, colonoscopy with snare polypectomy x1. SURGEON: Yenny Grossman DO ANESTHESIA: Per [employer]ER. ESTIMATED BLOOD LOSS: None. COMPLICATIONS: None. INDICATIONS: The patient is a 62-year-old female with GERD symptoms and has a history of colon polyps. She understood risks and benefits of procedure and wishes to proceed. Consent was signed in chart. DESCRIPTION OF PROCEDURE: The patient was taken to endoscopy suite, placed in left lateral position. Timeout was performed. The scope was inserted, the mouth, down the esophagus, stomach and duodenum without difficulty. There was no pulse, mass or ulceration of the duodenum. Scope was retracted back to the stomach where it was further insufflated. Biopsy of the antrum was obtained. some slight gastritis changes present. Scope was retroflexed, noting hiatal hernia, small sinus. Scope was returned to its normal position. Slowly withdrawn from distal esophagus. No polyps, masses or ulcerations. Biopsy of the GE junction was obtained. Scope was retracted back to completely remove. A digital rectal exam was performed. No palpable pulse, mass or ulcerations. Scope was inserted in the rectum and advanced all the way to the cecum with minimal difficulty. Prep was adequate. The scope was slowly retracted back. No polyps, masses or ulcerations in the cecum, ascending, transverse, descending and sigmoid colon. Once in the rectum, a small polyp was present, which snare polypectomy was performed. The scope was inserted and retracted multiple times, noting no other pathology. Scope was slowly retracted back to completely remove. The patient tolerated the procedure well without complications, taken to recovery room in stable condition. RECOMMENDATIONS: The patient will need repeat colonoscopy in 5 years. Any issues before that be seen at that time. We will continue on current medications and await biopsy results for her GERD symptoms. We will likely start her on Protonix. Job ID: [id number] DocumentID: [id number] Dictated Date: 01/03/2022 15:34:35 Filtrose Crusher Date: 01/04/2022 00:08:00 Dictated By: YENNY GROSSMAN DO
== END 2022-01-03 16:20 | disposition home or self-care (01) ==
LOC: ENDO 11:03
PROVIDERS: ATTEND Surgery
DX: Z12.11 Encounter for screening for malignant neoplasm of colon (principal); K44.9 Diaphragmatic hernia without obstruction or gangrene; K21.9 Gastro-esophageal reflux disease without esophagitis; K62.1 Rectal polyp; K29.70 Gastritis, unspecified, without bleeding; E66.01 Morbid (severe) obesity due to excess calories; Z68.42 Body mass index [BMI] 45.0-49.9, adult; Z86.010 Personal history of colon polyps
CPT/HCPCS: 88305

== ENCOUNTER → 2022-09-25 | Outpatient (CLI) | payer MEDICARE | LOC: CARD 12:10 | PROVIDERS: ATTEND Nurse Practitioner Family | DX: R06.09 Other forms of dyspnea (principal); R07.89 Other chest pain | CPT/HCPCS: 93306 ==

== ENCOUNTER → 2022-10-13 | Outpatient (CLI) | payer MEDICARE ==
[~2022-10-13] MED LIST changes: +CATHETER FLUSH 10 ML SYR IVP PRN; +REGADENOSON 0.4 MG/5 ML SYR (LEXISCAN) IV ONE
[2022-10-13 08:47] VITALS: BP 167/87
--- NOTE | 2022-10-13 19:05 | STRESS TEST ---
DATE OF SERVICE: 10/13/2022 RESTING AND POST-EXERCISE TECHNETIUM-99M TETROFOSMIN SPECT CT IMAGING ORDERING PHYSICIAN: Shreya Elizondo APRN. PRIMARY PHYSICIAN: Dr. Darren Rojas. CLINICAL DIAGNOSIS: Chest discomfort. Baseline images were carried out after injection of 10.67 mCi of technetium-99m tetrofosmin. This was followed by 0.4 mg regadenoson and 30.4 mCi of technetium-99m tetrofosmin for stress imaging. The electrocardiogram showed sinus rhythm at baseline. It did not change significantly with regadenoson infusion. The patient tolerated the procedure well. Review of images at rest and following stress does not indicate any distinct perfusion defects consistent with significant myocardial ischemia. Some degree of breast attenuation is seen both at rest and following regadenoson infusion. Gated images show normal global left ventricular systolic function with normal regional wall motion. Left ventricular ejection fraction is calculated to be 69%. Left ventricular end-diastolic volume 71 mL, TID is absent (1.01). CONCLUSIONS: 1. No evidence of any significant myocardial ischemia or infarction on this study. 2. Normal regional wall motion. 3. Normal global left ventricular systolic function with a calculated ejection fraction 69%. Job ID: [id number] DocumentID: [id number] Dictated Date: 10/13/2022 12:53:04 Allergist Date: 10/13/2022 19:02:00 Dictated By: YANNA GALLARDO MD; MRAIA DE JESUS; FACP; FACC;
== END ==
LOC: CARD 06:56
PROVIDERS: ATTEND Nurse Practitioner Family
DX: R07.89 Other chest pain (principal)
CPT/HCPCS: 78452; 93017; A9502